=== PATIENT | female | born 1945 | race Caucasian/White ===

== ENCOUNTER → 2018-03-12 | Outpatient (CLI) | payer MEDICARE ==
--- NOTE | 2018-03-12 12:40 | MR ---
EXAMINATION TYPE: MR knee RT wo con DATE OF EXAM: 03/12/2018 COMPARISON: X-ray 02/23/2018 HISTORY: Right knee pain TECHNIQUE: Multiplanar, multisequence imaging of the right knee is performed without IV contrast. FINDINGS: MEDIAL MENISCUS: There is linear signal posterior horn medial meniscus with articular extension kaycee tible with a posterior horn meniscal tear. LATERAL MENISCUS: Intrasubstance signal seen in the anterior horn most of myxoid degeneration CRUCIATE LIGAMENTS: The anterior and posterior cruciate ligaments are intact and unremarkable. COLLATERAL LIGAMENTS: The medial collateral ligament and lateral collateral ligament complex are inta ct and unremarkable. EXTENSOR MECHANISM: Visualized quadriceps and patellar tendons are intact. EFFUSION: No significant suprapatellar joint effusion. POPLITEAL CYST: There is a 1 cm popliteal fossa cyst. TRICOMPARTMENT SPACES: Mild narrowing of the medial compartment of the knee joint. No erosive changes . There is loss of cartilage involving the medial articular surface of femur compatible with chondrom alacia. There is thinning of the medial patellar facet cartilage compatible with chondromalacia. BONE MARROW SIGNAL: Abnormal signal involving the patella likely reactive.. IMPRESSION: 1. Posterior horn medial meniscal tear. 2. 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 3. Small 1 x 1 cm popliteal fossa cyst
== END | disposition home or self-care (01) ==
LOC: RADMRIMAIN 11:42
PROVIDERS: ATTEND Orthopaedic Surgery
DX: S83.241A Other tear of medial meniscus, current injury, right knee, initial encounter (principal); M22.41 Chondromalacia patellae, right knee; M71.21 Synovial cyst of popliteal space [Baker], right knee

== ENCOUNTER 2018-07-12 09:41 | Day surgery (SDC) | payer MEDICARE ==
[2018-06-04 12:36] VITALS: BMI 28.9
--- NOTE | 2018-07-11 20:24 | HP ---
HISTORY AND PHYSICAL REASON FOR ADMISSION: Surgery scheduled for 07/12/2018 HISTORY OF PRESENT ILLNESS: Ines Briseno is a 72-year-old patient seen with progressive right knee pain. Treatment options were discussed. She elected to proceed with arthroscopy. Consent was obtained. PAST MEDICAL HISTORY: Insulin-dependent diabetes, hypertension, coronary artery disease, depression. PAST SURGICAL HISTORY: Appendectomy, cholecystectomy, hysterectomy. DAILY MEDICATIONS: Humalog insulin, Lipitor, losartan, Neurontin, Irving, Plavix, tramadol. ALLERGIES: FENTANYL. SOCIAL HISTORY: She denies tobacco use. PHYSICAL EXAMINATION: Evaluation of the right knee range of motion is 0 to 120 degrees. Tenderness along the medial and lateral joint lines. Positive medial Barber's. Positive lateral Barber's. Ligaments are stable. Hip rotation is without pain. Her distal neurovascular exam is intact. RADIOGRAPHS: Radiographs of the right knee revealed mild osteoarthritis and joint effusion. An MRI of the right knee revealed a medial meniscal tear. IMPRESSION: Internal derangement, right knee with medial meniscal tear. PLAN: Right knee arthroscopy with partial meniscectomy and debridement. Surgery scheduled for 07/12/2018. MMODL / IJN: [id number] /
[~2018-07-12 09:41] MED LIST: DEXAMETHASONE SOD PHOSPHATE 10 MG/ML 1 ML VIAL IV ONE; HYDROmorphone 0.5 MG/0.5 ML SYRINGE IVP PRN; LACTATED RINGERS 1,000 ML IV SCH; LIDOCAINE 1% 20 ML VIAL (10MG/ML) FOR IV START INTRADERMA PRN; ONDANSETRON 4 MG/2 ML VIAL IVP ONE; SCOPOLAMINE 1.5MG/72HR PATCH TRANSDERM ONE
[2018-07-12 10:34] LABS: Glucose,Whole Blood 97 mg/dL (75-99)
[2018-07-12] MEDS ORDERED: LIDOCAINE 1% INJ 10MG/ML (20 ML MDV) ONE (11:40)
[2018-07-12] MEDS ORDERED: MORPHINE SULFATE 10 MG/ML SYRINGE ONE (11:40)
[2018-07-12] MEDS ORDERED: PROPOFOL 10 MG/ML 20 ML VIAL IV ONE (11:40)
[2018-07-12] MEDS ORDERED: MIDAZOLAM 2 MG/2 ML VIAL ONE (11:40)
[2018-07-12] MEDS ORDERED: BUPIVACAIN-EPI 0.5%-1:200,000 30 ML VIAL INTRAARTIC ONE (11:45)
--- NOTE | 2018-07-12 12:41 | P.OP ---
Date of Procedure: 07/12/18 Preoperative Diagnosis: Internal derangement right knee Postoperative Diagnosis: 1. Tear medial meniscus right knee 2. Grade 3/4 chondromalacia medial femoral condyle right knee 3. Reactive synovitis medial, lateral and suprapatellar compartments right knee 4. Medial plica right knee Procedure(s) Performed: 1. Arthroscopic partial medial meniscectomy right knee 2. Arthroscopic chondroplasty medial femoral condyle right knee 3. Arthroscopic microfracture medial femoral condyle right knee 4. Arthroscopic partial synovectomy medial, lateral and suprapatellar compartments right knee 5. Arthroscopic resection medial plica right knee Anesthesia: TERRY, local Surgeon: Herve Bertrand Estimated Blood Loss (ml): 6 Pathology: none sent Condition: stable Disposition: PACU Indications for Procedure: 72-year-old patient seen with progressive right knee pain. After treatment options were discussed, she elected to proceed with arthroscopy. Operative Findings: See description of procedure Description of Procedure: Patient was taken to the operative suite. Patient underwent a general anesthetic by the department of anesthesia. Patient was given preoperative antibiotics. The right lower extremity was placed in a well-padded arthroscopic leg lemus. The right leg was prepped and draped in the normal sterile orthopedic fashion. A lateral parapatellar and suprapatellar incision was made. Trochars were inserted. Arthroscopy was initiated. Suprapatellar pouch revealed diffuse thick reactive synovitis. The patellofemoral joint appeared to articulate congruently. There was grade 1 chondromalacia. The scope was guided into the medial gutter. There was a medial plica that did seem to impinge along the medial femoral condyle with range of motion. The scope was then guided into the medial compartment. A medial parapatellar incision was made. Trocar inserted followed by probe. There was a radial tear posterior horn medial meniscus. There were grade 3/4 chondromalacia changes of the medial femoral condyle with some osteochondral tears present. There was thick reactive synovitis anteriorly. I performed a partial medial meniscectomy down to stable tissue. I performed a chondroplasty down to stable osteochondral tissue. I performed a partial synovectomy decompressing the reactive synovitis. There was good decompression of synovitis. The residual meniscus was stable. There was an area of exposed bone medial femoral condyle. I performed a microfracture to that area penetrating the bone with resultant bleeding at the microfracture site. The residual osteochondral surface appeared stable. Scope and probe were then guided into the intercondylar notch. Cruciates were identified, probed and found to be stable. The scope and probe were then guided into lateral compartment. The lateral meniscus was found to be stable. There was thick reactive synovitis anteriorly. There was no significant chondromalacia. I performed a partial synovectomy decompressing the reactive synovitis lateral compartment. There was good decompression of the synovitis. The scope was in guided back into the suprapatellar compartment. I introduced a motorized shaver into the super patellar compartment. I debrided some piecemeal fragments of meniscus I encountered. I resected that plica. I performed a partial synovectomy decompressing the reactive synovitis. There was good decompression of synovitis. There was complete resection of plica. There was no impingement with range of motion of the knee. I took one more look around the entire knee, no residual debris. Instruments were now removed from the joint. The joint was infiltrated with .25% Marcaine. Steri-Strips were applied to the portal sites. Sterile dressings were applied. The patient was placed into a SHALINI hose. No to urniquet was utilized. The patient was awakened, transferred to a bed and taken to recovery stable satisfactory condition.
[2018-07-12 12:46] VITALS: TEMP 97.3
[2018-07-12 12:49] LABS: Glucose,Whole Blood 103 mg/dL (75-99)
[2018-07-12] MEDS ORDERED: KETOROLAC 30 MG/ML 1 ML VIAL IVP ONE (13:20)
[2018-07-12 13:22] VITALS: PULSE 60
[2018-07-12] MEDS ORDERED: HYDROcodone/APAP 5-325MG 1 EACH TAB PO STA (13:50)
[2018-07-12 13:59] VITALS: RESP 18
[2018-07-12 14:31] VITALS: BP 142/70
== END 2018-07-12 14:51 | disposition home or self-care (01) ==
LOC: OR 09:41
PROVIDERS: ATTEND Orthopaedic Surgery
DX: M23.321 Other meniscus derangements, posterior horn of medial meniscus, right knee (principal); M65.861 Other synovitis and tenosynovitis, right lower leg; M67.51 Plica syndrome, right knee; M94.261 Chondromalacia, right knee; I25.10 Atherosclerotic heart disease of native coronary artery without angina pectoris; I10 Essential (primary) hypertension; E78.5 Hyperlipidemia, unspecified; E11.9 Type 2 diabetes mellitus without complications; M19.90 Unspecified osteoarthritis, unspecified site; F32.9 Major depressive disorder, single episode, unspecified; I69.951 Hemiplegia and hemiparesis following unspecified cerebrovascular disease affecting right dominant side; Z79.891 Long term (current) use of opiate analgesic; Z79.02 Long term (current) use of antithrombotics/antiplatelets; Z88.5 Allergy status to narcotic agent; Z79.82 Long term (current) use of aspirin; Z79.51 Long term (current) use of inhaled steroids; Z79.899 Other long term (current) drug therapy; Z79.4 Long term (current) use of insulin
CPT/HCPCS: 29881; 29879; 29876; J2250; J1100; J2270; J2405; J0690; J2001; J1885; J2704

== ENCOUNTER 2018-09-05 08:00 | Day surgery (SDC) | payer MEDICARE ==
[2018-08-31 08:49] VITALS: BMI 29.4
--- NOTE | 2018-09-04 14:17 | HP ---
HISTORY AND PHYSICAL DATE OF SURGERY: 09/05/2018 Ines Briseno is a 73-year-old patient seen with progressive right shoulder pain. After treatment options were discussed with her, she elected to proceed with arthroscopy. Consent was obtained. Medical clearance was provided by Dr. Lewis. PAST MEDICAL HISTORY: Insulin-dependent diabetes, hypertension, hyperlipidemia. PAST SURGICAL HISTORY: Appendectomy, cholecystectomy, hysterectomy. MEDICATIONS: 1. Humalog insulin. 2. Lipitor. 3. Losartan. 4. Neurontin. 5. Plavix. 6. Tramadol. ALLERGIES: FENTANYL. SOCIAL HISTORY: She denies current tobacco use. PHYSICAL EVALUATION OF THE RIGHT SHOULDER: Flexion is 80 degrees, abduction is 60 degrees. External rotation is 50 degrees with weakness. Tenderness along the anterolateral acromion rotator cuff insertion site. Impingement sign positive at 80 degrees, distal neurovascular exam is intact. RADIOGRAPHS OF THE SHOULDER: Revealed conversion to a flat anterior acromion. An MRI of the right shoulder revealed a partial rotator cuff tendon tear. IMPRESSION: Right shoulder impingement with rotator cuff tear. PLAN: Right shoulder arthroscopy with decompression, possible rotator cuff repair and debridement. MMODL / IJN: [id number] /
[~2018-09-05 08:00] MED LIST changes: -HYDROmorphone 0.5 MG/0.5 ML SYRINGE IVP PRN; -SCOPOLAMINE 1.5MG/72HR PATCH TRANSDERM ONE
[2018-09-05 08:39] LABS: Glucose,Whole Blood 125 mg/dL (75-99)
[2018-09-05] MEDS ORDERED: MIDAZOLAM (PF) 2 MG/2 ML VIAL IV ONE (08:45)
--- NOTE | 2018-09-05 09:01 | P.ANPRN ---
Procedure Note - Anesthesia - Nerve Block Performed Right Interscalene Time Out Performed: Yes (08:44) Date of Procedure: 09/05/18 Procedure Start Time: 08:45 Procedure Stop Time: 08:59 Location of Patient Procedure: PACU Indication: Acute Post-Operative Pain, Requested by physician (Dr Bertrand) Sedation Type: Sedate with meaningful contact maintained Preparation: Sterile Prep Position: Supine Catheter: None Needle Types: Pajunk Needle Gauge: Other (see comment) (22g) Technique: Ultrasound Injectate: 0.5% Ropivacaine (see comment for volume) (18cc Ropivacaine 0.5% Decadron 4mg) Blood Aspirated: No Pain Paresthesia on Injection Noted: No Resistance on Injection: Normal Events: Uneventful and Well Tolerated
[2018-09-05] MEDS ORDERED: PROPOFOL 10 MG/ML 20 ML VIAL IV ONE (09:54)
[2018-09-05] MEDS ORDERED: MIDAZOLAM 2 MG/2 ML VIAL ONE (09:54)
[2018-09-05] MEDS ORDERED: DEXAMETHASONE SOD PHOS (MDV) 100 MG/10 ML VIAL ONE (09:54)
[2018-09-05] MEDS ORDERED: LIDOCAINE 1% INJ 10MG/ML (20 ML MDV) ONE (09:54)
[2018-09-05] MEDS ORDERED: SUCCINYLCHOLINE CHLORIDE 100 MG/5 ML SYR IV ONE (09:54)
[2018-09-05] MEDS ORDERED: ROPIVACAINE 5 MG/ML 30 ML VIAL ONE (09:54)
[2018-09-05] MEDS ORDERED: LACTATED RINGERS 1,000 ML IV ONE (10:34)
[2018-09-05 11:28] VITALS: TEMP 97
--- NOTE | 2018-09-05 11:30 | P.OP ---
Date of Procedure: 09/05/18 Preoperative Diagnosis: Right shoulder impingement Postoperative Diagnosis: 1. Right shoulder rotator cuff tear 2. Right shoulder impingement 3. Right shoulder partial long head biceps tendon tear 4. Right shoulder superficial labral tear Procedure(s) Performed: 1. Right shoulder arthroscopic rotator cuff repair 2. Right shoulder arthroscopic subacromial decompression 3. Right shoulder arthroscopic biceps tenotomy 4. Right shoulder arthroscopic debridement labral tear Implants: 1Arthrex swivel lock anchor Anesthesia: GETA, regional (Interscalene block) Surgeon: Herve Bertrand Principal Hardware Architect #1: Dashawn Cobos Estimated Blood Loss (ml): 8 Pathology: none sent Condition: stable Disposition: PACU Indications for Procedure: 73-year-old patient seen with progressive right shoulder pain. After treatment options were discussed, she elected to proceed with arthroscopy. Operative Findings: see description of procedure Description of Procedure: Patient underwent an interscalene block by department of anesthesia for postoperative management. The patient was then taken to the operative suite. The patient underwent a general anesthetic by the department of anesthesia. The patient was placed into a lateral position and secured. There was appropriate padding of the bony prominence. Right shoulder was then prepped and draped in normal sterile orthopedic fashion. We placed the extremity in 10 pounds of longitudinal traction. A posterior incision was now made for a posterior working portal site. The trocar and cannula were inserted into the glenohumeral joint. Arthroscopy was initiated. Spinal needle was now inserted anteriorly, to ascertain the anterior working portal site. An incision was now made in that area, a trocar was inserted followed by a probe. There was superficial tearing of the superior labrum. There was partial tearing long head biceps tendon with hyperemia. There were grade 2 chondromalacia changes of the humeral head. I performed an arthroscopic biceps tenotomy. I debrided the superficial labral tear down to stable labral tissue. Residual labrum was stable. Instruments now removed from glenohumeral joint. Utilizing the posterior working portal site, the trocar and cannula were inserted into the subacromial space. Arthroscopy initiated. I made an incision 2 fingerbreadths lateral to the acromion. I introduced my trocar followed by my ArthroCare ablator. I now began ablating thick subacromial bursal tissue, which exposed the undersurface of the anterior acromion. There was an os acromiale laterally as well as a small residual spur along the anterior lateral undersurface of the acromion. A motorized bur was used to perform subacromial decompression as well as excising that os acromiale. We had good decompression subacromial space. I noted a full-thickness tear along the distal supraspinatus area. I debrided the margins getting down to stable tendon tissue. I abraded the footprint with a motorized bur. With the assistance of Cooper BARRERA I passed 2 everted mattress suture through good bites of rotator cuff tendon. I now punched the hole at the footprint area for insertion of her anchor. The suture limbs were passed through a Arthrex swivel lock anchor eyelet and that was introduced in the pre-punch hole. I held the eyelet in position while daysi branch tension the sutures and introduced her anchor compressing the tendon along the footprint very nicely. All residual suture limbs were now clipped. We had good compression of the tendon along the entire footprint. I injected 1 mL Renue intra-articular. Instruments now removed from the portal sites. All portal sites were approximated with nylon suture. Sterile dressings were applied followed by a shoulder sling. Dashawn BARRERA assisted in this case. The patient was awakened, transferred to a bed, and taken to recovery in stable condition.
[2018-09-05 11:50] VITALS: RESP 16
[2018-09-05 12:00] LABS: Glucose,Whole Blood 178 mg/dL (75-99)
[2018-09-05 13:02] VITALS: BP 183/64; PULSE 54
== END 2018-09-05 13:25 | disposition home or self-care (01) ==
LOC: OR 08:00
PROVIDERS: ATTEND Orthopaedic Surgery
DX: M75.101 Unspecified rotator cuff tear or rupture of right shoulder, not specified as traumatic (principal); M75.41 Impingement syndrome of right shoulder; S46.111A Strain of muscle, fascia and tendon of long head of biceps, right arm, initial encounter; S43.431A Superior glenoid labrum lesion of right shoulder, initial encounter; X58.XXXA Exposure to other specified factors, initial encounter; M94.211 Chondromalacia, right shoulder; I25.10 Atherosclerotic heart disease of native coronary artery without angina pectoris; I10 Essential (primary) hypertension; E10.42 Type 1 diabetes mellitus with diabetic polyneuropathy; E78.5 Hyperlipidemia, unspecified; K27.9 Peptic ulcer, site unspecified, unspecified as acute or chronic, without hemorrhage or perforation; I25.2 Old myocardial infarction; I69.351 Hemiplegia and hemiparesis following cerebral infarction affecting right dominant side; Z90.710 Acquired absence of both cervix and uterus; Z90.49 Acquired absence of other specified parts of digestive tract; Z97.2 Presence of dental prosthetic device (complete) (partial); Z79.82 Long term (current) use of aspirin; Z79.02 Long term (current) use of antithrombotics/antiplatelets; Z79.4 Long term (current) use of insulin; Z79.891 Long term (current) use of opiate analgesic; Z79.899 Other long term (current) drug therapy; Z88.5 Allergy status to narcotic agent; Z79.51 Long term (current) use of inhaled steroids
CPT/HCPCS: 64415; 29826; 29827; C1713; C1765; J2250 ×2; J1100 ×2; J2405; J0690; J2001; J2795; J0330; J2704

== ENCOUNTER 2019-01-23 05:44 | Day surgery (SDC) | payer MEDICARE ==
[2019-01-21 10:07] VITALS: BMI 29.2
--- NOTE | 2019-01-22 14:40 | HP ---
HISTORY AND PHYSICAL DATE OF SURGERY: 01/23/2019 Iens Briseno is a 73-year-old patient seen with progressive left shoulder pain. We discussed options for treatment. She elected to proceed with arthroscopy. Consent was obtained. Medical clearance was provided by Dr. Kaylin Lewis. PAST MEDICAL HISTORY: Hypertension, hyperlipidemia, insulin-dependent diabetes. PAST SURGICAL HISTORY: Appendectomy, cholecystectomy, colonoscopy, hysterectomy, right shoulder arthroscopy. DAILY MEDICATIONS: 1. Aspirin. 2. Humalog. 3. Insulin. 4. Lipitor. 5. Losartan. 6. Neurontin. 7. Plavix. 8. Tramadol. ALLERGIES: FENTANYL. SOCIAL HISTORY: She denies tobacco use. PHYSICAL EVALUATION OF THE LEFT SHOULDER: Flexion 120, abduction 90, external rotation 50 with pain and weakness. Tenderness along the anterolateral acromion rotator cuff insertion site. Impingement sign is positive at 90 degrees. Distal neurovascular exam is intact. LEFT SHOULDER RADIOGRAPHS: Revealed a type 2 anterior acromion. Left shoulder MRI revealed rotator cuff tear, biceps tear, labral tear. IMPRESSION: 1. Left shoulder impingement with rotator cuff tear, biceps tendon tear and labral tear. 2. Insulin-dependent diabetes. 3. Hypertension. 4. Hyperlipidemia. PLAN: Left shoulder arthroscopy with subacromial decompression, probable arthroscopic rotator cuff repair, probable arthroscopic biceps tenotomy and debridement. MMODL / IJN: [id number] /
[2019-01-23] MEDS ORDERED: DEXAMETHASONE SOD PHOSPHATE 10 MG/ML 1 ML VIAL IV ONE (05:54)
[2019-01-23] MEDS ORDERED: LIDOCAINE 1% 20 ML VIAL (10MG/ML) FOR IV START INTRADERMA PRN (05:54)
[2019-01-23] MEDS ORDERED: ONDANSETRON 4 MG/2 ML VIAL IVP ONE (05:54)
[2019-01-23] MEDS ORDERED: LACTATED RINGERS 1,000 ML IV SCH (05:54)
[2019-01-23] MEDS ORDERED: HYDROmorphone 0.5 MG/0.5 ML SYRINGE IVP PRN (05:54)
[2019-01-23] MEDS ORDERED: SCOPOLAMINE 1.5MG/72HR PATCH TRANSDERM ONE (05:54)
[2019-01-23 06:38] LABS: Glucose,Whole Blood 51 mg/dL (75-99)
[2019-01-23] MEDS ORDERED: DEXTROSE 50% SYRINGE 50 ML IVP ONE ×2 (06:50→09:05)
[2019-01-23] MEDS ORDERED: MIDAZOLAM 2 MG/2 ML VIAL IV ONE (07:04)
[2019-01-23 07:20] LABS: Glucose,Whole Blood 103 mg/dL (75-99)
--- NOTE | 2019-01-23 07:22 | P.ANPRN ---
Procedure Note - Anesthesia - Nerve Block Performed Left Interscalene Date of Procedure: 01/23/19 Procedure Start Time: 07:04 Procedure Stop Time: 07:18 Location of Patient Procedure: PreOp Indication: Acute Post-Operative Pain, Requested by Surgeon (Dr Bertrand) Sedation Type: Sedate with meaningful contact maintained Preparation: Sterile Prep Position: Supine Catheter: None Needle Types: Pajunk Needle Gauge: Other (see comment) (22g pajunk) Ultrasound used to visualize needle placement: Yes Ultrasound used to observe medication spread: Yes Injectate: 0.5% Ropivacaine (see comment for volume) (20cc) Blood Aspirated: No Pain Paresthesia on Injection Noted: No Resistance on Injection: Normal Image Stored and Saved: Yes Events: Uneventful and Well Tolerated
[2019-01-23] MEDS ORDERED: LIDOCAINE 1% INJ 10MG/ML (20 ML MDV) ONE (07:30)
[2019-01-23] MEDS ORDERED: ePHEDrine SULFATE/0.9% NACL/PF 50 MG/5 ML SYRINGE IV ONE (07:30)
[2019-01-23] MEDS ORDERED: SUCCINYLCHOLINE CHLORIDE 100 MG/5 ML SYR IV ONE (07:30)
[2019-01-23] MEDS ORDERED: PROPOFOL 10 MG/ML 20 ML VIAL IV ONE (07:30)
[2019-01-23] MEDS ORDERED: ROPIVACAINE 5 MG/ML 30 ML VIAL ONE (07:30)
[2019-01-23 08:53] LABS: Glucose,Whole Blood 71 mg/dL (75-99)
--- NOTE | 2019-01-23 09:01 | P.OP ---
Date of Procedure: 01/23/19 Preoperative Diagnosis: Left shoulder impingement Postoperative Diagnosis: 1. Left shoulder rotator cuff tear 2. Left shoulder impingement 3. Left shoulder acromioclavicular joint osteoarthritis 4. Left shoulder partial long head biceps tendon tear 5. Left shoulder superficial labral tear Procedure(s) Performed: 1. Left shoulder arthroscopic rotator cuff repair 2. Left shoulder arthroscopic subacromial decompression 3. Left shoulder arthroscopic Ajay procedure 4. Left shoulder arthroscopic biceps tenotomy 5. Left shoulder arthroscopic debridement labral tear Implants: 15.5 Arthrex swivel lock anchor Anesthesia: GETA, regional (Interscalene block) Surgeon: Herve Bertrand Plastic Mixer #1: Dashawn Cobos Estimated Blood Loss (ml): 7 Pathology: none sent Condition: stable Disposition: PACU Indications for Procedure: 73-year-old patient seen with progressive left shoulder pain. After treatment options were discussed, she elected to proceed with arthroscopy. Operative Findings: See description of procedure Description of Procedure: Patient underwent an interscalene block by department of anesthesia for postoperative pain management. The patient was then taken to the operative suite. The patient underwent a general anesthetic by the department of anesthesia. The patient was placed into a lateral position and secured. There was appropriate padding of the bony prominence. Left shoulder was then prepped and draped in normal sterile orthopedic fashion. We placed the extremity in 10 pounds of longitudinal traction. A posterior incision was now made for a posterior working portal site. The trocar and cannula were inserted into the glenohumeral joint. Arthroscopy was initiated. Spinal needle was now inserted anteriorly, to ascertain the anterior working portal site. An incision was now made in that area, a trocar was inserted followed by a probe. There was hyperemia partial tearing of the long head biceps tendon. I could visualize rotator cuff tear from glenohumeral side. There was superficial tearing of the superior and anterior labrum. There were grade 1 chondromalacia changes of the glenohumeral joint. The posterior and inferior labrum were intact. I performed an arthroscopic biceps tenotomy. I debrided the superficial labral tears getting down to stable labral tissue. The residual labrum was probed and found to be stable. Instruments were now removed from glenohumeral joint. Utilizing the posterior working portal site, the trocar and cannula were inserted into the subacromial space. Arthroscopy initiated. I made an incision 2 fingerbreadths lateral to the acromion. I introduced my trocar followed by my ArthroCare ablator. I now began ablating thick subacromial bursal tissue, which exposed the undersurface of the anterior acromion. There was diminished subacromial space. There was a very prominent anterior acromion. A motorized bur was introduced and a subacromial decompression was performed. I also excised some osteophytes off the inferior aspect of the distal clavicle. The AC joint was visualized and noted to be fairly arthritic. The motorized bur was introduced in the anterior portal site and a Ajay procedure was performed without difficulty, decompressing the AC joint nicely. I turned my attention to the rotator cuff. There was a 1 cm rotator cuff tear. I debrided the margins getting down to stable tendon tissue. The defect measured approximately 1.5 cm at this point. I abraded the footprint with a motorized bur. I now passed 2 everted mattress sutures through good bites of rotator cuff tendon with assistance jese BARRERA. I now partial hole for insertion of her anchor into the area of the footprint. We now passed all 4 limbs of suture through the eyelet of a 5.5 Arthrex swivel lock anchor. The eyelet was now placed into a pre-punch hole. I held the Island position while Cooper BARRERA tensioned all the sutures and deployed the anchor with good purchase noted. All residual suture limbs were now clipped. We had good compression of the tendon along the entire footprint. I injected 1 mL Renyte intra-articular. Instruments now removed from the portal sites. All portal sites were approximated with nylon suture. Sterile dressings were applied followed by a shoulder sling. Dashawn BARRERA assisted in this complex case. The patient was awakened, transferred to a bed, and taken to recovery in stable condition.
[2019-01-23 09:04] VITALS: TEMP 97.4
[2019-01-23 09:15] LABS: Glucose,Whole Blood 154 mg/dL (75-99)
[2019-01-23 09:47] VITALS: PULSE 69; RESP 18
[2019-01-23 10:21] VITALS: BP 147/78
--- NOTE | 2019-01-29 12:56 | CDI ---
Date: 01.29.19 CDS/Supervisor Telephone Information Name: Deysi Dillon Phone: If any questions, call Dianna [facility] Treater at [phone] Patient Name: Ines Briseno Admit date: 01.23.19 Discharge Date: 01.23.19 Attention: The [facility] Coding Staff appreciate your assistance in clarifying documentation. Please respond to the clarification below the line at the bottom and electronically sign. The [facility] coding staff will review the response and follow up if needed. Please note: Queries are made part of the legal health record. If you have any questions, please contact the manager transport. Dear Dr. Bertrand, Could you please specify left or right sided weakness. 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 On the Anesthesia record it conflicts as it states right. Thank you for your kind consideration I am unaware of any residual weakness secondary to CVA in this patient MTDD
== END 2019-01-23 10:50 | disposition home or self-care (01) ==
LOC: OR 05:44
PROVIDERS: ATTEND Orthopaedic Surgery
DX: M75.112 Incomplete rotator cuff tear or rupture of left shoulder, not specified as traumatic (principal); M75.42 Impingement syndrome of left shoulder; M19.012 Primary osteoarthritis, left shoulder; S46.112A Strain of muscle, fascia and tendon of long head of biceps, left arm, initial encounter; S43.432A Superior glenoid labrum lesion of left shoulder, initial encounter; M94.212 Chondromalacia, left shoulder; M25.712 Osteophyte, left shoulder; E11.42 Type 2 diabetes mellitus with diabetic polyneuropathy; I10 Essential (primary) hypertension; E78.5 Hyperlipidemia, unspecified; J45.909 Unspecified asthma, uncomplicated; I25.10 Atherosclerotic heart disease of native coronary artery without angina pectoris; I69.398 Other sequelae of cerebral infarction; H54.7 Unspecified visual loss; E66.9 Obesity, unspecified; Z68.29 Body mass index [BMI] 29.0-29.9, adult; G43.909 Migraine, unspecified, not intractable, without status migrainosus; K44.9 Diaphragmatic hernia without obstruction or gangrene; K21.9 Gastro-esophageal reflux disease without esophagitis; R10.812 Left upper quadrant abdominal tenderness; R10.813 Right lower quadrant abdominal tenderness; Z88.5 Allergy status to narcotic agent; Z79.82 Long term (current) use of aspirin; Z79.4 Long term (current) use of insulin; Z79.899 Other long term (current) drug therapy; Z79.02 Long term (current) use of antithrombotics/antiplatelets; Z79.891 Long term (current) use of opiate analgesic; Z79.51 Long term (current) use of inhaled steroids; Z96.41 Presence of insulin pump (external) (internal); Z87.19 Personal history of other diseases of the digestive system; Z87.442 Personal history of urinary calculi; Z87.59 Personal history of other complications of pregnancy, childbirth and the puerperium; Z90.49 Acquired absence of other specified parts of digestive tract; Z90.710 Acquired absence of both cervix and uterus; Z98.890 Other specified postprocedural states; Z97.2 Presence of dental prosthetic device (complete) (partial); Z84.89 Family history of other specified conditions; Z82.49 Family history of ischemic heart disease and other diseases of the circulatory system; Z83.3 Family history of diabetes mellitus; Z84.1 Family history of disorders of kidney and ureter; Z83.438 Family history of other disorder of lipoprotein metabolism and other lipidemia; Z82.61 Family history of arthritis; Z80.8 Family history of malignant neoplasm of other organs or systems; Z82.69 Family history of other diseases of the musculoskeletal system and connective tissue; X58.XXXA Exposure to other specified factors, initial encounter
CPT/HCPCS: 29827; 29826; 29824; 01922; 64415; 76942; 84132; C1713; Q4212; J2250; J1100; J2405; J0690; J2001; J2795; J0330; J2704

== ENCOUNTER → 2019-03-11 | Outpatient (CLI) | payer MEDICARE ==
--- NOTE | 2019-03-11 12:06 | XR ---
EXAMINATION TYPE: XR KUB DATE OF EXAM: 03/11/2019 11:50 AM CLINICAL HISTORY: History of nephrolithiasis. Follow-up exam. TECHNIQUE: Single supine KUB image of the abdomen is obtained. COMPARISON: X-ray dated 11/18/2009. FINDINGS: There are two 1-2 mm calculi overlying the right psoas shadow at the level of L4. These are lateral to the expected course of the ureter and may represent phleboliths. No calculi overlie the r enal shadows. Phleboliths are seen within the pelvis. The 2 above-mentioned calculi on the right are not seen on the exam of 2009. Extensive atherosclerosis of the branch vessels of the aorta in the pel vis. Cholecystectomy clips are seen. Osseous structures are intact. IMPRESSION: 1. There are punctate calculi overlying the right psoas shadow bladder lateral to the expected locati on of the right ureter. These likely relate to phleboliths although if there is an ectatic course of the right ureter punctate ureteral calculi are possible. 2. No additional calculi are seen overlying the renal shadows radiographically.
== END | disposition home or self-care (01) ==
LOC: RADXRMAIN 11:30
PROVIDERS: ATTEND Urology
DX: R93.5 Abnormal findings on diagnostic imaging of other abdominal regions, including retroperitoneum (principal)
CPT/HCPCS: 74018

== ENCOUNTER → 2019-03-28 | Outpatient (CLI) | payer MEDICARE ==
--- NOTE | 2019-03-28 14:35 | CT ---
EXAMINATION TYPE: CT abdomen pelvis wo con DATE OF EXAM: 03/28/2019 COMPARISON: 05/01/2012 HISTORY: 73-year-old female Renal colic. CT DLP: 403.4 mGycm. Automated exposure control for dose reduction was used. TECHNIQUE: Contiguous axial scanning of the abdomen and pelvis without IV contrast. Coronal and sagit anayeli reconstructions performed. FINDINGS: Heart normal size without pericardial effusion. Some mild strandy atelectasis and scarring in the low er lungs without pleural effusion. Noncontrast appearance of the liver, adrenal glands, kidneys, spleen with hilar splenule, and pancrea s shows no gross abnormality. Specifically, no nephrolithiasis or hydronephrosis. Cholecystectomy clips. Retroaortic left renal vein. Mild atherosclerotic calcifications abdominal aorta without aneurysm. No dilated small bowel, free fluid, or free air. The appendix is not clearly seen. No secondary findi ngs of acute appendicitis in the right lower quadrant. Scattered mild stool. Redundant sigmoid colon. Mild distal sigmoid diverticulosis without pericolonic inflammatory change. Bladder partially distended. There is bulging laxity of the levator ani musculature. Uterus surgicall y absent. Multiple pelvic phleboliths. Neither ovary clearly identified. Bones: Mild degenerative changes of the hips and SI joints. Facet arthropathy mid to lower lumbar spi ne with grade 1 anterolisthesis at L4-L5. Mild multilevel degenerative disc disease. IMPRESSION: 1. No nephrolithiasis or hydronephrosis. 2. Redundant sigmoid colon with mild distal sigmoid diverticulosis. No acute diverticulitis. 3. Pelvic floor relaxation.
== END | disposition home or self-care (01) ==
LOC: RADCTMAIN 13:32
PROVIDERS: ATTEND Urology
DX: K57.30 Diverticulosis of large intestine without perforation or abscess without bleeding (principal); K63.89 Other specified diseases of intestine; N81.89 Other female genital prolapse; Z88.8 Allergy status to other drugs, medicaments and biological substances
CPT/HCPCS: 74176

== ENCOUNTER → 2019-12-04 | Outpatient (CLI) | payer MEDICARE ==
--- NOTE | 2019-12-04 08:18 | CT ---
EXAMINATION TYPE: CT cervical spine wo con DATE OF EXAM: 12/04/2019 COMPARISON: X-ray 11/27/2019 HISTORY: Cervicalgia CT DLP: 422.8 mGycm Automated exposure control for dose reduction was used. TECHNIQUE: CT scan of the cervical spine is obtained without contrast, axial images are obtained, sa gittal and coronal reformatted images are also reviewed. FINDINGS: Assessment spinal canal limited due to resolution artifact. Odontoid intact. Prevertebral soft tissue structures are within normal limits. There is a minimal ant erolisthesis of C4 relative to C5. There is multilevel moderate to severe facet arthropathy and moder ate degenerative disc disease. Uncovertebral joint hypertrophy is seen at multiple levels with multilevel foraminal encroachment wit h bilateral encroachment at C3-4 and left-sided encroachment at C2-3. Mild bilateral encroachment gre ater on the left at C4-C5. Mild bilateral encroachment at C5-C6. Assessment for disc herniation limit ed due to artifact. Recommend follow-up MRI. Could not exclude a disc protrusion at C5-C6 or C6-C7 IMPRESSION: 1. Multilevel moderate degenerative disc disease and facet arthropathy with multilevel mild foraminal encroachment. Recommend follow-up MRI to exclude disc herniation involving the lower cervical spine.
--- NOTE | 2019-12-04 08:24 | CT ---
EXAMINATION TYPE: CT thoracic spine wo con DATE OF EXAM: 12/04/2019 COMPARISON: None HISTORY: Thoracic spine pain CT DLP: 1127.5 mGycm Automated exposure control for dose reduction was used. FINDINGS: Alignment is anatomic. There is multilevel moderate to severe degenerative disc disease and hypertrop hic spurring. No compression deformities. Assessment spinal canal limited due to resolution and artif act. Multilevel foraminal encroachment suspected. Posterior central disc spurring seen at multiple le vels with mild effacement of thecal sac. Suspect a disc protrusion or herniation at the approximate level of T9-T10. IMPRESSION: MULTILEVEL MODERATE TO SEVERE DEGENERATIVE DISC DISEASE. SUSPECTED DISC PROTRUSION OR HERNIATION AT T 9-T10 CENTRALLY RECOMMEND MRI OF THE THORACIC SPINE.
== END | disposition home or self-care (01) ==
LOC: RADCTMAIN 06:45
PROVIDERS: ATTEND Orthopaedic Surgery
DX: M50.321 Other cervical disc degeneration at C4-C5 level (principal); M47.22 Other spondylosis with radiculopathy, cervical region; M50.221 Other cervical disc displacement at C4-C5 level; M51.34 Other intervertebral disc degeneration, thoracic region
CPT/HCPCS: 72125; 72128

== ENCOUNTER 2019-12-05 07:08 | Day surgery (SDC) | payer MEDICARE ==
[2019-11-29 10:51] VITALS: BMI 27.4
--- NOTE | 2019-12-04 16:44 | HP ---
HISTORY AND PHYSICAL DATE OF SURGERY: Is 12/05/2019 Ines Briseno is a 74-year-old patient seen with progressive left shoulder pain. We discussed options, she elected to proceed with arthroscopy. Consent was obtained. Medical clearance was provided. PAST MEDICAL HISTORY: Hypertension, insulin-dependent diabetes, hyperlipidemia, GERD. PAST SURGICAL HISTORY: Appendectomy, cholecystectomy, shoulder arthroscopy. DAILY MEDICATIONS: Humalog insulin, aspirin, Lipitor, losartan, Plavix, tramadol, Neurontin, Spencer. ALLERGIES: FENTANYL. SOCIAL HISTORY: She denies tobacco use. PHYSICAL EVALUATION OF THE LEFT SHOULDER: Flexion is 100, abduction 70, external rotation 30. Pain and weakness. Tenderness along the anterolateral acromion rotator cuff insertion site. Positive impingement sign at 70 degrees. Drop-arm sign positive. Distal neurovascular exam intact. . LEFT SHOULDER RADIOGRAPHS: Revealed a flat anterior acromion. Left shoulder MRI revealed rotator cuff tendon tear along with acromioclavicular joint osteoarthritis. IMPRESSION: 1. Left shoulder impingement with rotator cuff tear. 2. Left shoulder acromioclavicular joint osteoarthritis. 3. Hypertension. 4. Hyperlipidemia. 5. Insulin-dependent diabetes. PLAN: Left shoulder arthroscopy, subacromial decompression, arthroscopic rotator cuff repair and debridement. MMODL / IJN: [id number] /
[~2019-12-05 07:08] MED LIST changes: +HYDROmorphone 0.5 MG/0.5 ML SYRINGE IVP PRN; -LIDOCAINE 1% 20 ML VIAL (10MG/ML) FOR IV START INTRADERMA PRN; +MIDAZOLAM 2 MG/2 ML VIAL IV PRN
[2019-12-05 07:42] VITALS: TEMP 97
[2019-12-05] MEDS ORDERED: LIDOCAINE 1% (10MG/ML) FOR IV START INTRADERMA ONE (07:55)
[2019-12-05 08:12] LABS: Glucose,Whole Blood 139 mg/dL (75-99)
--- NOTE | 2019-12-05 08:32 | P.ANPRN ---
Procedure Note - Anesthesia - Nerve Block Performed Left Interscalene Single Time Out Performed: Yes Date of Procedure: 12/05/19 Procedure Start Time: :16 Procedure Stop Time: :21 Location of Patient: PreOp Indication: Acute Post-Operative Pain, Dx/Pain Location (Left Shoulder Pain), Requested by Surgeon Specifically requested for management of pain by DrNoelle: Herve Bertrand Sedation Type: Sedate with meaningful contact maintained Preparation: Sterile Prep Position: Supine Catheter: None Needle Types: Facet Needle Gauge: 20 Ultrasound used to visualize needle placement: Yes Ultrasound used to observe medication spread: Yes Injectate: 0.5% Ropivacaine (see comment for volume) (30 mls) Blood Aspirated: No Pain Paresthesia on Injection Noted: No Resistance on Injection: Normal Image Stored and Saved: Yes Events: Uneventful and Well Tolerated
[2019-12-05] MEDS ORDERED: ROPIVACAINE 5 MG/ML 30 ML VIAL ONE (08:55)
[2019-12-05] MEDS ORDERED: MIDAZOLAM 2 MG/2 ML VIAL ONE (08:55)
[2019-12-05] MEDS ORDERED: LIDOCAINE 1% INJ 10MG/ML (20 ML MDV) ONE (08:55)
[2019-12-05] MEDS ORDERED: ePHEDrine SULFATE/0.9% NACL/PF 50 MG/5 ML SYRINGE IV ONE (08:55)
[2019-12-05] MEDS ORDERED: PROPOFOL 10 MG/ML 20 ML VIAL IV ONE (08:55)
[2019-12-05] MEDS ORDERED: SUCCINYLCHOLINE CHLORIDE 100 MG/5 ML SYR IV ONE (08:55)
[2019-12-05] MEDS ORDERED: HYDROmorphone (PF) 1 MG/ML ONE (08:55)
--- NOTE | 2019-12-05 10:18 | P.OP ---
Date of Procedure: 12/05/19 Preoperative Diagnosis: Left shoulder impingement Postoperative Diagnosis: 1. Left shoulder rotator cuff tear 2. Left shoulder impingement Procedure(s) Performed: 1. Left shoulder arthroscopic rotator cuff repair 2. Left shoulder arthroscopic subacromial decompression Implants: 14.75 Arthrex swivel lock anchor Anesthesia: GETA, regional (Interscalene block) Surgeon: Herve Bertrand Litigation Secretary #1: Dashawn Cobos Estimated Blood Loss (ml): 8 Pathology: none sent Condition: stable Disposition: PACU Indications for Procedure: 74-year-old patient seen with progressive left shoulder pain. After treatment options were discussed, she elected to proceed with arthroscopy. Operative Findings: See description of procedure Description of Procedure: Patient underwent an interscalene block by department of anesthesia. The patient was then taken to the operative suite. The patient underwent a general anesthetic by the department of anesthesia. The patient was placed into a lateral position and secured. There was appropriate padding of the bony prominence. Left shoulder was then prepped and draped in normal sterile orthopedic fashion. We placed the extremity in 10 pounds of longitudinal traction. A posterior incision was now made for a posterior working portal site. The trocar and cannula were inserted into the glenohumeral joint. Arthroscopy was initiated. Spinal needle was now inserted anteriorly, to ascertain the anterior working portal site. An incision was now made in that area, a trocar was inserted followed by a probe. The long head biceps tendon was absent. There were grade 1/2 chondromalacia changes with no osteochondral tears present. There was some mild fraying along the anterior labrum. I introduced a motorized shaver and debrided the area of fraying involving the anterior labrum. The shaver was removed. The residual labrum was again probed and found to be stable. Instruments were now removed from glenohumeral joint. Utilizing the posterior working portal site, the trocar and cannula were inserted into the subacromial space. Arthroscopy initiated. I made an incision 2 fingerbreadths lateral to the acromion. I introduced my trocar followed by my ArthroCare ablator. I now began ablating thick subacromial bursal tissue, which exposed the undersurface of the anterior acromion. There was a small residual spur anteriorly. I introduced a motorized bur and performed a decompression. There was good decompression noted. The acromioclavicular joint was visualized and noted to be stable with no significant osteoarthritis. I now turned my attention to the rotator cuff tendon. There was an obvious full-thickness tear along the posterior aspect of the distal supraspinatus measuring 1.5 cm. I debrided the margins getting down to stable tendon tissue. It was freely mobile over the footprint. I abraded the footprint with a motorized bur. I passed 2 everted mattress sutures through good bites of rotator cuff tendon. I punched a hole in the area the footprint for insertion of an anchor. I passed all 4 limbs of suture through the eyelet of a 4.75 Arthrex swivel lock anchor. I now placed the eyelet into the pre-punched hole and held in position while Cooper BARRERA tensioned all 4 sutures and deployed the anchor. There was good fixation of the anchor. All residual suture limbs were now clipped. We had good compression of the tendon along the entire footprint. I injected 1 mL Renyte intra-articular. Instruments now removed from the portal sites. All portal sites were approximated with nylon suture. Sterile dressings were applied followed by a shoulder immobilizer. Dashawn BARRERA assisted in this case. The patient was awakened, transferred to a bed, and taken to recovery in stable condition.
[2019-12-05 11:00] LABS: Glucose,Whole Blood 195 mg/dL (75-99)
[2019-12-05 11:15] VITALS: RESP 18
[2019-12-05 11:36] VITALS: PULSE 77
[2019-12-05 12:11] VITALS: BP 153/74
== END 2019-12-05 12:11 | disposition home or self-care (01) ==
LOC: OR 07:08
PROVIDERS: ATTEND Orthopaedic Surgery
DX: M75.102 Unspecified rotator cuff tear or rupture of left shoulder, not specified as traumatic (principal); M75.42 Impingement syndrome of left shoulder; M94.212 Chondromalacia, left shoulder; M19.012 Primary osteoarthritis, left shoulder; I25.10 Atherosclerotic heart disease of native coronary artery without angina pectoris; I10 Essential (primary) hypertension; E11.42 Type 2 diabetes mellitus with diabetic polyneuropathy; E78.5 Hyperlipidemia, unspecified; K21.9 Gastro-esophageal reflux disease without esophagitis; K44.9 Diaphragmatic hernia without obstruction or gangrene; Z90.49 Acquired absence of other specified parts of digestive tract; Z97.2 Presence of dental prosthetic device (complete) (partial); Z98.890 Other specified postprocedural states; G43.909 Migraine, unspecified, not intractable, without status migrainosus; Z87.19 Personal history of other diseases of the digestive system; Z87.01 Personal history of pneumonia (recurrent); Z86.73 Personal history of transient ischemic attack (TIA), and cerebral infarction without residual deficits; Z79.02 Long term (current) use of antithrombotics/antiplatelets; Z79.82 Long term (current) use of aspirin; Z79.4 Long term (current) use of insulin; Z79.51 Long term (current) use of inhaled steroids; Z79.891 Long term (current) use of opiate analgesic; Z79.899 Other long term (current) drug therapy; Z88.4 Allergy status to anesthetic agent
CPT/HCPCS: 64415; 76942; 29826; 29827; C1713; Q4212; J2250; J1100; J0690; J2405; J2001; J1170; J2795; J0330; J2704

== ENCOUNTER → 2020-01-18 | Outpatient (CLI) | payer MEDICARE ==
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
== END | disposition home or self-care (01) ==
LOC: RADMRIMAIN 10:32
PROVIDERS: ATTEND Orthopaedic Surgery
DX: M48.02 Spinal stenosis, cervical region (principal); M50.222 Other cervical disc displacement at C5-C6 level
CPT/HCPCS: 72141

== ENCOUNTER → 2020-03-02 | Outpatient (CLI) | payer MEDICARE | END | disposition home or self-care (01) | LOC: LABPAT 12:43 | PROVIDERS: ATTEND Orthopaedic Surgery | DX: Z01.812 Encounter for preprocedural laboratory examination (principal) | CPT/HCPCS: 87070 ==

== ENCOUNTER → 2020-04-01 | Outpatient (CLI) | payer MEDICARE | END | disposition home or self-care (01) | LOC: LABPAT 11:09 | PROVIDERS: ATTEND Orthopaedic Surgery | DX: Z01.818 Encounter for other preprocedural examination (principal); M47.22 Other spondylosis with radiculopathy, cervical region; M48.02 Spinal stenosis, cervical region; M43.12 Spondylolisthesis, cervical region | CPT/HCPCS: 36415; 86850; 86900; 86901 ==

== ENCOUNTER 2020-04-07 06:04 | Inpatient (IN) | payer MEDICARE ==
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
[~2020-04-07 06:04] MED LIST changes: -DEXAMETHASONE SOD PHOSPHATE 10 MG/ML 1 ML VIAL IV ONE; +DEXAMETHASONE SOD PHOSPHATE 4 MG/ML 1 ML VIAL IV ONE; -HYDROmorphone 0.5 MG/0.5 ML SYRINGE IVP PRN; -LACTATED RINGERS 1,000 ML IV SCH; +LIDOCAINE 1% (10MG/ML) FOR IV START INTRADERMA PRN; +TRANEXAMIC ACID 1,000 MG in SODIUM CHLORIDE 0.9% 100 ML IVPB PRN
[2020-04-07] MEDS: LACTATED RINGERS 1,000 ML IV SCH (06:33)
[2020-04-07 06:37] LABS: Glucose,Whole Blood 196 mg/dL (75-99)
[2020-04-07] MEDS ORDERED: HYDROmorphone 0.5 MG/0.5 ML SYRINGE IVP PRN (07:00)
[2020-04-07] MEDS ORDERED: TRANEXAMIC ACID 2,000 MG in SODIUM CHLORIDE 0.9% 80 ML IVPB PRN (07:13)
[2020-04-07] MEDS ORDERED: PHENYLEPHRINE 10 MG/ML VIAL ONE (07:30)
[2020-04-07] MEDS ORDERED: fentaNYL (PF) 50 MCG/ML 2 ML AMP ONE (07:30)
[2020-04-07] MEDS ORDERED: SUCCINYLCHOLINE CHLORIDE 100 MG/5 ML SYR IV ONE (07:30)
[2020-04-07] MEDS ORDERED: MIDAZOLAM 2 MG/2 ML VIAL ONE (07:30)
[2020-04-07] MEDS ORDERED: TRANEXAMIC ACID 1,000 MG/10 ML VIAL ONE (07:30)
[2020-04-07] MEDS ORDERED: PROPOFOL 10 MG/ML 20 ML VIAL IV ONE (07:30)
[2020-04-07] MEDS ORDERED: HYDROmorphone (PF) 1 MG/ML ONE (07:30)
[2020-04-07] MEDS ORDERED: INSULIN REGULAR 100 UNIT/ML VIAL ONE (07:30)
[2020-04-07] MEDS ORDERED: ePHEDrine SULFATE/0.9% NACL/PF 50 MG/5 ML SYRINGE IV ONE (07:30)
[2020-04-07] MEDS ORDERED: SODIUM CHLORIDE 0.9% 100 ML BAG ONE (07:30)
[2020-04-07] MEDS ORDERED: THROMBIN (BOVINE) 5,000 UNIT VIAL TOPICAL ONE (09:00)
[2020-04-07] MEDS ORDERED: BUPIVACAINE (PF) 0.5% 30 ML VIAL SQ ONE (09:00)
[2020-04-07] MEDS ORDERED: LIDOCAINE 2%-EPI 1:100,000 20 ML VIAL SQ ONE (09:00)
[2020-04-07 09:20] LABS: Allen Test Performed? Yes
[2020-04-07 09:25] LABS: ABG Base Excess -2.6 mmol/L; ABG HCO3 22 mmol/L (21-25); ABG Oxygen Saturation 99.5 % (94-97); ABG PCO2 39 mmHg (35-45); ABG PH 7.37 (7.35-7.45); ABG PO2 232 mmHg (83-108)
[2020-04-07 09:26] LABS: Basophils % (A) 1 %; Eosinophils # (A) 0.2 k/uL (0-0.7); Eosinophils % (A) 3 %; HCT 32.1 % (34.0-46.0); HGB 10.9 gm/dL (11.4-16.0); Lymphocytes # (A) 0.8 k/uL (1.0-4.8); Lymphocytes % (A) 16 %; MCH 30.2 pg (25.0-35.0); MCHC 34.1 g/dL (31.0-37.0); MCV 88.6 fL (80.0-100.0); Mean Platelet Volume 7.7; Monocytes # (A) 0.2 k/uL (0-1.0); Monocytes % (A) 5 %; Neutrophils # (A) 3.9 k/uL (1.3-7.7); Neutrophils % (A) 75 %; Platelet Count 184 k/uL (150-450); RBC 3.62 m/uL (3.80-5.40); RDW 12.6 % (11.5-15.5); WBC 5.1 k/uL (3.8-10.6)
[2020-04-07 09:29] LABS: Prothrombin Time 10.8 sec (9.0-12.0)
[2020-04-07 09:34] LABS: Calcium 8.6 mg/dL (8.4-10.2); Potassium 4.5 mmol/L (3.5-5.1)
[2020-04-07] MEDS ORDERED: GELATIN SPONGE,ABSORB (LARGE) 1 EACH SPONGE MISCELLANE ONE (10:00)
[2020-04-07 10:51] LABS: Glucose,Whole Blood 263 mg/dL (75-99)
[2020-04-07 11:22] LABS: Glucose,Whole Blood 227 mg/dL (75-99)
[2020-04-07 12:39] LABS: Glucose,Whole Blood 140 mg/dL (75-99)
[2020-04-07 14:54] LABS: Glucose,Whole Blood 158 mg/dL (75-99)
[2020-04-07] MEDS ORDERED: VANCOMYCIN 1,000 MG VIAL MISCELLANE ONE (15:30)
--- NOTE | 2020-04-07 15:53 | FL ---
EXAMINATION TYPE: FL guidance operating room, XR cervical spine limited DATE OF EXAM: 04/07/2020 CLINICAL HISTORY: Neck pain. TECHNIQUE: Fluoroscopy. Intraoperative limited view cervical spine. COMPARISON: MRI cervical spine January 18, 2020. FINDINGS: Fluoroscopic guidance was provided during cervical fusion procedure performed by Dr. Oswaldo parks. A total of 2 minutes 59 seconds of fluoroscopic time was utilized during the procedure and 6 spot intraoperative images are acquired. Images acquired show placement of artificial disc material anterior fusion hardware at suspected C4-C 5, C5-C6, and C6-C7 levels. There is been placement of a long segment posterior fusion hardware from C2 through suspected T1 level. Satisfactory alignment seen on intraoperative images obtained. IMPRESSION: As Above.
[2020-04-07] MEDS ORDERED: ONDANSETRON 4 MG/2 ML VIAL IVP ONE (15:55)
[2020-04-07] MEDS ORDERED: HYDROcodone/APAP 10-325MG 1 EACH TAB PO PRN (15:59)
[2020-04-07] MEDS ORDERED: CYCLOBENZAPRINE 10 MG TAB PO PRN (15:59)
--- NOTE | 2020-04-07 16:27 | P.PN ---
Progress Note - Text Progress Note Date: 04/07/20 Patient transported to the ICU in stable condition, vented and sedated. She will remain so overnight and SBT will happen in the AM when stable and per ICU protocol. Maintain MAPs 80s Pain control as needed Neurochecks q4 hrs. GI/DVT ppx Transfuse PRN for vitals and labs. TEDs/SCDs Heparin to start tomorrow evening PT/OT CT of Cervical and throacic spine post op when extubated.
[2020-04-07 16:38] LABS: Glucose,Whole Blood 119 mg/dL (75-99)
[2020-04-07] MEDS: GABAPENTIN 400 MG CAP PO SCH ×2 (16:45→21:02)
[2020-04-07 16:55] LABS: ABG Base Excess -4.4 mmol/L; ABG HCO3 22 mmol/L (21-25); ABG Oxygen Saturation 99.8 % (94-97); ABG PCO2 40 mmHg (35-45); ABG PH 7.34 (7.35-7.45); ABG PO2 366 mmHg (83-108); ABG TCO2 23 mmol/L (19-24); Allen Test Performed? Yes
[2020-04-07] MEDS ORDERED: NALOXONE 0.4 MG/ML 1 ML VIAL IV PRN (17:22)
[2020-04-07] MEDS ORDERED: SODIUM CHLORIDE 0.9% 1,000 ML IV SCH (17:30)
[2020-04-07 17:53] LABS: Glucose,Whole Blood 146 mg/dL (75-99)
[2020-04-07 18:01] LABS: Basophils % (A) 0 %; Eosinophils % (A) 0 %; HCT 30.6 % (34.0-46.0); HGB 10.5 gm/dL (11.4-16.0); Lymphocytes # (A) 0.4 k/uL (1.0-4.8); Lymphocytes % (A) 5 %; MCH 30.2 pg (25.0-35.0); MCHC 34.2 g/dL (31.0-37.0); MCV 88.4 fL (80.0-100.0); Mean Platelet Volume 9.4; Monocytes # (A) 0.3 k/uL (0-1.0); Monocytes % (A) 4 %; Neutrophils # (A) 7.4 k/uL (1.3-7.7); Neutrophils % (A) 90 %; Platelet Count 171 k/uL (150-450); RBC 3.47 m/uL (3.80-5.40); RDW 12.5 % (11.5-15.5); WBC 8.2 k/uL (3.8-10.6)
--- NOTE | 2020-04-07 18:07 | XR ---
EXAMINATION TYPE: XR chest 1V DATE OF EXAM: 04/07/2020 COMPARISON: 09/09/2015. HISTORY: Intubation and line placement. TECHNIQUE: Single frontal view of the chest is obtained. FINDINGS: There is demonstration of an endotracheal tube terminating in the mid intrathoracic trache a. There is a left IJ catheter with tip overlying the caudal SVC. There is an NG tube with tip overly ing the stomach. There is mild bibasilar hazy opacities, compatible with atelectasis. No significant pleural effusion, or pneumothorax seen. The cardiac silhouette size is within normal limits. Cervica l spine fusion with overlying skin yany are seen. IMPRESSION: As above.
--- NOTE | 2020-04-07 18:10 | P.CONS ---
History of Present Illness - Reason for Consult Consult date: 04/07/20 Medical management Requesting physician: Josh Knight - Chief Complaint Post op cervical fusion - History of Present Illness 74 year old woman with history of non-occlusive CAD, HTN, HLD, DM II presented for elective cervical fusion given symptoms of right sided cervical radiculopathy. Medicine consulted by orthopedic surgery service for medical management post-op. Patient is intubated and sedated and cannot provide history of ROS. Operation went well without complications. Pt transported to ICU with plan to remain intubated overnight until swelling goes down. Pt has 2 x NEIL drains in the neck and LIJ central line, ventilator and rodríguez catheter. Surgical site is clean/dry/intact. Review of Systems See HPI Past Medical History Past Medical History: Coronary Artery Disease (CAD), Chest Pain / Angina, CVA/TIA, Diabetes Mellitus, GERD/Reflux, Hyperlipidemia, Hypertension, Myocardial Infarction (HI), Osteoarthritis (OA), Pneumonia Additional Past Medical History / Comment(s): pancreatitis, diverticulitis, hiatal hernia, neuropathy lower legs., migraine, CVA 2011 with right arm and leg weakness., TIA 2012, bronchitis, kidney stone, carpal tunnel eric,Pt states silent heart attack in 2011., BACK PAIN, HX OF FALL AND HAS PAIN NECK., STATES 2017 FELL OUT OF WHEEL CHAIR AND HAD CONCUSSION AND INJURED NECK AND SHOULDERS, balance problems Last Myocardial Infarction Date:: 2011 History of Any Multi-Drug Resistant Organisms: None Reported Past Surgical History: Appendectomy, Cholecystectomy, Heart Catheterization, Hysterectomy, Orthopedic Surgery Additional Past Surgical History / Comment(s): Heart cath , rt rotator cuff repair, egd with dilation /colonoscopy, laser sx on lt eye, 2 left shoulder surg., cataracts removed Past Anesthesia/Blood Transfusion Reactions: No Reported Reaction Past Psychological History: Depression Additional Psychological History / Comment(s): . Smoking Status: Never smoker Past Alcohol Use History: None Reported Past Drug Use History: None Reported - Past Family History Brother(s) Family Medical History: Cancer Additional Family Medical History / Comment(s): 2 brothers -prostate cancer. throat cancer Father Family Medical History: Diabetes Mellitus, Deep Vein Thrombosis (DVT) Additional Family Medical History / Comment(s): ENLARGED HEART Mother History Unknown: Yes Additional Family Medical History / Comment(s): from burst appendix Medications and Allergies Home Medications Medication Instructions Recorded Confirmed Type Beclomethasone Dipropionate [Qvar 2 puff INHALATION RT-DAILY PRN 11/06/14 04/01/20 History 40 mcg/puff] Losartan [Cozaar] 50 mg PO QAM 11/06/14 04/01/20 History Clopidogrel Bisulfate [Plavix] 75 mg PO DAILY #30 tab 11/11/14 04/01/20 Rx Aspirin 81 mg PO DAILY 06/04/18 04/01/20 History Atorvastatin [Lipitor] 40 mg PO HS 08/31/18 04/01/20 History Gabapentin [Neurontin] 400 mg PO TID 01/21/19 04/01/20 History INSULIN LISPRO (For Pump) [humaLOG 0 units SQ-PUMP CONTINUOUS PRN 01/21/19 04/01/20 History (For Pump)] HYDROcodone/APAP 10-325MG [[place] 1 tab PO TID PRN 11/29/19 04/01/20 History 10-325] Allergies Allergy/AdvReac Type Severity Reaction Status Date / Time fentanyl Allergy Hallucinati Verified 04/01/20 14:58 ons propoxyphene HCl Allergy AGITATED Verified 04/01/20 14:58 [facility] Physical Exam Osteopathic Statement: *. No significant issues noted on an osteopathic structural exam other than those noted in the History and Physical/Consult. Vitals: Vital Signs Temp Pulse Pulse Resp BP BP BP 04/07/20 17:30 61 14 04/07/20 17:20 61 15 04/07/20 17:10 64 14 125/63 04/07/20 17:00 62 14 121/55 04/07/20 16:50 62 14 04/07/20 16:40 61 14 04/07/20 16:30 96.4 F L 62 14 118/61 04/07/20 06:35 97 F L 63 20 211/93 227/92 Pulse Ox 04/07/20 17:30 99 04/07/20 17:20 99 04/07/20 17:10 98 04/07/20 17:00 99 04/07/20 16:50 99 04/07/20 16:40 99 04/07/20 16:30 99 04/07/20 06:35 95 Intake and Output 04/07/20 04/07/2021 06:59 14:59 22:59 Intake Total 100 1450 20 Output Total 1250 Balance 100 1450 -1230 Intake: IV 100 1450 20 Lactated Ringers 1,000 ml 20 @ 20 mls/hr IV .Q24H [facility] Rx#:[id number] Output: Urine 1050 Estimated Blood Loss 200 Other: Voiding Method Indwelling Catheter Weight 69.4 kg ABP, PAP, CO, CI - Last 8 Hours Arterial Blood Pressure 127/45 Arterial Blood Pressure 122/44 Arterial Blood Pressure 126/47 Arterial Blood Pressure 131/49 Arterial Blood Pressure 127/49 Arterial Blood Pressure 126/47 Gen: Intubated, sedated HEENT: normocephalic, atraumatic, good hearing acuity, moist mucous membranes Resp: good air exchange, breathing comfortably with no accessory muscle use, vented: FiO2 60%, tidal volume 400, PEEP is 5 CVS: good distal perfusion x 4, regular rate and rhythm without murmurs GI: soft, NTTP, ND : no SPT, no CVAT, rodríguez catheter is present MSK: no pitting edema, no clubbing Neuro: non-focal Results CBC & Chem 7: 04/07/20 08:55 04/07/20 08:55 Labs: Abnormal Lab Results - Last 24 Hours (Table) 04/07/20 04/07/20 04/07/20 Range/Units 06:32 08:55 08:55 RBC 3.62 L (3.80-5.40) m/uL Hgb 10.9 L (11.4-16.0) gm/dL Hct 32.1 L (34.0-46.0) % Lymphocytes # 0.8 L (1.0-4.8) k/uL ABG pH (7.35-7.45) ABG pO2 (83-108) mmHg ABG O2 Saturation (94-97) % Chloride 110 H (98-107) mmol/L BUN 24 H (7-17) mg/dL Glucose 233 H (74-99) mg/dL POC Glucose (mg/dL) 196 H (75-99) mg/dL 04/07/20 04/07/20 04/07/20 Range/Units 08:55 10:49 11:19 RBC (3.80-5.40) m/uL Hgb (11.4-16.0) gm/dL Hct (34.0-46.0) % Lymphocytes # (1.0-4.8) k/uL ABG pH (7.35-7.45) ABG pO2 232 H (83-108) mmHg ABG O2 Saturation 99.5 H (94-97) % Chloride (98-107) mmol/L BUN (7-17) mg/dL Glucose (74-99) mg/dL POC Glucose (mg/dL) 263 H 227 H (75-99) mg/dL 04/07/20 04/07/20 04/07/20 Range/Units 12:31 14:48 16:27 RBC (3.80-5.40) m/uL Hgb (11.4-16.0) gm/dL Hct (34.0-46.0) % Lymphocytes # (1.0-4.8) k/uL ABG pH (7.35-7.45) ABG pO2 (83-108) mmHg ABG O2 Saturation (94-97) % Chloride (98-107) mmol/L BUN (7-17) mg/dL Glucose (74-99) mg/dL POC Glucose (mg/dL) 140 H 158 H 119 H (75-99) mg/dL 04/07/20 04/07/20 Range/Units 16:53 17:50 RBC (3.80-5.40) m/uL Hgb (11.4-16.0) gm/dL Hct (34.0-46.0) % Lymphocytes # (1.0-4.8) k/uL ABG pH 7.34 L (7.35-7.45) ABG pO2 366 H (83-108) mmHg ABG O2 Saturation 99.8 H (94-97) % Chloride (98-107) mmol/L BUN (7-17) mg/dL Glucose (74-99) mg/dL POC Glucose (mg/dL) 146 H (75-99) mg/dL Assessment and Plan Assessment: 1. Hypertension, essential 2. DM, type II with diabetic neuropathy 3. HLD 4. Non-occlusive CAD 5. s/p cervical fusion surgery 74 year old woman with HTN/DM/HLD, non-occlusive CAD presented for elective cervical spine fusion surgery for cervical radiculopathy symptoms; medicine consulted by ortho for medical management. Plan: - admit to ICU, telemetry - patients MAP goal is > 80; can restart home meds, and add levophed on top if warranted - dexamethasone 4mg q6h to reduce swelling, may need to increase insulin therapy while on this regimen - glucose checks q6h with low dose SSI, patients insulin pump is presently off while hospitalized - can continue home statin - home ASA/Plavix should be restarted as soon as deemed safe to do so by surgery - pain control, DVT ppx per primary team - Pt will require ST evaluation following extubation Full Code
[2020-04-07 18:20] LABS: ALT 19 U/L (4-34); AST 32 U/L (14-36); African American GFR (CKD) >90 (>60 ml/min/1.73 sqM); Albumin 2.6 g/dL (3.5-5.0); Alkaline Phosphatase 89 U/L (38-126); Anion Gap 6 mmol/L; Blood Urea Nitrogen 19 mg/dL (7-17); Calcium 8.3 mg/dL (8.4-10.2); Carbon Dioxide 20 mmol/L (22-30); Chloride 113 mmol/L (98-107); Glucose 142 mg/dL (74-99); Non-African American GFR(CKD) 81 (>60 ml/min/1.73 sqM); Potassium 4.1 mmol/L (3.5-5.1); Sodium 139 mmol/L (137-145); Total Bilirubin 0.3 mg/dL (0.2-1.3); Total Protein 4.9 g/dL (6.3-8.2)
[2020-04-07] MEDS: NOREPINEPHRINE 8 MG in SODIUM CHLORIDE 0.9% 250 ML IV SCH (19:27)
[2020-04-07] MEDS: HYDROmorphone 1 MG/ML 1 ML SYRINGE IVP PRN (20:54)
[2020-04-07] MEDS: CHLORHEXIDINE GLUCONATE 15 ML CUP MUCOUS MEM SCH (20:58)
[2020-04-07 23:33] LABS: Appearance,Urine Clear (Clear); Bilirubin,Urine Negative (Negative); Blood,Urine Trace (Negative); Color,Urine Light Yellow; Glucose,Urine (UA) Trace (Negative); Ketones,Urine Negative (Negative); Leukocyte Esterase,Urine Trace (Negative); Mucus,Urine Rare /hpf; Nitrite,Urine Negative (Negative); Protein,Urine Negative (Negative); RBC,Urine 2 /hpf (0-5); Specific Gravity,Urine 1.023 (1.001-1.035); Squamous Epithelial Cell,Urine <1 /hpf (0-4); Urobilinogen,Urine <2.0 mg/dL (<2.0); WBC,Urine 1 /hpf (0-5)
[2020-04-08] MEDS: HYDROmorphone 1 MG/ML 1 ML SYRINGE IVP PRN ×5 (01:21→19:57)
[2020-04-08 01:43] LABS: Glucose,Whole Blood 191 mg/dL (75-99)
[2020-04-08 01:45] LABS: Glucose,Whole Blood 206 mg/dL (75-99)
[2020-04-08 03:40] LABS: Glucose,Whole Blood 208 mg/dL (75-99)
[2020-04-08] MEDS: INSULIN ASPART (NovoLOG) 100 UNIT/ML VIAL SQ SCH ×4 (03:51→18:19)
[2020-04-08 03:53] LABS: Basophils % (A) 0 %; Eosinophils % (A) 0 %; HCT 33.2 % (34.0-46.0); HGB 11.2 gm/dL (11.4-16.0); Lymphocytes # (A) 0.8 k/uL (1.0-4.8); Lymphocytes % (A) 7 %; MCH 29.7 pg (25.0-35.0); MCHC 33.9 g/dL (31.0-37.0); MCV 87.6 fL (80.0-100.0); Mean Platelet Volume 8.9; Monocytes # (A) 0.7 k/uL (0-1.0); Monocytes % (A) 6 %; Neutrophils # (A) 9.1 k/uL (1.3-7.7); Neutrophils % (A) 86 %; Platelet Count 198 k/uL (150-450); RBC 3.79 m/uL (3.80-5.40); RDW 12.7 % (11.5-15.5); WBC 10.6 k/uL (3.8-10.6)
[2020-04-08 04:08] LABS: African American GFR (CKD) >90 (>60 ml/min/1.73 sqM); Anion Gap 5 mmol/L; Blood Urea Nitrogen 17 mg/dL (7-17); Calcium 8.9 mg/dL (8.4-10.2); Carbon Dioxide 22 mmol/L (22-30); Chloride 110 mmol/L (98-107); Glucose 200 mg/dL (74-99); Non-African American GFR(CKD) 81 (>60 ml/min/1.73 sqM); Potassium 4.1 mmol/L (3.5-5.1); Sodium 137 mmol/L (137-145)
[2020-04-08 05:21] LABS: ABG Base Excess -2.8 mmol/L; ABG HCO3 23 mmol/L (21-25); ABG Oxygen Saturation 99.5 % (94-97); ABG PCO2 39 mmHg (35-45); ABG PH 7.37 (7.35-7.45); ABG PO2 141 mmHg (83-108); ABG TCO2 24 mmol/L (19-24); Allen Test Performed? Yes
[2020-04-08 06:03] LABS: Glucose,Whole Blood 177 mg/dL (75-99)
[2020-04-08] MEDS: LACTATED RINGERS 1,000 ML IV SCH (06:14)
[2020-04-08] MEDS ORDERED: DEXAMETHASONE SOD PHOSPHATE 4 MG/ML 1 ML VIAL IV SCH (07:00)
[2020-04-08] MEDS ORDERED: INSULIN ASPART (NovoLOG) 100 UNIT/ML VIAL SQ SCH (07:30)
--- NOTE | 2020-04-08 07:34 | XR ---
EXAMINATION TYPE: XR chest 1V DATE OF EXAM: 04/08/2020 COMPARISON: 04/07/2020 HISTORY: 74 year-old female line and tube placement TECHNIQUE: Single frontal view of the chest is obtained. FINDINGS: Skin yany. Cervical fusion hardware. The NG tuber sidehole is at the level of the GE junction. Adv anced the tube by 5 cm into the stomach. This seems to be an ET tube, tip at the medial clavicular he ads. Left IJ CVC tip at the cavoatrial junction. Leftward patient rotation alters the normal cardiome diastinal contours. Heart borderline in size. Mild hyperinflation. High density nodule right base sug gests a calcified granuloma. Some strandy retrocardiac density. No pleural effusion. IMPRESSION: 1. Slightly rotated exam. COPD. Suspect a calcified granuloma right base. Strandy retrocardiac densit y, likely atelectasis. 2. Advance the NG tube by 5 cm so that the sidehole enters the stomach.
--- NOTE | 2020-04-08 08:14 | P.PN ---
Subjective Progress Note Date: 04/08/20 Principal diagnosis: Cervical myelopathy Patient seen and examined this morning. She still vented and sedated. She will undergo weaning and extubation likely today. There are no events overnight per nursing and she remained stable throughout the night without any issues. Objective - Vital Signs Vital signs: Vital Signs Temp 98.5 F 04/08/20 04:00 Pulse 58 L 04/08/20 08:00 Resp 14 04/08/20 08:00 BP 100/47 04/08/20 08:00 Pulse Ox 98 04/08/20 08:00 Intake & Output 04/07/20 04/08/20 04/08/20 18:59 06:59 18:59 Intake Total 2470 360.000 Output Total 1285 785 Balance 1185 -425.000 Weight 69.5 kg Intake: IV 2470 260 Lactated Ringers 1,000 ml 20 260 @ 20 mls/hr IV .Q24H [facility] Rx#:[id number] Sodium Chloride 0.9% 1, 1000 000 ml @ 999 mls/hr IV . Q1H1M [facility] Rx#:[id number] Intake, IV Titration 100.000 Amount propofoL 1,000 mg In 100.000 Empty Bag 1 bag @ Titrate IV .Q0M [facility] Rx#: [id number] Output: Drainage 85 Anterior Neck 5 Posterior Neck 80 Urine 1085 700 Estimated Blood Loss 200 Other: Voiding Method Indwelling Catheter Indwelling Catheter ABP, PAP, CO, CI - Last Documented Arterial Blood Pressure 134/51 - Exam Vented and sedated Vital signs are stable at this time Dressing is clean dry and intact anterior and posterior. There is no fluctuance or erythema or ecchymosis or edema noted. Drains are in place and are putting out 80 from the posterior and 30 from the anterior overnight. Symmetrical chest rise OG tube in place Arterial line correlating Fluids running at 100 Propofol being weaned Distal pulses palpable on 4 extremities No long tract signs - Labs CBC & Chem 7: 04/08/20 03:45 04/08/20 03:45 Labs: Abnormal Lab Results - Last 24 Hours (Table) 04/07/20 04/07/20 04/07/20 Range/Units 08:55 08:55 08:55 RBC 3.62 L (3.80-5.40) m/uL Hgb 10.9 L (11.4-16.0) gm/dL Hct 32.1 L (34.0-46.0) % Neutrophils # (1.3-7.7) k/uL Lymphocytes # 0.8 L (1.0-4.8) k/uL ABG pH (7.35-7.45) ABG pO2 232 H (83-108) mmHg ABG O2 Saturation 99.5 H (94-97) % Chloride 110 H (98-107) mmol/L Carbon Dioxide (22-30) mmol/L BUN 24 H (7-17) mg/dL Glucose 233 H (74-99) mg/dL POC Glucose (mg/dL) (75-99) mg/dL Calcium (8.4-10.2) mg/dL Total Protein (6.3-8.2) g/dL Albumin (3.5-5.0) g/dL Urine Glucose (UA) (Negative) Urine Blood (Negative) Ur Leukocyte Esterase (Negative) Urine Mucus (None) /hpf 04/07/20 04/07/20 04/07/20 Range/Units 10:49 11:19 12:31 RBC (3.80-5.40) m/uL Hgb (11.4-16.0) gm/dL Hct (34.0-46.0) % Neutrophils # (1.3-7.7) k/uL Lymphocytes # (1.0-4.8) k/uL ABG pH (7.35-7.45) ABG pO2 (83-108) mmHg ABG O2 Saturation (94-97) % Chloride (98-107) mmol/L Carbon Dioxide (22-30) mmol/L BUN (7-17) mg/dL Glucose (74-99) mg/dL POC Glucose (mg/dL) 263 H 227 H 140 H (75-99) mg/dL Calcium (8.4-10.2) mg/dL Total Protein (6.3-8.2) g/dL Albumin (3.5-5.0) g/dL Urine Glucose (UA) (Negative) Urine Blood (Negative) Ur Leukocyte Esterase (Negative) Urine Mucus (None) /hpf 04/07/20 04/07/20 04/07/20 Range/Units 14:48 16:27 16:53 RBC (3.80-5.40) m/uL Hgb (11.4-16.0) gm/dL Hct (34.0-46.0) % Neutrophils # (1.3-7.7) k/uL Lymphocytes # (1.0-4.8) k/uL ABG pH 7.34 L (7.35-7.45) ABG pO2 366 H (83-108) mmHg ABG O2 Saturation 99.8 H (94-97) % Chloride (98-107) mmol/L Carbon Dioxide (22-30) mmol/L BUN (7-17) mg/dL Glucose (74-99) mg/dL POC Glucose (mg/dL) 158 H 119 H (75-99) mg/dL Calcium (8.4-10.2) mg/dL Total Protein (6.3-8.2) g/dL Albumin (3.5-5.0) g/dL Urine Glucose (UA) (Negative) Urine Blood (Negative) Ur Leukocyte Esterase (Negative) Urine Mucus (None) /hpf 04/07/20 04/07/20 04/07/20 Range/Units 17:50 17:57 17:57 RBC 3.47 L (3.80-5.40) m/uL Hgb 10.5 L (11.4-16.0) gm/dL Hct 30.6 L (34.0-46.0) % Neutrophils # (1.3-7.7) k/uL Lymphocytes # 0.4 L (1.0-4.8) k/uL ABG pH (7.35-7.45) ABG pO2 (83-108) mmHg ABG O2 Saturation (94-97) % Chloride 113 H (98-107) mmol/L Carbon Dioxide 20 L (22-30) mmol/L BUN 19 H (7-17) mg/dL Glucose 142 H (74-99) mg/dL POC Glucose (mg/dL) 146 H (75-99) mg/dL Calcium 8.3 L (8.4-10.2) mg/dL Total Protein 4.9 L (6.3-8.2) g/dL Albumin 2.6 L (3.5-5.0) g/dL Urine Glucose (UA) (Negative) Urine Blood (Negative) Ur Leukocyte Esterase (Negative) Urine Mucus (None) /hpf 0104/08/20 04/08/20 Range/Units 23:20 01:41 01:44 RBC (3.80-5.40) m/uL Hgb (11.4-16.0) gm/dL Hct (34.0-46.0) % Neutrophils # (1.3-7.7) k/uL Lymphocytes # (1.0-4.8) k/uL ABG pH (7.35-7.45) ABG pO2 (83-108) mmHg ABG O2 Saturation (94-97) % Chloride (98-107) mmol/L Carbon Dioxide (22-30) mmol/L BUN (7-17) mg/dL Glucose (74-99) mg/dL POC Glucose (mg/dL) 191 H 206 H (75-99) mg/dL Calcium (8.4-10.2) mg/dL Total Protein (6.3-8.2) g/dL Albumin (3.5-5.0) g/dL Urine Glucose (UA) Trace H (Negative) Urine Blood Trace H (Negative) Ur Leukocyte Esterase Trace H (Negative) Urine Mucus Rare H (None) /hpf 04/08/20 04/08/20 04/08/20 Range/Units 03:39 03:45 03:45 RBC 3.79 L (3.80-5.40) m/uL Hgb 11.2 L (11.4-16.0) gm/dL Hct 33.2 L (34.0-46.0) % Neutrophils # 9.1 H (1.3-7.7) k/uL Lymphocytes # 0.8 L (1.0-4.8) k/uL ABG pH (7.35-7.45) ABG pO2 (83-108) mmHg ABG O2 Saturation (94-97) % Chloride 110 H (98-107) mmol/L Carbon Dioxide (22-30) mmol/L BUN (7-17) mg/dL Glucose 200 H (74-99) mg/dL POC Glucose (mg/dL) 208 H (75-99) mg/dL Calcium (8.4-10.2) mg/dL Total Protein (6.3-8.2) g/dL Albumin (3.5-5.0) g/dL Urine Glucose (UA) (Negative) Urine Blood (Negative) Ur Leukocyte Esterase (Negative) Urine Mucus (None) /hpf 04/08/20 04/08/20 Range/Units 05:16 06:02 RBC (3.80-5.40) m/uL Hgb (11.4-16.0) gm/dL Hct (34.0-46.0) % Neutrophils # (1.3-7.7) k/uL Lymphocytes # (1.0-4.8) k/uL ABG pH (7.35-7.45) ABG pO2 141 H (83-108) mmHg ABG O2 Saturation 99.5 H (94-97) % Chloride (98-107) mmol/L Carbon Dioxide (22-30) mmol/L BUN (7-17) mg/dL Glucose (74-99) mg/dL POC Glucose (mg/dL) 177 H (75-99) mg/dL Calcium (8.4-10.2) mg/dL Total Protein (6.3-8.2) g/dL Albumin (3.5-5.0) g/dL Urine Glucose (UA) (Negative) Urine Blood (Negative) Ur Leukocyte Esterase (Negative) Urine Mucus (None) /hpf Microbiology - Last 24 Hours (Table) 04/07/20 21:50 Gram Stain - Preliminary Sputum Sputum Culture - Preliminary Assessment and Plan Assessment: 74-year-old female postop day 1 from anterior and posterior cervical reconstruction doing well 1. C4-5, and C5-6 Grade I anterior listhesis 2. 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 4. B/L UE radiculopathy and weakness Plan: -Appreciate medicine and ICU management. -Pain control: Adequate at this time we will reevaluate once patient is extubat ed -When extubated : -Aggressive ambulation protocol. OOB with all meals. OOB or in chair 4-5x d aily. -PT/OT -CT of the cervical and thoracic spine to evaluate fusion construct -TEDs, SCDs, mechanical ppx. OK for heparin today. Early ambulation is best. -GI ppx. -Trend labs. -Dispo: Pending. Patient will likely extubate today and may be able to transfer to the floor later today.
[2020-04-08] MEDS: HEPARIN SODIUM,PORCINE 5,000 UNIT/ML 1 ML VIAL SQ SCH ×3 (08:24→21:16)
[2020-04-08] MEDS: PANTOPRAZOLE 40 MG/10 ML VIAL IV SCH (08:26)
[2020-04-08] MEDS: CHLORHEXIDINE GLUCONATE 15 ML CUP MUCOUS MEM SCH ×2 (08:28→21:16)
[2020-04-08] MEDS: DOCUSATE 100 MG CAP PO SCH (10:16)
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
[2020-04-08] MEDS: GABAPENTIN 400 MG CAP PO SCH ×3 (11:26→21:16)
[2020-04-08] MEDS: DEXAMETHASONE SOD PHOSPHATE 10 MG/ML 1 ML VIAL IV SCH ×2 (11:26→18:19)
[2020-04-08 11:41] LABS: Glucose,Whole Blood 226 mg/dL (75-99)
[2020-04-08] MEDS: polyethylene glycoL 3350 17 GM POWD.PACK PO SCH (12:10)
--- NOTE | 2020-04-08 15:38 | CT ---
EXAMINATION TYPE: CT cervical spine wo con DATE OF EXAM: 04/08/2020 COMPARISON: CT cervical spine December 04, 2019 HISTORY: Status post cervical fusion one day earlier. CT DLP: For 43 mGycm. Automated Exposure Control for Dose Reduction was Utilized. TECHNIQUE: CT scan of the cervical spine is obtained without contrast, axial images are obtained, sa gittal and coronal reformatted images are also reviewed. FINDINGS: Nasogastric tube and endotracheal tube are partially imaged. There is evidence of recent coughlin rgery with posterior overlying skin yany. There is extensive posterior decompression with laminect celina defects and spinous process resection from C3 through C6 level on current study. There is interva l placement of artificial disc material with anterior fusion hardware at C4-C5, C5-C6, and C6-C7 leve ls. The superior screws at C6-C7 level minimally extend into the anterior spinal canal axial image 59 and sagittal image 45. There is posterior metallic fusion hardware noted at inferior C6 level. This continues and posterior interpedicular rods and screws transfixing the C2 through the C6 elements bilaterally with largest gr oup extending into the T1 vertebra through the lateral elements into the pedicles, slight extension i nto the prevertebral region particularly on the right is noted at image 78. Artifact from metallic hardware is present. There is posterior percutaneous surgical drain terminating at superior C4 level in the deep soft tiss ue. Anterior inferior to this there is ill-defined fluid and air bubbles present. Alignment stable wi th subtle spondylolisthesis C4-C5 and C5-C6 level redemonstrated. There is additional right-sided ant erior surgical drain terminating at the C4 level sagittal image 52 adjacent to the nasogastric tube. There is left-sided internal jugular central venous catheter partially imaged. Craniocervical junction is maintained. Visualized upper lungs remain clear. IMPRESSION: Interval long segment cervical fusion surgery and posterior decompression. Postsurgical changes noted as detailed above. Alignment stable.
--- NOTE | 2020-04-08 15:51 | P.PN ---
Subjective Progress Note Date: 04/08/20 No new complaints. On Vent: 400, 35%, PEEP 5. Objective - Vital Signs Vital signs: Vital Signs Temp 98.5 F 04/08/20 04:00 Pulse 69 04/08/20 10:00 Resp 15 04/08/20 10:00 BP 160/58 04/08/20 10:00 Pulse Ox 97 04/08/20 10:00 Intake & Output 04/07/20 04/08/20 04/08/20 18:59 06:59 18:59 Intake Total 2470 360.000 241.942 Output Total 1285 785 125 Balance 1185 -425.000 116.942 Weight 69.5 kg Intake: IV 2470 260 220 Lactated Ringers 1,000 ml 20 260 220 @ 100 mls/hr IV .Q10H [facility] Rx#:[id number] Sodium Chloride 0.9% 1, 1000 000 ml @ 999 mls/hr IV . Q1H1M [facility] Rx#:[id number] Intake, IV Titration 100.000 21.942 Amount propofoL 1,000 mg In 100.000 21.942 Empty Bag 1 bag @ Titrate IV .Q0M [facility] Rx#: [id number] Output: Drainage 85 Anterior Neck 5 Posterior Neck 80 Urine 1085 700 125 Estimated Blood Loss 200 Other: Voiding Method Indwelling Catheter Indwelling Catheter Indwelling Catheter ABP, PAP, CO, CI - Last Documented Arterial Blood Pressure 211/71 - Exam Gen: Intubated, sedated HEENT: normocephalic, atraumatic, good hearing acuity, moist mucous membranes Resp: good air exchange, breathing comfortably with no accessory muscle use, vented: FiO2 60%, tidal volume 400, PEEP is 5 CVS: good distal perfusion x 4, regular rate and rhythm without murmurs GI: soft, NTTP, ND : no SPT, no CVAT, rodríguez catheter is present MSK: no pitting edema, no clubbing Neuro: non-focal - Labs CBC & Chem 7: 04/08/20 03:45 04/08/20 03:45 Labs: Abnormal Lab Results - Last 24 Hours (Table) 04/07/20 04/07/20 04/07/20 Range/Units 16:27 16:53 17:50 RBC (3.80-5.40) m/uL Hgb (11.4-16.0) gm/dL Hct (34.0-46.0) % Neutrophils # (1.3-7.7) k/uL Lymphocytes # (1.0-4.8) k/uL ABG pH 7.34 L (7.35-7.45) ABG pO2 366 H (83-108) mmHg ABG O2 Saturation 99.8 H (94-97) % Chloride (98-107) mmol/L Carbon Dioxide (22-30) mmol/L BUN (7-17) mg/dL Glucose (74-99) mg/dL POC Glucose (mg/dL) 119 H 146 H (75-99) mg/dL Calcium (8.4-10.2) mg/dL Total Protein (6.3-8.2) g/dL Albumin (3.5-5.0) g/dL Urine Glucose (UA) (Negative) Urine Blood (Negative) Ur Leukocyte Esterase (Negative) Urine Mucus (None) /hpf 04/07/20 04/07/20 04/07/20 Range/Units 17:57 17:57 23:20 RBC 3.47 L (3.80-5.40) m/uL Hgb 10.5 L (11.4-16.0) gm/dL Hct 30.6 L (34.0-46.0) % Neutrophils # (1.3-7.7) k/uL Lymphocytes # 0.4 L (1.0-4.8) k/uL ABG pH (7.35-7.45) ABG pO2 (83-108) mmHg ABG O2 Saturation (94-97) % Chloride 113 H (98-107) mmol/L Carbon Dioxide 20 L (22-30) mmol/L BUN 19 H (7-17) mg/dL Glucose 142 H (74-99) mg/dL POC Glucose (mg/dL) (75-99) mg/dL Calcium 8.3 L (8.4-10.2) mg/dL Total Protein 4.9 L (6.3-8.2) g/dL Albumin 2.6 L (3.5-5.0) g/dL Urine Glucose (UA) Trace H (Negative) Urine Blood Trace H (Negative) Ur Leukocyte Esterase Trace H (Negative) Urine Mucus Rare H (None) /hpf 04/08/20 04/08/20 04/08/20 Range/Units 01:41 01:44 03:39 RBC (3.80-5.40) m/uL Hgb (11.4-16.0) gm/dL Hct (34.0-46.0) % Neutrophils # (1.3-7.7) k/uL Lymphocytes # (1.0-4.8) k/uL ABG pH (7.35-7.45) ABG pO2 (83-108) mmHg ABG O2 Saturation (94-97) % Chloride (98-107) mmol/L Carbon Dioxide (22-30) mmol/L BUN (7-17) mg/dL Glucose (74-99) mg/dL POC Glucose (mg/dL) 191 H 206 H 208 H (75-99) mg/dL Calcium (8.4-10.2) mg/dL Total Protein (6.3-8.2) g/dL Albumin (3.5-5.0) g/dL Urine Glucose (UA) (Negative) Urine Blood (Negative) Ur Leukocyte Esterase (Negative) Urine Mucus (None) /hpf 04/08/20 04/08/20 04/08/20 Range/Units 03:45 03:45 05:16 RBC 3.79 L (3.80-5.40) m/uL Hgb 11.2 L (11.4-16.0) gm/dL Hct 33.2 L (34.0-46.0) % Neutrophils # 9.1 H (1.3-7.7) k/uL Lymphocytes # 0.8 L (1.0-4.8) k/uL ABG pH (7.35-7.45) ABG pO2 141 H (83-108) mmHg ABG O2 Saturation 99.5 H (94-97) % Chloride 110 H (98-107) mmol/L Carbon Dioxide (22-30) mmol/L BUN (7-17) mg/dL Glucose 200 H (74-99) mg/dL POC Glucose (mg/dL) (75-99) mg/dL Calcium (8.4-10.2) mg/dL Total Protein (6.3-8.2) g/dL Albumin (3.5-5.0) g/dL Urine Glucose (UA) (Negative) Urine Blood (Negative) Ur Leukocyte Esterase (Negative) Urine Mucus (None) /hpf 04/08/20 04/08/20 Range/Units 06:02 11:39 RBC (3.80-5.40) m/uL Hgb (11.4-16.0) gm/dL Hct (34.0-46.0) % Neutrophils # (1.3-7.7) k/uL Lymphocytes # (1.0-4.8) k/uL ABG pH (7.35-7.45) ABG pO2 (83-108) mmHg ABG O2 Saturation (94-97) % Chloride (98-107) mmol/L Carbon Dioxide (22-30) mmol/L BUN (7-17) mg/dL Glucose (74-99) mg/dL POC Glucose (mg/dL) 177 H 226 H (75-99) mg/dL Calcium (8.4-10.2) mg/dL Total Protein (6.3-8.2) g/dL Albumin (3.5-5.0) g/dL Urine Glucose (UA) (Negative) Urine Blood (Negative) Ur Leukocyte Esterase (Negative) Urine Mucus (None) /hpf Microbiology - Last 24 Hours (Table) 04/07/20 21:50 Gram Stain - Preliminary Sputum Sputum Culture - Preliminary
[2020-04-08 18:00] LABS: Glucose,Whole Blood 257 mg/dL (75-99)
[2020-04-08] MEDS: NOREPINEPHRINE 8 MG in SODIUM CHLORIDE 0.9% 250 ML IV SCH (18:19)
[2020-04-08] MEDS ORDERED: INSULIN DETEMIR (LEVEMIR) 100 UNIT/ML SYR SQ SCH (21:00)
[2020-04-08 23:55] LABS: Glucose,Whole Blood 239 mg/dL (75-99)
[2020-04-09] MEDS: DEXAMETHASONE SOD PHOSPHATE 10 MG/ML 1 ML VIAL IV SCH ×4 (00:12→17:18)
[2020-04-09] MEDS: INSULIN ASPART (NovoLOG) 100 UNIT/ML VIAL SQ SCH ×4 (00:13→17:19)
[2020-04-09] MEDS: HYDROmorphone 1 MG/ML 1 ML SYRINGE IVP PRN ×5 (00:15→20:23)
[2020-04-09] MEDS: LACTATED RINGERS 1,000 ML IV SCH ×2 (00:18→08:34)
[2020-04-09 04:46] LABS: Basophils % (A) 0 %; Eosinophils % (A) 0 %; HCT 31.4 % (34.0-46.0); HGB 10.6 gm/dL (11.4-16.0); Lymphocytes # (A) 0.5 k/uL (1.0-4.8); Lymphocytes % (A) 4 %; MCH 29.9 pg (25.0-35.0); MCHC 33.9 g/dL (31.0-37.0); MCV 88.4 fL (80.0-100.0); Mean Platelet Volume 9.6; Monocytes # (A) 0.6 k/uL (0-1.0); Monocytes % (A) 5 %; Neutrophils # (A) 10.7 k/uL (1.3-7.7); Neutrophils % (A) 90 %; Platelet Count 160 k/uL (150-450); RBC 3.55 m/uL (3.80-5.40); RDW 12.6 % (11.5-15.5); WBC 11.9 k/uL (3.8-10.6)
[2020-04-09 05:13] LABS: ALT 16 U/L (4-34); AST 35 U/L (14-36); African American GFR (CKD) >90 (>60 ml/min/1.73 sqM); Albumin 2.8 g/dL (3.5-5.0); Alkaline Phosphatase 91 U/L (38-126); Anion Gap 2 mmol/L; Blood Urea Nitrogen 16 mg/dL (7-17); Carbon Dioxide 27 mmol/L (22-30); Chloride 106 mmol/L (98-107); Glucose 233 mg/dL (74-99); Non-African American GFR(CKD) 85 (>60 ml/min/1.73 sqM); Potassium 4.1 mmol/L (3.5-5.1); Sodium 135 mmol/L (137-145); Total Bilirubin 0.7 mg/dL (0.2-1.3); Total Protein 5.2 g/dL (6.3-8.2)
[2020-04-09 05:23] LABS: Glucose,Whole Blood 246 mg/dL (75-99)
[2020-04-09 05:32] LABS: ABG Base Excess 1.4 mmol/L; ABG HCO3 26 mmol/L (21-25); ABG Oxygen Saturation 98.3 % (94-97); ABG PCO2 42 mmHg (35-45); ABG PO2 96 mmHg (83-108); ABG TCO2 27 mmol/L (19-24); Allen Test Performed? Yes
--- NOTE | 2020-04-09 06:59 | XR ---
EXAMINATION TYPE: XR chest 1V portable DATE OF EXAM: 04/09/2020 CLINICAL HISTORY: Difficulty breathing progress study. Recent long segment neck surgery. TECHNIQUE: Single AP portable upright view of the chest is obtained. COMPARISON: Chest x-ray from one day earlier and older studies. FINDINGS: Stable endotracheal tube, orogastric tube, and left internal jugular central venous cathet er. Partial visualization of right-sided percutaneous draining catheter in the neck. Partial visualiz ation of extensive surgical change in the cervical spine. Cardiac silhouette size stable and mildly e nlarged. Stable patchy left basilar atelectasis. No new infiltrate. No pleural effusion or pneumothor ax noted. IMPRESSION: Mild cardiomegaly and chronic emphysematous changes with patchy left basilar atelectasis. No new infiltrate.
[2020-04-09] MEDS: DOCUSATE 100 MG CAP PO SCH (08:28)
[2020-04-09] MEDS: GABAPENTIN 400 MG CAP PO SCH ×3 (08:34→21:19)
[2020-04-09] MEDS: polyethylene glycoL 3350 17 GM POWD.PACK PO SCH (08:34)
[2020-04-09] MEDS: HEPARIN SODIUM,PORCINE 5,000 UNIT/ML 1 ML VIAL SQ SCH ×2 (08:34→20:22)
[2020-04-09] MEDS: CHLORHEXIDINE GLUCONATE 15 ML CUP MUCOUS MEM SCH (08:34)
[2020-04-09] MEDS: PANTOPRAZOLE 40 MG/10 ML VIAL IV SCH (08:34)
--- NOTE | 2020-04-09 09:43 | P.PN ---
Subjective Progress Note Date: 04/09/20 Principal diagnosis: Cervical myelopathy Patient seen and examined this morning she still vented sedation is turned off she denied a cuff leak yesterday and so they do not extubate the we will attempt to extubate again today. She is otherwise responsive following commands moves all 4 extremities she does seem to have some weakness in her left upper extremity with movement however the patient is fairly tired and cooperates although minimally. She is able to feel touch sensation over her shoulders bilaterally as well as down her arms. No acute events overnight per nursing Objective - Vital Signs Vital signs: Vital Signs Temp 98.0 F 04/09/20 08:00 Pulse 57 L 04/09/20 09:00 Resp 14 04/09/20 09:00 BP 117/55 04/09/20 08:00 Pulse Ox 97 04/09/20 09:00 Intake & Output 04/08/20 04/09/20 04/09/20 18:59 06:59 18:59 Intake Total 3936.873 4532 250 Output Total 500 640 110 Balance 542.915 605 140 Weight 73.7 kg Intake: IV 1020 1200 250 Lactated Ringers 1,000 ml 1020 1200 200 @ 100 mls/hr IV .Q10H [facility] Rx#:[id number] Lactated Ringers 1,000 ml 50 @ 50 mls/hr IV .Q20H [facility] Rx#:[id number] Intake, IV Titration 22.915 Amount propofoL 1,000 mg In 22.915 Empty Bag 1 bag @ Titrate IV .Q0M [facility] Rx#: [id number] Other 45 Output: Drainage 85 40 Anterior Neck 10 Posterior Neck 75 40 Urine 415 600 110 Other: Voiding Method Indwelling Catheter Indwelling Catheter ABP, PAP, CO, CI - Last Documented Arterial Blood Pressure 132/46 - Exam Vented Vital signs are stable at this time Dressing is clean dry and intact anterior and posterior. There is no fluctuance or erythema or ecchymosis or edema noted. Drains are in place and are putting out 80 from the posterior and 30 from the anterior overnight. Symmetrical chest rise OG tube in place Arterial line not correlating well cuff pressures reading well Fluids running at 100 will decrease to 50 patient having some swelling in her arms Propofol turned off at this time Distal pulses palpable on 4 extremities No long tract signs Moving all 4 extremities. She does seem to have some weakness in her left shoulder however she is loosely following commands at this time. She shakes her head yes when asked about sensation in her shoulder she can feel light touch bi laterally over her deltoids. She does seem to have some weakness in forward flexion however of the left arm. She is able to move the rest of her left arm and hand without any issues although minimally secondary to her current state. She is able to dorsiflex and plantarflex as well as pick her legs up off the bed minimally at this time however secondary to her condition. No focal neurologic deficits. Cranial nerves II through XII are grossly intact. - Labs CBC & Chem 7: 04/09/20 04:36 04/09/20 04:36 Labs: Abnormal Lab Results - Last 24 Hours (Table) 04/08/20 04/08/20 04/08/20 Range/Units 11:39 17:59 23:53 WBC (3.8-10.6) k/uL RBC (3.80-5.40) m/uL Hgb (11.4-16.0) gm/dL Hct (34.0-46.0) % Neutrophils # (1.3-7.7) k/uL Lymphocytes # (1.0-4.8) k/uL ABG HCO3 (21-25) mmol/L ABG Total CO2 (19-24) mmol/L ABG O2 Saturation (94-97) % Sodium (137-145) mmol/L Glucose (74-99) mg/dL POC Glucose (mg/dL) 226 H 257 H 239 H (75-99) mg/dL Total Protein (6.3-8.2) g/dL Albumin (3.5-5.0) g/dL 04/09/20 04/09/20 04/09/20 Range/Units 04:36 04:36 05:22 WBC 11.9 H (3.8-10.6) k/uL RBC 3.55 L (3.80-5.40) m/uL Hgb 10.6 L (11.4-16.0) gm/dL Hct 31.4 L (34.0-46.0) % Neutrophils # 10.7 H (1.3-7.7) k/uL Lymphocytes # 0.5 L (1.0-4.8) k/uL ABG HCO3 (21-25) mmol/L ABG Total CO2 (19-24) mmol/L ABG O2 Saturation (94-97) % Sodium 135 L (137-145) mmol/L Glucose 233 H (74-99) mg/dL POC Glucose (mg/dL) 246 H (75-99) mg/dL Total Protein 5.2 L (6.3-8.2) g/dL Albumin 2.8 L (3.5-5.0) g/dL 04/09/20 Range/Units 05:28 WBC (3.8-10.6) k/uL RBC (3.80-5.40) m/uL Hgb (11.4-16.0) gm/dL Hct (34.0-46.0) % Neutrophils # (1.3-7.7) k/uL Lymphocytes # (1.0-4.8) k/uL ABG HCO3 26 H (21-25) mmol/L ABG Total CO2 27 H (19-24) mmol/L ABG O2 Saturation 98.3 H (94-97) % Sodium (137-145) mmol/L Glucose (74-99) mg/dL POC Glucose (mg/dL) (75-99) mg/dL Total Protein (6.3-8.2) g/dL Albumin (3.5-5.0) g/dL Microbiology - Last 24 Hours (Table) 04/07/20 21:50 Gram Stain - Preliminary Sputum Sputum Culture - Preliminary Assessment and Plan Assessment: 74-year-old female postop day 2 from anterior and posterior cervical reconstruction doing well 1. C4-5, and C5-6 Grade I anterior listhesis 2. 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 4. B/L UE radiculopathy and weakness Plan: -Appreciate medicine and ICU management. -Pain control: Adequate at this time we will reevaluate once patient is extubated -When extubated : -Aggressive ambulation protocol. OOB with all meals. OOB or in chair 4-5x daily. -PT/OT -CT of the cervical and thoracic spine is reviewed. This demonstrates good hardware placement throughout. There is no overt swelling that is noted there is no tracheal deviation. The screws and cages appeared to be in good position and have not changed. No other issues noted. Alignment is maintained. -TEDs, SCDs, mechanical ppx. OK for heparin today. Early ambulation is best. -GI ppx. -Trend labs. -Dispo: Pending. Patient will likely extubate today and may be able to transfer to the floor later today.
--- NOTE | 2020-04-09 09:51 | P.PN ---
Subjective Progress Note Date: 04/09/20 Principal diagnosis: Postoperative ventilator management. 74-year-old female that were asked to see for ICU management and ventilator management. She is postop day #1, status post stage I anterior cervical discectomy C4 through C7, stage II posterior cervical 2 through thoracic to decompression with bridgette, screws, and bone graft, as well as intraoperative neuro physiologic monitoring. The patient was done under general anesthesia in the surgeon wanted the patient evaluated by our team and managed overnight on the ventilator. Currently, she is on the volume assist control modality, rate of 14, tidal volume 400, FiO2 35%, 5. Arterial blood gases show pO2 141, a PaCO2 of 39, and a pH of 7.37. These arterial blood gases were done on 50%. Currently, she is on pressure support of 5 cm water, and CPAP of 5 cm water with excellent weaning parameters. Unfortunately, she does not have a cuff leak. I asked the nurses to place her on Decadron, 6 mg IV push, every 6 hours. Her propofol is currently off. She's getting lactated Ringer's at 100 mL an hour. Today is postop day #1. The patient will be maintained on pressure support and CPAP for the time being. We will use sedation only as needed. Progress note dated 04/09/2020. Patient is postop day #2, status post extensive cervical surgical procedure. Yesterday, the patient was placed on pressure support and CPAP. She did very well. Her weaning parameters were excellent. Unfortunately, she did not have a cuff leak. We placed her on Decadron, 6 mg IV push, every 6 hours. Later that evening, the patient apparently became apneic and we placed her back on the mechanical ventilator. This morning, she is on the volume assist control modality, rate is 14, tidal volume is 400, FiO2 is 35%, and PEEP is set at 5. Arterial blood gases show a PaO2 of 96, a PaCO2 of 42, and a pH of 7.4. She's getting lactated Ringer's at 50 mL an hour. Today we put her again on pressure support of 5 CPAP of 5, and today's weaning parameters include a vital capacity of 1.6 L, a respiratory rate of 10, a tidal Lyme at 484 mL, a minute ventilation of 4.8 L/m, a negative inspiratory force of -25, and a rapid shallow breathing index of 26. Today, she does have a cuff leak, and we gave the order to extubate. Apparently, a CT of the neck revealed no edema. The Decadron probably did help. Objective - Vital Signs Vital signs: Vital Signs Temp 98.0 F 04/09/20 08:00 Pulse 57 L 04/09/20 09:00 Resp 14 04/09/20 09:00 BP 117/55 04/09/20 08:00 Pulse Ox 97 04/09/20 09:00 Intake & Output 04/08/20 04/09/20 04/09/20 18:59 06:59 18:59 Intake Total 8532.246 2534 250 Output Total 500 640 110 Balance 542.915 605 140 Weight 73.7 kg Intake: IV 1020 1200 250 Lactated Ringers 1,000 ml 1020 1200 200 @ 100 mls/hr IV .Q10H [facility] Rx#:[id number] Lactated Ringers 1,000 ml 50 @ 50 mls/hr IV .Q20H [facility] Rx#:[id number] Intake, IV Titration 22.915 Amount propofoL 1,000 mg In 22.915 Empty Bag 1 bag @ Titrate IV .Q0M [facility] Rx#: [id number] Other 45 Output: Drainage 85 40 Anterior Neck 10 Posterior Neck 75 40 Urine 415 600 110 Other: Voiding Method Indwelling Catheter Indwelling Catheter ABP, PAP, CO, CI - Last Documented Arterial Blood Pressure 132/46 - Exam No acute distress, awake and alert on pressure support and CPAP, with an orally placed endotracheal tube and NG tube. HEENT examination is grossly unremarkable. Mucous membranes are moist. No oral lesions. Neck supple. Full range of motion. No adenopathy thyromegaly or neck vein distention. Cardiovascular examination reveals regular rhythm rate. S1-S2 normal. No S3 or S4. No discernible murmur noted. Heart rate is 57 bpm. Lungs reveal mostly clear breath sounds. There are a few scattered rhonchi. No wheezes or crackles. Breath sounds equal bilaterally.. Abdomen soft bowel sounds are heard. No masses or tenderness. Extremities are intact. No cyanosis clubbing or edema. Skin is without rash or lesion. Neurologic examination is brief but nonfocal. - Labs CBC & Chem 7: 04/09/20 04:36 04/09/20 04:36 Labs: Abnormal Lab Results - Last 24 Hours (Table) 04/08/20 04/08/20 04/08/20 Range/Units 11:39 17:59 23:53 WBC (3.8-10.6) k/uL RBC (3.80-5.40) m/uL Hgb (11.4-16.0) gm/dL Hct (34.0-46.0) % Neutrophils # (1.3-7.7) k/uL Lymphocytes # (1.0-4.8) k/uL ABG HCO3 (21-25) mmol/L ABG Total CO2 (19-24) mmol/L ABG O2 Saturation (94-97) % Sodium (137-145) mmol/L Glucose (74-99) mg/dL POC Glucose (mg/dL) 226 H 257 H 239 H (75-99) mg/dL Total Protein (6.3-8.2) g/dL Albumin (3.5-5.0) g/dL 04/09/20 04/09/20 04/09/20 Range/Units 04:36 04:36 05:22 WBC 11.9 H (3.8-10.6) k/uL RBC 3.55 L (3.80-5.40) m/uL Hgb 10.6 L (11.4-16.0) gm/dL Hct 31.4 L (34.0-46.0) % Neutrophils # 10.7 H (1.3-7.7) k/uL Lymphocytes # 0.5 L (1.0-4.8) k/uL ABG HCO3 (21-25) mmol/L ABG Total CO2 (19-24) mmol/L ABG O2 Saturation (94-97) % Sodium 135 L (137-145) mmol/L Glucose 233 H (74-99) mg/dL POC Glucose (mg/dL) 246 H (75-99) mg/dL Total Protein 5.2 L (6.3-8.2) g/dL Albumin 2.8 L (3.5-5.0) g/dL 04/09/20 Range/Units 05:28 WBC (3.8-10.6) k/uL RBC (3.80-5.40) m/uL Hgb (11.4-16.0) gm/dL Hct (34.0-46.0) % Neutrophils # (1.3-7.7) k/uL Lymphocytes # (1.0-4.8) k/uL ABG HCO3 26 H (21-25) mmol/L ABG Total CO2 27 H (19-24) mmol/L ABG O2 Saturation 98.3 H (94-97) % Sodium (137-145) mmol/L Glucose (74-99) mg/dL POC Glucose (mg/dL) (75-99) mg/dL Total Protein (6.3-8.2) g/dL Albumin (3.5-5.0) g/dL Microbiology - Last 24 Hours (Table) 04/07/20 21:50 Gram Stain - Preliminary Sputum Sputum Culture - Preliminary Assessment and Plan Assessment: Postop day #2, status post anterior cervical discectomy, cervical decompression with rods, screws, and bone graft, and intraoperative neurophysiologic monitoring. This was a multilevel procedure involving cervical and thoracic spine. Routine postoperative ventilator management. No cuff leak on testing this morning, suggesting significant edema/swelling. History of CAD. History of angina pectoris. History of CVA. Diabetes mellitus. Gastroesophageal reflux disease. History of hyperlipidemia. History of hypertension. Prior history of myocardial infarction. History of degenerative joint disease. Multiple other medical problems and comorbidities. Plan: Plan dated 04/09/2020. Today's weaning parameters were excellent. She does have a cuff leak. The patient will be extubated. Currently, she is on pressure support of 5 and CPAP of 5. Her rapid shallow breathing index was excellent. As mentioned above, she does have a cuff leak today. Yesterday, she was placed on Decadron, 6 mg IV, every 6 hours. He cannot be discontinued. Additional recommendations and suggestions are forthcoming. Today is postop day #2. Later today, she can move out of the intensive care unit. We will keep her nothing by mouth for 6 hours. After 6 hours, sips of water chips of ice. The diet can be advanced after that point. Time with Patient: Greater than 30
[2020-04-09] MEDS: HYDROmorphone 0.5 MG/0.5 ML SYRINGE IVP PRN ×2 (10:00→10:10)
[2020-04-09 11:33] LABS: Glucose,Whole Blood 216 mg/dL (75-99)
--- NOTE | 2020-04-09 11:58 | P.PN ---
Subjective Progress Note Date: 04/09/20 Principal diagnosis: Status post neck fusion Patient was just extubated this morning. She is currently doing well. No apparent respiratory distress. She denied having any pain other than the surgical neck pain. No shortness of breath. Objective - Vital Signs Vital signs: Vital Signs Temp 98.0 F 04/09/20 08:00 Pulse 60 04/09/20 11:00 Resp 11 L 04/09/20 11:00 BP 151/63 04/09/20 11:00 Pulse Ox 96 04/09/20 11:00 Intake & Output 04/08/20 04/09/20 04/09/20 18:59 06:59 18:59 Intake Total 1936.266 6249 350 Output Total 500 640 200 Balance 542.915 605 150 Weight 73.7 kg Intake: IV 1020 1200 350 Lactated Ringers 1,000 ml 1020 1200 200 @ 100 mls/hr IV .Q10H [facility] Rx#:[id number] Lactated Ringers 1,000 ml 150 @ 50 mls/hr IV .Q20H [facility] Rx#:[id number] Intake, IV Titration 22.915 Amount propofoL 1,000 mg In 22.915 Empty Bag 1 bag @ Titrate IV .Q0M [facility] Rx#: [id number] Other 45 Output: Drainage 85 40 Anterior Neck 10 Posterior Neck 75 40 Urine 415 600 200 Other: Voiding Method Indwelling Catheter Indwelling Catheter Indwelling Catheter ABP, PAP, CO, CI - Last Documented Arterial Blood Pressure 132/46 - Exam Gen: lethargic, just extubated. No acute distress HEENT: normocephalic, atraumatic, good hearing acuity, moist mucous membranes Resp: good air exchange, breathing comfortably with no accessory muscle use CVS: good distal perfusion x 4, regular rate and rhythm without murmurs GI: soft, NTTP, ND : no SPT, no CVAT, rodríguez catheter is present MSK: no pitting edema, no clubbing Neuro: non-focal - Labs CBC & Chem 7: 04/09/20 04:36 04/09/20 04:36 Labs: Abnormal Lab Results - Last 24 Hours (Table) 04/08/20 04/08/20 04/09/20 Range/Units 17:59 23:53 04:36 WBC (3.8-10.6) k/uL RBC (3.80-5.40) m/uL Hgb (11.4-16.0) gm/dL Hct (34.0-46.0) % Neutrophils # (1.3-7.7) k/uL Lymphocytes # (1.0-4.8) k/uL ABG HCO3 (21-25) mmol/L ABG Total CO2 (19-24) mmol/L ABG O2 Saturation (94-97) % Sodium 135 L (137-145) mmol/L Glucose 233 H (74-99) mg/dL POC Glucose (mg/dL) 257 H 239 H (75-99) mg/dL Total Protein 5.2 L (6.3-8.2) g/dL Albumin 2.8 L (3.5-5.0) g/dL 04/09/20 04/09/20 04/09/20 Range/Units 04:36 05:22 05:28 WBC 11.9 H (3.8-10.6) k/uL RBC 3.55 L (3.80-5.40) m/uL Hgb 10.6 L (11.4-16.0) gm/dL Hct 31.4 L (34.0-46.0) % Neutrophils # 10.7 H (1.3-7.7) k/uL Lymphocytes # 0.5 L (1.0-4.8) k/uL ABG HCO3 26 H (21-25) mmol/L ABG Total CO2 27 H (19-24) mmol/L ABG O2 Saturation 98.3 H (94-97) % Sodium (137-145) mmol/L Glucose (74-99) mg/dL POC Glucose (mg/dL) 246 H (75-99) mg/dL Total Protein (6.3-8.2) g/dL Albumin (3.5-5.0) g/dL 04/09/20 Range/Units 11:32 WBC (3.8-10.6) k/uL RBC (3.80-5.40) m/uL Hgb (11.4-16.0) gm/dL Hct (34.0-46.0) % Neutrophils # (1.3-7.7) k/uL Lymphocytes # (1.0-4.8) k/uL ABG HCO3 (21-25) mmol/L ABG Total CO2 (19-24) mmol/L ABG O2 Saturation (94-97) % Sodium (137-145) mmol/L Glucose (74-99) mg/dL POC Glucose (mg/dL) 216 H (75-99) mg/dL Total Protein (6.3-8.2) g/dL Albumin (3.5-5.0) g/dL Microbiology - Last 24 Hours (Table) 04/07/20 21:50 Gram Stain - Preliminary Sputum Sputum Culture - Preliminary Assessment and Plan Plan: s/p cervical fusion surgery On decadron Managment per surgery Home ASA/Plavix should be restarted as soon as deemed safe to do so by surgery Pain control, DVT ppx per primary team Physical and occupational therapy. Acute respiratory failure with hypoxia and hypercarbia Off mechanical ventilation. Management by pulmonary Diabetes mellitus type 2 Hyperglycemia worsened by steroid treatment Continue sliding scale, started on long-acting insulin with Lantus, increased dose today to 8 units daily. Glucose checks q6h with low dose SSI, patients insulin pump is presently off while hospitalized Chronic Hypertension, essential HLD Non-occlusive CAD All stable Resume medications Disposition: Will likely need rehab Anticipated discharge: 3-4 days.
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
[2020-04-09] MEDS: NOREPINEPHRINE 8 MG in SODIUM CHLORIDE 0.9% 250 ML IV SCH (15:10)
[2020-04-09 17:17] LABS: Glucose,Whole Blood 211 mg/dL (75-99)
[2020-04-09] MEDS: INSULIN DETEMIR (LEVEMIR) 100 UNIT/ML SYR SQ SCH (21:19)
[2020-04-09 23:53] LABS: Glucose,Whole Blood 223 mg/dL (75-99)
[2020-04-10] MEDS: INSULIN ASPART (NovoLOG) 100 UNIT/ML VIAL SQ SCH ×5 (00:06→19:59)
[2020-04-10] MEDS: DEXAMETHASONE SOD PHOSPHATE 10 MG/ML 1 ML VIAL IV SCH ×2 (00:07→06:39)
[2020-04-10] MEDS: HYDROmorphone 1 MG/ML 1 ML SYRINGE IVP PRN ×4 (00:07→16:35)
[2020-04-10 04:37] LABS: Basophils % (A) 0 %; Eosinophils # (A) 0.1 k/uL (0-0.7); Eosinophils % (A) 1 %; HGB 10.8 gm/dL (11.4-16.0); Lymphocytes # (A) 0.7 k/uL (1.0-4.8); Lymphocytes % (A) 5 %; MCH 30.1 pg (25.0-35.0); MCHC 33.7 g/dL (31.0-37.0); MCV 89.1 fL (80.0-100.0); Mean Platelet Volume 8.3; Monocytes # (A) 0.7 k/uL (0-1.0); Monocytes % (A) 6 %; Neutrophils # (A) 11.5 k/uL (1.3-7.7); Neutrophils % (A) 88 %; Platelet Count 162 k/uL (150-450); RDW 12.6 % (11.5-15.5); WBC 13.2 k/uL (3.8-10.6)
[2020-04-10 04:46] LABS: ALT 16 U/L (4-34); AST 31 U/L (14-36); African American GFR (CKD) >90 (>60 ml/min/1.73 sqM); Albumin 2.9 g/dL (3.5-5.0); Alkaline Phosphatase 84 U/L (38-126); Anion Gap 2 mmol/L; Blood Urea Nitrogen 19 mg/dL (7-17); Calcium 9.5 mg/dL (8.4-10.2); Carbon Dioxide 29 mmol/L (22-30); Chloride 106 mmol/L (98-107); Glucose 153 mg/dL (74-99); Non-African American GFR(CKD) 86 (>60 ml/min/1.73 sqM); Potassium 4.4 mmol/L (3.5-5.1); Sodium 137 mmol/L (137-145); Total Bilirubin 0.4 mg/dL (0.2-1.3); Total Protein 5.4 g/dL (6.3-8.2)
[2020-04-10] MEDS: LACTATED RINGERS 1,000 ML IV SCH (04:47)
[2020-04-10 05:55] LABS: Glucose,Whole Blood 188 mg/dL (75-99)
--- NOTE | 2020-04-10 07:57 | XR ---
EXAMINATION TYPE: XR chest 1V portable DATE OF EXAM: 04/10/2020 Comparison: 04/09/2020 Clinical History: 74-year-old female ICU Management/Post extubation Findings: Cervical fusion hardware. Left IJ CVC tip at the cavoatrial junction. Heart borderline to mildly enla rged. Mild interstitial prominence is unchanged. Hyperinflation. Calcified granuloma right base is re demonstrated. Minimal patchy peripheral left basilar density remains, this shows some improvement fro m yesterday's exam. Impression: COPD with borderline cardiomegaly and some minimal residual atelectasis/infiltrate at the peripheral left base, improved from prior.
[2020-04-10] MEDS: GABAPENTIN 400 MG CAP PO SCH ×3 (08:17→19:59)
[2020-04-10] MEDS: DOCUSATE 100 MG CAP PO SCH (08:17)
[2020-04-10] MEDS: polyethylene glycoL 3350 17 GM POWD.PACK PO SCH (08:17)
[2020-04-10] MEDS: HEPARIN SODIUM,PORCINE 5,000 UNIT/ML 1 ML VIAL SQ SCH ×2 (08:42→19:59)
[2020-04-10] MEDS: PANTOPRAZOLE 40 MG/10 ML VIAL IV SCH (08:43)
--- NOTE | 2020-04-10 09:32 | P.PN ---
Subjective Progress Note Date: 04/10/20 Principal diagnosis: Cervical myelopathy Patient seen and examined this morning doing very well she was extubated yesterday. She is sitting up in bed and talking. She has minimal pain at this time. She states that her arms feel better. Spoke over the phone with her and her . He is very happy hear from us. She is otherwise doing well no acute events overnight per nursing and she will likely be transferred out of the ICU today. Objective - Vital Signs Vital signs: Vital Signs Temp 98.1 F 04/10/20 08:00 Pulse 50 L 04/10/20 09:00 Resp 8 L 04/10/20 09:00 BP 167/68 04/10/20 09:00 Pulse Ox 93 L 04/10/20 09:00 Intake & Output 04/09/20 04/10/20 04/10/20 18:59 06:59 18:59 Intake Total 750 550 150 Output Total 620 505 115 Balance 130 45 35 Weight 71.8 kg Intake: IV 750 550 150 Lactated Ringers 1,000 ml 200 @ 100 mls/hr IV .Q10H [facility] Rx#:[id number] Lactated Ringers 1,000 ml 550 550 150 @ 50 mls/hr IV .Q20H [facility] Rx#:[id number] Output: Drainage 40 45 Posterior Neck 40 45 Urine 580 460 115 Other: Voiding Method Indwelling Catheter Indwelling Catheter Indwelling Catheter ABP, PAP, CO, CI - Last Documented Arterial Blood Pressure 132/46 - Exam Awake alert answering questions and cooperating appropriately Vital signs are stable at this time Dressing is clean dry and intact anterior and posterior. There is no fluctuance or erythema or ecchymosis or edema noted. Drains are in place and are putting out 80 from the posterior and 30 from the anterior overnight. Symmetrical chest rise OG tube in place Arterial line not correlating well cuff pressures reading well Fluids running at 100 will decrease to 50 patient having some swelling in her arms Propofol turned off at this time Distal pulses palpable on 4 extremities No long tract signs Motor: 4+/5 shoulder abd/EF/EE/WF/intrinsics 4+/5 DF/PF/EHL/FHL/HF/KE/KF Her strength is improving daily as she wakes up more Reflexes: 2/4 DTR all upper and LE Sensation intact to light touch in C5-T1 as well as L2-S1 distribution Birch's: Negative bilaterally Clonus: Negative bilaterally Babinski: Is bilaterally Incision: [Incision is clean dry and intact no erythema or ecchymosis or edema anterior or posterior. Drains are still in place] Dressing: [Clean dry and intact] Drain: [60 from the posterior drain overnight 45 in the anterior drain since 04/08/2020] - Labs CBC & Chem 7: 04/10/20 04:00 04/10/20 04:00 Labs: Abnormal Lab Results - Last 24 Hours (Table) 04/09/20 04/09/20 04/09/20 Range/Units 11:32 17:15 23:51 WBC (3.8-10.6) k/uL RBC (3.80-5.40) m/uL Hgb (11.4-16.0) gm/dL Hct (34.0-46.0) % Neutrophils # (1.3-7.7) k/uL Lymphocytes # (1.0-4.8) k/uL BUN (7-17) mg/dL Glucose (74-99) mg/dL POC Glucose (mg/dL) 216 H 211 H 223 H (75-99) mg/dL Total Protein (6.3-8.2) g/dL Albumin (3.5-5.0) g/dL 04/10/20 04/10/20 04/10/20 Range/Units 04:00 04:00 05:54 WBC 13.2 H (3.8-10.6) k/uL RBC 3.60 L (3.80-5.40) m/uL Hgb 10.8 L (11.4-16.0) gm/dL Hct 32.0 L (34.0-46.0) % Neutrophils # 11.5 H (1.3-7.7) k/uL Lymphocytes # 0.7 L (1.0-4.8) k/uL BUN 19 H (7-17) mg/dL Glucose 153 H (74-99) mg/dL POC Glucose (mg/dL) 188 H (75-99) mg/dL Total Protein 5.4 L (6.3-8.2) g/dL Albumin 2.9 L (3.5-5.0) g/dL Microbiology - Last 24 Hours (Table) 04/07/20 21:50 Gram Stain - Final Sputum Sputum Culture - Final Assessment and Plan Assessment: 74-year-old female postop day 3 from anterior and posterior cervical reconstruction doing well 1. C4-5, and C5-6 Grade I anterior listhesis 2. 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 4. B/L UE radiculopathy and weakness Plan: -Appreciate medicine and ICU management. Okay to transfer from ICU to floor today -Pain control: Adequate at this time we will reevaluate once patient is extubated -Aggressive ambulation protocol. OOB with all meals. OOB or in chair 4-5x daily. -PT/OT -No further imaging needed at this time -TEDs, SCDs, mechanical ppx. OK for heparin today. Early ambulation is best. -GI ppx. -Trend labs. -Dispo: Pending. Hopefully [facility] vs home Monday/monday
[2020-04-10] MEDS: LOSARTAN 50 MG TAB PO SCH (09:56)
--- NOTE | 2020-04-10 10:05 | P.PN ---
Subjective Progress Note Date: 04/10/20 Principal diagnosis: Postoperative ventilator management. 74-year-old female that were asked to see for ICU management and ventilator management. She is postop day #1, status post stage I anterior cervical discectomy C4 through C7, stage II posterior cervical 2 through thoracic to decompression with bridgette, screws, and bone graft, as well as intraoperative neuro physiologic monitoring. The patient was done under general anesthesia in the surgeon wanted the patient evaluated by our team and managed overnight on the ventilator. Currently, she is on the volume assist control modality, rate of 14, tidal volume 400, FiO2 35%, 5. Arterial blood gases show pO2 141, a PaCO2 of 39, and a pH of 7.37. These arterial blood gases were done on 50%. Currently, she is on pressure support of 5 cm water, and CPAP of 5 cm water with excellent weaning parameters. Unfortunately, she does not have a cuff leak. I asked the nurses to place her on Decadron, 6 mg IV push, every 6 hours. Her propofol is currently off. She's getting lactated Ringer's at 100 mL an hour. Today is postop day #1. The patient will be maintained on pressure support and CPAP for the time being. We will use sedation only as needed. Progress note dated 04/09/2020. Patient is postop day #2, status post extensive cervical surgical procedure. Yesterday, the patient was placed on pressure support and CPAP. She did very well. Her weaning parameters were excellent. Unfortunately, she did not have a cuff leak. We placed her on Decadron, 6 mg IV push, every 6 hours. Later that evening, the patient apparently became apneic and we placed her back on the mechanical ventilator. This morning, she is on the volume assist control modality, rate is 14, tidal volume is 400, FiO2 is 35%, and PEEP is set at 5. Arterial blood gases show a PaO2 of 96, a PaCO2 of 42, and a pH of 7.4. She's getting lactated Ringer's at 50 mL an hour. Today we put her again on pressure support of 5 CPAP of 5, and today's weaning parameters include a vital capacity of 1.6 L, a respiratory rate of 10, a tidal Lyme at 484 mL, a minute ventilation of 4.8 L/m, a negative inspiratory force of -25, and a rapid shallow breathing index of 26. Today, she does have a cuff leak, and we gave the order to extubate. Apparently, a CT of the neck revealed no edema. The Decadron probably did help. Progress note dated 04/10/2020. Postop day #3, status post extensive cervical surgical procedure. The patient was extubated from mechanical ventilation yesterday. We did a daily eruption of sedation and a spontaneous breathing trial on pressure support of 5 and CPAP of 5. The patient had excellent weaning parameters, a very low rapid shallow breathing index, and had a positive cuff leak test. Initially, she did not have a cuff leak. We placed her on Decadron 6 mg IV push every 6 hours. Currently, she is on 2 L nasal cannula. She's getting lactated Ringer's at 50 mL an hour. In my opinion, the patient stable for the general medical floor without telemetry. Her diet can be advanced. He seems be doing relatively well. Her white count is 13.2, he will become 0.8, platelet count was normal. Sodium, potassium, chloride, CO2, anion gap, BUN, and creatinine are all normal. Likewise, her chest x-ray is normal. There is some minimal atelectasis at the left lung base. Objective - Vital Signs Vital signs: Vital Signs Temp 98.1 F 04/10/20 08:00 Pulse 50 L 04/10/20 09:00 Resp 8 L 04/10/20 09:00 BP 167/68 04/10/20 09:00 Pulse Ox 93 L 04/10/20 09:00 Intake & Output 04/09/20 04/10/20 04/10/20 18:59 06:59 18:59 Intake Total 750 550 150 Output Total 620 505 115 Balance 130 45 35 Weight 71.8 kg Intake: IV 750 550 150 Lactated Ringers 1,000 ml 200 @ 100 mls/hr IV .Q10H [facility] Rx#:[id number] Lactated Ringers 1,000 ml 550 550 150 @ 50 mls/hr IV .Q20H [facility] Rx#:[id number] Output: Drainage 40 45 Posterior Neck 40 45 Urine 580 460 115 Other: Voiding Method Indwelling Catheter Indwelling Catheter Indwelling Catheter ABP, PAP, CO, CI - Last Documented Arterial Blood Pressure 132/46 - Exam No acute distress, awake and alert. Currently on nasal O2 at 2 L. HEENT examination is grossly unremarkable. Mucous membranes are moist. No oral lesions. Neck supple. Full range of motion. No adenopathy thyromegaly or neck vein distention. Cardiovascular examination reveals regular rhythm rate. S1-S2 normal. No S3 or S4. No discernible murmur noted. Heart rate is 50 bpm. Lungs reveal mostly clear breath sounds. There are a few scattered rhonchi. No wheezes or crackles. Breath sounds equal bilaterally.. Abdomen soft bowel sounds are heard. No masses or tenderness. Extremities are intact. No cyanosis clubbing or edema. Skin is without rash or lesion. Neurologic examination is brief but nonfocal. - Labs CBC & Chem 7: 04/10/20 04:00 04/10/20 04:00 Labs: Abnormal Lab Results - Last 24 Hours (Table) 04/09/20 04/09/20 04/09/20 Range/Units 11:32 17:15 23:51 WBC (3.8-10.6) k/uL RBC (3.80-5.40) m/uL Hgb (11.4-16.0) gm/dL Hct (34.0-46.0) % Neutrophils # (1.3-7.7) k/uL Lymphocytes # (1.0-4.8) k/uL BUN (7-17) mg/dL Glucose (74-99) mg/dL POC Glucose (mg/dL) 216 H 211 H 223 H (75-99) mg/dL Total Protein (6.3-8.2) g/dL Albumin (3.5-5.0) g/dL 04/10/20 04/10/20 04/10/20 Range/Units 04:00 04:00 05:54 WBC 13.2 H (3.8-10.6) k/uL RBC 3.60 L (3.80-5.40) m/uL Hgb 10.8 L (11.4-16.0) gm/dL Hct 32.0 L (34.0-46.0) % Neutrophils # 11.5 H (1.3-7.7) k/uL Lymphocytes # 0.7 L (1.0-4.8) k/uL BUN 19 H (7-17) mg/dL Glucose 153 H (74-99) mg/dL POC Glucose (mg/dL) 188 H (75-99) mg/dL Total Protein 5.4 L (6.3-8.2) g/dL Albumin 2.9 L (3.5-5.0) g/dL Microbiology - Last 24 Hours (Table) 04/07/20 21:50 Gram Stain - Final Sputum Sputum Culture - Final Assessment and Plan Assessment: Postop day #3, status post anterior cervical discectomy, cervical decompression with rods, screws, and bone graft, and intraoperative neurophysiologic monitoring. This was a multilevel procedure involving cervical and thoracic spine. Routine postoperative ventilator management, with successful extubation on 04/09/2020. History of CAD. History of angina pectoris. History of CVA. Diabetes mellitus. Gastroesophageal reflux disease. History of hyperlipidemia. History of hypertension. Prior history of myocardial infarction. History of degenerative joint disease. Multiple other medical problems and comorbidities. Plan: Plan dated 04/10/2020. Currently, the patient's doing well. Patient could be transferred out to the general medical floor. She does not need telemetry. The patient's on nasal O2 at 2 L. She is on lactated Ringer's at 50 mL an hour. Her diet can be advanced. She was successfully extubated on 04/09/2000. We will discontinue the Decadron. I will go through her med list and make sure she is on appropri ate medications. Additional recommendations and suggestions are forthcoming. We will add back her blood pressure medicine, losartan. In addition, we switched her IV Protonix to by mouth Time with Patient: Greater than 30
[2020-04-10 11:54] LABS: Glucose,Whole Blood 250 mg/dL (75-99)
[2020-04-10] MEDS: HYDROcodone/APAP 10-325MG 1 EACH TAB PO PRN ×2 (12:00→19:03)
--- NOTE | 2020-04-10 14:06 | P.PN ---
Subjective Progress Note Date: 04/10/20 Principal diagnosis: Status post neck fusion Patient was being cleaned out by her nurse said this morning. She continues to have some neck pain. Otherwise no difficulty breathing or chest pain. No fevers or chills. Objective - Vital Signs Vital signs: Vital Signs Temp 98.1 F 04/10/20 08:00 Pulse 50 L 04/10/20 09:00 Resp 8 L 04/10/20 09:00 BP 167/68 04/10/20 09:00 Pulse Ox 93 L 04/10/20 09:00 Intake & Output 04/09/20 04/10/20 04/10/20 18:59 06:59 18:59 Intake Total 750 550 150 Output Total 620 505 115 Balance 130 45 35 Weight 71.8 kg Intake: IV 750 550 150 Lactated Ringers 1,000 ml 200 @ 100 mls/hr IV .Q10H [facility] Rx#:[id number] Lactated Ringers 1,000 ml 550 550 150 @ 50 mls/hr IV .Q20H [facility] Rx#:[id number] Output: Drainage 40 45 Posterior Neck 40 45 Urine 580 460 115 Other: Voiding Method Indwelling Catheter Indwelling Catheter Indwelling Catheter ABP, PAP, CO, CI - Last Documented Arterial Blood Pressure 132/46 - Exam Gen: lethargic, just extubated. No acute distress HEENT: normocephalic, atraumatic, good hearing acuity, moist mucous membranes Resp: good air exchange, breathing comfortably with no accessory muscle use CVS: good distal perfusion x 4, regular rate and rhythm without murmurs GI: soft, NTTP, ND : no SPT, no CVAT, rodríguez catheter is present MSK: no pitting edema, no clubbing Neuro: non-focal - Labs CBC & Chem 7: 04/10/20 04:00 04/10/20 04:00 Labs: Abnormal Lab Results - Last 24 Hours (Table) 04/09/20 04/09/20 04/10/20 Range/Units 17:15 23:51 04:00 WBC 13.2 H (3.8-10.6) k/uL RBC 3.60 L (3.80-5.40) m/uL Hgb 10.8 L (11.4-16.0) gm/dL Hct 32.0 L (34.0-46.0) % Neutrophils # 11.5 H (1.3-7.7) k/uL Lymphocytes # 0.7 L (1.0-4.8) k/uL BUN (7-17) mg/dL Glucose (74-99) mg/dL POC Glucose (mg/dL) 211 H 223 H (75-99) mg/dL Total Protein (6.3-8.2) g/dL Albumin (3.5-5.0) g/dL 04/10/20 04/10/20 04/10/20 Range/Units 04:00 05:54 11:52 WBC (3.8-10.6) k/uL RBC (3.80-5.40) m/uL Hgb (11.4-16.0) gm/dL Hct (34.0-46.0) % Neutrophils # (1.3-7.7) k/uL Lymphocytes # (1.0-4.8) k/uL BUN 19 H (7-17) mg/dL Glucose 153 H (74-99) mg/dL POC Glucose (mg/dL) 188 H 250 H (75-99) mg/dL Total Protein 5.4 L (6.3-8.2) g/dL Albumin 2.9 L (3.5-5.0) g/dL Microbiology - Last 24 Hours (Table) 04/07/20 21:50 Gram Stain - Final Sputum Sputum Culture - Final Assessment and Plan Plan: s/p cervical fusion surgery On decadron Managment per surgery Home ASA/Plavix should be restarted as soon as deemed safe to do so by surgery Pain control, Started on subcutaneous heparin today Physical and occupational therapy. Acute respiratory failure with hypoxia and hypercarbia Off mechanical ventilation. Pulm service d/fang steroids Diabetes mellitus type 2 Continue sliding scale, started on long-acting insulin with Lantus, 8 units daily. Glucose checks q6h with low dose SSI, patients insulin pump is presently off while hospitalized Chronic Hypertension, essential HLD Non-occlusive CAD All stable Resume medications Disposition: Will likely need rehab Anticipated discharge: 3-4 days.
[2020-04-10 17:04] LABS: Glucose,Whole Blood 217 mg/dL (75-99)
[2020-04-10 19:53] LABS: Glucose,Whole Blood 285 mg/dL (75-99)
[2020-04-10] MEDS: ATORVASTATIN 40 MG TAB PO SCH (19:59)
[2020-04-10] MEDS: INSULIN DETEMIR (LEVEMIR) 100 UNIT/ML SYR SQ SCH (20:22)
[2020-04-11 00:27] LABS: Glucose,Whole Blood 138 mg/dL (75-99)
[2020-04-11] MEDS: INSULIN ASPART (NovoLOG) 100 UNIT/ML VIAL SQ SCH ×5 (00:56→22:04)
[2020-04-11] MEDS: HYDROcodone/APAP 10-325MG 1 EACH TAB PO PRN ×3 (02:00→20:20)
[2020-04-11 05:48] LABS: Glucose,Whole Blood 147 mg/dL (75-99)
[2020-04-11 06:39] LABS: Basophils % (A) 0 %; Eosinophils # (A) 0.1 k/uL (0-0.7); Eosinophils % (A) 1 %; HCT 30.2 % (34.0-46.0); Lymphocytes # (A) 1.5 k/uL (1.0-4.8); Lymphocytes % (A) 15 %; MCH 29.7 pg (25.0-35.0); MCHC 33.3 g/dL (31.0-37.0); MCV 89.3 fL (80.0-100.0); Mean Platelet Volume 7.9; Monocytes # (A) 0.8 k/uL (0-1.0); Monocytes % (A) 8 %; Neutrophils # (A) 7.4 k/uL (1.3-7.7); Neutrophils % (A) 75 %; Platelet Count 165 k/uL (150-450); RBC 3.38 m/uL (3.80-5.40); RDW 12.5 % (11.5-15.5); WBC 9.8 k/uL (3.8-10.6)
[2020-04-11 06:49] LABS: ALT 15 U/L (4-34); AST 25 U/L (14-36); African American GFR (CKD) >90 (>60 ml/min/1.73 sqM); Albumin 2.6 g/dL (3.5-5.0); Alkaline Phosphatase 72 U/L (38-126); Anion Gap 0 mmol/L; Blood Urea Nitrogen 24 mg/dL (7-17); Carbon Dioxide 32 mmol/L (22-30); Chloride 104 mmol/L (98-107); Glucose 128 mg/dL (74-99); Non-African American GFR(CKD) 87 (>60 ml/min/1.73 sqM); Sodium 136 mmol/L (137-145); Total Bilirubin 0.4 mg/dL (0.2-1.3); Total Protein 4.9 g/dL (6.3-8.2)
[2020-04-11] MEDS: ASPIRIN 81 MG PO SCH (08:23)
[2020-04-11] MEDS: PANTOPRAZOLE 40 MG TABLET PO SCH (08:23)
[2020-04-11] MEDS: CLOPIDOGREL 75 MG TAB PO SCH (08:23)
[2020-04-11] MEDS: GABAPENTIN 400 MG CAP PO SCH ×3 (08:23→20:21)
[2020-04-11] MEDS: HEPARIN SODIUM,PORCINE 5,000 UNIT/ML 1 ML VIAL SQ SCH ×2 (08:23→20:21)
[2020-04-11] MEDS: LOSARTAN 50 MG TAB PO SCH (08:24)
[2020-04-11] MEDS: DOCUSATE 100 MG CAP PO SCH (08:24)
[2020-04-11] MEDS: polyethylene glycoL 3350 17 GM POWD.PACK PO SCH (08:24)
[2020-04-11 11:39] LABS: Glucose,Whole Blood 181 mg/dL (75-99)
--- NOTE | 2020-04-11 14:52 | P.PN ---
Subjective Progress Note Date: 04/11/20 Principal diagnosis: Stage I anterior cervical discectomy C4 through C7 74-year-old female that were asked to see for ICU management and ventilator management. She is postop day #1, status post stage I anterior cervical discectomy C4 through C7, stage II posterior cervical 2 through thoracic to decompression with bridgette, screws, and bone graft, as well as intraoperative neuro physiologic monitoring. The patient was done under general anesthesia in the surgeon wanted the patient evaluated by our team and managed overnight on the ventilator. Currently, she is on the volume assist control modality, rate of 14, tidal volume 400, FiO2 35%, 5. Arterial blood gases show pO2 141, a PaCO2 of 39, and a pH of 7.37. These arterial blood gases were done on 50%. Currently, she is on pressure support of 5 cm water, and CPAP of 5 cm water with excellent weaning parameters. Unfortunately, she does not have a cuff leak. I asked the nurses to place her on Decadron, 6 mg IV push, every 6 hours. Her propofol is currently off. She's getting lactated Ringer's at 100 mL an hour. Today is postop day #1. The patient will be maintained on pressure support and CPAP for the time being. We will use sedation only as needed. Progress note dated 04/09/2020. Patient is postop day #2, status post extensive cervical surgical procedure. Yesterday, the patient was placed on pressure support and CPAP. She did very well. Her weaning parameters were excellent. Unfortunately, she did not have a cuff leak. We placed her on Decadron, 6 mg IV push, every 6 hours. Later that evening, the patient apparently became apneic and we placed her back on the mechanical ventilator. This morning, she is on the volume assist control modality, rate is 14, tidal volume is 400, FiO2 is 35%, and PEEP is set at 5. Arterial blood gases show a PaO2 of 96, a PaCO2 of 42, and a pH of 7.4. She's getting lactated Ringer's at 50 mL an hour. Today we put her again on pressure support of 5 CPAP of 5, and today's weaning parameters include a vital capacity of 1.6 L, a respiratory rate of 10, a tidal Lyme at 484 mL, a minute ventilation of 4.8 L/m, a negative inspiratory force of -25, and a rapid shallow breathing index of 26. Today, she does have a cuff leak, and we gave the order to ext ubate. Apparently, a CT of the neck revealed no edema. The Decadron probably did help. Progress note dated 04/10/2020. Postop day #3, status post extensive cervical surgical procedure. The patient was extubated from mechanical ventilation yesterday. We did a daily eruption of sedation and a spontaneous breathing trial on pressure support of 5 and CPAP of 5. The patient had excellent weaning parameters, a very low rapid shallow breathing index, and had a positive cuff leak test. Initially, she did not have a cuff leak. We placed her on Decadron 6 mg IV push every 6 hours. Currently, she is on 2 L nasal cannula. She's getting lactated Ringer's at 50 mL an hour. In my opinion, the patient stable for the general medical floor without telemetry. Her diet can be advanced. He seems be doing relatively well. Her white count is 13.2, he will become 0.8, platelet count was normal. Sodium, potassium, chloride, CO2, anion gap, BUN, and creatinine are all normal. Likewise, her chest x-ray is normal. There is some minimal atelectasis at the left lung base. Progress note dated 04/11/2020 This is postoperative day #4. Patient is seen in follow-up on the regular medical floor. She is awake and alert in no acute distress. She is sitting up in a chair at the bedside. She is maintaining O2 saturation in the 90s on room air. No shortness of breath, cough or congestion. Sputum culture revealed no growth. White count 9.8. Hemoglobin 10.0. Sodium 136. Potassium 4.0. Cr eatinine 0.65. She remains on cefazolin. Heparin for DVT prophylaxis. Objective - Vital Signs Vital signs: Vital Signs Temp 97.8 F 04/11/20 07:05 Pulse 52 L 04/11/20 07:05 Resp 16 04/11/20 07:05 BP 143/71 04/11/20 07:05 Pulse Ox 98 04/11/20 07:05 Intake & Output 04/10/20 04/11/20 04/11/20 18:59 06:59 18:59 Intake Total 150 Output Total 515 400 Balance -365 -400 Intake: IV 150 Lactated Ringers 1,000 ml 150 @ 50 mls/hr IV .Q20H [facility] Rx#:[id number] Output: Drainage 50 Anterior Neck 10 Posterior Neck 40 Urine 515 350 Straight 350 Other: Voiding Method Indwelling Catheter ABP, PAP, CO, CI - Last Documented Arterial Blood Pressure 132/46 - Exam GENERAL EXAM: Alert, wasn't 74-year-old female patient, on room air, and c- collar, comfortable in no apparent distress. HEAD: Normocephalic. EYES: Normal reaction of pupils, equal size. NOSE: Clear with pink turbinates. THROAT: C-collar in place No erythema or exudates. NECK: No masses, no JVD. CHEST: No chest wall deformity. LUNGS: Equal air entry with faint crackles in the left base. CVS: S1 and S2 normal with no audible murmur, regular rhythm. ABDOMEN: No hepatosplenomegaly, normal bowel sounds, no guarding or rigidity. SPINE: No scoliosis or deformity SKIN: No rashes CENTRAL NERVOUS SYSTEM: No focal deficits, tone is normal in all 4 extremities. EXTREMITIES: There is no peripheral edema. No clubbing, no cyanosis. Peripheral pulses are intact. - Labs CBC & Chem 7: 04/11/20 06:10 04/11/20 06:10 Labs: Abnormal Lab Results - Last 24 Hours (Table) 04/10/20 04/10/20 04/11/20 Range/Units 17:03 19:52 00:26 RBC (3.80-5.40) m/uL Hgb (11.4-16.0) gm/dL Hct (34.0-46.0) % Sodium (137-145) mmol/L Carbon Dioxide (22-30) mmol/L BUN (7-17) mg/dL Glucose (74-99) mg/dL POC Glucose (mg/dL) 217 H 285 H 138 H (75-99) mg/dL Total Protein (6.3-8.2) g/dL Albumin (3.5-5.0) g/dL 04/11/20 04/11/20 04/11/20 Range/Units 05:46 06:10 06:10 RBC 3.38 L (3.80-5.40) m/uL Hgb 10.0 L (11.4-16.0) gm/dL Hct 30.2 L (34.0-46.0) % Sodium 136 L (137-145) mmol/L Carbon Dioxide 32 H (22-30) mmol/L BUN 24 H (7-17) mg/dL Glucose 128 H (74-99) mg/dL POC Glucose (mg/dL) 147 H (75-99) mg/dL Total Protein 4.9 L (6.3-8.2) g/dL Albumin 2.6 L (3.5-5.0) g/dL 04/11/20 Range/Units 11:37 RBC (3.80-5.40) m/uL Hgb (11.4-16.0) gm/dL Hct (34.0-46.0) % Sodium (137-145) mmol/L Carbon Dioxide (22-30) mmol/L BUN (7-17) mg/dL Glucose (74-99) mg/dL POC Glucose (mg/dL) 181 H (75-99) mg/dL Total Protein (6.3-8.2) g/dL Albumin (3.5-5.0) g/dL Assessment and Plan Assessment: 1 Status post anterior cervical discectomy, cervical decompression with rods, screws, and bone graft, and intraoperative neurophysiologic monitoring. This was a multilevel procedure involving cervical and thoracic spine. Postoperative day #4. 2 Routine postoperative ventilator management, with successful extubation on 04/09/2020. Recovered and on room air. 3 History of CAD. 4 History of angina pectoris. 5 History of CVA. 6 Diabetes mellitus. 7 Gastroesophageal reflux disease. 8 History of hyperlipidemia. 9 History of hypertension. 10 Prior history of myocardial infarction. 11 History of degenerative joint disease. 12 Multiple other medical problems and comorbidities. Plan: The patient was seen and evaluated by Dr. Rahman She is currently stable from the pulmonary and critical care standpoint On room air Working well with the incentive spirometer Increase her activity as tolerated We'll continue to follow I, the cosigning physician, performed a history & physical examination of the patient. Lungs sounds with faint crackles in left base. Maintaining good O2 saturations in the 90s on room air. I discussed the assessment and plan of care with my nurse practitioner, [place] Ochoa. I attest to the above note as dictated b y her.
--- NOTE | 2020-04-11 14:55 | P.PN ---
Subjective Progress Note Date: 04/11/20 Principal diagnosis: Status post neck fusion Patient has some issues with urinary retention today. She feels like she wants to urinate but she is not able to. She started to ambulate with physical therapy according to nursing staff. Pain in the neck is under control. Objective - Vital Signs Vital signs: Vital Signs Temp 97.8 F 04/11/20 07:05 Pulse 52 L 04/11/20 07:05 Resp 16 04/11/20 07:05 BP 143/71 04/11/20 07:05 Pulse Ox 98 04/11/20 07:05 Intake & Output 04/10/20 04/11/20 04/11/20 18:59 06:59 18:59 Intake Total 150 Output Total 515 400 Balance -365 -400 Intake: IV 150 Lactated Ringers 1,000 ml 150 @ 50 mls/hr IV .Q20H [facility] Rx#:[id number] Output: Drainage 50 Anterior Neck 10 Posterior Neck 40 Urine 515 350 Straight 350 Other: Voiding Method Indwelling Catheter ABP, PAP, CO, CI - Last Documented Arterial Blood Pressure 132/46 - Exam Gen: lethargic, just extubated. No acute distress HEENT: normocephalic, atraumatic, good hearing acuity, moist mucous membranes Resp: good air exchange, breathing comfortably with no accessory muscle use CVS: good distal perfusion x 4, regular rate and rhythm without murmurs GI: soft, NTTP, ND : no SPT, no CVAT, rodríguez catheter is present MSK: no pitting edema, no clubbing Neuro: non-focal - Labs CBC & Chem 7: 04/11/20 06:10 04/11/20 06:10 Labs: Abnormal Lab Results - Last 24 Hours (Table) 04/10/20 04/10/20 04/11/20 Range/Units 17:03 19:52 00:26 RBC (3.80-5.40) m/uL Hgb (11.4-16.0) gm/dL Hct (34.0-46.0) % Sodium (137-145) mmol/L Carbon Dioxide (22-30) mmol/L BUN (7-17) mg/dL Glucose (74-99) mg/dL POC Glucose (mg/dL) 217 H 285 H 138 H (75-99) mg/dL Total Protein (6.3-8.2) g/dL Albumin (3.5-5.0) g/dL 04/11/20 04/11/20 04/11/20 Range/Units 05:46 06:10 06:10 RBC 3.38 L (3.80-5.40) m/uL Hgb 10.0 L (11.4-16.0) gm/dL Hct 30.2 L (34.0-46.0) % Sodium 136 L (137-145) mmol/L Carbon Dioxide 32 H (22-30) mmol/L BUN 24 H (7-17) mg/dL Glucose 128 H (74-99) mg/dL POC Glucose (mg/dL) 147 H (75-99) mg/dL Total Protein 4.9 L (6.3-8.2) g/dL Albumin 2.6 L (3.5-5.0) g/dL 04/11/20 Range/Units 11:37 RBC (3.80-5.40) m/uL Hgb (11.4-16.0) gm/dL Hct (34.0-46.0) % Sodium (137-145) mmol/L Carbon Dioxide (22-30) mmol/L BUN (7-17) mg/dL Glucose (74-99) mg/dL POC Glucose (mg/dL) 181 H (75-99) mg/dL Total Protein (6.3-8.2) g/dL Albumin (3.5-5.0) g/dL Assessment and Plan Plan: s/p cervical fusion surgery Managment per surgery Home ASA/Plavix should be restarted as soon as deemed safe to do so by surgery Pain control, Started on subcutaneous heparin Physical and occupational therapy. Acute respiratory failure with hypoxia and hypercarbia Resolved Off mechanical ventilation. Diabetes mellitus type 2 Blood glucose controlled Continue current regimen with sliding scale as well as Lantus, 8 units daily. Patients insulin pump is presently off while hospitalized Chronic Hypertension, essential HLD Non-occlusive CAD All stable Resume medications Disposition: Will likely need rehab Anticipated discharge: 2 days.
--- NOTE | 2020-04-11 15:01 | P.PN ---
Subjective Progress Note Date: 04/11/20 Principal diagnosis: Cervical myelopathy Patient was examined today at bedside, she is resting comfortably in her hospital bed. She has been up and ambulating with the use of a walker with very minimal discomfort and difficulty. She states that her right upper extremity continues to feel a lot better since the surgery. She's having a very difficult time urinating at this time,urinary catheter was removed today and a half ago. they will be straight cathing again today, he urinary Diop catheter will then be replaced. She's also had a bowel movement since before surgery, she remains an Colace and MiraLAX. Posterior and anterior drain to remain intact, there is been very minimal output in these the last day or 2. Her normally prescribed aspirin and Plavix was resumed today. She also remains on heparin. We will reassess drains tomorrow morning, likely plan to remove both at bedside tomorrow. Objective - Vital Signs Vital signs: Vital Signs Temp 97.8 F 04/11/20 07:05 Pulse 52 L 04/11/20 07:05 Resp 16 04/11/20 07:05 BP 143/71 04/11/20 07:05 Pulse Ox 98 04/11/20 07:05 Intake & Output 04/10/20 04/11/20 04/11/20 18:59 06:59 18:59 Intake Total 150 Output Total 515 400 Balance -365 -400 Intake: IV 150 Lactated Ringers 1,000 ml 150 @ 50 mls/hr IV .Q20H COUNTS INCLUDE 234 BEDS AT THE [facility] Rx#:[id number] Output: Drainage 50 Anterior Neck 10 Posterior Neck 40 Urine 515 350 Straight 350 Other: Voiding Method Indwelling Catheter ABP, PAP, CO, CI - Last Documented Arterial Blood Pressure 132/46 - Exam Gen: AOx3, NAD VSS stable at this time Integument: Incision sites both anterior and posterior clean, dry and intact. No areas of fluctuance, erythema or significant soft tissue swelling appreciated. Drains are in place both anterior posterior, total of 10 mL was noted. The anterior and 40 mL from the posterior drain overnight. Bilateral radial and ulnar pulses are 2+, bilateral dorsalis pedis pulses 2+ Sensory Exam: Senory exam to light touch is intact C5-T1 Senosry exam to light touch is intact L2-S1 Motor: 4-5 strength noted bilaterally upper extremities with shoulder abduction, elbow extension, elbow flexion, wrist extension, wrist flexion and intrinsics 4-5 strength noted bilaterally lower extremities with hip flexion, knee extension, knee flexion, plantar flexion, dorsiflexion, EHL, FHL Reflexes: 2/4 in all UE and LE Negative Faye's bilaterally Negative Babinski bilaterally Negative clonus bilaterally - Labs CBC & Chem 7: 04/11/20 06:10 04/11/20 06:10 Labs: Abnormal Lab Results - Last 24 Hours (Table) 04/10/20 04/10/20 04/11/20 Range/Units 17:03 19:52 00:26 RBC (3.80-5.40) m/uL Hgb (11.4-16.0) gm/dL Hct (34.0-46.0) % Sodium (137-145) mmol/L Carbon Dioxide (22-30) mmol/L BUN (7-17) mg/dL Glucose (74-99) mg/dL POC Glucose (mg/dL) 217 H 285 H 138 H (75-99) mg/dL Total Protein (6.3-8.2) g/dL Albumin (3.5-5.0) g/dL 04/11/20 04/11/20 04/11/20 Range/Units 05:46 06:10 06:10 RBC 3.38 L (3.80-5.40) m/uL Hgb 10.0 L (11.4-16.0) gm/dL Hct 30.2 L (34.0-46.0) % Sodium 136 L (137-145) mmol/L Carbon Dioxide 32 H (22-30) mmol/L BUN 24 H (7-17) mg/dL Glucose 128 H (74-99) mg/dL POC Glucose (mg/dL) 147 H (75-99) mg/dL Total Protein 4.9 L (6.3-8.2) g/dL Albumin 2.6 L (3.5-5.0) g/dL 04/11/20 Range/Units 11:37 RBC (3.80-5.40) m/uL Hgb (11.4-16.0) gm/dL Hct (34.0-46.0) % Sodium (137-145) mmol/L Carbon Dioxide (22-30) mmol/L BUN (7-17) mg/dL Glucose (74-99) mg/dL POC Glucose (mg/dL) 181 H (75-99) mg/dL Total Protein (6.3-8.2) g/dL Albumin (3.5-5.0) g/dL Assessment and Plan Assessment: 74-year-old female postop day 4 from anterior and posterior cervical reconstruction doing well 1. C4-5, and C5-6 Grade I anterior listhesis 2. 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 4. B/L UE radiculopathy and weakness Plan: Pain control, continue with current medication DVT prophylaxis, aspirin and Plavix has been restarted today, patient is also on heparin. Will discuss with my attending and also internal medicine about discontinuing heparin tomorrow Depending on output from drains, planning to pull both anterior and posterior drains on 04/12/2020 Continue with medications for constipation. Urinary catheter will be placed once again, hopeful discharge in the next day or 2. Continue with physical therapy along with ambulation with walker and up to chair with all meals Continue to follow during inpatient stay
[2020-04-11 18:10] LABS: Glucose,Whole Blood 262 mg/dL (75-99)
[2020-04-11] MEDS: ATORVASTATIN 40 MG TAB PO SCH (20:21)
[2020-04-11] MEDS: INSULIN DETEMIR (LEVEMIR) 100 UNIT/ML SYR SQ SCH (20:21)
[2020-04-11 20:48] LABS: Glucose,Whole Blood 238 mg/dL (75-99)
[2020-04-12] MEDS: HYDROmorphone 0.5 MG/0.5 ML SYRINGE IVP PRN ×2 (01:40→09:00)
[2020-04-12] MEDS: HYDROcodone/APAP 10-325MG 1 EACH TAB PO PRN ×3 (06:30→19:48)
[2020-04-12 06:54] LABS: Glucose,Whole Blood 139 mg/dL (75-99)
[2020-04-12] MEDS: LOSARTAN 50 MG TAB PO SCH (07:01)
[2020-04-12] MEDS: INSULIN ASPART (NovoLOG) 100 UNIT/ML VIAL SQ SCH ×4 (07:29→21:29)
[2020-04-12] MEDS: CLOPIDOGREL 75 MG TAB PO SCH (08:36)
[2020-04-12] MEDS: HEPARIN SODIUM,PORCINE 5,000 UNIT/ML 1 ML VIAL SQ SCH ×2 (08:36→19:49)
[2020-04-12] MEDS: polyethylene glycoL 3350 17 GM POWD.PACK PO SCH (08:36)
[2020-04-12] MEDS: GABAPENTIN 400 MG CAP PO SCH ×3 (08:36→19:48)
[2020-04-12] MEDS: ASPIRIN 81 MG PO SCH (08:36)
[2020-04-12] MEDS: DOCUSATE 100 MG CAP PO SCH (08:36)
[2020-04-12] MEDS: PANTOPRAZOLE 40 MG TABLET PO SCH (08:36)
[2020-04-12 11:24] LABS: Glucose,Whole Blood 246 mg/dL (75-99)
--- NOTE | 2020-04-12 12:33 | P.PN ---
Subjective Progress Note Date: 04/12/20 Principal diagnosis: Cervical myelopathy Patient was examined today at bedside, she is up in her hospital chair. She has been ambulating better today. They did do a straight cath yesterday, since then she has been urinating with no problems. She also had a bowel movement. She notes little bit more discomfort in the neck today. Posterior and anterior drain to remain intact, 15 mL of output from the posterior aspect, 2 mL from the anterior. She has no acute neurological deficits of the upper or lower extremities bilaterally. Currently she denies any headaches, lightheadedness, chest pain or shortness of breath. Objective - Vital Signs Vital signs: Vital Signs Temp 98.8 F 04/12/20 07:51 Pulse 64 04/12/20 07:51 Resp 17 04/12/20 07:51 BP 202/73 04/12/20 07:51 Pulse Ox 96 04/12/20 07:51 Intake & Output 04/11/20 04/12/20 04/12/20 18:59 06:59 18:59 Intake Total 350 Output Total 1700 1150 Balance -1700 -800 Intake: Intake, IV Titration 50 Amount ceFAZolin 2 gm In Sodium 50 Chloride 0.9% 50 ml @ 100 mls/hr IVPB Q8H [facility] Rx#: [id number] Oral 300 Output: Drainage 50 Anterior Neck 10 Posterior Neck 40 Urine 1700 1100 Straight 800 Other: Voiding Method Indwelling Catheter # Bowel Movements 1 ABP, PAP, CO, CI - Last Documented Arterial Blood Pressure 132/46 - Exam Gen: AOx3, NAD VSS stable at this time Integument: Incision sites both anterior and posterior clean, dry and intact. No areas of erythema or significant soft tissue swelling appreciated. Drains are in place both anterior posterior, total of 2 mL was noted. 50 mL were noted in the posterior drain. Small amount of soft tissue swelling on the left side of poste rior neck, no active drainage noted. Bilateral radial and ulnar pulses are 2+, bilateral dorsalis pedis pulses 2+ Sensory Exam: Senory exam to light touch is intact C5-T1 Senosry exam to light touch is intact L2-S1 Motor: 4-5 strength noted bilaterally upper extremities with shoulder abduction, elbow extension, elbow flexion, wrist extension, wrist flexion and intrinsics 4-5 strength noted bilaterally lower extremities with hip flexion, knee extension, knee flexion, plantar flexion, dorsiflexion, EHL, FHL Reflexes: 2/4 in all UE and LE Negative Faye's bilaterally Negative Babinski bilaterally Negative clonus bilaterally - Labs CBC & Chem 7: 04/11/20 06:10 04/11/20 06:10 Labs: Abnormal Lab Results - Last 24 Hours (Table) 04/11/20 04/11/20 04/12/20 Range/Units 18:08 20:45 06:49 POC Glucose (mg/dL) 262 H 238 H 139 H (75-99) mg/dL 04/12/20 Range/Units 11:23 POC Glucose (mg/dL) 246 H (75-99) mg/dL Assessment and Plan Assessment: 74-year-old female postop day 4 from anterior and posterior cervical reconstruction doing well 1. C4-5, and C5-6 Grade I anterior listhesis 2. 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 4. B/L UE radiculopathy and weakness Plan: Pain control, continue with current medication DVT prophylaxis, aspirin and Plavix has been restarted today, patient is also on heparin. Will discuss with my attending and also internal medicine about discontinuing heparin Anterior drain was removed today, bandages were changed. Bandage was changed also on the posterior aspect, drain was left in. Continue with physical therapy along with ambulation with walker and up to chair with all meals Continue to follow during inpatient stay Time with Patient: Less than 30
--- NOTE | 2020-04-12 16:13 | P.PN ---
Subjective Progress Note Date: 04/12/20 Principal diagnosis: Status post neck fusion Patient doing very well, urinary retention has resolved. Blood sugars have been on the higher side. Patient is ambulating well according to nursing staff. No shortness of breath or pain. Objective - Vital Signs Vital signs: Vital Signs Temp 98.3 F 04/12/20 14:00 Pulse 60 04/12/20 14:00 Resp 18 04/12/20 14:00 BP 130/67 04/12/20 14:00 Pulse Ox 95 04/12/20 14:00 Intake & Output 04/11/20 04/12/20 04/12/20 18:59 06:59 18:59 Intake Total 350 Output Total 1700 1150 55 Balance -1700 -800 -55 Intake: Intake, IV Titration 50 Amount ceFAZolin 2 gm In Sodium 50 Chloride 0.9% 50 ml @ 100 mls/hr IVPB Q8H [facility] Rx#: [id number] Oral 300 Output: Drainage 50 55 Anterior Neck 10 5 Posterior Neck 40 50 Urine 1700 1100 Straight 800 Other: Voiding Method Indwelling Catheter # Bowel Movements 1 ABP, PAP, CO, CI - Last Documented Arterial Blood Pressure 132/46 - Exam Gen: lethargic, just extubated. No acute distress HEENT: normocephalic, atraumatic, good hearing acuity, moist mucous membranes Resp: good air exchange, breathing comfortably with no accessory muscle use CVS: good distal perfusion x 4, regular rate and rhythm without murmurs GI: soft, NTTP, ND : no SPT, no CVAT, rodríguez catheter is present MSK: no pitting edema, no clubbing Neuro: non-focal - Labs CBC & Chem 7: 04/11/20 06:10 04/11/20 06:10 Labs: Abnormal Lab Results - Last 24 Hours (Table) 04/11/20 04/11/20 04/12/20 Range/Units 18:08 20:45 06:49 POC Glucose (mg/dL) 262 H 238 H 139 H (75-99) mg/dL 04/12/20 Range/Units 11:23 POC Glucose (mg/dL) 246 H (75-99) mg/dL Assessment and Plan Plan: s/p cervical fusion surgery Managment per surgery Home ASA/Plavix restarted Pain control, On subcutaneous heparin Physical and occupational therapy. Acute respiratory failure with hypoxia and hypercarbia Resolved Off mechanical ventilation. Diabetes mellitus type 2 Blood glucose high Switch to diabetic diet Increase Lantus to 10 units daily. Continue sliding scale Chronic Hypertension, essential HLD Non-occlusive CAD All stable Resume medications Disposition: Will likely need rehab Anticipated discharge: 1-2 days.
[2020-04-12 16:54] LABS: Glucose,Whole Blood 173 mg/dL (75-99)
[2020-04-12] MEDS: ATORVASTATIN 40 MG TAB PO SCH (19:48)
[2020-04-12 20:23] LABS: Glucose,Whole Blood 225 mg/dL (75-99)
[2020-04-12] MEDS: INSULIN DETEMIR (LEVEMIR) 100 UNIT/ML SYR SQ SCH (21:29)
[2020-04-13] MEDS: HYDROcodone/APAP 10-325MG 1 EACH TAB PO PRN ×4 (02:01→22:04)
[2020-04-13] MEDS: HYDROmorphone 1 MG/ML 1 ML SYRINGE IVP PRN (05:11)
[2020-04-13 07:36] LABS: Glucose,Whole Blood 105 mg/dL (75-99)
[2020-04-13] MEDS: INSULIN ASPART (NovoLOG) 100 UNIT/ML VIAL SQ SCH ×4 (07:54→21:21)
[2020-04-13] MEDS: polyethylene glycoL 3350 17 GM POWD.PACK PO SCH (08:05)
[2020-04-13] MEDS: CLOPIDOGREL 75 MG TAB PO SCH (08:07)
[2020-04-13] MEDS: DOCUSATE 100 MG CAP PO SCH (08:07)
[2020-04-13] MEDS: GABAPENTIN 400 MG CAP PO SCH ×3 (08:07→21:21)
[2020-04-13] MEDS: PANTOPRAZOLE 40 MG TABLET PO SCH (08:07)
[2020-04-13] MEDS: LOSARTAN 50 MG TAB PO SCH (08:07)
[2020-04-13] MEDS: HEPARIN SODIUM,PORCINE 5,000 UNIT/ML 1 ML VIAL SQ SCH ×2 (08:07→21:20)
[2020-04-13] MEDS: ASPIRIN 81 MG PO SCH (08:07)
[2020-04-13 08:10] VITALS: RESP 16
--- NOTE | 2020-04-13 08:54 | P.PN ---
Subjective Progress Note Date: 04/13/20 Principal diagnosis: Cervical myelopathy pt s/e some pain this AM. Otherwise doing well. Up eating breakfast. Denies issues with swallowing. States no numbness/tingling. No f/c/sob/cp at this time. Objective - Vital Signs Vital signs: Vital Signs Temp 97.7 F 04/13/20 08:00 Pulse 66 04/13/20 08:00 Resp 16 04/13/20 08:00 BP 172/52 04/13/20 08:00 Pulse Ox 93 L 04/13/20 08:00 Intake & Output 04/12/20 04/13/20 04/13/20 18:59 06:59 18:59 Intake Total 300 Output Total 55 1550 Balance -55 -1250 Intake: Oral 300 Output: Drainage 55 50 Anterior Neck 5 Posterior Neck 50 50 Urine 1500 Other: Voiding Method Indwelling Catheter # Voids 4 1 # Bowel Movements 1 ABP, PAP, CO, CI - Last Documented Arterial Blood Pressure 132/46 - Exam Awake alert answering questions and cooperating appropriately Vital signs are stable at this time Dressing is clean dry and intact anterior and posterior. There is no fluctuance or erythema or ecchymosis or edema noted. Drains are in place and are putting out 80 from the posterior and 30 from the anterior overnight. Symmetrical chest rise OG tube in place Arterial line not correlating well cuff pressures reading well Fluids running at 100 will decrease to 50 patient having some swelling in her arms Propofol turned off at this time Distal pulses palpable on 4 extremities No long tract signs Motor: 4+/5 shoulder abd/EF/EE/WF/intrinsics 4+/5 DF/PF/EHL/FHL/HF/KE/KF Her strength is improving daily as she wakes up more Reflexes: 2/4 DTR all upper and LE Sensation intact to light touch in C5-T1 as well as L2-S1 distribution Birch's: Negative bilaterally Clonus: Negative bilaterally Babinski: Is bilaterally Incision: [Incision is clean dry and intact no erythema or ecchymosis or edema anterior or posterior. Drains are still in place] Dressing: [Clean dry and intact] Drain: 40, Posterior drain DC today. Small amount of seroma evaucated with drain pulling. - Labs CBC & Chem 7: 04/11/20 06:10 04/11/20 06:10 Labs: Abnormal Lab Results - Last 24 Hours (Table) 04/12/20 04/12/20 04/12/20 Range/Units 11:23 16:52 20:20 POC Glucose (mg/dL) 246 H 173 H 225 H (75-99) mg/dL 04/13/20 Range/Units 07:33 POC Glucose (mg/dL) 105 H (75-99) mg/dL Assessment and Plan Assessment: 74-year-old female postop day 6 from anterior and posterior cervical reconstruction doing well 1. C4-5, and C5-6 Grade I anterior listhesis 2. 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 4. B/L UE radiculopathy and weakness Plan: -Appreciate medical management -Pain control: Adequate at this time we will reevaluate once patient is extubated -Aggressive ambulation protocol. OOB with all meals. OOB or in chair 4-5x daily. -PT/OT -No further imaging needed at this time -TEDs, SCDs, mechanical ppx. OK for heparin today. Early ambulation is best. -GI ppx. -Trend labs. -C collar when up and about -Dispo: Home with home care tomorrow.
[2020-04-13] MEDS: HYDROmorphone 0.5 MG/0.5 ML SYRINGE IVP PRN (11:04)
[2020-04-13 11:50] LABS: Glucose,Whole Blood 124 mg/dL (75-99)
--- NOTE | 2020-04-13 14:00 | P.PN ---
Subjective Progress Note Date: 04/13/20 Principal diagnosis: Status post neck fusion Patient is doing very well, she got up with physical therapy, walked around the whole today. Has some neck aches. No nausea or vomiting. Objective - Vital Signs Vital signs: Vital Signs Temp 97.7 F 04/13/20 08:00 Pulse 66 04/13/20 08:00 Resp 16 04/13/20 08:00 BP 172/52 04/13/20 08:00 Pulse Ox 93 L 04/13/20 08:00 Intake & Output 04/12/20 04/13/20 04/13/20 18:59 06:59 18:59 Intake Total 300 Output Total 55 1550 Balance -55 -1250 Intake: Oral 300 Output: Drainage 55 50 Anterior Neck 5 Posterior Neck 50 50 Urine 1500 Other: Voiding Method Indwelling Catheter # Voids 4 1 # Bowel Movements 1 ABP, PAP, CO, CI - Last Documented Arterial Blood Pressure 132/46 - Exam Gen: lethargic, just extubated. No acute distress HEENT: normocephalic, atraumatic, good hearing acuity, moist mucous membranes Resp: good air exchange, breathing comfortably with no accessory muscle use CVS: good distal perfusion x 4, regular rate and rhythm without murmurs GI: soft, NTTP, ND : no SPT, no CVAT, rodríguez catheter is present MSK: no pitting edema, no clubbing Neuro: non-focal - Labs CBC & Chem 7: 04/11/20 06:10 04/11/20 06:10 Labs: Abnormal Lab Results - Last 24 Hours (Table) 04/12/20 04/12/20 04/13/20 Range/Units 16:52 20:20 07:33 POC Glucose (mg/dL) 173 H 225 H 105 H (75-99) mg/dL 04/13/20 Range/Units 11:45 POC Glucose (mg/dL) 124 H (75-99) mg/dL Assessment and Plan Plan: s/p cervical fusion surgery Managment per surgery Home ASA/Plavix restarted Pain control, On subcutaneous heparin Physical and occupational therapy. Acute respiratory failure with hypoxia and hypercarbia Resolved Off mechanical ventilation. Diabetes mellitus type 2 Blood glucose stabilized Continue on diabetic diet Continue Lantus to 10 units daily. Continue sliding scale Resume insulin pump upon discharge Chronic Hypertension, essential HLD Non-occlusive CAD All stable Resume medications Disposition: Home with home healthcare Anticipated discharge: Tomorrow
[2020-04-13 17:06] LABS: Glucose,Whole Blood 177 mg/dL (75-99)
[2020-04-13 21:04] LABS: Glucose,Whole Blood 199 mg/dL (75-99)
[2020-04-13] MEDS: INSULIN DETEMIR (LEVEMIR) 100 UNIT/ML SYR SQ SCH (21:21)
[2020-04-13] MEDS: ATORVASTATIN 40 MG TAB PO SCH (21:21)
[2020-04-14] MEDS: HYDROmorphone 0.5 MG/0.5 ML SYRINGE IVP PRN (02:32)
[2020-04-14] MEDS: HYDROcodone/APAP 10-325MG 1 EACH TAB PO PRN (05:42)
[2020-04-14] MEDS: PANTOPRAZOLE 40 MG TABLET PO SCH (07:41)
[2020-04-14] MEDS: GABAPENTIN 400 MG CAP PO SCH (07:41)
[2020-04-14] MEDS: polyethylene glycoL 3350 17 GM POWD.PACK PO SCH (07:41)
[2020-04-14] MEDS: ASPIRIN 81 MG PO SCH (07:41)
[2020-04-14] MEDS: HEPARIN SODIUM,PORCINE 5,000 UNIT/ML 1 ML VIAL SQ SCH (07:41)
[2020-04-14] MEDS: DOCUSATE 100 MG CAP PO SCH (07:41)
[2020-04-14] MEDS: CLOPIDOGREL 75 MG TAB PO SCH (07:41)
[2020-04-14] MEDS: LOSARTAN 50 MG TAB PO SCH (07:41)
--- NOTE | 2020-04-14 07:52 | P.PN ---
Subjective Progress Note Date: 04/14/20 Principal diagnosis: Cervical myelopathy Pt s/e getting up on her own to go to the bathroom. She states she is doing well. No issues overnight. Pain is controlled. No other issues. Wants to go home. Objective - Vital Signs Vital signs: Vital Signs Temp 98.2 F 04/14/20 02:30 Pulse 66 04/14/20 02:30 Resp 16 04/14/20 02:30 BP 188/78 04/14/20 02:30 Pulse Ox 96 04/14/20 02:30 Intake & Output 04/13/20 04/14/20 04/14/20 18:59 06:59 18:59 Other: Voiding Method Toilet Toilet # Voids 3 ABP, PAP, CO, CI - Last Documented Arterial Blood Pressure 132/46 - Exam Awake alert answering questions and cooperating appropriately Vital signs are stable at this time Dressing is clean dry and intact anterior and posterior. There is no fluctuance or erythema or ecchymosis or edema noted. Drains are in place and are putting out 80 from the posterior and 30 from the anterior overnight. Symmetrical chest rise OG tube in place Arterial line not correlating well cuff pressures reading well Fluids running at 100 will decrease to 50 patient having some swelling in her arms Propofol turned off at this time Distal pulses palpable on 4 extremities No long tract signs Motor: 4+/5 shoulder abd/EF/EE/WF/intrinsics 4+/5 DF/PF/EHL/FHL/HF/KE/KF Her strength is improving daily as she wakes up more Reflexes: 2/4 DTR all upper and LE Sensation intact to light touch in C5-T1 as well as L2-S1 distribution Birch's: Negative bilaterally Clonus: Negative bilaterally Babinski: Is bilaterally Incision: [Incision is clean dry and intact no erythema or ecchymosis or edema anterior or posterior. Drains are still in place] Dressing: [Clean dry and intact] Drain: 40, Posterior drain DC today. Small amount of seroma evaucated with drain pulling. - Labs CBC & Chem 7: 04/11/20 06:10 04/11/20 06:10 Labs: Abnormal Lab Results - Last 24 Hours (Table) 04/13/20 04/13/20 04/13/20 Range/Units 11:45 17:05 21:02 POC Glucose (mg/dL) 124 H 177 H 199 H (75-99) mg/dL Assessment and Plan Assessment: 74-year-old female postop day 7 from anterior and posterior cervical reconstruction doing well 1. C4-5, and C5-6 Grade I anterior listhesis 2. 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 4. B/L UE radiculopathy and weakness Plan: -Appreciate medical management -Pain control: Adequate at this time we will reevaluate once patient is extubated -Aggressive ambulation protocol. OOB with all meals. OOB or in chair 4-5x daily. -PT/OT -No further imaging needed at this time -TEDs, SCDs, mechanical ppx. OK for heparin today. Early ambulation is best. -GI ppx. -Trend labs. -C collar when up and about -Dispo: Home with home care today.
[2020-04-14 08:17] VITALS: BP 158/72; PULSE 69; TEMP 98.1
[2020-04-14 08:24] LABS: Glucose,Whole Blood 101 mg/dL (75-99)
[2020-04-14] MEDS: INSULIN ASPART (NovoLOG) 100 UNIT/ML VIAL SQ SCH ×2 (08:24→12:37)
--- NOTE | 2020-04-14 10:45 | P.PN ---
Subjective Progress Note Date: 04/14/20 Principal diagnosis: neck pain Patient is a 74-year-old female with diabetes mellitus type 2 insulin requiring and a pump, hypertension and dyslipidemia who presented for anterior and posterior cervical reconstruction. Postoperative course was complicated with prolonged need for ventilation secondary to no cough leak. She was started on Decadron was successfully extubated. She has progressed well since that point in time. Patient seen and examined at bedside. She is sleeping but awakes to voice and she just received Flexeril. She states that her insulin pump is managed by her primary care physician Dr. Lewis and that she does not follow with an cardiopulmonary technologist. Her blood sugars typically run 150s and her last A1c was slightly above 7. She denies any chest pain, shortness breath, nausea, vomiting, or constipation. She states her pain and well-controlled. General: non toxic, no distress, appears at stated age Derm: warm, dry Head: atraumatic, normocephalic, symmetric, dressings in place over her not Eyes: EOMI, no lid lag, anicteric sclera Mouth: no lip lesion, mucus membranes moist Cardiovascular: S1S2 reg, no murmur, positive posterior tibial pulse bilateral, Lungs: CTA bilateral, no rhonchi, no rales , no accessory muscle use Abdominal: soft, nontender to palpation, no guarding, no appreciable organomegaly Ext: no gross muscle atrophy, no edema, no contractures Neuro: CN II-XI grossly intact, no focal neuro deficits Psych: Sleeping but awakes to voice, oriented, appropriate affect Diabetes mellitus type 2 with insulin pump -Sliding scale insulin and Levemir. Patient to resume insulin pump this evening at dinnertime -Continue check blood sugars 3 times daily -Follow up with PCP in 3-4 days to ensure that blood sugars are well controlled Acute blood loss anemia, anticipated outcome of surgery -Mild and stable -Anticipate this will improve without significant intervention and no indication for iron at this point in time is likely will increase risk of constipation in conjunction with needed pain medications -Follow up with PCP in 3-4 weeks Hypertension -Cozaar Dyslipidemia -Statin Coronary artery disease -Statin, Plavix Patient is medically optimized for discharge. Instructions regarding insulin pump added to discharge tab. Thank you for allowing us to participate in the care of this patient Objective - Vital Signs Vital signs: Vital Signs Temp 98.1 F 04/14/20 08:00 Pulse 69 04/14/20 08:00 Resp 16 04/14/20 08:00 BP 158/72 04/14/20 08:00 Pulse Ox 96 04/14/20 08:00 Intake & Output 04/13/20 04/14/20 04/14/20 18:59 06:59 18:59 Other: Voiding Method Toilet Toilet # Voids 3 ABP, PAP, CO, CI - Last Documented Arterial Blood Pressure 132/46 - Labs CBC & Chem 7: 04/11/20 06:10 04/11/20 06:10 Labs: Abnormal Lab Results - Last 24 Hours (Table) 04/13/20 04/13/20 04/13/20 Range/Units 11:45 17:05 21:02 POC Glucose (mg/dL) 124 H 177 H 199 H (75-99) mg/dL 04/14/20 Range/Units 08:22 POC Glucose (mg/dL) 101 H (75-99) mg/dL
[2020-04-14 11:57] LABS: Glucose,Whole Blood 171 mg/dL (75-99)
--- NOTE | 2020-04-14 13:12 | P.DS ---
Providers Date of admission: 04/07/20 06:04 Expected date of discharge: 04/14/20 Attending physician: Josh Knight, Consults: 04/07/20 15:55 Consult Physician Routine Consulting Provider: Miriam Gonzalez Consult Reason/Comments: medical management Do you want consulting provider notified?: Yes 04/07/20 16:28 Consult Physician Urgent Consulting Provider: Cholo Rahman Reason/Comments: ICU management Do you want consulting provider notified?: Yes Primary care physician: Kaylin Lewis Hospital Course: Date of admission: 04/07/2020 Date of discharge: 04/14/2020 Admission diagnosis: 1. C4-5, and C5-6 Grade I anterior listhesis 2. 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 4. B/L UE radiculopathy and weakness] Discharge diagnosis: Same Attending physician: Dr. Knight Surgical procedures: Stage I: 1. C4-5, C5-6 and C6-7 anterior discectomy and fusion with placement of cage and graft. 2. Use of intraoperative microscope Stage II: 1. C2-T1 posteriolateral instrumented fusion 2. C2-T1 segmental fusion 3. C3-C7 decompressive laminectomy Brief history: Patient is a 74-year-old female with a history of multilevel cervical spine spondylosis, multilevel moderate to severe cervical stenosis due to herniated disc and posterior ligamentous hypertrophy with myelomalacia, and multilevel grade 1 anterior listhesis of the cervical spine. Patient also had severe bilateral upper extremity radiculopathy and weakness.. At this point patient has failed conservative treatment measures and has opted to proceed with a elective anterior and posterior cervical spine reconstruction. Hospital course: Details of patient's surgery can be found in operative report. Patient tolerated the procedure well and was subsequently transported to orthopedic floor. Patient's orthopeidc and medical care was provided daily. Patient had daily laboratory tests performed for evaluation of overall blood counts. Patient had daily physical therapy to include strengthening range of motion as well as education with walker ambulation. Patient was treated with for the aspirin Milligrams, Plavix 75 mg and heparin 5000 units for postoperative DVT prophylaxis during their inpatient stay. Patient was noted to have a relatively uneventful postoperative course. Patient reported satisfactory pain control with oral pain medications by postoperative day 1. Patient showed satisfactory progress with physical therapy. Patient moved steadily through the program and had no difficulty meeting the goals by postoperative day 7. Given patient's otherwise satisfactory course and having met physical therapy goals, plan is to discharge patient home on postoperative day 7. Discharge condition/disposition: Patient will be discharged home in stable condition. Discharge medications: Instructions are given on resumption of patient's normal daily medications per primary care recommendation, in addition patient will be prescribed [place] 10 mg/325 mg, gabapentin 3 mg, Flexeril 10 mg, Duricef 500 mg, Senokot-S. Spine Discharge and Recovery Instructions Date of Surgery: 02/11/2020 Medications: See medication list All medication refills should be obtained through your primary care doctor or your clinic spine surgeon. Please discuss prescription refills at your follow up appointment. Do not call the hospital for medication refills. Dressing: Leave your dressing in place for a total of 5 days post operatively. Then you may remove your dressing and leave open to air. Keep the area clean and if not able to keep area clean, then cover with sterile gauze and tape. Showering: You may shower 3 days after your procedure allowing soap and water to run over incision. Do not scrub. Do not soak. Blot dry. Follow up: Please confirm a follow up appointment with your surgeon 3 weeks post operatively. Please make an appointment to follow up with your PCP in 1-2 weeks after surgery for evaluation 3 phase, 3-week plan POST OP WEEKS 1-3 1. Lifting/carrying/pushing/pulling limited to less than 5 pounds. 2. Do not sit for longer than 15 minutes at one time. Get up and walk around. Prolonged sitting is NOT advised. If you lay down, see if you can tolerate laying down on you front (belly side) 3. Walk for periods of 15 minutes = 1 mile but no longer; do it multiple times times each day. 4. Ice your low back after activity. POST OP WEEKS 3-6 1. Lifting limited to less than 20 pounds. 2. Do not sit for longer than 30 minutes at a time. Frequently change positions. Use a sit-to stand workstation or take frequent breaks from sitting if you have returned to work. 3. Walk for 30 minutes each day. If possible, do these three or more times a day POST OP WEEKS 6+ At your 6-week appointment we will give you a physical therapy referral to focus on a core stabilization and strengthening program. You should also work on leg & buttock strengthening, hamstring & quadriceps stretching, and continue a low impact aerobic activity program such as swimming, walking, or riding a stationary bicycle. During the initial 6 weeks after your surgery, you are at the highest risk of re-injuring your spine. You should generally avoid BLTs (bending, lifting and twisting combination motions) and follow the above guidelines to reduce the chance of reinjury. You can anticipate post op appointments in our office at approximately 3 weeks and 6 weeks after your surgery. INCISION CARE: If your incision is not draining you do NOT need to cover it with a dressing. Keep your incision clean, dry and intact. In most cases, we apply skin glue, yany or sutures to the incision at the time of surgery. This will be like a crust or have the appearance of a scab and will fall off in time on its own. The stitches or yany need to be removed at 3 weeks post op appointment. You may begin to shower 3 days after surgery (this allows the glue to bateman well). However, please avoid scrubbing the incision si te or peeling off any of the skin glue. This will ensure optimal healing of your incision. Also, during this time avoid soaking the incision area in water - this includes swimming pools, hot tubs or baths. No ointments, lotions or oils on the incision until your surgeon allows. Leave yany, sutures or glue in place. Neurological dysfunction that comes on suddenly can also be a sign of a stroke. Below some common symptoms of a stroke are listed: B - balance difficulty such as sudden onset walking or leaning to one side - NEW E - eye problem such as sudden double vision or trouble seeing on one side - NEW F - Facial weakness or numbness on one side - NEW A - Arm or leg weakness or numbness on one side - NEW S - Slurred speech or difficulty with word finding - NEW T - Time is BRAIN! Call 911 as soon as you recognize these symptoms Diet: Consume a regular diet rich in vegetables and lean protein such as chicken or fish. You should consume in a ratio of approximately 20% fats|40% carbohydrates|40%protein. Vegetables, sweet potatoes, brown rice or quinoa are examples of good carbohydrates. Chips, white bread, cookies and sweets/sugar are examples of bad carbohydrates. Limit your bad carbs, go wild with good carbs. "Life's Simple 7" Guidelines as per [employer] These will help you reclaim your life after surgery and flour blender helper in your recovery, keeping in mind your restrictions. (1) Get Active. Physical activity can help people lose weight, control high blood pressure and cholesterol, feel emotionally better, and sleep better. (2) Control Cholesterol. Avoid a diet high in saturated fat, trans fat, & cholesterol. Limit whole milk & cream, ice cream, butter, egg yolks, processed meats (like sausage and hot dogs), and fatty meats. Choose healthy foods that are low in saturated fat, trans fat and cholesterol which include: Fruits and vegetables, fiber rich grain products (like whole grain pasta and brown rice), lean meat such as chicken, fish, nuts, seeds, and legumes. (3) Eat Better. Eat small portions. Shop at the grocery with a list and do not stray from it. Tips for a healthy diet include: Limit sodium intake to less than 1500mg daily, avoid prepackaged, processed, and fast foods, choose a diet rich in fruits, vegetables, and whole grain, high fiber foods, and limit saturated & cholesterol in your diet. (4) Manage Blood Pressure. If you have high blood pressure, you should have a cuff at home so that you can check your blood pressure regularly. Be sure you have a good cuff. An arm one is generally better than a wrist one. Bring the cuff to a doctor's appointment to validate that the measurements that your cuff are taking are accurate. Take your blood pressure twice daily when you are sitting down and relaxing. Record the numbers in a log and bring this log with you to your doctors' appointments. (5) Lose Weight if your BMI is above 25. A healthy BMI is between 19-25. To calculate Your BMI, you may use a Standard BMI Calculator on the NIH BMI website: <www.nhlbi.nih.gov/guidelines/obesity/BMI/bmicalc.htm>. Weigh oneself daily. If you are overweight, set a goal to lose weight. A pound a week loss if needed is a good target. (6) Reduce Blood Sugar. Limit foods and liquids with "added sugars." (Added sugars include sucrose, fructose, glucose, maltose, dextrose, high fructose corn syrup, corn syrup, concentrated fruit juice and honey). (7) Stop Smoking. If you smoke, quitting smoking is one of the best things that you can do for your health. Smoking increases your risk of heart attack, stroke, and peripheral vascular disease, which is a build-up of plaque in your arteries. Please discard all the cigarettes and lighters in your house. Have a plan for what you will do when you have the urge to smoke. Direct and second- hand smoke shortens your life as well as the lives of your family, friends and others around you. For your health and the health of those around you, please consider quitting! Proper Bending Body Mechanics: Maintain a wide stance with one foot slightly in front of the other. Keep your back straight. Bend utilizing the strength in your hips and knees. Do not bend at the waist. Maintain the lifted object at your waist-level close to your body. Avoid lifting weight that causes immediately pain or pain anywhere in the body afterwards. Smoking/Nicotine If there was ever one thing that you could do to increase your overall health, decrease your risk of cardiovascular problems by about 39% the second you make the choice, it is to STOP SMOKING. Your body's most instant gratification is the second you stop smoking. We have all heard the studies, read the articles but it is true, smoking is extremely bad for your overall health, and moreover it is detrimental to your bone health. Nicotine, IN ANY FORM, kills bone cells, prevents your body from healing fractures, and significantly prolongs healing after surgery. In spine surgery specifically, it increases your risk of not healing your bones to create a fusion and increases your risk of having a revision surgery due to this up to 60%. I know it is hard. I know it feels impossible. But there are ways. Take control of your life. We are here to help you through it. And when you are ready, ask us and we can direct you to help if you desire. Use the START Plan to Quit Smoking (please visit the Helpguide.org website listed below for more information): S = Set a quit date. Choose a date within the next 2 weeks, so you have enough time to prepare without losing your motivation to quit. If you mainly smoke at work, quit on the weekend, so you have a few days to adjust to the change. T = Tell family, friends, and co-workers that you plan to quit. Let your friends and family in on your plan to quit smoking and tell them you need their support and encouragement to stop. Look for a quit chandni who wants to stop smoking as well. You can help each other get through the rough times. A = Anticipate and plan for the challenges you'll face while quitting. Most people who begin smoking again do so within the first 3 months. You can help yourself make it through by preparing ahead for common challenges, such as nicotine withdrawal and cigarette cravings. R = Remove cigarettes and other tobacco products from your home, car, and work. Throw away all your cigarettes (no emergency pack!), lighters, ashtrays, and matches. Wash your clothes and freshen up anything that smells like smoke. Shampoo your car, clean your drapes and carpet, and steam your furniture. T = Talk to your doctor about getting help to quit. Your doctor can prescribe medication to help with withdrawal and suggest other alternatives. If you can't see a doctor, you can get many products over the counter at your local pharmacy or grocery store, including the nicotine patch, nicotine lozenges, and nicotine gum. Resources for Quitting Smoking: <https://www.[place].gov/documents/[facility]/Quit_Tobacco_Resources_for_[place]_313480_7.pdf> Supplementation: Take recommended dosages of Vitamin D and Calcium to help fortify your bones and help them to heal. See your health maintenance packet for dosages and recommended levels. DVT/VTE prophylaxis: You will be given compression stockings from the hospital. Wear these daily for the first two weeks after surgery. You may take them off at night. You may be prescribed a medication to help thin your blood. Take this as directed. If you are not prescribed this medication, early and frequent ambulation has been shown to be the best prophylaxis to deep vein thrombosis and sequelae related to this event. Patient Condition at Discharge: Stable Plan - Discharge Summary Discharge Rx Participant: Yes New Discharge Prescriptions: New cefaDROXiL [Duricef] 500 mg PO Q12HR 7 Days #14 cap Cyclobenzaprine [Flexeril] 10 mg PO TID PRN #40 tab PRN Reason: Spasms Gabapentin 300 mg PO TID 7 Days #21 cap HYDROcodone/APAP 10-325MG [[place] 10-325] 1 - 2 tab PO Q4HR PRN #56 tab PRN Reason: Pain Sennosides/Docusate Sodium [Senna Plus 8.6-50 mg Softgel] 1 each PO BID #20 capsule Continue Losartan [Cozaar] 50 mg PO QAM Beclomethasone Dipropionate [Qvar 40 mcg/puff] 2 puff INHALATION RT-DAILY PRN PRN Reason: Shortness Of Breath Clopidogrel Bisulfate [Plavix] 75 mg PO DAILY #30 tab Aspirin 81 mg PO DAILY Atorvastatin [Lipitor] 40 mg PO HS INSULIN LISPRO (For Pump) [humaLOG (For Pump)] 0 units SQ-PUMP CONTINUOUS PRN PRN Reason: Blood Sugar - High Discontinued Gabapentin [Neurontin] 400 mg PO TID HYDROcodone/APAP 10-325MG [[place] 10-325] 1 tab PO TID PRN PRN Reason: Pain Discharge Medication List Beclomethasone Dipropionate [Qvar 40 mcg/puff] 2 puff INHALATION RT-DAILY PRN 11/06/14 [History] Losartan [Cozaar] 50 mg PO QAM 11/06/14 [History] Clopidogrel Bisulfate [Plavix] 75 mg PO DAILY #30 tab 11/11/14 [Rx] Aspirin 81 mg PO DAILY 06/04/18 [History] Atorvastatin [Lipitor] 40 mg PO HS 08/31/18 [History] INSULIN LISPRO (For Pump) [humaLOG (For Pump)] 0 units SQ-PUMP CONTINUOUS PRN 01/21/19 [History] Cyclobenzaprine [Flexeril] 10 mg PO TID PRN #40 tab 04/13/20 [Rx] Gabapentin 300 mg PO TID 7 Days #21 cap 04/13/20 [Rx] HYDROcodone/APAP 10-325MG [[place] 10-325] 1 - 2 tab PO Q4HR PRN #56 tab 04/13/20 [Rx] Sennosides/Docusate Sodium [Senna Plus 8.6-50 mg Softgel] 1 each PO BID #20 capsule 04/13/20 [Rx] cefaDROXiL [Duricef] 500 mg PO Q12HR 7 Days #14 cap 04/13/20 [Rx] Follow up Appointment(s)/Referral(s): [facility], [NON-STAFF] - As Needed Josh Knight DO [Doctor of Osteopathic Medicine] - 04/24/20 9:40 am Kaylin Lewis MD [Primary Care Provider] - 04/21/20 10:40 am Patient Instructions/Handouts: Anterior Cervical Discectomy (DC) Activity/Diet/Wound Care/Special Instructions: Resume insulin pump on 04/14 after 5pm and with dinner. Spine Discharge and Recovery Instructions Date of Surgery: 04/07/2020 Diagnosis: Multilevel cervical spondylosis with cervical myelopathy Procedure: Anterior and posterior 360 cervical fusion Medications: List All medication refills should be obtained through your primary care doctor or your clinic spine surgeon. Please discuss prescription refills at your follow up appointment. Do not call the hospital for medication refills. Dressing: Leave your dressing in place for a total of 3 days post operatively. Then you may remove your dressing and leave open to air. Keep the area clean and if not able to keep area clean, then cover with sterile gauze and tape. Showering: You may shower 3 days after your procedure allowing soap and water to run over incision. Do not scrub. Do not soak. Blot dry. Follow up: Please confirm a follow up appointment with your surgeon 2 weeks post operatively. Please make an appointment to follow up with your PCP in 3-4 days after surgery for evaluation 3 phase, 3-week plan POST OP WEEKS 1-3 1. Lifting/carrying/pushing/pulling limited to less than 5 pounds. 2. Do not sit for longer than 15 minutes at one time. Get up and walk around. Prolonged sitting is NOT advised. If you lay down, see if you can tolerate laying down on you front (belly side) 3. Walk for periods of 15 minutes = 1 mile but no longer; do it multiple times times each day. 4.Ice your low back after activity. POST OP WEEKS 3-6 1. Lifting limited to less than 20 pounds. 2. Do not sit for longer than 30 minutes at a time. Frequently change positions. Use a sit-to stand workstation or take frequent breaks from sitting if you have returned to work. 3. Walk for 30 minutes each day. If possible, do these three or more times a day POST OP WEEKS 6+ At your 6-week appointment we will give you a physical therapy referral to focus on a core stabilization and strengthening program. You should also work on leg & buttock strengthening, hamstring & quadriceps stretching, and continue a low impact aerobic activity program such as swimming, walking, or riding a stationary bicycle. During the initial 6 weeks after your surgery, you are at the highest risk of re-injuring your spine. You should generally avoid BLTs (bending, lifting and twisting combination motions) and follow the above guidelines to reduce the chance of reinjury. You can anticipate post op appointments in our office at approximately 3 weeks and 6 weeks after your surgery. INCISION CARE: If your incision is not draining you do NOT need to cover it with a dressing. Keep your incision clean, dry and intact. In most cases, we apply skin glue, yany or sutures to the incision at the time of surgery. This will be like a crust or have the appearance of a scab and will fall off in time on its own. The stitches or yany need to be removed at 3 weeks post op appointment. You may begin to shower 3 days after surgery (this allows the glue to bateman well). However, please avoid scrubbing the incision site or peeling off any of the skin glue. This will ensure optimal healing of your incision. Also, during this time avoid soaking the incision area in water - this includes swimming pools, hot tubs or baths. No ointments, lotions or oils on the incision until your surgeon allows. Leave yany, sutures or glue in place. Neurological dysfunction that comes on suddenly can also be a sign of a stroke. Below some common symptoms of a stroke are listed: B - balance difficulty such as sudden onset walking or leaning to one side - NEW E - eye problem such as sudden double vision or trouble seeing on one side - NEW F - Facial weakness or numbness on one side - NEW A - Arm or leg weakness or numbness on one side - NEW S - Slurred speech or difficulty with word finding - NEW T - Time is BRAIN! Call 911 as soon as you recognize these symptoms Diet: Consume a regular diet rich in vegetables and lean protein such as chicken or fish. You should consume in a ratio of approximately 20% fats|40% carbohydrates|40%protein. Vegetables, sweet potatoes, brown rice or quinoa are examples of good carbohydrates. Chips, white bread, cookies and sweets/sugar are examples of bad carbohydrates. Limit your bad carbs, go wild with good carbs. "Life's Simple 7" Guidelines as per [employer] These will help you reclaim your life after surgery and flour blender helper in your recovery, keeping in mind your restrictions. (1) Get Active. Physical activity can help people lose weight, control high blood pressure and cholesterol, feel emotionally better, and sleep better. (2) Control Cholesterol. Avoid a diet high in saturated fat, trans fat, & cholesterol. Limit whole milk & cream, ice cream, butter, egg yolks, processed meats (like sausage and hot dogs), and fatty meats. Choose healthy foods that are low in saturated fat, trans fat and cholesterol which include: Fruits and vegetables, fiber rich grain products (like whole grain pasta and brown rice), lean meat such as chicken, fish, nuts, seeds, and legumes. (3) Eat Better. Eat small portions. Shop at the grocery with a list and do not stray from it. Tips for a healthy diet include: Limit sodium intake to less than 1500mg daily, avoid prepackaged, processed, and fast foods, choose a diet rich in fruits, vegetables, and whole grain, high fiber foods, and limit saturated & cholesterol in your diet. (4) Manage Blood Pressure. If you have high blood pressure, you should have a cuff at home so that you can check your blood pressure regularly. Be sure you have a good cuff. An arm one is generally better than a wrist one. Bring the cuff to a doctor's appointment to validate that the measurements that your cuff are taking are accurate. Take your blood pressure twice daily when you are sitting down and relaxing. Record the numbers in a log and bring this log with you to your doctors' appointments. (5) Lose Weight if your BMI is above 25. A healthy BMI is between 19-25. To calculate Your BMI, you may use a Standard BMI Calculator on the NIH BMI website: <www.nhlbi.nih.gov/guidelines/obesity/BMI/bmicalc.htm>. Weigh oneself daily. If you are overweight, set a goal to lose weight. A pound a week loss if needed is a good target. (6) Reduce Blood Sugar. Limit foods and liquids with "added sugars." (Added sugars include sucrose, fructose, glucose, maltose, dextrose, high fructose corn syrup, corn syrup, concentrated fruit juice and honey). (7) Stop Smoking. If you smoke, quitting smoking is one of the best things that you can do for your health. Smoking increases your risk of heart attack, stroke, and peripheral vascular disease, which is a build-up of plaque in your arteries. Please discard all the cigarettes and lighters in your house. Have a plan for what you will do when you have the urge to smoke. Direct and second- hand smoke shortens your life as well as the lives of your family, friends and others around you. For your health and the health of those around you, please consider quitting! Proper Bending Body Mechanics: Maintain a wide stance with one foot slightly in front of the other. Keep your back straight. Bend utilizing the strength in your hips and knees. Do not bend at the waist. Maintain the lifted object at your waist-level close to your body. Avoid lifting weight that causes immediately pain or pain anywhere in the body afterwards. Smoking/Nicotine If there was ever one thing that you could do to increase your overall health, decrease your risk of cardiovascular problems by about 39% the second you make t he choice, it is to STOP SMOKING. Your body's most instant gratification is the second you stop smoking. We have all heard the studies, read the articles but it is true, smoking is extremely bad for your overall health, and moreover it is detrimental to your bone health. Nicotine, IN ANY FORM, kills bone cells, prevents your body from healing fractures, and significantly prolongs healing after surgery. In spine surgery specifically, it increases your risk of not healing your bones to create a fusion and increases your risk of having a revision surgery due to this up to 60%. I know it is hard. I know it feels impossible. But there are ways. Take control of your life. We are here to help you through it. And when you are ready, ask us and we can direct you to help if you desire. Use the START Plan to Quit Smoking (please visit the Helpguide.org website listed below for more information): S = Set a quit date. Choose a date within the next 2 weeks, so you have enough time to prepare without losing your motivation to quit. If you mainly smoke at work, quit on the weekend, so you have a few days to adjust to the change. T = Tell family, friends, and co-workers that you plan to quit. Let your friends and family in on your plan to quit smoking and tell them you need their support and encouragement to stop. Look for a quit chandni who wants to stop smoking as well. You can help each other get through the rough times. A = Anticipate and plan for the challenges you'll face while quitting. Most people who begin smoking again do so within the first 3 months. You can help yourself make it through by preparing ahead for common challenges, such as nicotine withdrawal and cigarette cravings. R = Remove cigarettes and other tobacco products from your home, car, and work. Throw away all your cigarettes (no emergency pack!), lighters, ashtrays, and matches. Wash your clothes and freshen up anything that smells like smoke. Shampoo your car, clean your drapes and carpet, and steam your furniture. T = Talk to your doctor about getting help to quit. Your doctor can prescribe medication to help with withdrawal and suggest other alternatives. If you can't see a doctor, you can get many products over the counter at your local pharmacy or grocery store, including the nicotine patch, nicotine lozenges, and nicotine gum. Resources for Quitting Smoking: < tps://www.[place].gov/documents/[facility]/Quit_Tobacco_Resources_for_patients_313480 _7.pdf> Supplementation: Take recommended dosages of Vitamin D and Calcium to help fortify your bones and help them to heal. See your health maintenance packet for dosages and recommended levels. DVT/VTE prophylaxis: You will be given compression stockings from the hospital. Wear these daily for the first two weeks after surgery. You may take them off at night. You may be prescribed a medication to help thin your blood. Take this as directed. If you are not prescribed this medication, early and frequent ambulation has been shown to be the best prophylaxis to deep vein thrombosis and sequelae related to this event. Discharge Disposition: HOME WITH HOME HEALTH SERVICES
[2020-04-14 15:51] VITALS: BMI 28.9
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
== END 2020-04-14 14:01 | disposition home health service (06) | DRG 454 ==
LOC: 2ORMAIN 06:04 → 2SICU 16:39 → 4SSUR 04-11 01:51
PROVIDERS: ADMIT Orthopaedic Surgery; ATTEND Orthopaedic Surgery
PROC: 0RG2071 Fusion of 2 or more Cervical Vertebral Joints with Autologous Tissue Substitute, Posterior Approach, Posterior Column, Open Approach (ICD-10-PCS; principal; 2020-04-07 07:30)
PROC: 0RT30ZZ Resection of Cervical Vertebral Disc, Open Approach (ICD-10-PCS; principal; 2020-04-07 07:30)
PROC: 0RG4071 Fusion of Cervicothoracic Vertebral Joint with Autologous Tissue Substitute, Posterior Approach, Posterior Column, Open Approach (ICD-10-PCS; principal; 2020-04-07 07:30)
PROC: 00NW0ZZ Release Cervical Spinal Cord, Open Approach (ICD-10-PCS; principal; 2020-04-07 07:30)
PROC: 0RG20A0 Fusion of 2 or more Cervical Vertebral Joints with Interbody Fusion Device, Anterior Approach, Anterior Column, Open Approach (ICD-10-PCS; principal; 2020-04-07 07:30)
DX: M48.02 Spinal stenosis, cervical region (principal); M47.12 Other spondylosis with myelopathy, cervical region; D62 Acute posthemorrhagic anemia; M47.22 Other spondylosis with radiculopathy, cervical region; Z96.41 Presence of insulin pump (external) (internal); R33.9 Retention of urine, unspecified; M19.90 Unspecified osteoarthritis, unspecified site; K21.9 Gastro-esophageal reflux disease without esophagitis; E78.5 Hyperlipidemia, unspecified; E11.40 Type 2 diabetes mellitus with diabetic neuropathy, unspecified; I10 Essential (primary) hypertension; I25.10 Atherosclerotic heart disease of native coronary artery without angina pectoris; F32.9 Major depressive disorder, single episode, unspecified; M50.122 Cervical disc disorder at C5-C6 level with radiculopathy; M50.123 Cervical disc disorder at C6-C7 level with radiculopathy; Z86.73 Personal history of transient ischemic attack (TIA), and cerebral infarction without residual deficits; Z90.49 Acquired absence of other specified parts of digestive tract; Z98.890 Other specified postprocedural states; Z98.49 Cataract extraction status, unspecified eye; Z90.710 Acquired absence of both cervix and uterus; Z87.442 Personal history of urinary calculi; Z83.3 Family history of diabetes mellitus; Z80.8 Family history of malignant neoplasm of other organs or systems; Z79.899 Other long term (current) drug therapy; Z79.82 Long term (current) use of aspirin; Z79.4 Long term (current) use of insulin; Z79.02 Long term (current) use of antithrombotics/antiplatelets; Z87.01 Personal history of pneumonia (recurrent); I25.2 Old myocardial infarction; Z80.42 Family history of malignant neoplasm of prostate; Z82.49 Family history of ischemic heart disease and other diseases of the circulatory system; Z88.4 Allergy status to anesthetic agent
CPT/HCPCS: 36415; 71045; 72040; 72125; 80048; 80053; 81001; 82805; 85025; 85610; 86850; 86891; 86900; 86901; 87070; 87205; 94002; 94003; C1762

== ENCOUNTER → 2020-05-06 | Outpatient (CLI) | payer MEDICARE ==
[2020-05-06 16:35] LABS: Potassium 4.8 mmol/L (3.5-5.1)
[2020-05-06 16:43] LABS: Basophils # (A) 0.1 k/uL (0-0.2); Basophils % (A) 1 %; Eosinophils # (A) 0.4 k/uL (0-0.7); Eosinophils % (A) 4 %; HCT 37.8 % (34.0-46.0); HGB 12.3 gm/dL (11.4-16.0); Lymphocytes # (A) 1.5 k/uL (1.0-4.8); Lymphocytes % (A) 13 %; MCH 28.6 pg (25.0-35.0); MCHC 32.4 g/dL (31.0-37.0); MCV 88.3 fL (80.0-100.0); Mean Platelet Volume 7.8; Monocytes # (A) 0.8 k/uL (0-1.0); Monocytes % (A) 7 %; Neutrophils # (A) 8.1 k/uL (1.3-7.7); Neutrophils % (A) 74 %; RBC 4.28 m/uL (3.80-5.40); RDW 12.2 % (11.5-15.5)
[2020-05-06 16:46] LABS: Platelet Count 496 k/uL (150-450)
== END | disposition home or self-care (01) ==
LOC: LABPAT 15:37
PROVIDERS: ATTEND Orthopaedic Surgery
DX: Z01.818 Encounter for other preprocedural examination (principal); S82.841D Displaced bimalleolar fracture of right lower leg, subsequent encounter for closed fracture with routine healing
CPT/HCPCS: 36415; 80051; 85025

== ENCOUNTER → 2020-05-06 | Outpatient (CLI) | payer MEDICARE ==
--- NOTE | 2020-05-06 16:55 | CT ---
EXAMINATION TYPE: CT cervical spine wo con DATE OF EXAM: 05/06/2020 COMPARISON: CT cervical spine 04/08/2020 HISTORY: fell 2 weeks post op cervical sx, trauma and pain CT DLP: 433.7 mGycm Automated exposure control for dose reduction was used. TECHNIQUE: CT scan of the cervical spine is obtained without contrast, axial images are obtained, sagittal and c oronal reformatted images are also reviewed. FINDINGS: Postop changes status post posterior fusion at C2-T1 are again noted, anterior margin of the screws a t T1 breach the anterior cortex however there is no underlying pneumothorax. Intervertebral spacing b locks are present at C6-7, C5-6. Intervertebral spacing blocks are present at C4-5, C5-6, C6-7 as on prior. There are laminectomies present at C3, C4, C5 and C6. There is no evident spinal stenosis. All ograft material is present at the posterior aspects of C7, there is some lucency present in the surgi elham bed at the level the laminectomies at C6 and posteriorly on the left at C3 to through C5 likely p ostoperative. The drain has been removed. There is a fluid collection posterior to C2 lamina bilatera lly which is indeterminate but likely postoperative. Cervical vertebral bodies show stable height and alignment. Posterior yany have been removed. Endotracheal tube and NG tube have been removed. Str eak artifact due to patient's hardware is noted over portions of the exam. Multilevel facet arthropat hy changes present. There is some foraminal encroachment on the left at C2-3, C3-4. Degenerative bah ge present at the sternoclavicular joint bilaterally left greater than right. IMPRESSION: Interval drain removal and findings described above. No evident acute fracture or subluxation. Probab le postoperative fluid collection as described, deep tissue air bubbles at the surgical bed are likel y postoperative.
== END | disposition home or self-care (01) ==
LOC: RADCTMAIN 15:51
PROVIDERS: ATTEND Orthopaedic Surgery
DX: Z98.890 Other specified postprocedural states (principal); M54.2 Cervicalgia
CPT/HCPCS: 72125

== ENCOUNTER 2020-05-07 10:54 | Inpatient (IN) | payer MEDICARE ==
[2020-05-07] MEDS ORDERED: DIAZEPAM 5 MG/ML 2 ML INJ IVP STA (11:40)
[2020-05-07 12:29] LABS: Basophils # (A) 0.1 k/uL (0-0.2); Basophils % (A) 1 %; Eosinophils # (A) 0.4 k/uL (0-0.7); Eosinophils % (A) 4 %; HCT 36.8 % (34.0-46.0); Lymphocytes # (A) 1.6 k/uL (1.0-4.8); Lymphocytes % (A) 17 %; MCH 28.3 pg (25.0-35.0); MCHC 32.6 g/dL (31.0-37.0); MCV 86.7 fL (80.0-100.0); Mean Platelet Volume 7.3; Monocytes # (A) 0.5 k/uL (0-1.0); Monocytes % (A) 6 %; Neutrophils # (A) 6.7 k/uL (1.3-7.7); Neutrophils % (A) 72 %; Platelet Count 450 k/uL (150-450); RBC 4.24 m/uL (3.80-5.40); RDW 12.6 % (11.5-15.5); WBC 9.2 k/uL (3.8-10.6)
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
[2020-05-07 12:36] LABS: INR 1.1 (<1.2); Prothrombin Time 11.1 sec (9.0-12.0)
[2020-05-07 12:39] LABS: Albumin 4.2 g/dL (3.5-5.0); Calcium 10.5 mg/dL (8.4-10.2); Potassium 4.1 mmol/L (3.5-5.1); Total Protein 7.4 g/dL (6.3-8.2)
--- NOTE | 2020-05-07 14:12 | CT ---
EXAMINATION TYPE: CT brain cspine wo con DATE OF EXAM: 05/07/2020 COMPARISON: May 06, 2020 HISTORY: Vertigo and weakness CT DLP: 1292.[address] of the brain was performed. The ventricles, basal cisterns and sulci overlying the cerebral convexities demonstrate mild enlargem ent. There is no evidence for intracranial hemorrhage or sulcal effacement. There is decreased attenuatio n about the periventricular white matter and deep white matter of both cerebral hemispheres, compatib le with chronic small vessel ischemia. No mass effects are seen. If symptoms persist consider MRI. Osseous calvarium is intact. IMPRESSION: 1. Age related atrophic and chronic small vessel ischemic change without acute intracranial process seen at this time. CT Cervical Spine: Unenhanced CT of the cervical spine was performed with bone and soft tissue window settings submitted . Coronal and sagittal reconstruction is obtained. Again noted are postoperative changes of the cervical fusion and anterior cervical discectomy and fus ion extending from C2 through T1. Pedicular screws are in place. There is decompressive laminectomy i dentified at C2-C5. Posterior collection is again noted with internal foci of air. While this could r eflect postsurgical seroma infected collection is not excluded. Intervertebral stabilizers are noted at C4-5 C5-6 and C6-7. Alignment is unchanged. Lack of contrast limits evaluation. IMPRESSION: 1. No evidence for acute fracture or subluxation of the cervical spine. 2. Posterior collection is again noted with internal foci of air. While this could reflect postsurgi elham seroma infected collection is not excluded.
--- NOTE | 2020-05-07 14:36 | CT ---
EXAMINATION TYPE: CT angio head neck DATE OF EXAM: 05/07/2020 COMPARISON: None HISTORY: Vertigo and weakness CT DLP: 403.5 mGycm CONTRAST: Performed with IV Contrast, patient injected with 65 mL of Isovue 370. Combination Contrast CTA cervical carotids and [place] CTA cervical carotids with 3-D recons truction Contrast CTA of the cervical carotids was performed 3-D reconstruction imaging obtained at a separate workstation. Right carotid system: Mild plaque is seen of the right common carotid artery. There is moderate plaq ue also noted at the carotid bulb and proximal ICA. There is high-grade stenosis noted of the proxima l right ICA estimated at greater than 90%. ECA is patent. Right vertebral artery appears unremarkabl e. Left carotid system: Mild plaque is seen of the left common carotid artery. There is mild plaque als o noted at the carotid bulb and proximal ICA. No significant diameter reduction. ECA is patent. Lef t vertebral artery appears unremarkable. Again noted is postoperative change of the cervical spine with the posterior collection noted interna l foci of air. While this could reflect postsurgical seroma infected collection is not excluded. Stre ak artifact limits evaluation of the spinal canal. IMPRESSION: 1. There is high-grade stenosis noted of the proximal right ICA estimated at greater than 90%. 2.Again noted is postoperative change of the cervical spine with the posterior collection noted inter nal foci of air. While this could reflect postsurgical seroma infected collection is not excluded. St reak artifact limits evaluation of the spinal canal. CTA [place] with 3-D reconstruction Contrast CTA of the [place] was performed 3-D reconstruction imaging obtained at a separate workstation. Vertebrobasilar system as well as intracranial portions of the internal carotid arteries and their ma amol tributaries are patent. I do not see evidence for sizable aneurysm or vascular malformation. Pl ease note MRI provides greater sensitivity and specificity. Visualized brain appears grossly unremar kable. IMPRESSION: 1. No significant abnormality.
[2020-05-07] MEDS ORDERED: NALOXONE 0.4 MG/ML 1 ML VIAL IV PRN (15:09)
[2020-05-07] MEDS: GABAPENTIN 300 MG CAP PO SCH ×2 (16:25→22:17)
[2020-05-07] MEDS ORDERED: INSULIN ASPART (NovoLOG) 100 UNIT/ML VIAL SQ SCH (17:30)
[2020-05-07 17:36] LABS: Glucose,Whole Blood 95 mg/dL (75-99)
[2020-05-07] MEDS ORDERED: MECLIZINE 12.5 MG TAB PO PRN (17:38)
[2020-05-07] MEDS: SODIUM CHLORIDE 0.9% 1,000 ML IV SCH (18:11)
--- NOTE | 2020-05-07 19:51 | P.CNOR ---
History of Present Illness - HPI Consult date: 05/07/20 Consult reason: other History of present illness: 74 yo female is 4 weeks out from 360 deg cervical fusion due to severe spondylosis, stenosis, instability and myelopathy. She recovered well from this surgery, but a week ago, sustained a fall from standing due to dizziness and sustained a bimalleolar fracture to her left ankle. She saw me in office and her hardware and incisions were stable in her neck and she was having no neck pain. She was splinted and we planned on fixing her ankle on 05/08/20. She re presented to ED today due to severe dizziness, vertigo and CARLOS. She denies any blurred vision at this time, but has had episodes of this. She states her neck is just fine, she has little to no pain in her neck. Her incisions are well healed and there is no evidence of infection. She has good motor abilities in her UE b/l and states that only a small amount of numbness still remains in her fingers b/l which was present before surgery and has been improving. She denies any other falls at this time. States no BHT. Denies LOC. States continued dizziness and even when she sat up in bed to examine her she became dizzy and needed to lie back down. She denies any f/c/sob/cp at this time as well. No perineal numbness/tingling, no loss of bowel or bladder control. Review of Systems 14 points review of systems completed and as stated in HPI, all other systems reviewed are negative. Past Medical History Past Medical History: Coronary Artery Disease (CAD), Chest Pain / Angina, CVA/TIA, Diabetes Mellitus, GERD/Reflux, Hyperlipidemia, Hypertension, Myocardial Infarction ([place]), Osteoarthritis (OA), Pneumonia Additional Past Medical History / Comment(s): pancreatitis, diverticulitis, hiatal hernia, endometriosis, neuropathy lower legs., migraine, CVA 2011 with ri ght arm and leg weakness., TIA 2012, (insulin pump) bronchitis, kidney stone, carpal tunnel ,Pt states silent heart attack in 2011., BACK PAIN, HX OF FALL AND HAS PAIN RIGHT SHOULDER AND NECK., STATES 2017 FELL OUT OF WHEEL CHAIR AND HAD CONCUSISION AND INJURED NECK AND LEFT SHOULDER.. Last Myocardial Infarction Date:: 2011 History of Any Multi-Drug Resistant Organisms: None Reported Past Surgical History: Appendectomy, Cholecystectomy, Heart Catheterization, Hysterectomy, Orthopedic Surgery Additional Past Surgical History / Comment(s): Right shoulder surgery, Heart cath , rt rotator cuff repair, egd with dilation /colonoscopy, laser eye sx on lt eye for cysts. Past Anesthesia/Blood Transfusion Reactions: No Reported Reaction Past Psychological History: Depression Smoking Status: Never smoker Past Alcohol Use History: None Reported Past Drug Use History: None Reported - Past Family History Brother(s) Family Medical History: Cancer Additional Family Medical History / Comment(s): 2 brothers -prostate cancer. throat cancer Father Family Medical History: Diabetes Mellitus, Deep Vein Thrombosis (DVT) Additional Family Medical History / Comment(s): ENLARGED HEART Mother History Unknown: Yes Additional Family Medical History / Comment(s): from burst appendix Medications and Allergies Home Medications Medication Instructions Recorded Confirmed Type Beclomethasone Dipropionate [Qvar 2 puff INHALATION RT-DAILY PRN 11/06/14 05/07/20 History 40 mcg/puff] Losartan [Cozaar] 50 mg PO QAM 11/06/14 05/07/20 History Clopidogrel Bisulfate [Plavix] 75 mg PO DAILY #30 tab 11/11/14 05/07/20 Rx Aspirin 81 mg PO DAILY 06/04/18 05/07/20 History Atorvastatin [Lipitor] 40 mg PO HS 08/31/18 05/07/20 History Cyclobenzaprine [Flexeril] 10 mg PO TID PRN #40 tab 04/13/20 05/07/20 Rx Gabapentin 300 mg PO TID 7 Days #21 cap 04/13/20 05/07/20 Rx HYDROcodone/APAP 10-325MG [[place] 1 - 2 tab PO Q4HR PRN #56 tab 04/13/20 05/07/20 Rx 10-325] INSULIN LISPRO (For Pump) [humaLOG 0.01 units SQ-PUMP CONTINUOUS 05/07/20 05/07/20 History (For Pump)] Allergies Allergy/AdvReac Type Severity Reaction Status Date / Time fentanyl Allergy Hallucinati Verified 05/07/20 12:06 ons propoxyphene HCl Allergy AGITATED Verified 05/07/20 12:06 [facility] Physical Examination Osteopathic Statement: *. No significant issues noted on an osteopathic structural exam other than those noted in the History and Physical/Consult. PHYSICAL EXAMINATION: Vitals: Stable at this time General: Awake, alert, appropriate for age, in no acute distress. HEENT: No unusual neck masses around region of lateral neck triangle, thyroid, supraclavicular groove. Heart: Regular rate and rhythm, normal S1, S2 and no murmur/gallop. Lungs: Clear to auscultation bilaterally with no use of accessory muscles. Extremities: Skin warm and dry without no acute lesions, coloration, temp erature, skin intact, no tenderness or erythema. Integument: Hairy patches: Absent Dorsal skin dimples: Absent Cafe au lait spots: Absent Surgical incisions: Well-healed anterior and posterior surgical incisions no erythema or ecchymosis or edema no fluctuance no tenderness to palpation no drainage Palpation: Please see Pain drawing on Intake sheet for further detail. (Tenderness = T, Nontender = NT, Swelling = S, Ecchymosis = E) Findings on Midline and paraspinal palpation and percussion: Cervical: NT Thoracic: NT Lumbar: NT Sacral: NT Special findings: None POSTURAL and MUSCULO-SKELETAL EVALUATION: Coronal Balance: Neutral Recumbent testing: Patient can lay flat on back Sagittal Balance: Neutral Shoulder Profile: Level Pelvic Girdle: Level Neck ROM: Unrestricted in 6 directions except for surgical restriction secondary to fusion Lumbar ROM: Unrestricted in six directions Shoulder ROM: Symmetric in abduction, ER/IR Hip ROM: Symmetric in abduction, adduction, ER/IR Knee ROM: Symmetric and intact in Flexion / extension Hands: Normal appearing structure L and R Feet: Normal appearing structure L and R VASCULAR STATUS : Wrist Pulses: 2/4 bilateral radial and ulnar Pedal Pulses: 2/4 bilateral DP and PT Color: Normal Edema: None NEUROLOGIC EXAMINATION: Mental Status: Awake and alert, fully oriented, with normal attention, concentration and memory, and fluent, appropriate speech. Cranial Nerves: I: Olfactory not tested. II: Visual acuity normal, no visual field deficit noted with confrontation. III,IV: Normal pupillary reflexes & intact extraocular movements without nystagmus. V,: Intact symmetrical facial sensation. VII: Intact symmetrical facial motor movement VIII: Hearing intact. IX,X: Intact gag, swallow, & normal voice. XI: Sternocleidomastoid, trapezius function intact. XII: Tongue midline with normal movements. Special Tests: L'hermitte's Sign: Absent Spurling'Sign: Absent Bilateral Cubital percussion test: Absent Bilateral Jose-Tinel sign - Carpal region: Absent Bilateral Straight Leg Raising: Absent Bilateral Motor Exam (0-5/5, N/T) no acute motor strength changes from previous visits STRENGTH UPPER EXTREMITY Shoulder Abd (Not part of HARPAL Motor score): RIGHT 5 LEFT 5 Elbow Flexors: RIGHT 5 LEFT 5 Elbow Extensor: RIGHT 5 LEFT 5 Wrrist Dorsiflexors: RIGHT 5 LEFT 5 Finger Abductor: RIGHT 5 LEFT 5 Senior Construction Project Manager: RIGHT 5 LEFT 5 LOWER EXTREMITY Hip Flexor (Not part of HARPAL Motor Score): RIGHT 5 LEFT 5 Knee Flexor: RIGHT 5 LEFT 5 Knee Extensor: RIGHT 5 LEFT 5 Ankle Dorsiflexion: RIGHT 5 LEFT 5 Ankle Plantarflexion: RIGHT 5 LEFT 5 EHL: RIGHT 5 LEFT 5 FHL: RIGHT 5 LEFT 5 HARPAL Motor Score: RIGHT 50/50 LEFT 50/50 REFLEXES Biecp: RIGHT 2 LEFT 2 Tricep: RIGHT 2 LEFT 2 Brachioradialis: RIGHT 2 LEFT 2 Patellar: RIGHT 2 LEFT 2 Achilles: RIGHT 2 LEFT 2 Pathological Reflexes Birch's: RIGHT Absent LEFT Absent Babinski: RIGHT Absent LEFT Absent Clonus: RIGHT None LEFT None SENSORY Joint Position: Intact bilaterally Vibration Intact bilaterally Pain and LT sense Intact C5-T1 and L2-S1 Dermatomal deficit None Gait and Functional Evaluation: Ambulatory aids: Wheelchair currently secondary to her neck fusion recently and her fractured ankle Romberg's test: Intact bilaterally. Toe walk/ heel walk / heel-toe walk intact while maintaining satisfactory balance. Squatting and straightening out without assistance to a minimum of 60 degrees k nee flexion Single leg stance: intact/ Trendelenburg sign negative bilaterally Hand and finger dexterity intact bilaterally. Disdiadochokinesis examination negative bilaterally. Results CT of the head and cervical spine revealed postsurgical changes with fusion anteriorly from C4 C7 and posteriorly from C2 to T1. All hardware appears to be in good position with no interval changes. There is question of air in the deep space however this is likely postoperative. The patient is showing no other signs of infective processes. Hardware is in good position decompression is adequate. No evidence of loosening or failure or other issues. Alignment is very well maintained CT Angio shows 90% blockage of the right internal carotid artery - Labs Labs: Abnormal Lab Results - Last 24 Hours (Table) 05/07/20 05/07/20 05/07/20 Range/Units 12:05 12:05 15:59 ESR 41 H (0-20) mm/hr BUN 26 H (7-17) mg/dL Glucose 153 H (74-99) mg/dL Plasma Lactic Acid Jaciel 2.2 H* (0.7-2.0) mmol/L Calcium 10.5 H (8.4-10.2) mg/dL Alkaline Phosphatase 160 H (38-126) U/L C-Reactive Protein (<10.0) mg/L 05/07/20 Range/Units 15:59 ESR 46 (0-20) mm/hr BUN (7-17) mg/dL Glucose (74-99) mg/dL Plasma Lactic Acid Jaciel (0.7-2.0) mmol/L Calcium (8.4-10.2) mg/dL Alkaline Phosphatase (38-126) U/L C-Reactive Protein 14.6 H (<10.0) mg/L H & H 05/07/20 Range/Units 12:05 Hgb 12.0 (11.4-16.0) gm/dL Hct 36.8 (34.0-46.0) % Coagulation 05/07/20 Range/Units 12:05 INR 1.1 (<1.2) Result Diagrams: 05/07/20 12:05 05/07/20 12:05 Assessment and Plan Assessment: 74-year-old female 4 weeks status post 360 neck fusion, healing 1. Left ankle bimalleolar fracture 2. Dizziness and vertigo like symptoms 3. No evidence of infective process 4. Internal Carotid blockage 5. Complex medical history Plan: I discussed at length the patient's signs and symptoms as well as her imaging. Her ESR and CRP are mildly elevated however she is only 4 weeks after large coughlin rgery. I highly doubt that she is infected as her anterior and posterior incisions are completely healed she is no fluctuance erythema or ecchymosis edema or drainage. She is had no fevers or chills her white cell count is normal her lactic acid is up however this could be due to other issues like having a large posterior surgery as well as her fractured ankle. Her neck is really showing no signs of infective process and she has no pain in this area. We would still plan on fixing her ankle tomorrow 05/08/2020 around noon as long she is cleared by neurology medicine and vascular surgery and all consults to undergo a 1-1/2-2 hours surgery on her ankle -Appreciate medicine management. -Appreciate consult -Pain control: Adequate at this time -Nonweightbearing left lower extremity maintain splint. -Ice rest and elevation to injured extremity -Wear soft c-collar when up and about for protection -Aggressive ambulation protocol. OOB with all meals. OOB or in chair 4-5x daily. -PT/OT -TEDs, SCDs, mechanical ppx. OK for heparin today. Early ambulation is best. -GI ppx. -Would not recommend further imaging at this time of her neck or ankle -Trend labs. -Nothing by mouth at midnight -2 g Ancef global compensation analyst the OR -Await surgical clearance for OR tomorrow
[2020-05-07 20:17] LABS: Glucose,Whole Blood 105 mg/dL (75-99)
[2020-05-07] MEDS ORDERED: ACETAMINOPHEN TAB 325 MG TAB PO PRN (21:02)
[2020-05-07] MEDS: HYDROcodone/APAP 7.5-325MG 1 EACH TAB PO PRN (22:17)
[2020-05-07] MEDS: ATORVASTATIN 40 MG TAB PO SCH (22:17)
--- NOTE | 2020-05-07 23:17 | P.HPIM ---
History of Present Illness H&P Date: 05/07/20 Chief Complaint: Vertigo . Patient is a 74-year-old female with a known history of hypertension, hyperlipidemia, diabetes type 2 insulin pump, history of [place] status post cardiac catheterization, neuropathy in the lower extremities and history of CVA in 2011 with right arm and leg weakness, chronic back pain and recent neck surgery due to spinal stenosis and is on follow-up with Dr. Tyler 7 presents to ER with complaints of vertigo and dizziness and felt like room is spinning around since last night. Patient states that she had a fall 4 days ago and hit her head. Patient was also found to have right ankle fracture and is scheduled for surgery on 05/08/2020. Patient is also complaining of tingling sensation in the bilateral upper extremities. No complaints of worsening weakness. Otherwise patient denied any complaints of chest pain or shortness breath. No fever no chills. No cough or sputum production. Patient says that she was having diarrhea for the past 5 days which is improving. CT head and cervical spine showed no evidence of acute fracture or subluxation of the cervical spine. Posterior collection is again noted in the internal foci of air. While this could reflect postsurgical seroma infected collection is not excluded. CT angiogram of the head and neck showed there is high-grade stenosis noted at the proximal right ICA estimated at greater than 90% CTA head showed no significant abnormality. EKG showed sinus rhythm with first-degree AV block Laboratory showed ESR 41, CRP 14.6, COVID-19 PCR is not detected Lactic acid level is 2.2 and calcium 10.5 Review of Systems Constitutional: Patient denies any fever or chills . No generalized weakness or weight loss. Abdomen: Patient denied nausea vomiting . + diarrhea. no abdominal pain. Cardiovascular: Patient denies any chest pain or short of breath no palp itations. Respiratory: patient denied any cough or sputum production. No shortness of breath Neurologic: Patient denied any numbness or tingling headache. dizziness and vertigo Musculoskeletal: Patient denies any complaints of joint swelling or deformity. Skin: Negative Psychiatric: Negative Endocrine: No heat or cold intolerance. No recent weight gain. Genitourinary: No dysuria or hematuria. All other 14 point ROS negative except the above Past Medical History Past Medical History: Coronary Artery Disease (CAD), Chest Pain / Angina, CVA/TIA, Diabetes Mellitus, GERD/Reflux, Hyperlipidemia, Hypertension, Myocardial Infarction ([place]), Osteoarthritis (OA), Pneumonia Additional Past Medical History / Comment(s): pancreatitis, diverticulitis, hiatal hernia, endometriosis, neuropathy lower legs., migraine, CVA 2011 with right arm and leg weakness., TIA 2012, (insulin pump) bronchitis, kidney stone, carpal tunnel ,Pt states silent heart attack in 2012., BACK PAIN, HX OF FALL AND HAS PAIN RIGHT SHOULDER AND NECK., STATES 2017 FELL OUT OF WHEEL CHAIR AND HAD CONCUSISION AND INJURED NECK AND LEFT SHOULDER.. Last Myocardial Infarction Date:: 2011 History of Any Multi-Drug Resistant Organisms: None Reported Past Surgical History: Appendectomy, Cholecystectomy, Heart Catheterization, Hysterectomy, Orthopedic Surgery Additional Past Surgical History / Comment(s): Right shoulder surgery, Heart cath , rt rotator cuff repair, egd with dilation /colonoscopy, laser eye sx on lt eye for cysts. Past Anesthesia/Blood Transfusion Reactions: No Reported Reaction Past Psychological History: Depression Smoking Status: Never smoker Past Alcohol Use History: None Reported Past Drug Use History: None Reported - Past Family History Brother(s) Family Medical History: Cancer Additional Family Medical History / Comment(s): 2 brothers -prostate cancer. throat cancer Father Family Medical History: Diabetes Mellitus, Deep Vein Thrombosis (DVT) Additional Family Medical History / Comment(s): ENLARGED HEART Mother History Unknown: Yes Additional Family Medical History / Comment(s): from burst appendix Medications and Allergies Home Medications Medication Instructions Recorded Confirmed Type Beclomethasone Dipropionate [Qvar 2 puff INHALATION RT-DAILY PRN 11/06/14 05/07/20 History 40 mcg/puff] Losartan [Cozaar] 50 mg PO QAM 11/06/14 05/07/20 History Clopidogrel Bisulfate [Plavix] 75 mg PO DAILY #30 tab 11/11/14 05/07/20 Rx Aspirin 81 mg PO DAILY 06/04/18 05/07/20 History Atorvastatin [Lipitor] 40 mg PO HS 08/31/18 05/07/20 History Cyclobenzaprine [Flexeril] 10 mg PO TID PRN #40 tab 04/13/20 05/07/20 Rx Gabapentin 300 mg PO TID 7 Days #21 cap 04/13/20 05/07/20 Rx HYDROcodone/APAP 10-325MG [[place] 1 - 2 tab PO Q4HR PRN #56 tab 04/13/20 05/07/20 Rx 10-325] INSULIN LISPRO (For Pump) [humaLOG 0.01 units SQ-PUMP CONTINUOUS 05/07/20 05/07/20 History (For Pump)] Allergies Allergy/AdvReac Type Severity Reaction Status Date / Time fentanyl Allergy Hallucinati Verified 05/07/20 12:06 ons propoxyphene HCl Allergy AGITATED Verified 05/07/20 12:06 [From [facility]] Physical Exam Vitals: Vital Signs Temp Pulse Resp BP Pulse Ox 05/07/20 14:00 76 18 134/82 99 05/07/20 12:00 73 18 140/76 100 05/07/20 10:58 97.3 F L 86 18 138/76 97 Intake and Output 05/07/20 05/07/20 05/07/20 06:59 14:59 22:59 Other: Weight 67.132 kg PHYSICAL EXAMINATION: Patient is lying in the bed comfortably, no acute distress, awake alert and oriented.. HEENT: Normocephalic. Neck is supple. Pupils reactive. Nostrils clear. Oral cavity is moist. Ears reveal no drainage. Neck reveals no JVD, carotid bruits, or thyromegaly. CHEST EXAMINATION: Trachea is central. Symmetrical expansion. Lung dukes clear to auscultation and percussion. CARDIAC: Normal S1, S2 with no gallops. No murmurs ABDOMEN: Soft. Bowel sounds normal. No organomegaly. No abdominal bruits. Extremities: reveal no edema. No clubbing or cyanosis Neurologically awake, alert, oriented x3 with well-coordinated movements. No focal deficits noted Skin: No rash or skin lesions. Psychiatric: Coperative. Nonsuicidal Musculoskeletal: No joint swelling or deformity.Right ankle cast in place.. Results CBC & Chem 7: 05/07/20 12:05 05/07/20 12:05 Labs: Abnormal Lab Results - Last 24 Hours (Table) 05/07/20 05/07/20 05/07/20 Range/Units 12:05 12:05 15:59 ESR 41 H (0-20) mm/hr BUN 26 H (7-17) mg/dL Glucose 153 H (74-99) mg/dL Plasma Lactic Acid Jaciel 2.2 H* (0.7-2.0) mmol/L Calcium 10.5 H (8.4-10.2) mg/dL Alkaline Phosphatase 160 H (38-126) U/L C-Reactive Protein (<10.0) mg/L 05/07/20 Range/Units 15:59 ESR (0-20) mm/hr BUN (7-17) mg/dL Glucose (74-99) mg/dL Plasma Lactic Acid Jaciel (0.7-2.0) mmol/L Calcium (8.4-10.2) mg/dL Alkaline Phosphatase (38-126) U/L C-Reactive Protein 14.6 H (<10.0) mg/L Thrombosis Risk Factor Assmnt - DVT/VTE Prophylaxis DVT/VTE Prophylaxis: Mechanical Prophylaxis ordered Assessment and Plan Assessment: Dizziness and vertigo Status post fall and hitting her head 4 days ago. Lactic acidosis likely due to dehydration and volume depletion due to diarrhea. No evidence of infection noted Elevated ESR and CRP level likely due to recent surgery. Recent neck fusion surgery. Surgical site is intact. Status post fall and right bimalleolar fracture. Scheduled for surgery on 05/08/2020 Proximal right ICA stenosis greater than 90% History of CVA with right arm and leg weakness in 2011 Hypertension Hyperlipidemia Diabetes type 2 on insulin pump Depression DVT prophylaxis with SCDs Plan: Patient will be continued IV hydration with normal saline and lactic acidosis level is improving. Continue with symptomatic management for vertigo. Follow- up urinalysis. Vascular surgery was consulted due to right proximal ICA stenosis. Continue with home medications and insulin dosing for blood sugar control. Aspirin and Plavix is on hold at this time for possible surgery tomorrow. Unlikely her vertigo-like symptoms due to ICA stenosis. Right ankle ORIF once cleared by vascular surgery. Continue to follow closely and further recommendations based on the clinical course. Time with Patient: Greater than 30
[2020-05-08 03:23] LABS: Appearance,Urine Cloudy (Clear); Bilirubin,Urine Negative (Negative); Blood,Urine Negative (Negative); Color,Urine Yellow; Glucose,Urine (UA) Negative (Negative); Ketones,Urine Trace (Negative); Leukocyte Esterase,Urine Moderate (Negative); Mucus,Urine Rare /hpf; Nitrite,Urine Negative (Negative); PH, Urine 5.5 (5.0-8.0); Protein,Urine Trace (Negative); RBC,Urine 5 /hpf (0-5); Squamous Epithelial Cell,Urine 26 /hpf (0-4); Urobilinogen,Urine <2.0 mg/dL (<2.0); WBC,Urine 8 /hpf (0-5)
[2020-05-08 03:44] LABS: Specific Gravity,Urine >1.050 (1.001-1.035)
[2020-05-08 06:54] LABS: Glucose,Whole Blood 101 mg/dL (75-99)
[2020-05-08] MEDS: FLUTICASONE 44 MCG INHALER INHALATION PRN (07:35)
--- NOTE | 2020-05-08 08:14 | P.PN ---
Subjective Progress Note Date: 05/08/20 Principal diagnosis: Ankle Fx Dizziness Vertigo ICA stenosis Pt doing well. Resting in bed. No events overnight. States pain in her ankle. Denies pain in her neck. States some numbness and tingling in hands still but no changes. No weakness. NO bowel or bladder symptoms. Objective - Vital Signs Vital signs: Vital Signs Temp 98 F 05/08/20 07:24 Pulse 64 05/08/20 07:24 Resp 16 05/08/20 07:24 BP 119/75 05/08/20 07:24 Pulse Ox 97 05/08/20 07:24 Intake & Output 05/07/20 05/08/20 05/08/20 18:59 06:59 18:59 Intake Total 300 Output Total 200 Balance 100 Weight 67.132 kg 59.71 kg Intake: Oral 300 Output: Urine 200 Other: Voiding Method Bedpan # Voids 0 - Exam Patient is alert and oriented 3 appears well-nourished well-hydrated is in no acute distress. They does not appear septic. On exam the patient has no tenderness to palpation of her thoracic or lumbar spine. There is no edema or ballottement sign. They have good strength in her lower extremities with 5 out of 5 dorsiflexion plantar flexion EHL and FHL bilaterally. Upper extremities show 5/5 strength in all major muscle groups. There is FROM that is painless of the b/l UE and LE in all major joints. Except for the left lower extremity which is in a splint at this time. She has some pain and tenderness to palpation in this area. She is able to wiggle her toes without any issues. They are intact to light touch sensation in L2 to S1 nerve distribution. Patient has palpable dorsalis pedis was posterior tibial pulses. Compartments are soft and compressible. Patient shows a negative Homans, Birch's, negative Babinski's negative clonus bilaterally. negative straight leg raise bilaterally. No tensioning signs.Cranial nerves II through XII are grossly intact. Overall alignment is well-maintained in the sagittal coronal planes. Anterior posterior cervical incisions are clean dry and intact and healed. No erythema or ecchymosis or edema - Labs CBC & Chem 7: 05/07/20 12:05 05/07/20 12:05 Labs: Abnormal Lab Results - Last 24 Hours (Table) 05/07/20 05/07/2005/07/21 Range/Units 12:05 12:05 15:59 ESR 41 H (0-20) mm/hr BUN 26 H (7-17) mg/dL Glucose 153 H (74-99) mg/dL POC Glucose (mg/dL) (75-99) mg/dL Plasma Lactic Acid Jaciel 2.2 H* (0.7-2.0) mmol/L Calcium 10.5 H (8.4-10.2) mg/dL Alkaline Phosphatase 160 H (38-126) U/L C-Reactive Protein (<10.0) mg/L Urine Appearance (Clear) Ur Specific [place] (1.001-1.035) Urine Protein (Negative) Urine Ketones (Negative) Ur Leukocyte Esterase (Negative) Urine WBC (0-5) /hpf Ur Squamous Epith Cells (0-4) /hpf Urine Mucus (None) /hpf 05/07/20 05/07/20 05/08/20 Range/Units 15:59 20:10 02:40 ESR (0-20) mm/hr BUN (7-17) mg/dL Glucose (74-99) mg/dL POC Glucose (mg/dL) 105 H (75-99) mg/dL Plasma Lactic Acid Jaciel (0.7-2.0) mmol/L Calcium (8.4-10.2) mg/dL Alkaline Phosphatase (38-126) U/L C-Reactive Protein 14.6 H (<10.0) mg/L Urine Appearance Cloudy H (Clear) Ur Specific [place] >1.050 H (1.001-1.035) Urine Protein Trace H (Negative) Urine Ketones Trace H (Negative) Ur Leukocyte Esterase Moderate H (Negative) Urine WBC 8 H (0-5) /hpf Ur Squamous Epith Cells 26 H (0-4) /hpf Urine Mucus Rare H (None) /hpf 05/08/20 Range/Units 06:52 ESR (0-20) mm/hr BUN (7-17) mg/dL Glucose (74-99) mg/dL POC Glucose (mg/dL) 101 H (75-99) mg/dL Plasma Lactic Acid Jaciel (0.7-2.0) mmol/L Calcium (8.4-10.2) mg/dL Alkaline Phosphatase (38-126) U/L C-Reactive Protein (<10.0) mg/L Urine Appearance (Clear) Ur Specific [place] (1.001-1.035) Urine Protein (Negative) Urine Ketones (Negative) Ur Leukocyte Esterase (Negative) Urine WBC (0-5) /hpf Ur Squamous Epith Cells (0-4) /hpf Urine Mucus (None) /hpf Assessment and Plan Assessment: 74-year-old female 4 weeks status post 360 neck fusion, healing 1. Left ankle bimalleolar fracture 2. Dizziness and vertigo like symptoms 3. No evidence of infective process 4. Internal Carotid stenosis 5. Complex medical history Plan: -Appreciate medicine management. -Appreciate consult -Pain control: Adequate at this time -Nonweightbearing left lower extremity maintain splint. -Ice rest and elevation to injured extremity -Wear soft c-collar when up and about for protection -Aggressive ambulation protocol. OOB with all meals. OOB or in chair 4-5x daily. -PT/OT -TEDs, SCDs, mechanical ppx. OK for heparin today. Early ambulation is best. -GI ppx. -Would not recommend further imaging at this time of her neck or ankle -Trend labs. -Nothing by mouth at midnight -2 g Ancef mineral economist the OR -Await surgical clearance for OR TODAY
[2020-05-08] MEDS ORDERED: ASPIRIN 81 MG PO SCH (09:00)
[2020-05-08 09:17] LABS: Basophils # (A) 0.12 X 10*3/uL (0.00-0.10); Basophils % (A) 1.3 %; Eosinophils # (A) 0.83 X 10*3/uL (0.04-0.35); Eosinophils % (A) 8.9 %; HCT 34.1 % (37.2-46.3); HGB 10.6 g/dL (12.0-15.0); Lymphocytes # (A) 2.32 X 10*3/uL (0.90-5.00); Lymphocytes % (A) 24.8 %; MCH 28.4 pg (27.0-32.0); MCHC 31.1 g/dL (32.0-37.0); MCV 91.4 fL (80.0-97.0); Mean Platelet Volume 10.2 fL (9.5-12.2); Monocytes # (A) 0.88 X 10*3/uL (0.20-1.00); Monocytes % (A) 9.4 %; Neutrophils # (A) 5.16 X 10*3/uL (1.80-7.70); Neutrophils % (A) 55.1 %; Platelet Count 402 X 10*3/uL (140-440); RBC 3.73 X 10*6/uL (4.10-5.20); RDW 12.5 % (11.5-14.5); WBC 9.36 X 10*3/uL (4.50-10.00)
[2020-05-08] MEDS: GABAPENTIN 300 MG CAP PO SCH ×4 (10:03→22:26)
[2020-05-08] MEDS: LOSARTAN 50 MG TAB PO SCH (10:04)
--- NOTE | 2020-05-08 10:23 | US ---
EXAMINATION TYPE: US carotid duplex BILAT DATE OF EXAM: 05/08/2020 COMPARISON: NONE CLINICAL HISTORY: upper extremity weakness, possible TIA. stenosis EXAM MEASUREMENTS: RIGHT: Peak Systolic Velocity (PSV) cm/sec ----- Right CCA: 49.5 ----- Right ICA: 94.4 ----- Right ECA: 108.9 ICA/CCA ratio: 1.9 RIGHT: End Diastole cm/sec ----- Right CCA: 12.9 ----- Right ICA: 26.0 ----- Right ECA: 10.0 LEFT: Peak Systolic Velocity (PSV) cm/sec ----- Left CCA: 55.1 ----- Left ICA: 63.8 ----- Left ECA: 75.4 ICA/CCA ratio: 1.2 LEFT: End Diastole cm/sec ----- Left CCA: 17.3 ----- Left ICA: 18.8 ----- Left ECA: 10.0 VERTEBRALS (direction of flow): Right Vertebral: Antegrade Left Vertebral: Antegrade Rhythm: Normal No elevated velocities IMPRESSION: No evidence for hemodynamically significant stenosis. Criteria for Assigning % of Stenosis / Diameter reduction (Estimation based on the indirect measurements of the internal carotid artery velocities (ICA PSV). 1. Normal (no stenosis)=ICA PSV < 125 cm/s: ratio < 2.0: ICA EDV<40 cm/s. 2. Less than 50% stenosis=ICA PSV < 125 cm/s: ratio < 2.0: ICA EDV<40 cm/s. 3. 50 to 69% stenosis=ICA PSV of 125 to 230 cm/s: ration 2.0 ? 4.0: ICA EDV 40-100 cm/s. 4. Greater than 70% stenosis to near occlusion= ICA PSV > 230 cm/s: ratio > 4.0: ICA EDV > 100 cm/s. 5. Near occlusion= ICA PSV velocities may be low or undetectable: variable ratio and ICA EDV. 6. Total occlusion=unable to detect flow.
[2020-05-08 11:07] LABS: African American GFR (CKD) 56.9 (60.0-200.0); Anion Gap 9.2 mmol/L (4.00-12.00); BUN/Creat Ratio 25.45 Ratio (12.00-20.00); Calcium 9.3 mg/dL (8.7-10.3); Carbon Dioxide 25.8 mmol/L (21.6-31.8); Non-African American GFR(CKD) 49.1 (60.0-200.0); Potassium 4.3 mmol/L (3.5-5.5)
[2020-05-08] MEDS ORDERED: IV FLUID CONTINUATION 1,000 ML IV ONE (11:38)
[2020-05-08 11:39] LABS: Glucose,Whole Blood 100 mg/dL (75-99)
--- NOTE | 2020-05-08 12:43 | P.PN ---
Progress Note - Text Progress Note Date: 05/08/20 Pt seen and examined in the Pre op area. She is ready for surgery . We discussed the risks and benefits of surgery again including but not limited to risk of bleeding, infection, damage to surrounding tissue, risk of further surgery, anesthesia risk, risk of stroke, up to and including . She is willing to assume these risks and all of the risks of surgery. She is consented for and we will perform an ORIF of the RIGHT ankle bimalleolar fracture. She will continue to stay in the hospital after surgery and she will likely need rehab. The site was marked on the RIGHT ankle and leg. She is getting her abx IVPB She is willing to proceed with surgery.
[2020-05-08] MEDS ORDERED: MIDAZOLAM 2 MG/2 ML VIAL ONE (12:44)
[2020-05-08] MEDS ORDERED: diphenhydrAMINE 50 MG/ML 1 ML VIAL ONE (12:44)
[2020-05-08] MEDS ORDERED: GLYCOPYRROLATE 0.2 MG/ML 2 ML VIAL ONE (12:44)
[2020-05-08] MEDS ORDERED: PROPOFOL 10 MG/ML 20 ML VIAL IV ONE (12:44)
[2020-05-08] MEDS ORDERED: LIDOCAINE 1% INJ 10MG/ML (20 ML MDV) ONE (12:44)
[2020-05-08] MEDS ORDERED: PHENYLEPHRINE-0.9% NACL SYG 1,000 MCG/10 ML SYRINGE ONE (12:44)
[2020-05-08] MEDS ORDERED: SODIUM CHLORIDE 0.9% 100 ML with ceFAZolin 2,000 MG IV ONE ×2 (12:49)
[2020-05-08] MEDS: LACTATED RINGERS 1,000 ML IV ONE ×2 (12:50→17:08)
--- NOTE | 2020-05-08 14:10 | P.PN ---
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 Tyler 7 presents to ER with complaints of vertigo and dizziness and felt like room is spinning around since last night. Patient states that she had a fall 4 days ago and hit her head. Patient was also found to have right ankle fracture and is scheduled for surgery on 05/08/2020. Patient is also complaining of tingling sensation in the bilateral upper extremities. No complaints of worsening weakness. Otherwise patient denied any complaints of chest pain or shortness breath. No fever no chills. No cough or sputum production. Patient says that she was having diarrhea for the past 5 days which is improving. CT head and cervical spine showed no evidence of acute fracture or subluxation of the cervical spine. Posterior collection is again noted in the internal foci of air. While this could reflect postsurgical seroma infected collection is not excluded. CT angiogram of the head and neck showed there is high-grade stenosis noted at the proximal right ICA estimated at greater than 90% CTA head showed no significant abnormality. EKG showed sinus rhythm with first-degree AV block Laboratory showed ESR 41, CRP 14.6, COVID-19 PCR is not detected Lactic acid level is 2.2 and calcium 10.5 05/08/2020 She is seen and evaluated this morning currently awaiting for medical clearance for right ankle ORIF with Dr. Knight. Patient had carotid Doppler study because she continues to have dizziness and upper extremity weakness and study shows no evidence for hemodynamically significant stenosis with no elevated velocities. Patient was also seen and evaluated by neurology recommending to continue with the meclizine as needed as patient continues to have some dizziness with position changes. Patient is medically stable to proceed with right ankle repair. Hemoglobin is stable at 10.6, sodium is 142, potassium is 4.3, current creatinine is 1.1, and blood sugars are well-controlled. Patient is also maintained on IV fluids at 75 ML per hour and will continue to monitor vital signs and labs closely. Will repeat a.m. labs. Patient is to continue with meclizine 3 times daily as needed. Will hold blood pressure medications an d monitor closely for postoperative hypotension and resume medications once appropriate. Review of systems: Constitutional: No reports of fatigue, fever, or chills Cardiovascular: No reports of chest pain or palpitations Respiratory: No reports of shortness of breath or cough GI: Reports intermittent nausea when dizzy, no reports of vomiting, or diarrhea : No reports of dysuria or retention Neurovascular: Reports weakness and dizziness with position changes All medications have been reviewed Objective - Vital Signs Vital signs: Vital Signs Temp 98.3 F 05/08/20 11:25 Pulse 69 05/08/20 11:25 Resp 18 05/08/20 11:25 BP 147/81 05/08/20 11:25 Pulse Ox 98 05/08/20 11:25 Intake & Output 05/07/20 05/08/20 05/08/20 18:59 06:59 18:59 Intake Total 300 2000 Output Total 200 Balance 100 2000 Weight 67.132 kg 59.71 kg Intake: IV 2000 Oral 300 Output: Urine 200 Other: Voiding Method Bedpan # Voids 0 - Exam Patient is lying in the bed comfortably, no acute distress, awake alert and oriented.. HEENT: Normocephalic. Neck is supple. Pupils reactive. Nostrils clear. Oral cavity is moist. Ears reveal no drainage. Neck reveals no JVD, carotid bruits, or thyromegaly. CHEST EXAMINATION: Trachea is central. Symmetrical expansion. Lung dukes clear to auscultation and percussion. CARDIAC: Normal S1, S2 with no gallops. No murmurs ABDOMEN: Soft. Bowel sounds normal. No organomegaly. No abdominal bruits. Extremities: reveal no edema. No clubbing or cyanosis Neurologically awake, alert, oriented x3 with well-coordinated movements. No focal deficits noted Skin: No rash or skin lesions. Psychiatric: Cooperative. Non-suicidal Musculoskeletal: No joint swelling or deformity.Right ankle cast in place.. Diffusely weak - Labs CBC & Chem 7: 05/08/20 06:02 05/08/20 06:02 Labs: Abnormal Lab Results - Last 24 Hours (Table) 05/07/20 05/07/20 05/07/20 Range/Units 15:59 15:59 20:10 RBC (4.10-5.20) X 10*6/uL Hgb (12.0-15.0) g/dL Hct (37.2-46.3) % MCHC (32.0-37.0) g/dL Immature Gran # (0.00-0.04) X 10*3/uL Eosinophils # (0.04-0.35) X 10*3/uL Basophils # (0.00-0.10) X 10*3/uL ESR 41 H (0-20) mm/hr BUN (9.0-27.0) mg/dL Est GFR (CKD-EPI)AfAm (60.0-200.0) Est GFR (CKD-EPI)NonAf (60.0-200.0) BUN/Creatinine Ratio (12.00-20.00) Ratio POC Glucose (mg/dL) 105 H (75-99) mg/dL C-Reactive Protein 14.6 H (<10.0) mg/L Urine Appearance (Clear) Ur Specific [place] (1.001-1.035) Urine Protein (Negative) Urine Ketones (Negative) Ur Leukocyte Esterase (Negative) Urine WBC (0-5) /hpf Ur Squamous Epith Cells (0-4) /hpf Urine Mucus (None) /hpf 05/08/20 05/08/20 05/08/20 Range/Units 02:40 06:02 06:02 RBC 3.73 L (4.10-5.20) X 10*6/uL Hgb 10.6 L (12.0-15.0) g/dL Hct 34.1 L (37.2-46.3) % MCHC 31.1 L (32.0-37.0) g/dL Immature Gran # 0.05 H (0.00-0.04) X 10*3/uL Eosinophils # 0.83 H (0.04-0.35) X 10*3/uL Basophils # 0.12 H (0.00-0.10) X 10*3/uL ESR (0-20) mm/hr BUN 28.0 H (9.0-27.0) mg/dL Est GFR (CKD-EPI)AfAm 56.9 L (60.0-200.0) Est GFR (CKD-EPI)NonAf 49.1 L (60.0-200.0) BUN/Creatinine Ratio 25.45 H (12.00-20.00) Ratio POC Glucose (mg/dL) (75-99) mg/dL C-Reactive Protein (<10.0) mg/L Urine Appearance Cloudy H (Clear) Ur Specific [place] >1.050 H (1.001-1.035) Urine Protein Trace H (Negative) Urine Ketones Trace H (Negative) Ur Leukocyte Esterase Moderate H (Negative) Urine WBC 8 H (0-5) /hpf Ur Squamous Epith Cells 26 H (0-4) /hpf Urine Mucus Rare H (None) /hpf 05/08/20 05/08/20 Range/Units 06:52 11:32 RBC (4.10-5.20) X 10*6/uL Hgb (12.0-15.0) g/dL Hct (37.2-46.3) % MCHC (32.0-37.0) g/dL Immature Gran # (0.00-0.04) X 10*3/uL Eosinophils # (0.04-0.35) X 10*3/uL Basophils # (0.00-0.10) X 10*3/uL ESR (0-20) mm/hr BUN (9.0-27.0) mg/dL Est GFR (CKD-EPI)AfAm (60.0-200.0) Est GFR (CKD-EPI)NonAf (60.0-200.0) BUN/Creatinine Ratio (12.00-20.00) Ratio POC Glucose (mg/dL) 101 H 100 H (75-99) mg/dL C-Reactive Protein (<10.0) mg/L Urine Appearance (Clear) Ur Specific [place] (1.001-1.035) Urine Protein (Negative) Urine Ketones (Negative) Ur Leukocyte Esterase (Negative) Urine WBC (0-5) /hpf Ur Squamous Epith Cells (0-4) /hpf Urine Mucus (None) /hpf Assessment and Plan Assessment: Dizziness and vertigo Status post fall and hitting her head 4 days ago. Lactic acidosis likely due to dehydration and volume depletion due to diarrhea. No evidence of infection noted, improved Elevated ESR and CRP level likely due to recent surgery. Recent neck fusion surgery. Surgical site is intact. Status post fall and right bimalleolar fracture. Scheduled for surgery on 05/08/2020 Proximal right ICA stenosis greater than 90% History of CVA with right arm and leg weakness in 2012 Hypertension Hyperlipidemia Diabetes type 2 on insulin pump Depression DVT prophylaxis with SCDs Plan: Patient will be continued IV hydration with normal saline and lactic acidosis level is improving. Continue with symptomatic management for vertigo. Continue with meclizine as needed. Patient was seen and evaluated by neurology and vascular surgery and carotid Doppler shows no evidence for hemodynamically significant stenosis and will be proceeding with right ankle fracture repair ORIF with orthopedic surgery today. Continue with Accu-Cheks before meals and at bedtime and continue to monitor vital signs and labs closely. We'll continue with gentle IV hydration and monitor for postoperative hypotension and hold blood pressure medications today. Will reassess and evaluate status post surgery when to appropriately resume home medications. Continue with sliding scale as needed. Aspirin and Plavix on hold for surgery today and will likely resume after the surgery. Continue to follow closely and further recommendations based on the clinical course.
--- NOTE | 2020-05-08 15:02 | P.GSCN ---
History of Present Illness Consult date: 05/08/20 Reason for Consult: Carotid stenosis History of present illness: This is a 74-year-old female who presented to the emergency room with complaints of dizziness, headache, and having some bilateral upper extremity numbness and weakness. Past medical history includes coronary artery disease, previous CVA/TIA, diabetes mellitus, GERD, hyperlipidemia, hypertension, SC, with history of frequent falls. The patient underwent a cervical fusion approximately 4 weeks ago for severe spondylosis, stenosis, instability and myelopathy. The patient apparently sustained a fall approximately 1 week ago which is possibly attributed to feeling dizzy at that time. She also sustained a fracture to her right ankle. She was scheduled for outpatient surgery for the right ankle today with orthopedics. She is denying any other focal deficits such as blurred vision, difficulty with speech, lower extremity weakness. Patient on a CT of the brain and cervical spine which showed no evidence for acute fracture some luxation of the cervical spine. Posterior collection is again noted with internal foci of air while this could reflect postsurgical sero ma infected collection is not excluded. Brain showed age-related atrophic and chronic small vessel ischemic changes without acute intracranial process seen at this time. CT angiogram of head and neck showed high-grade stenosis noted of the proximal right ICA estimated at greater than 90%. It was noted postoperative change of the cervical spine with the posterior collection noted internal foci of air. This could reflect postsurgical seroma infected collection is not excluded. There is no stiff neck thickened abnormality of brain. Carotid duplex ordered which shows no evidence for hemodynamically significant stenosis. Review of Systems A 14 point review of systems was completed and all pertinent positives and negatives as stated in the HPI Past Medical History Past Medical History: Coronary Artery Disease (CAD), Chest Pain / Angina, CVA/TIA, Diabetes Mellitus, GERD/Reflux, Hyperlipidemia, Hypertension, Myocardial Infarction (SC), Osteoarthritis (OA), Pneumonia Additional Past Medical History / Comment(s): pancreatitis, diverticulitis, hiatal hernia, endometriosis, neuropathy lower legs., migraine, CVA 2011 with right arm and leg weakness., TIA 2012, (insulin pump) bronchitis, kidney stone, carpal tunnel ,Pt states silent heart attack in 2011., BACK PAIN, HX OF FALL AND HAS PAIN RIGHT SHOULDER AND NECK., STATES 2017 FELL OUT OF WHEEL CHAIR AND HAD CONCUSISION AND INJURED NECK AND LEFT SHOULDER.. Last Myocardial Infarction Date:: 2011 History of Any Multi-Drug Resistant Organisms: None Reported Past Surgical History: Appendectomy, Cholecystectomy, Heart Catheterization, Hysterectomy, Orthopedic Surgery Additional Past Surgical History / Comment(s): Right shoulder surgery, Heart cath , rt rotator cuff repair, egd with dilation /colonoscopy, laser eye sx on lt eye for cysts. Past Anesthesia/Blood Transfusion Reactions: No Reported Reaction Past Psychological History: Depression Smoking Status: Never smoker Past Alcohol Use History: None Reported Past Drug Use History: None Reported - Past Family History Brother(s) Family Medical History: Cancer Additional Family Medical History / Comment(s): 2 brothers -prostate cancer. throat cancer Father Family Medical History: Diabetes Mellitus, Deep Vein Thrombosis (DVT) Additional Family Medical History / Comment(s): ENLARGED HEART Mother History Unknown: Yes Additional Family Medical History / Comment(s): from burst appendix Medications and Allergies Home Medications Medication Instructions Recorded Confirmed Type Beclomethasone Dipropionate [Qvar 2 puff INHALATION RT-DAILY PRN 11/06/14 05/07/20 History 40 mcg/puff] Losartan [Cozaar] 50 mg PO QAM 11/06/14 05/07/20 History Clopidogrel Bisulfate [Plavix] 75 mg PO DAILY #30 tab 11/11/14 05/07/20 Rx Aspirin 81 mg PO DAILY 06/04/18 05/07/20 History Atorvastatin [Lipitor] 40 mg PO HS 08/31/18 05/07/20 History Cyclobenzaprine [Flexeril] 10 mg PO TID PRN #40 tab 04/13/20 05/07/20 Rx Gabapentin 300 mg PO TID 7 Days #21 cap 04/13/20 05/07/20 Rx HYDROcodone/APAP 10-325MG [[place] 1 - 2 tab PO Q4HR PRN #56 tab 04/13/20 05/07/20 Rx 10-325] INSULIN LISPRO (For Pump) [humaLOG 0.01 units SQ-PUMP CONTINUOUS 05/07/20 05/07/20 History (For Pump)] Allergies Allergy/AdvReac Type Severity Reaction Status Date / Time fentanyl Allergy Hallucinati Verified 05/07/20 12:06 ons propoxyphene HCl Allergy AGITATED Verified 05/07/20 12:06 [From Ellyn] Surgical - Exam Vital Signs Temp Pulse Resp BP Pulse Ox 97.3 F L 86 18 138/76 97 05/07/20 10:58 05/07/20 10:58 05/07/20 10:58 05/07/20 10:58 05/07/20 10:58 General appearance: The patient is alert, oriented, in no acute distress. HET: Head is normocephalic and atraumatic. Pupils are equal and reactive. Neck: Supple without lymphadenopathy. Trachea midline. Heart: S1 S2. Regular rate and rhythm. Lungs: No crackles or wheezes are heard. Abdomen: Soft, nontender, nondistended. Extremities: Normal skin color and turgor. No cyanosis, rash, ulceration, clubbing, or edema. Bilateral palpable radial pulses. Neurological: Alert and oriented 3. No focal deficits. Strength and sensation are grossly intact. Results CT of the brain and cervical spine which showed no evidence for acute fracture some luxation of the cervical spine. Posterior collection is again noted with internal foci of air while this could reflect postsurgical seroma infected collection is not excluded. Brain showed age-related atrophic and chronic small vessel ischemic changes without acute intracranial process seen at this time. CT angiogram of head and neck showed high-grade stenosis noted of the proximal right ICA estimated at greater than 90%. It was noted postoperative change of t he cervical spine with the posterior collection noted internal foci of air. This could reflect postsurgical seroma infected collection is not excluded. There is no significant abnormality of brain. Carotid duplex ordered which shows no evidence for hemodynamically significant stenosis. - Labs 05/08/20 06:02 05/08/20 06:02 Abnormal Lab Results - Last 24 Hours (Table) 05/07/20 05/07/20 05/07/20 Range/Units 12:05 12:05 15:59 RBC (4.10-5.20) X 10*6/uL Hgb (12.0-15.0) g/dL Hct (37.2-46.3) % MCHC (32.0-37.0) g/dL Immature Gran # (0.00-0.04) X 10*3/uL Eosinophils # (0.04-0.35) X 10*3/uL Basophils # (0.00-0.10) X 10*3/uL ESR 41 H (0-20) mm/hr BUN 26 H (7-17) mg/dL Glucose 153 H (74-99) mg/dL POC Glucose (mg/dL) (75-99) mg/dL Plasma Lactic Acid Jaciel 2.2 H* (0.7-2.0) mmol/L Calcium 10.5 H (8.4-10.2) mg/dL Alkaline Phosphatase 160 H (38-126) U/L C-Reactive Protein (<10.0) mg/L Urine Appearance (Clear) Ur Specific [place] (1.001-1.035) Urine Protein (Negative) Urine Ketones (Negative) Ur Leukocyte Esterase (Negative) Urine WBC (0-5) /hpf Ur Squamous Epith Cells (0-4) /hpf Urine Mucus (None) /hpf 05/07/20 05/07/20 05/08/20 Range/Units 15:59 20:10 02:40 RBC (4.10-5.20) X 10*6/uL Hgb (12.0-15.0) g/dL Hct (37.2-46.3) % MCHC (32.0-37.0) g/dL Immature Gran # (0.00-0.04) X 10*3/uL Eosinophils # (0.04-0.35) X 10*3/uL Basophils # (0.00-0.10) X 10*3/uL ESR (0-20) mm/hr BUN (7-17) mg/dL Glucose (74-99) mg/dL POC Glucose (mg/dL) 105 H (75-99) mg/dL Plasma Lactic Acid Jaciel (0.7-2.0) mmol/L Calcium (8.4-10.2) mg/dL Alkaline Phosphatase (38-126) U/L C-Reactive Protein 14.6 H (<10.0) mg/L Urine Appearance Cloudy H (Clear) Ur Specific [place] >1.050 H (1.001-1.035) Urine Protein Trace H (Negative) Urine Ketones Trace H (Negative) Ur Leukocyte Esterase Moderate H (Negative) Urine WBC 8 H (0-5) /hpf Ur Squamous Epith Cells 26 H (0-4) /hpf Urine Mucus Rare H (None) /hpf 05/08/20 05/08/20 Range/Units 06:02 06:52 RBC 3.73 L (4.10-5.20) X 10*6/uL Hgb 10.6 L (12.0-15.0) g/dL Hct 34.1 L (37.2-46.3) % MCHC 31.1 L (32.0-37.0) g/dL Immature Gran # 0.05 H (0.00-0.04) X 10*3/uL Eosinophils # 0.83 H (0.04-0.35) X 10*3/uL Basophils # 0.12 H (0.00-0.10) X 10*3/uL ESR (0-20) mm/hr BUN (7-17) mg/dL Glucose (74-99) mg/dL POC Glucose (mg/dL) 101 H (75-99) mg/dL Plasma Lactic Acid Jaciel (0.7-2.0) mmol/L Calcium (8.4-10.2) mg/dL Alkaline Phosphatase (38-126) U/L C-Reactive Protein (<10.0) mg/L Urine Appearance (Clear) Ur Specific [place] (1.001-1.035) Urine Protein (Negative) Urine Ketones (Negative) Ur Leukocyte Esterase (Negative) Urine WBC (0-5) /hpf Ur Squamous Epith Cells (0-4) /hpf Urine Mucus (None) /hpf Diabetes panel 05/07/20 Range/Units 12:05 Sodium 141 (137-145) mmol/L Potassium 4.1 (3.5-5.1) mmol/L Chloride 104 (98-107) mmol/L Carbon Dioxide 25 (22-30) mmol/L BUN 26 H (7-17) mg/dL Creatinine 0.89 (0.52-1.04) mg/dL Glucose 153 H (74-99) mg/dL Calcium 10.5 H (8.4-10.2) mg/dL AST 26 (14-36) U/L ALT 15 (4-34) U/L Alkaline Phosphatase 160 H (38-126) U/L Total Protein 7.4 (6.3-8.2) g/dL Albumin 4.2 (3.5-5.0) g/dL Calcium panel 05/07/20 Range/Units 12:05 Calcium 10.5 H (8.4-10.2) mg/dL Albumin 4.2 (3.5-5.0) g/dL Pituitary panel 05/07/20 Range/Units 12:05 Sodium 141 (137-145) mmol/L Potassium 4.1 (3.5-5.1) mmol/L Chloride 104 (98-107) mmol/L Carbon Dioxide 25 (22-30) mmol/L BUN 26 H (7-17) mg/dL Creatinine 0.89 (0.52-1.04) mg/dL Glucose 153 H (74-99) mg/dL Calcium 10.5 H (8.4-10.2) mg/dL Adrenal panel 05/07/20 Range/Units 12:05 Sodium 141 (137-145) mmol/L Potassium 4.1 (3.5-5.1) mmol/L Chloride 104 (98-107) mmol/L Carbon Dioxide 25 (22-30) mmol/L BUN 26 H (7-17) mg/dL Creatinine 0.89 (0.52-1.04) mg/dL Glucose 153 H (74-99) mg/dL Calcium 10.5 H (8.4-10.2) mg/dL Total Bilirubin 1.0 (0.2-1.3) mg/dL AST 26 (14-36) U/L ALT 15 (4-34) U/L Alkaline Phosphatase 160 H (38-126) U/L Total Protein 7.4 (6.3-8.2) g/dL Albumin 4.2 (3.5-5.0) g/dL Assessment and Plan Assessment: 1. Carotid stenosis with discordant findings between CT angiogram and carotid duplex 2. Dizziness/vertigo 3. Right ankle bimalleolar fracture 4. Status post cervical surgery weeks ago 5. History of CVA/TIA 6. Hypertension 7. Hyperlipidemia 8. Diabetes mellitus Plan: 1. Supportive care 2. Carotid duplex ordered 3. Recommend statin and aspirin 4. Appreciate recommendations from neurology, discussion was had with neurologist Dr. Mckeon and he does believe the dizziness is related to benign positional vertigo 5. Further recommendations to follow The impression and plan of care has been dictated as directed. Dr. Diop I performed a history and examination of this patient, discussed the same with the dictator. I agree with the dictator's note ,documented as a scribe. Any additional findings or plans will be noted.
[2020-05-08 15:04] LABS: Glucose,Whole Blood 73 mg/dL (75-99)
--- NOTE | 2020-05-08 15:07 | P.OP ---
Date of Procedure: 05/08/20 Preoperative Diagnosis: 1. Right ankle bimalleolar fracture 2. Vertigo 3. S/p 360 cervical fusion 4. s/p ffs Postoperative Diagnosis: 1. Right ankle bimalleolar fracture 2. Vertigo 3. S/p 360 cervical fusion 4. s/p ffs Procedure(s) Performed: 1. open reduction and internal fixation of lateral and medial malleolus Implants: Arthrex distal fibular locking plate x2 4.0 cannulated screws Anesthesia: spinal Surgeon: Josh Knight (Ada MACIEL was present for the entire case and was necessary due to the complxity of the case. ) Estimated Blood Loss (ml): 75 IV fluids (ml): 1,500 Urine output (ml): 0 Pathology: none sent Condition: stable Disposition: PACU Indications for Procedure: 74 yo female is 4 weeks out from 360 deg cervical fusion due to severe spondylosis, stenosis, instability and myelopathy. She recovered well from this surgery, but a week ago, sustained a fall from standing due to dizziness and sustained a bimalleolar fracture to her right ankle. She saw me in office and her hardware and incisions were stable in her neck and she was having no neck pain. She was splinted and we planned on fixing her ankle on 05/08/20. She represented to ED today due to severe dizziness, vertigo and CARLOS. She denies any blurred vision at this time, but has had episodes of this. She states her neck is just fine, she has little to no pain in her neck. Her incisions are well healed and there is no evidence of infection. She has good motor abilities in her UE b/l and states that only a small amount of numbness still remains in her fingers b/l which was present before surgery and has been improving. She denies any other falls at this time. States no BHT. Denies LOC. States continued dizziness and even when she sat up in bed to examine her she became dizzy and needed to lie back down. She denies any f/c/sob/cp at this time as well. No perineal numbness/tingling, no loss of bowel or bladder control. Operative Findings: unstable fracture of the RIGHT ankle Description of Procedure: The patient was seen and examined in the preoperative area. All preoperative protocols were followed. Informed consent was obtained risks and benefits of the procedure were discussed at length. Risks including bleeding infection damage to the surrounding tissue and risk of reoperation were discussed with the patient. Risk of anesthesia up to and including was a discussed with the patient. These are outlined in the risk reviewed. They were willing to accept these risks and all of the risks of surgery. The patient was given a weight- based dose of antibiotics in the form of 2 g Ancef preoperatively. The patient was seen and evaluated by the anesthesia team who deemed them fit for surgery. The site was marked, the patient was willing to proceed with the procedure. The patient was transferred to the operative suite by the Department of anesthesia. There were then drifted off to sleep by the department of anesthesia and spinal anesthesia anesthesia was used. Once adequate anesthesia had been obtained the patient was carefully transferred to the operative bed. All bony prominences were padded accordingly. SCDs were placed on the nonoperative lower extremities. Arms were well padded. Right lower extremity was exposed. Tourniquet was placed on the patient's right upper thigh. Bonefoamandabumpwasplacedunderrighthipx-raysconfirmedcorrectleg Preoperative briefing was done with the operative team and everyone was ready for the procedure to start. The patients right leg was then prepped and draped in the normal sterile fashion. Timeout was then performed and all parties in agreement with the procedure to be performed. Standard lateral approach to the ankle was performed syndrome made over the lateral malleolus which was present while marked. Dissection taken down to the lateral malleolus subperiosteal dissection was performed and elevated with a elevator fracture was cleaned with saline as well as curettes hematoma removed extra edges were then reduced anatomically and clamped into place once in place AP and lateral fluoroscopy confirmed good reduction a plate was selected and pinned into position once in position and distal screws were placed followed by proximal screws under fluoroscopic guidance in the AP and lateral. This confirmed good position of the plate as well as reduction of fracture cotton test and stress views were then done and confirmed no syndesmotic injury. Attention was then drawn to the medial mouth incision made over the medial malleolus bunaction taken down. Periosteum was removed from the fracture site to allow for good reduction fractures and reduced and pinned in place AP and lateral fluoroscopy confirmed good reduction of fracture to wires were then placed parallel to each other in AP and lateral fluoroscopy proximal cortex was drilled and 40K Lockett screw partially threaded was placed over the wires. AP and lateral fluoroscopy confirmed good placement of the screws as well as reduction of fracture final images were taken showing good reduction of fracture then copiously irrigated both medial lateral incision with no sterile saline. Wound was closed with 2-0 Vicryl in the subcu followed by running 2-0 nylon in the medial and lateral incisions scheduled proximal july well Tourniquet time was 10 minutes as we had a venous tourniquet and was dropped early then cleaned and sterilely dressed the wound with sterile Adaptic 4 x 4 ABDs and web roll. Patient was then placed in a well-padded well molded bivalve short leg cast on the right and overwrapped with an David wrap. The patient was then transferred back to their hospital bed. There were awakened by department of anesthesia having tolerated the procedure very well with no complications. The patient was then transported to the postoperative care unit in stable condition.
[2020-05-08 15:18] VITALS: BMI 24.0
[2020-05-08] MEDS ORDERED: MIDAZOLAM 2 MG/2 ML VIAL IVP ONE (15:25)
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
[2020-05-08 16:45] LABS: Glucose,Whole Blood 59 mg/dL (75-99)
[2020-05-08 17:02] LABS: Glucose,Whole Blood 61 mg/dL (75-99)
[2020-05-08] MEDS: SODIUM CHLORIDE 0.9% 1,000 ML IV SCH (17:07)
[2020-05-08 17:19] LABS: Glucose,Whole Blood 60 mg/dL (75-99)
[2020-05-08] MEDS: HYDROcodone/APAP 7.5-325MG 1 EACH TAB PO PRN (17:32)
[2020-05-08 17:37] LABS: Glucose,Whole Blood 71 mg/dL (75-99)
[2020-05-08 18:44] LABS: Folate, Serum 5.4 ng/mL
[2020-05-08] MEDS: ATORVASTATIN 40 MG TAB PO SCH (20:19)
[2020-05-08 20:28] LABS: Glucose,Whole Blood 194 mg/dL (75-99)
[2020-05-08 21:12] LABS: Hemoglobin A1C 7.1 % (4.0-6.0)
[2020-05-08] MEDS ORDERED: HYDROmorphone 0.5 MG/0.5 ML SYRINGE IVP PRN (22:19)
[2020-05-08] MEDS: HYDROmorphone 1 MG/ML 1 ML SYRINGE IVP PRN (22:26)
[2020-05-09] MEDS: HYDROcodone/APAP 7.5-325MG 1 EACH TAB PO PRN ×3 (00:21→17:09)
[2020-05-09] MEDS: CYCLOBENZAPRINE 10 MG TAB PO PRN (02:40)
[2020-05-09 06:49] LABS: Glucose,Whole Blood 127 mg/dL (75-99)
[2020-05-09] MEDS: HYDROmorphone 1 MG/ML 1 ML SYRINGE IVP PRN ×2 (07:51→22:08)
[2020-05-09] MEDS: SODIUM CHLORIDE 0.9% 1,000 ML IV SCH ×2 (07:52→17:40)
[2020-05-09] MEDS: GABAPENTIN 300 MG CAP PO SCH ×3 (08:55→22:07)
[2020-05-09] MEDS: LOSARTAN 50 MG TAB PO SCH (08:55)
[2020-05-09] MEDS ORDERED: INSPUCOR MISCELLANE PRN (09:10)
[2020-05-09 09:27] LABS: African American GFR (CKD) 72.5 (60.0-200.0); Anion Gap 6.8 mmol/L (4.00-12.00); Calcium 8.8 mg/dL (8.7-10.3); Carbon Dioxide 25.2 mmol/L (21.6-31.8); Non-African American GFR(CKD) 62.5 (60.0-200.0); Potassium 4.1 mmol/L (3.5-5.5)
--- NOTE | 2020-05-09 09:39 | XR ---
EXAMINATION TYPE: XR ankle limited RT DATE OF EXAM: 05/08/2020 COMPARISON: NONE HISTORY: 74 year-old female right ankle fracture ORIF TECHNIQUE: 6 views FINDINGS: Intraoperative fluoroscopy during lateral plate and screw fixation of the lateral malleolus as well a s 2 cortical screw fixation across the medial malleolus. FLUOROSCOPY Fluoroscopy time of 55 seconds was used during bimalleolar ankle ORIF. 6 image/s document/s the proc edure. IMPRESSION: Intraoperative fluoroscopy as above.
--- NOTE | 2020-05-09 11:00 | P.PN ---
Subjective Progress Note Date: 05/09/20 Principal diagnosis: Ankle Fx Dizziness Vertigo ICA stenosis Patient seen and examined this patient is doing well she is sitting up in a chair. She states minimal pain in her right ankle. States her neck feels great denies any fevers chills shortness of breath or chest pain denies any numbness or tingling or new symptoms at this time. Pain is currently controlled. Objective - Vital Signs Vital signs: Vital Signs Temp 97.9 F 05/09/20 07:52 Pulse 64 05/09/20 07:52 Resp 18 05/09/20 07:52 BP 135/73 05/09/20 07:52 Pulse Ox 95 05/09/20 07:52 Intake & Output 05/08/20 05/09/20 05/09/20 18:59 06:59 18:59 Intake Total 2850 Output Total 25 825 Balance 2825 -825 Weight 59.71 kg Intake: IV 1700 Intake, IV Titration 1150 Amount Lactated Ringers 1,000 ml 1000 @ 0 mls/hr IV .[facility] Rx#:[id number] Sodium Chloride 0.9% 1, 150 000 ml @ 75 mls/hr IV . [id number] [facility] Rx#:[id number] Output: Urine 825 Straight 800 Estimated Blood Loss 25 Other: Voiding Method Bedpan - Exam Patient is alert and oriented 3 appears well-nourished well-hydrated is in no acute distress. They does not appear septic. On exam the patient has no tenderness to palpation of her thoracic or lumbar spine. There is no edema or ballottement sign. They have good strength in her lower extremities with 5 out of 5 dorsiflexion plantar flexion EHL and FHL bilaterally. Upper extremities show 5/5 strength in all major muscle groups. There is FROM that is painless of the b/l UE and LE in all major joints. Except for the left lower extremity which is in a splint at this time. She has some pain and tenderness to palpation in this area. She is able to wiggle her toes without any issues. They are intact to light touch sensation in L2 to S1 nerve distribution. Patient has palpable dorsalis pedis was posterior tibial pulses. Compartments are soft and compressible. Patient shows a negative Homans, Birch's, negative Babinski's negative clonus bilaterally. negative straight leg raise bilaterally. No tensioning signs.Cranial nerves II through XII are grossly intact. Overall alignment is well-maintained in the sagittal coronal planes. Anterior posterior cervical incisions are clean dry and intact and healed. No erythema or ecchymosis or edema Cast is clean dry and intact in good position. Patient's wiggling all toes appropriately Refill is brisk at less than 2 seconds in all toes Compartments are soft and compressible - Labs CBC & Chem 7: 05/08/20 06:02 05/09/20 04:29 Labs: Abnormal Lab Results - Last 24 Hours (Table) 05/08/20 05/08/20 05/08/20 Range/Units 06:02 06:02 11:32 BUN 28.0 H (9.0-27.0) mg/dL Est GFR (CKD-EPI)AfAm 56.9 L (60.0-200.0) Est GFR (CKD-EPI)NonAf 49.1 L (60.0-200.0) BUN/Creatinine Ratio 25.45 H (12.00-20.00) Ratio Glucose (70-110) mg/dL POC Glucose (mg/dL) 100 H (75-99) mg/dL Hemoglobin A1c 7.1 H (4.0-6.0) % 05/08/20 05/08/20 05/08/20 Range/Units 15:02 16:44 17:00 BUN (9.0-27.0) mg/dL Est GFR (CKD-EPI)AfAm (60.0-200.0) Est GFR (CKD-EPI)NonAf (60.0-200.0) BUN/Creatinine Ratio (12.00-20.00) Ratio Glucose (70-110) mg/dL POC Glucose (mg/dL) 73 L 59 L 61 L (75-99) mg/dL Hemoglobin A1c (4.0-6.0) % 05/08/20 05/08/20 05/08/20 Range/Units 17:18 17:36 20:26 BUN (9.0-27.0) mg/dL Est GFR (CKD-EPI)AfAm (60.0-200.0) Est GFR (CKD-EPI)NonAf (60.0-200.0) BUN/Creatinine Ratio (12.00-20.00) Ratio Glucose (70-110) mg/dL POC Glucose (mg/dL) 60 L 71 L 194 H (75-99) mg/dL Hemoglobin A1c (4.0-6.0) % 05/09/20 05/09/20 Range/Units 04:29 06:47 BUN (9.0-27.0) mg/dL Est GFR (CKD-EPI)AfAm (60.0-200.0) Est GFR (CKD-EPI)NonAf (60.0-200.0) BUN/Creatinine Ratio (12.00-20.00) Ratio Glucose 131 H (70-110) mg/dL POC Glucose (mg/dL) 127 H (75-99) mg/dL Hemoglobin A1c (4.0-6.0) % Assessment and Plan Assessment: Postop day 1 right ankle ORIF Status post 360 cervical fusion Benign positional vertigo Status post fall from standing Plan: -Appreciate medicine management. -Appreciate consult -Pain control: Adequate at this time -Nonweightbearing left lower extremity maintain splint. -Ice rest and elevation to injured extremity -Wear soft c-collar when up and about for protection -Aggressive ambulation protocol. OOB with all meals. OOB or in chair 4-5x daily. -PT/OT -TEDs, SCDs, mechanical ppx. OK for heparin today. Early ambulation is best. -GI ppx. -Would not recommend further imaging at this time of her neck or ankle -Trend labs. -heart healthy diet -post op abx Dispo: Likely [facility] when appropriate
[2020-05-09] MEDS: FLUTICASONE 44 MCG INHALER INHALATION PRN (11:35)
[2020-05-09 11:37] LABS: Glucose,Whole Blood 179 mg/dL (75-99)
[2020-05-09 13:15] LABS: Basophils # (A) 0.1 k/uL (0-0.2); Basophils % (A) 1 %; Eosinophils # (A) 0.5 k/uL (0-0.7); Eosinophils % (A) 7 %; HCT 30.2 % (34.0-46.0); Hypochromasia Slight; Lymphocytes # (A) 1.3 k/uL (1.0-4.8); Lymphocytes % (A) 16 %; MCH 29.5 pg (25.0-35.0); MCHC 32.4 g/dL (31.0-37.0); MCV 91.2 fL (80.0-100.0); Mean Platelet Volume 7.4; Monocytes # (A) 0.6 k/uL (0-1.0); Monocytes % (A) 7 %; Neutrophils # (A) 5.5 k/uL (1.3-7.7); Neutrophils % (A) 68 %; Platelet Count 251 k/uL (150-450); RBC 3.31 m/uL (3.80-5.40); RDW 12.5 % (11.5-15.5); WBC 8.1 k/uL (3.8-10.6)
[2020-05-09 13:19] LABS: HGB 9.8 gm/dL (11.4-16.0)
[2020-05-09 15:44] LABS: Glucose,Whole Blood 118 mg/dL (75-99)
[2020-05-09 16:45] LABS: Glucose,Whole Blood 94 mg/dL (75-99)
[2020-05-09] MEDS ORDERED: SODIUM CHLORIDE 0.9% 500 ML 500 ML IV ONE (17:35)
[2020-05-09 20:36] LABS: Glucose,Whole Blood 166 mg/dL (75-99)
[2020-05-09] MEDS: ATORVASTATIN 40 MG TAB PO SCH (22:09)
[2020-05-10] MEDS: HYDROcodone/APAP 7.5-325MG 1 EACH TAB PO PRN ×4 (00:32→21:58)
[2020-05-10] MEDS: HYDROmorphone 1 MG/ML 1 ML SYRINGE IVP PRN (02:48)
[2020-05-10 07:04] LABS: Glucose,Whole Blood 106 mg/dL (75-99)
[2020-05-10] MEDS: LOSARTAN 50 MG TAB PO SCH (07:33)
[2020-05-10] MEDS: GABAPENTIN 300 MG CAP PO SCH ×3 (07:34→21:59)
[2020-05-10 11:32] LABS: Glucose,Whole Blood 169 mg/dL (75-99)
--- NOTE | 2020-05-10 12:16 | P.PN ---
Subjective Progress Note Date: 05/10/20 Principal diagnosis: Right ankle fracture Vertigo History of recent complex cervical spine surgery Other medical comorbidities Patient evaluated at bedside today, she is resting in her hospital chair. She is utilizing her c-collar at this time. She notes the pain in the right ankle is improving. She notes that the vertigo is also improved, she notices it mainly when she stands up from a seated position. She notes no worsening in the numbness of the fingers bilaterally. She currently has no headaches, chest pain, shortness of breath, nausea or vomiting, fever or chills. Objective - Vital Signs Vital signs: Vital Signs Temp 98.9 F 05/10/20 07:50 Pulse 70 05/10/20 07:50 Resp 16 05/10/20 07:50 BP 131/75 05/10/20 07:50 Pulse Ox 92 L 05/10/20 07:50 Intake & Output 05/09/20 05/10/20 05/10/20 18:59 06:59 18:59 Intake Total 1500 Output Total 475 Balance 1500 -475 Intake: Intake, IV Titration 1300 Amount Sodium Chloride 0.9% 1, 750 000 ml @ 75 mls/hr IV . [id number] [facility] Rx#:[id number] Sodium Chloride 0.9% 500 500 ml 500 ml @ 999 mls/hr IV .Q31M [facility] Rx#:[id number] ceFAZolin 2 gm In Sodium 50 Chloride 0.9% 50 ml @ 100 mls/hr IVPB Q8HR [facility] Rx# :[id number] Oral 200 Output: Urine 475 Other: Voiding Method Bedside Commode Bedside Commode - Exam Right lower extremity: Fiberglass cast is in good position and condition. Compartments of the upper leg are soft and compressible. She is wiggling the toes no difficulty. Her sensation to light touch both proximal and distal to the splint are intact. Skin is warm to touch. Cervical spine: Anterior posterior cervical incisions are clean dry and intact and healed. No erythema or ecchymosis or edema - Labs CBC & Chem 7: 05/09/20 12:37 05/09/20 04:29 Labs: Abnormal Lab Results - Last 24 Hours (Table) 05/09/20 05/09/20 05/09/20 Range/Units 12:37 15:42 20:34 RBC 3.31 L (3.80-5.40) m/uL Hgb 9.8 L D (11.4-16.0) gm/dL Hct 30.2 L (34.0-46.0) % POC Glucose (mg/dL) 118 H 166 H (75-99) mg/dL 05/10/20 05/10/20 Range/Units 07:02 11:31 RBC (3.80-5.40) m/uL Hgb (11.4-16.0) gm/dL Hct (34.0-46.0) % POC Glucose (mg/dL) 106 H 169 H (75-99) mg/dL Assessment and Plan Assessment: Postoperative day #2 status post ORIF right ankle fracture History of recent complex cervical spine procedure Vertigo Plan: Pain control, continue with current medication. Attempt to wean out of IV pain medication with anticipated discharge to rehab tomorrow DVT prophylaxis, continue current medication Nonweightbearing right lower extremity, continued ice and elevate often PT/OT evaluation, walker or crutch ambulation Encourage incentive spirometer Other medical specially recommendations Discharge planning: Open discharged to rehab Time with Patient: Less than 30
[2020-05-10] MEDS: SODIUM CHLORIDE 0.9% 1,000 ML IV SCH ×2 (12:41→21:59)
[2020-05-10] MEDS: INSPUCOR MISCELLANE SCH ×3 (14:06→22:00)
[2020-05-10] MEDS: HEPARIN SODIUM,PORCINE 5,000 UNIT/ML 1 ML VIAL SQ SCH ×2 (14:06→21:59)
[2020-05-10 16:36] LABS: Glucose,Whole Blood 152 mg/dL (75-99)
[2020-05-10 20:54] LABS: Glucose,Whole Blood 139 mg/dL (75-99)
[2020-05-10] MEDS: ATORVASTATIN 40 MG TAB PO SCH (21:59)
[2020-05-10] MEDS: CYCLOBENZAPRINE 10 MG TAB PO PRN (21:59)
[2020-05-10 23:16] VITALS: RESP 16
--- NOTE | 2020-05-11 01:39 | P.PN ---
Subjective Progress Note Date: 05/08/20 Principal diagnosis: Benign positional vertigo status post fall Right bimalleolar ankle fracture. 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 Tyler 7 presents to ER with complaints of vertigo and dizziness and felt like room is spinning around since last night. Patient states that she had a fall 4 days ago and hit her head. Patient was also found to have right ankle fracture and is scheduled for surgery on 05/08/2020. Patient is also complaining of tingling sensation in the bilateral upper extremities. No complaints of worsening weakness. Otherwise patient denied any complaints of chest pain or shortness breath. No fever no chills. No cough or sputum production. Patient says that she was having diarrhea for the past 5 days which is improving. CT head and cervical spine showed no evidence of acute fracture or subluxation of the cervical spine. Posterior collection is again noted in the internal foci of air. While this could reflect postsurgical seroma infected collection is not excluded. CT angiogram of the head and neck showed there is high-grade stenosis noted at the proximal right ICA estimated at greater than 90% CTA head showed no significant abnormality. EKG showed sinus rhythm with first-degree AV block Laboratory showed ESR 41, CRP 14.6, COVID-19 PCR is not detected Lactic acid level is 2.2 and calcium 10.5 05/08/2020 Patient is currently resting in the bed. No complaints of chest pain or shortness. No increased neck pain. Right [upper extremity weakness is about the same. No new symptoms. Patient had ultrasound of the carotids showed no evidence of stenosis. Patient was seen by vascular surgery and neurology. No abnormality was noted and patient is cleared for surgery. Patient is going for right ankle surgery today. No fever no chills. No other acute overnight issues. Current medications reviewed. Objective - Vital Signs Vital signs: Vital Signs Temp 98.3 F 05/08/20 11:25 Pulse 69 05/08/20 11:25 Resp 18 05/08/20 11:25 BP 147/81 05/08/20 11:25 Pulse Ox 98 05/08/20 11:25 Intake & Output 05/07/20 05/08/20 05/08/20 18:59 06:59 18:59 Intake Total 300 Output Total 200 Balance 100 Weight 67.132 kg 59.71 kg Intake: Oral 300 Output: Urine 200 Other: Voiding Method Bedpan # Voids 0 - Exam PHYSICAL EXAMINATION: Patient is lying in the bed comfortably, no acute distress, awake alert and oriented.. HEENT: Normocephalic. Neck is supple. Pupils reactive. Nostrils clear. Oral cavity is moist. Ears reveal no drainage. Neck reveals no JVD, carotid bruits, or thyromegaly. CHEST EXAMINATION: Trachea is central. Symmetrical expansion. Lung dukes clear to auscultation and percussion. CARDIAC: Normal S1, S2 with no gallops. No murmurs ABDOMEN: Soft. Bowel sounds normal. No organomegaly. No abdominal bruits. Extremities: reveal no edema. No clubbing or cyanosis Neurologically awake, alert, oriented x3 with well-coordinated movements. No focal deficits noted Skin: No rash or skin lesions. Psychiatric: Coperative. Nonsuicidal Musculoskeletal: No joint swelling or deformity.Right ankle cast in place.. - Labs CBC & Chem 7: 05/09/20 12:37 05/09/20 04:29 Labs: Abnormal Lab Results - Last 24 Hours (Table) 05/07/20 05/07/20 05/07/20 Range/Units 12:05 12:05 15:59 RBC (4.10-5.20) X 10*6/uL Hgb (12.0-15.0) g/dL Hct (37.2-46.3) % MCHC (32.0-37.0) g/dL Immature Gran # (0.00-0.04) X 10*3/uL Eosinophils # (0.04-0.35) X 10*3/uL Basophils # (0.00-0.10) X 10*3/uL ESR 41 H (0-20) mm/hr BUN 26 H (7-17) mg/dL Est GFR (CKD-EPI)AfAm (60.0-200.0) Est GFR (CKD-EPI)NonAf (60.0-200.0) BUN/Creatinine Ratio (12.00-20.00) Ratio Glucose 153 H (74-99) mg/dL POC Glucose (mg/dL) (75-99) mg/dL Plasma Lactic Acid Jaciel 2.2 H* (0.7-2.0) mmol/L Calcium 10.5 H (8.4-10.2) mg/dL Alkaline Phosphatase 160 H (38-126) U/L C-Reactive Protein (<10.0) mg/L Urine Appearance (Clear) Ur Specific [place] (1.001-1.035) Urine Protein (Negative) Urine Ketones (Negative) Ur Leukocyte Esterase (Negative) Urine WBC (0-5) /hpf Ur Squamous Epith Cells (0-4) /hpf Urine Mucus (None) /hpf 05/07/20 05/07/20 05/08/20 Range/Units 15:59 20:10 02:40 RBC (4.10-5.20) X 10*6/uL Hgb (12.0-15.0) g/dL Hct (37.2-46.3) % MCHC (32.0-37.0) g/dL Immature Gran # (0.00-0.04) X 10*3/uL Eosinophils # (0.04-0.35) X 10*3/uL Basophils # (0.00-0.10) X 10*3/uL ESR (0-20) mm/hr BUN (7-17) mg/dL Est GFR (CKD-EPI)AfAm (60.0-200.0) Est GFR (CKD-EPI)NonAf (60.0-200.0) BUN/Creatinine Ratio (12.00-20.00) Ratio Glucose (74-99) mg/dL POC Glucose (mg/dL) 105 H (75-99) mg/dL Plasma Lactic Acid Jaciel (0.7-2.0) mmol/L Calcium (8.4-10.2) mg/dL Alkaline Phosphatase (38-126) U/L C-Reactive Protein 14.6 H (<10.0) mg/L Urine Appearance Cloudy H (Clear) Ur Specific [place] >1.050 H (1.001-1.035) Urine Protein Trace H (Negative) Urine Ketones Trace H (Negative) Ur Leukocyte Esterase Moderate H (Negative) Urine WBC 8 H (0-5) /hpf Ur Squamous Epith Cells 26 H (0-4) /hpf Urine Mucus Rare H (None) /hpf 05/08/20 05/08/20 05/08/20 Range/Units 06:02 06:02 06:52 RBC 3.73 L (4.10-5.20) X 10*6/uL Hgb 10.6 L (12.0-15.0) g/dL Hct 34.1 L (37.2-46.3) % MCHC 31.1 L (32.0-37.0) g/dL Immature Gran # 0.05 H (0.00-0.04) X 10*3/uL Eosinophils # 0.83 H (0.04-0.35) X 10*3/uL Basophils # 0.12 H (0.00-0.10) X 10*3/uL ESR (0-20) mm/hr BUN 28.0 H (7-17) mg/dL Est GFR (CKD-EPI)AfAm 56.9 L (60.0-200.0) Est GFR (CKD-EPI)NonAf 49.1 L (60.0-200.0) BUN/Creatinine Ratio 25.45 H (12.00-20.00) Ratio Glucose (74-99) mg/dL POC Glucose (mg/dL) 101 H (75-99) mg/dL Plasma Lactic Acid Jaciel (0.7-2.0) mmol/L Calcium (8.4-10.2) mg/dL Alkaline Phosphatase (38-126) U/L C-Reactive Protein (<10.0) mg/L Urine Appearance (Clear) Ur Specific [place] (1.001-1.035) Urine Protein (Negative) Urine Ketones (Negative) Ur Leukocyte Esterase (Negative) Urine WBC (0-5) /hpf Ur Squamous Epith Cells (0-4) /hpf Urine Mucus (None) /hpf 05/08/20 Range/Units 11:32 RBC (4.10-5.20) X 10*6/uL Hgb (12.0-15.0) g/dL Hct (37.2-46.3) % MCHC (32.0-37.0) g/dL Immature Gran # (0.00-0.04) X 10*3/uL Eosinophils # (0.04-0.35) X 10*3/uL Basophils # (0.00-0.10) X 10*3/uL ESR (0-20) mm/hr BUN (7-17) mg/dL Est GFR (CKD-EPI)AfAm (60.0-200.0) Est GFR (CKD-EPI)NonAf (60.0-200.0) BUN/Creatinine Ratio (12.00-20.00) Ratio Glucose (74-99) mg/dL POC Glucose (mg/dL) 100 H (75-99) mg/dL Plasma Lactic Acid Jaciel (0.7-2.0) mmol/L Calcium (8.4-10.2) mg/dL Alkaline Phosphatase (38-126) U/L C-Reactive Protein (<10.0) mg/L Urine Appearance (Clear) Ur Specific [place] (1.001-1.035) Urine Protein (Negative) Urine Ketones (Negative) Ur Leukocyte Esterase (Negative) Urine WBC (0-5) /hpf Ur Squamous Epith Cells (0-4) /hpf Urine Mucus (None) /hpf Assessment and Plan Assessment: Dizziness and vertigo likely benign positional Status post fall and hitting her head 4 days ago. Status post fall and right bimalleolar fracture. Scheduled for surgery today Lactic acidosis likely due to dehydration and volume depletion due to diarrhea. No evidence of infection noted Elevated ESR and CRP level likely due to recent surgery. Recent neck fusion surgery. Surgical site is intact. Proximal right ICA stenosis greater than 90%. US carotids showed no significant stenosis. mar[place] by Vascular sx History of CVA with right arm and leg weakness in 2011 Hypertension Hyperlipidemia Diabetes type 2 on insulin pump Depression DVT prophylaxis with SCDs Plan: Patient will be continued IV hydration with normal saline and lactic acidosis level improved. Continue with symptomatic management for vertigo. -ve urinalysis. Vascular surgery was consulted due to right proximal ICA stenosis. US carotid showed no significant stenosis. no sx intervention needed now. Continue with home medications and insulin dosing for blood sugar control. Aspirin and Plavix is on hold at this time for surgery. Continue to follow closely and further recommendations based on the clinical course. Time with Patient: Greater than 30
--- NOTE | 2020-05-11 01:42 | P.PN ---
Subjective Progress Note Date: 05/09/20 Principal diagnosis: Benign positional vertigo status post fall Right bimalleolar ankle fracture. 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 Tyler 7 presents to ER with complaints of vertigo and dizziness and felt like room is spinning around since last night. Patient states that she had a fall 4 days ago and hit her head. Patient was also found to have right ankle fracture and is scheduled for surgery on 05/08/2020. Patient is also complaining of tingling sensation in the bilateral upper extremities. No complaints of worsening weakness. Otherwise patient denied any complaints of chest pain or shortness breath. No fever no chills. No cough or sputum production. Patient says that she was having diarrhea for the past 5 days which is improving. CT head and cervical spine showed no evidence of acute fracture or subluxation of the cervical spine. Posterior collection is again noted in the internal foci of air. While this could reflect postsurgical seroma infected collection is not excluded. CT angiogram of the head and neck showed there is high-grade stenosis noted at the proximal right ICA estimated at greater than 90% CTA head showed no significant abnormality. EKG showed sinus rhythm with first-degree AV block Laboratory showed ESR 41, CRP 14.6, COVID-19 PCR is not detected Lactic acid level is 2.2 and calcium 10.5 05/08/2020 Patient is currently resting in the bed. No complaints of chest pain or shortness. No increased neck pain. Right [upper extremity weakness is about the same. No new symptoms. Patient had ultrasound of the carotids showed no evidence of stenosis. Patient was seen by vascular surgery and neurology. No abnormality was noted and patient is cleared for surgery. Patient is going for right ankle surgery today. No fever no chills. No other acute overnight issues. 05/09/2020 Patient is awake alert and oriented. Able to sit up in a chair. Pain is controlled. Denied any complaints of chest pain. No fever no chills. No nausea vomiting. Dizziness is improving. No other overnight issues. Continued on IV hydration and encourage oral intake. Current medications reviewed. Objective - Vital Signs Vital signs: Vital Signs Temp 98.6 F 05/10/20 19:57 Pulse 74 05/10/20 19:57 Resp 16 05/10/20 19:57 BP 151/84 05/10/20 19:57 Pulse Ox 97 05/10/20 19:57 Intake & Output 05/10/20 05/10/20 05/11/20 06:59 18:59 06:59 Intake Total 540 Output Total 475 300 Balance -475 240 Intake: Oral 540 Output: Urine 475 300 Other: Voiding Method Bedside Commode Bedside Commode - Exam PHYSICAL EXAMINATION: Patient is lying in the bed comfortably, no acute distress, awake alert and oriented.. HEENT: Normocephalic. Neck is supple. Pupils reactive. Nostrils clear. Oral cavity is moist. Ears reveal no drainage. Neck reveals no JVD, carotid bruits, or thyromegaly. CHEST EXAMINATION: Trachea is central. Symmetrical expansion. Lung dukes clear to auscultation and percussion. CARDIAC: Normal S1, S2 with no gallops. No murmurs ABDOMEN: Soft. Bowel sounds normal. No organomegaly. No abdominal bruits. Extremities: reveal no edema. No clubbing or cyanosis Neurologically awake, alert, oriented x3 with well-coordinated movements. No focal deficits noted Skin: No rash or skin lesions. Psychiatric: Coperative. Nonsuicidal Musculoskeletal: No joint swelling or deformity. Right ankle cast in place.. - Labs CBC & Chem 7: 05/09/20 12:37 05/09/20 04:29 Labs: Abnormal Lab Results - Last 24 Hours (Table) 05/10/20 05/10/20 05/10/20 Range/Units 07:02 11:31 16:34 POC Glucose (mg/dL) 106 H 169 H 152 H (75-99) mg/dL 05/10/20 Range/Units 20:53 POC Glucose (mg/dL) 139 H (75-99) mg/dL Assessment and Plan Assessment: Dizziness and vertigo likely benign positional Status post fall and hitting her head 4 days ago. Status post fall and right bimalleolar fracture. S/p surgery n 05/08/20 Lactic acidosis likely due to dehydration and volume depletion due to diarrhea. No evidence of infection noted Elevated ESR and CRP level likely due to recent surgery. Recent neck fusion surgery. Surgical site is intact. Proximal right ICA stenosis greater than 90%. US carotids showed no significant stenosis. seen by Vascular sx History of CVA with right arm and leg weakness in 2011 Hypertension Hyperlipidemia Diabetes type 2 on insulin pump Depression DVT prophylaxis with SCDs Plan: Patient will be continued IV hydration with normal saline and lactic acidosis level improved. Continue with symptomatic management for vertigo. -ve urinalysis. Vascular surgery was consulted due to right proximal ICA stenosis. US carotid showed no significant stenosis. no sx intervention needed now. Continue with home medications and insulin dosing for blood sugar control. Aspirin and Plavix is on hold at this time for surgery. can be restarted. Continue to follow closely and further recommendations based on the clinical course. Time with Patient: Greater than 30
--- NOTE | 2020-05-11 01:45 | P.PN ---
Subjective Progress Note Date: 05/10/20 Principal diagnosis: Benign positional vertigo status post fall Right bimalleolar ankle fracture. 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 Tyler 7 presents to ER with complaints of vertigo and dizziness and felt like room is spinning around since last night. Patient states that she had a fall 4 days ago and hit her head. Patient was also found to have right ankle fracture and is scheduled for surgery on 05/08/2020. Patient is also complaining of tingling sensation in the bilateral upper extremities. No complaints of worsening weakness. Otherwise patient denied any complaints of chest pain or shortness breath. No fever no chills. No cough or sputum production. Patient says that she was having diarrhea for the past 5 days which is improving. CT head and cervical spine showed no evidence of acute fracture or subluxation of the cervical spine. Posterior collection is again noted in the internal foci of air. While this could reflect postsurgical seroma infected collection is not excluded. CT angiogram of the head and neck showed there is high-grade stenosis noted at the proximal right ICA estimated at greater than 90% CTA head showed no significant abnormality. EKG showed sinus rhythm with first-degree AV block Laboratory showed ESR 41, CRP 14.6, COVID-19 PCR is not detected Lactic acid level is 2.2 and calcium 10.5 05/08/2020 Patient is currently resting in the bed. No complaints of chest pain or shortness. No increased neck pain. Right [upper extremity weakness is about the same. No new symptoms. Patient had ultrasound of the carotids showed no evidence of stenosis. Patient was seen by vascular surgery and neurology. No abnormality was noted and patient is cleared for surgery. Patient is going for right ankle surgery today. No fever no chills. No other acute overnight issues. 05/09/2020 Patient is awake alert and oriented. Able to sit up in a chair. Pain is controlled. Denied any complaints of chest pain. No fever no chills. No nausea vomiting. Dizziness is improving. No other overnight issues. Continued on IV hydration and encourage oral intake. 05/10/2020 Patient is status post right ankle surgery. Patient is currently sitting in the chair comfortably. Dizziness is much improved now. No complaints of chest pain or shortness of breath. Tolerating oral diet. IV fluids will be discontinued. Patient will be started back aspirin Plavix tomorrow. Currently denied any complaints of headache. No nausea vomiting or diarrhea. Current medications reviewed. Objective - Vital Signs Vital signs: Vital Signs Temp 98.1 F 05/10/20 14:00 Pulse 70 05/10/20 14:00 Resp 18 05/10/20 14:00 BP 151/67 05/10/20 14:00 Pulse Ox 96 05/10/20 14:00 Intake & Output 05/09/20 05/10/20 05/10/20 18:59 06:59 18:59 Intake Total 1500 Output Total 475 300 Balance 1500 -475 -300 Intake: Intake, IV Titration 1300 Amount Sodium Chloride 0.9% 1, 750 000 ml @ 75 mls/hr IV . [id number] COUNTS INCLUDE 234 BEDS AT THE [facility] Rx#:[id number] Sodium Chloride 0.9% 500 500 ml 500 ml @ 999 mls/hr IV .Q31M ONE Rx#:[id number] ceFAZolin 2 gm In Sodium 50 Chloride 0.9% 50 ml @ 100 mls/hr IVPB Q8HR COUNTS INCLUDE 234 BEDS AT THE [facility] Rx# :[id number] Oral 200 Output: Urine 475 300 Other: Voiding Method Bedside Commode Bedside Commode - Exam PHYSICAL EXAMINATION: Patient is lying in the bed comfortably, no acute distress, awake alert and oriented.. HEENT: Normocephalic. Neck is supple. Pupils reactive. Nostrils clear. Oral cavity is moist. Ears reveal no drainage. Neck reveals no JVD, carotid bruits, or thyromegaly. CHEST EXAMINATION: Trachea is central. Symmetrical expansion. Lung dukes clear to auscultation and percussion. CARDIAC: Normal S1, S2 with no gallops. No murmurs ABDOMEN: Soft. Bowel sounds normal. No organomegaly. No abdominal bruits. Extremities: reveal no edema. No clubbing or cyanosis Neurologically awake, alert, oriented x3 with well-coordinated movements. No focal deficits noted Skin: No rash or skin lesions. Psychiatric: Coperative. Nonsuicidal Musculoskeletal: No joint swelling or deformity. Right ankle cast in place.. - Labs CBC & Chem 7: 05/09/20 12:37 05/09/20 04:29 Labs: Abnormal Lab Results - Last 24 Hours (Table) 05/09/20 05/10/20 05/10/20 Range/Units 20:34 07:02 11:31 POC Glucose (mg/dL) 166 H 106 H 169 H (75-99) mg/dL 05/10/20 Range/Units 16:34 POC Glucose (mg/dL) 152 H (75-99) mg/dL Assessment and Plan Assessment: Dizziness and vertigo likely benign positional Status post fall and hitting her head 4 days ago. Status post fall and right bimalleolar fracture. S/p surgery n 05/08/20 Lactic acidosis likely due to dehydration and volume depletion due to diarrhea. No evidence of infection noted Elevated ESR and CRP level likely due to recent surgery. Recent neck fusion surgery. Surgical site is intact. Proximal right ICA stenosis greater than 90%. US carotids showed no significant stenosis. seen by Vascular sx History of CVA with right arm and leg weakness in 2011 Hypertension Hyperlipidemia Diabetes type 2 on insulin pump Depression DVT prophylaxis with SCDs Plan: Patient will be continued IV hydration with normal saline and lactic acidosis level improved. Continue with symptomatic management for vertigo. -ve urinalysis. Vascular surgery was consulted due to right proximal ICA stenosis. US carotid showed no significant stenosis. no sx intervention needed now. Continue with home medications and insulin dosing for blood sugar control. Aspirin and Plavix is on hold at this time for surgery. can be restarted. Continue to follow closely and further recommendations based on the clinical cou rse. Time with Patient: Greater than 30
[2020-05-11 07:34] LABS: Glucose,Whole Blood 99 mg/dL (75-99)
[2020-05-11] MEDS: INSPUCOR MISCELLANE SCH ×2 (08:04→11:52)
[2020-05-11 08:19] VITALS: TEMP 97.4
[2020-05-11] MEDS: HYDROcodone/APAP 7.5-325MG 1 EACH TAB PO PRN (09:18)
[2020-05-11] MEDS: GABAPENTIN 300 MG CAP PO SCH (09:19)
[2020-05-11] MEDS: HEPARIN SODIUM,PORCINE 5,000 UNIT/ML 1 ML VIAL SQ SCH (09:19)
[2020-05-11] MEDS: LOSARTAN 50 MG TAB PO SCH (09:19)
[2020-05-11 09:33] LABS: Basophils # (A) 0.07 X 10*3/uL (0.00-0.10); Basophils % (A) 1.1 %; Eosinophils # (A) 0.42 X 10*3/uL (0.04-0.35); Eosinophils % (A) 6.3 %; HCT 28.6 % (37.2-46.3); HGB 8.8 g/dL (12.0-15.0); Lymphocytes # (A) 1.43 X 10*3/uL (0.90-5.00); Lymphocytes % (A) 21.6 %; MCH 28.3 pg (27.0-32.0); MCHC 30.8 g/dL (32.0-37.0); Mean Platelet Volume 11.1 fL (9.5-12.2); Monocytes # (A) 0.65 X 10*3/uL (0.20-1.00); Monocytes % (A) 9.8 %; Neutrophils % (A) 60.4 %; Platelet Count 236 X 10*3/uL (140-440); RBC 3.11 X 10*6/uL (4.10-5.20); RDW 12.5 % (11.5-14.5); WBC 6.62 X 10*3/uL (4.50-10.00)
[2020-05-11 09:40] LABS: African American GFR (CKD) 103.3 (60.0-200.0); Anion Gap 2.4 mmol/L (4.00-12.00); BUN/Creat Ratio 18.33 Ratio (12.00-20.00); Calcium 8.8 mg/dL (8.7-10.3); Carbon Dioxide 25.6 mmol/L (21.6-31.8); Non-African American GFR(CKD) 89.2 (60.0-200.0); Potassium 4.7 mmol/L (3.5-5.5)
[2020-05-11 11:31] VITALS: BP 121/72; PULSE 68
[2020-05-11 11:41] LABS: Glucose,Whole Blood 118 mg/dL (75-99)
--- NOTE | 2020-05-11 11:47 | P.PN ---
Subjective Progress Note Date: 05/11/20 Principal diagnosis: Right ankle fracture Vertigo History of recent complex cervical spine surgery Other medical comorbidities Patient evaluated at bedside today, she is resting in her hospital chair. She is utilizing her c-collar at this time. She notes the pain in the right ankle is improving. She notes no worsening in the numbness of the fingers bilaterally. She currently has no headaches, chest pain, shortness of breath, nausea or vomiting, fever or chills. Objective - Vital Signs Vital signs: Vital Signs Temp 97.4 F L 05/11/20 08:00 Pulse 75 05/11/20 08:00 Resp 16 05/11/20 08:00 BP 191/81 05/11/20 08:00 Pulse Ox 97 05/11/20 08:00 Intake & Output 05/10/20 05/11/20 05/11/20 18:59 06:59 18:59 Intake Total 540 Output Total 300 1725 Balance 240 -1725 Intake: Oral 540 Output: Urine 300 1725 Other: Voiding Method Bedside Commode - Exam Right lower extremity: Fiberglass cast is in good position and condition. Compartments of the upper leg are soft and compressible. She is wiggling the toes no difficulty. Her sensation to light touch both proximal and distal to the splint are intact. Skin is warm to touch. Cervical spine: Anterior posterior cervical incisions are clean dry and intact and healed. No erythema or ecchymosis or edema - Labs CBC & Chem 7: 05/11/20 06:10 05/11/20 06:10 Labs: Abnormal Lab Results - Last 24 Hours (Table) 05/10/20 05/10/20 05/10/20 Range/Units 11:31 16:34 20:53 RBC (4.10-5.20) X 10*6/uL Hgb (12.0-15.0) g/dL Hct (37.2-46.3) % MCHC (32.0-37.0) g/dL Immature Gran # (0.00-0.04) X 10*3/uL Eosinophils # (0.04-0.35) X 10*3/uL Chloride (96-109) mmol/L Anion Gap (4.00-12.00) mmol/L POC Glucose (mg/dL) 169 H 152 H 139 H (75-99) mg/dL 05/11/20 05/11/20 Range/Units 06:10 06:10 RBC 3.11 L (4.10-5.20) X 10*6/uL Hgb 8.8 L (12.0-15.0) g/dL Hct 28.6 L (37.2-46.3) % MCHC 30.8 L (32.0-37.0) g/dL Immature Gran # 0.05 H (0.00-0.04) X 10*3/uL Eosinophils # 0.42 H (0.04-0.35) X 10*3/uL Chloride 112 H (96-109) mmol/L Anion Gap 2.40 L (4.00-12.00) mmol/L POC Glucose (mg/dL) (75-99) mg/dL Assessment and Plan Assessment: Postoperative day #3 status post ORIF right ankle fracture History of recent complex cervical spine procedure Vertigo Plan: Pain control, continue with current medication. Plan for discharge on oral medications DVT prophylaxis Nonweightbearing right lower extremity, continued ice and elevate often PT/OT evaluation, walker or crutch ambulation Encourage incentive spirometer Other medical specially recommendations Discharge planning: Hopeful discharge to rehab today Time with Patient: Less than 30
--- NOTE | 2020-05-11 12:01 | P.DS ---
Providers Date of admission: 05/07/20 15:09 Expected date of discharge: 05/11/20 Attending physician: Francisco Engle Consults: 05/07/20 15:10 Consult Physician Urgent Consulting Provider: Josh Knight Consult Reason/Comments: recent neck surgery, b/l hand numbness, preop right ankle surgery Do you want consulting provider notified?: Already Contacted Consult Physician Urgent Consulting Provider: Dionicio Scott Consult Reason/Comments: acute vertigo Do you want consulting provider notified?: Yes 05/07/20 15:11 Consult Physician Urgent Consulting Provider: Bridgette Diop Consult Reason/Comments: high grade ica stenosis Do you want consulting provider notified?: Yes Primary care physician: Kaylin Lewis Hospital Course: Date of admission: 05/07/2020 Date of discharge: 05/11/2020 Admission diagnosis: Right ankle fracture, vertigo, history of recent 360 cervical fusion, fall from standing Discharge diagnosis: Same Attending physician: Dr. Knight Surgical procedures: Open reduction internal fixation right ankle medial and lateral malleolus fracture Brief history: Patient is a 74-year-old female who presented to [facility] on 05/07/2020 with regards to severe vertigo and ataxia. Patient had undergone a [address] Knight in mid March. She been doing rather well with this recovery, she did have a fall last week and did hit her head at that time. She also injured her right ankle. She was evaluated in the outpatient setting by Dr. Knight, x-rays demonstrated a displaced and comminuted right ankle fracture. Surgery was scheduled on the ankle for 05/08/2020. Images of the cervical spine revealed no acute changes to the hardware or any other acute processes. Due to the severe vertigo and ataxia she reported to the hospital for further evaluation, this wasn't day before her procedure. Patient was admitted to the hospital, multiple consults were placed, including internal medicine, vascular surgery and neurology. Hospital course: Details of patient's surgery can be found in operative report. Patient tolerated the procedure well and was subsequently transported to orthopedic floor. Patient's orthopeidc and medical care was provided daily. Patient had daily laboratory tests performed for evaluation of overall blood counts. Patient had daily physical therapy to include strengthening range of motion as well as education with walker ambulation. Patient was treated with heparin for their postoperative DVT prophylaxis during their inpatient stay. Patient was noted to have a relatively uneventful postoperative course. Vascular surgery was consulted during the patient's stay due to concern over a highly obstructed right ICA. Further test demonstrated patent flow through the right ICA, vascular surgery determine no surgical intervention after review of ultrasound, they did recommend follow-up in the outpatient setting and utilizing aspirin 81 mg. Neurology was also on the case, Antivert was recommended and utilized. Patient reported satisfactory pain control with oral pain medications by postoperative day 0. Patient showed satisfactory progress with physical therapy. Patient moved steadily through the program and had no difficulty meeting the goals by postoperative day 3. Given patient's otherwise satisfactory course and having met physical therapy goals, plan is to discharge patient rehab on postoperative day 3. Discharge condition/disposition: Patient will be discharged [home] in stable condition. Discharge medications: Instructions are given on resumption of patient's normal daily medications per primary care recommendation, in addition patient will be prescribed MiraLAX 17 g, ferrous sulfate 325 mg. Discharge instructions: 1. Do not remove cast of the right lower extremity, do not remove David wrap have 2. Nonweightbearing right lower extremity, ice and elevate often 3. Utilize soft cervical collar for comfort, especially when upright 4. Recommend use of a walker or wheelchair for ambulation 5. Patient will resume Plavix along with aspirin for DVT prophylaxis 6. Discussed with patient activity restrictions with regards to the recent cervical spine surgery 7. Plan for follow-up in the outpatient setting in 2 weeks for clinical and x- ray evaluation Procedures: Open reduction internal fixation left ankle fracture Patient Condition at Discharge: Stable Plan - Discharge Summary Discharge Rx Participant: Yes New Discharge Prescriptions: New Docusate [Colace] 100 mg PO DAILY PRN #15 capsule PRN Reason: Constipation Cyclobenzaprine [Flexeril] 10 mg PO TID PRN #30 tab PRN Reason: Muscle Spasm Gabapentin 300 mg PO TID 3 Days #9 cap polyethylene glycoL 3350 [Miralax] 17 gm PO DAILY PRN #15 packet PRN Reason: Constipation HYDROcodone/APAP 10-325MG [Elliston 10-325] 1 tab PO Q4H PRN #30 tab PRN Reason: Pain Ferrous Sulfate [Feosol] 325 mg PO BID #30 tab Discontinued Cyclobenzaprine [Flexeril] 10 mg PO TID PRN #40 tab PRN Reason: Spasms Gabapentin 300 mg PO TID 7 Days #21 cap HYDROcodone/APAP 10-325MG [Elliston 10-325] 1 - 2 tab PO Q4HR PRN #56 tab PRN Reason: Pain No Action Losartan [Cozaar] 50 mg PO QAM Beclomethasone Dipropionate [Qvar 40 mcg/puff] 2 puff INHALATION RT-DAILY PRN PRN Reason: Shortness Of Breath Clopidogrel Bisulfate [Plavix] 75 mg PO DAILY #30 tab Aspirin 81 mg PO DAILY Atorvastatin [Lipitor] 40 mg PO HS INSULIN LISPRO (For Pump) [humaLOG (For Pump)] 0.01 units SQ-PUMP CONTINUOUS Discharge Medication List Beclomethasone Dipropionate [Qvar 40 mcg/puff] 2 puff INHALATION RT-DAILY PRN 11/06/14 [History] Losartan [Cozaar] 50 mg PO QAM 11/06/14 [History] Clopidogrel Bisulfate [Plavix] 75 mg PO DAILY #30 tab 11/11/14 [Rx] Aspirin 81 mg PO DAILY 06/04/18 [History] Atorvastatin [Lipitor] 40 mg PO HS 08/31/18 [History] INSULIN LISPRO (For Pump) [humaLOG (For Pump)] 0.01 units SQ-PUMP CONTINUOUS 05/07/20 [History] Cyclobenzaprine [Flexeril] 10 mg PO TID PRN #30 tab 05/11/20 [Rx] Docusate [Colace] 100 mg PO DAILY PRN #15 capsule 05/11/20 [Rx] Ferrous Sulfate [Feosol] 325 mg PO BID #30 tab 05/11/20 [Rx] Gabapentin 300 mg PO TID 3 Days #9 cap 05/11/20 [Rx] HYDROcodone/APAP 10-325MG [Elliston 10-325] 1 tab PO Q4H PRN #30 tab 05/11/20 [Rx] polyethylene glycoL 3350 [Miralax] 17 gm PO DAILY PRN #15 packet 05/11/20 [Rx] Follow up Appointment(s)/Referral(s): Josh Knight DO [Doctor of Osteopathic Medicine] - 2 Weeks Kaylin Lewis MD [Primary Care Provider] - 1-2 days Ambulatory/Diagnostic Orders: Complete Blood Count w/diff [LAB.AMB] Location: None Selected Activity/Diet/Wound Care/Special Instructions: Orthopedic discharge instructions: 1. Nonweightbearing left lower extremity 2. Do not remove the splint or David wrap, keep covered and dry while showering 3. Ice and elevate often 4. Soft cervical collar for comfort 5. Walker or wheelchair for ambulation 6. Pain medication as needed along with muscle relaxers and stool softeners 7. Plan for follow-up in the outpatient setting in 2 weeks for x-ray and clinical evaluation Discharge Disposition: TRANSFER TO SNF/ECF
--- NOTE | 2020-05-11 13:19 | P.PN ---
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 Tyler 7 presents to ER with complaints of vertigo and dizziness and felt like room is spinning around since last night. Patient states that she had a fall 4 days ago and hit her head. Patient was also found to have right ankle fracture and is scheduled for surgery on 05/08/2020. Patient is also complaining of tingling sensation in the bilateral upper extremities. No complaints of worsening weakness. Otherwise patient denied any complaints of chest pain or shortness breath. No fever no chills. No cough or sputum production. Patient says that she was having diarrhea for the past 5 days which is improving. CT head and cervical spine showed no evidence of acute fracture or subluxation of the cervical spine. Posterior collection is again noted in the internal foci of air. While this could reflect postsurgical seroma infected collection is not excluded. CT angiogram of the head and neck showed there is high-grade stenosis noted at the proximal right ICA estimated at greater than 90% CTA head showed no significant abnormality. EKG showed sinus rhythm with first-degree AV block Laboratory showed ESR 41, CRP 14.6, COVID-19 PCR is not detected Lactic acid level is 2.2 and calcium 10.5 05/08/2020 Patient is currently resting in the bed. No complaints of chest pain or shortness. No increased neck pain. Right [upper extremity weakness is about the same. No new symptoms. Patient had ultrasound of the carotids showed no evidence of stenosis. Patient was seen by vascular surgery and neurology. No abnormality was noted and patient is cleared for surgery. Patient is going for right ankle surgery today. No fever no chills. No other acute overnight issues. 05/09/2020 Patient is awake alert and oriented. Able to sit up in a chair. Pain is controlled. Denied any complaints of chest pain. No fever no chills. No nausea vomiting. Dizziness is improving. No other overnight issues. Continued on IV hydration and encourage oral intake. 05/10/2020 Patient is status post right ankle surgery. Patient is currently sitting in the chair comfortably. Dizziness is much improved now. No complaints of chest pain or shortness of breath. Tolerating oral diet. IV fluids will be discontinued. Patient will be started back aspirin Plavix tomorrow. Currently denied any complaints of headache. No nausea vomiting or diarrhea. 05/11/2020 Patient is clinically doing well is being discharged today to subacute rehabilitation. No more dizziness. Did do the medication reconciliation. Constitutional: Denied any fatigue denied any fever. Cardio vascular: denied any chest pain, palpitations Gastrointestinal denied any nausea vomiting Pulmonary: Denied any shortness of breath cough Neurologic denied any new focal deficits All inpatient medications were reviewed and appropriate changes in these medications as dictated in the interval history and assessment and plan. Objective - Vital Signs Vital signs: Vital Signs Temp 97.4 F L 05/11/20 08:00 Pulse 68 05/11/20 11:30 Resp 16 05/11/20 11:30 BP 121/72 05/11/20 11:30 Pulse Ox 94 L 05/11/20 11:30 Intake & Output 05/10/20 05/11/20 05/11/20 18:59 06:59 18:59 Intake Total 540 Output Total 300 1725 Balance 240 -1725 Intake: Oral 540 Output: Urine 300 1725 Other: Voiding Method Bedside Commode Bedside Commode - Exam PHYSICAL EXAMINATION: Patient is lying in the bed comfortably, no acute distress, awake alert and oriented.. Patient has a cervical collar HEENT: Normocephalic. Neck is supple. Pupils reactive. Nostrils clear. Oral cavity is moist. Ears reveal no drainage. Neck reveals no JVD, carotid bruits, or thyromegaly. CHEST EXAMINATION: Trachea is central. Symmetrical expansion. Lung dukes clear to auscultation and percussion. CARDIAC: Normal S1, S2 with no gallops. No murmurs ABDOMEN: Soft. Bowel sounds normal. No organomegaly. No abdominal bruits. Extremities: reveal no edema. No clubbing or cyanosis Neurologically awake, alert, oriented x3 with well-coordinated movements. No focal deficits noted Skin: No rash or skin lesions. Psychiatric: Coperative. Nonsuicidal Musculoskeletal: No joint swelling or deformity. Right ankle cast in place.. - Labs CBC & Chem 7: 05/11/20 06:10 05/11/20 06:10 Labs: Abnormal Lab Results - Last 24 Hours (Table) 05/10/20 05/10/20 05/11/20 Range/Units 16:34 20:53 06:10 RBC 3.11 L (4.10-5.20) X 10*6/uL Hgb 8.8 L (12.0-15.0) g/dL Hct 28.6 L (37.2-46.3) % MCHC 30.8 L (32.0-37.0) g/dL Immature Gran # 0.05 H (0.00-0.04) X 10*3/uL Eosinophils # 0.42 H (0.04-0.35) X 10*3/uL Chloride (96-109) mmol/L Anion Gap (4.00-12.00) mmol/L POC Glucose (mg/dL) 152 H 139 H (75-99) mg/dL 05/11/20 05/11/20 Range/Units 06:10 11:36 RBC (4.10-5.20) X 10*6/uL Hgb (12.0-15.0) g/dL Hct (37.2-46.3) % MCHC (32.0-37.0) g/dL Immature Gran # (0.00-0.04) X 10*3/uL Eosinophils # (0.04-0.35) X 10*3/uL Chloride 112 H (96-109) mmol/L Anion Gap 2.40 L (4.00-12.00) mmol/L POC Glucose (mg/dL) 118 H (75-99) mg/dL Assessment and Plan Plan: Dizziness and vertigo likely benign positional, resolved Status post fall and hitting her head 4 days ago. Status post fall and right bimalleolar fracture. S/p surgery n 05/08/20 Lactic acidosis likely due to dehydration and volume depletion due to diarrhea. No evidence of infection noted Elevated ESR and CRP level likely due to recent surgery. Recent neck fusion surgery. Surgical site is intact. Proximal right ICA stenosis greater than 90%. US carotids showed no significant stenosis. seen by Vascular sx History of CVA with right arm and leg weakness in 2011 Hypertension Hyperlipidemia Diabetes type 2 on insulin pump Depression Plan: Patient is being discharged to subacute rehabitation. Consideration was done and patient is medical history stable to be discharged
== END 2020-05-11 14:08 | DRG 982 ==
LOC: EC 10:54 → 4SSUR 15:09
PROVIDERS: ADMIT Internal Medicine; ATTEND Internal Medicine
PROC: 0QSG04Z Reposition Right Tibia with Internal Fixation Device, Open Approach (ICD-10-PCS; principal; 2020-05-08 12:00)
PROC: 0QSJ04Z Reposition Right Fibula with Internal Fixation Device, Open Approach (ICD-10-PCS; principal; 2020-05-08 12:00)
DX: H81.10 Benign paroxysmal vertigo, unspecified ear (principal); E87.2 Acidosis; I69.351 Hemiplegia and hemiparesis following cerebral infarction affecting right dominant side; E11.40 Type 2 diabetes mellitus with diabetic neuropathy, unspecified; E78.5 Hyperlipidemia, unspecified; E86.0 Dehydration; F32.9 Major depressive disorder, single episode, unspecified; K59.00 Constipation, unspecified; I10 Essential (primary) hypertension; I25.10 Atherosclerotic heart disease of native coronary artery without angina pectoris; I25.2 Old myocardial infarction; I44.0 Atrioventricular block, first degree; Z96.41 Presence of insulin pump (external) (internal); M19.90 Unspecified osteoarthritis, unspecified site; S09.90XA Unspecified injury of head, initial encounter; S82.841A Displaced bimalleolar fracture of right lower leg, initial encounter for closed fracture; W18.30XA Fall on same level, unspecified, initial encounter; Z20.822 Contact with and (suspected) exposure to COVID-19; Z79.02 Long term (current) use of antithrombotics/antiplatelets; Z79.4 Long term (current) use of insulin; Z79.82 Long term (current) use of aspirin; Z79.899 Other long term (current) drug therapy; Z80.8 Family history of malignant neoplasm of other organs or systems; Z83.3 Family history of diabetes mellitus; Z87.442 Personal history of urinary calculi; Z90.710 Acquired absence of both cervix and uterus; Z91.81 History of falling; Z98.1 Arthrodesis status; Z87.01 Personal history of pneumonia (recurrent); Z90.49 Acquired absence of other specified parts of digestive tract; R27.0 Ataxia, unspecified
CPT/HCPCS: 36415; 70450; 70496; 70498; 72125; 80048; 80051; 80053; 81001; 82607; 82746; 83036; 83605; 84443; 84484; 85025; 85610; 85652; 86140; 87635; 93005; 93880; 94640; 96374; 99285

== ENCOUNTER → 2021-01-18 | Outpatient (CLI) | payer MEDICARE ==
[2021-01-18 19:26] LABS: Basophils # (A) 0.05 X 10*3/uL (0.00-0.10); Basophils % (A) 0.7 %; Eosinophils % (A) 1.3 %; HCT 40.4 % (37.2-46.3); HGB 12.6 g/dL (12.0-15.0); Lymphocytes # (A) 1.32 X 10*3/uL (0.90-5.00); Lymphocytes % (A) 17.8 %; MCH 28.6 pg (27.0-32.0); MCHC 31.2 g/dL (32.0-37.0); MCV 91.8 fL (80.0-97.0); Mean Platelet Volume 10.3 fL (9.5-12.2); Monocytes # (A) 0.38 X 10*3/uL (0.20-1.00); Monocytes % (A) 5.1 %; Neutrophils # (A) 5.52 X 10*3/uL (1.80-7.70); Neutrophils % (A) 74.4 %; Platelet Count 347 X 10*3/uL (140-440); RDW 12.3 % (11.5-14.5); WBC 7.42 X 10*3/uL (4.50-10.00)
[2021-01-18 21:05] LABS: African American GFR (CKD) 79.2 (60.0-200.0); Albumin 4.4 g/dL (3.8-4.9); Anion Gap 14.1 mmol/L (4.00-12.00); BUN/Creat Ratio 24.04 Ratio (12.00-20.00); C Reactive Protein 0.8 mg/dL (0.00-0.80); Calcium 10.1 mg/dL (8.7-10.3); Carbon Dioxide 24.1 mmol/L (21.6-31.8); Non-African American GFR(CKD) 68.3 (60.0-200.0); Potassium 5.2 mmol/L (3.5-5.5)
[2021-01-18 22:27] LABS: Erythrocyte Sedimentation Rate 41 mm/Hr (0-30)
== END | disposition home or self-care (01) ==
LOC: LABWHC1 12:18
PROVIDERS: ATTEND Orthopaedic Surgery
DX: M25.571 Pain in right ankle and joints of right foot (principal); M01.X71 Direct infection of right ankle and foot in infectious and parasitic diseases classified elsewhere
CPT/HCPCS: 36415; 80048; 82040; 82306; 84155; 85025; 85652; 86140; 87070; 87075; 87205

== ENCOUNTER 2021-01-22 08:04 | Inpatient (IN) | payer MEDICARE ==
[2021-01-20 15:30] VITALS: BMI 25.7
[~2021-01-22 08:04] MED LIST changes: +ACETAMINOPHEN TAB 500 MG TAB PO PRN; -DEXAMETHASONE SOD PHOSPHATE 4 MG/ML 1 ML VIAL IV ONE; -LIDOCAINE 1% (10MG/ML) FOR IV START INTRADERMA PRN; -MIDAZOLAM 2 MG/2 ML VIAL IV PRN; -ONDANSETRON 4 MG/2 ML VIAL IVP ONE; +ONDANSETRON 4 MG/2 ML VIAL IVP PRN; -TRANEXAMIC ACID 1,000 MG in SODIUM CHLORIDE 0.9% 100 ML IVPB PRN
--- NOTE | 2021-01-22 08:09 | P.HPOR ---
History of Present Illness H&P Date: 01/18/21 Date of :44 R14 Allergies: Age: 75 year Height: 5'2" Weight: 148 lbs BP:118/78 BMI: 27.07 kg/m2 Occupation: Retired VAS: 5 CC: S/P right bimalleolar ORIF DOI: None DOS: None SUBJECTIVE: Patient presents to the office for an evaluation of her right ankle. Since the time of the last appointment the patient notes that her right ankle has increased in pain, edema, and redness about the lateral incision with drainage. She notes that this started on 01/14/2021 with no acute event, injury, or puncture wound. Patient denies any fevers or chills at this time. Additionally, she notes prominent tenderness about the lateral side of the right ankle with purulent drainage from the area. She denies any issues with the medial side of the right ankle. Wither her pain ,she notes that she has had increased drainage about the lateral side of the right ankle as well. The patient is ambulating under her own power, with the use of a cane for support. HPI: Patient last presented on 09/03/2020 status post ORIF right bimalleolar fracture from 05/08/2020. She is doing very well. Ambulating under her own power. She states minimal pain of her ankle or neck. She does have some issues with her right hand and is having trouble grasping object. She also has pain in her radial three fingers that is new as of the last month. She denies any other issues, no f/c/sob/cp. 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., TIA 2012, (insulin pump) bronchitis, kidney stone, carpal tunnel ,Pt states silent heart attack in 2011., BACK PAIN, HX OF FALL AND HAS PAIN RIGHT SHOULDER AND NECK., STATES 2017 FELL OUT OF WHEEL CHAIR AND HAD CONCUSSION AND INJURED NECK AND LEFT SHOULDER Last Myocardial Infarction Date:: 2011 History of Any Multi-Drug Resistant Organisms: None Reported Past Surgical History: Appendectomy, Cholecystectomy, Heart Catheterization, Hysterectomy, Orthopedic Surgery Additional Past Surgical History / Comment(s): Right shoulder surgery, Heart cath , rt rotator cuff repair, egd with dilation /colonoscopy, laser eye sx on lt eye for cysts, right ankle surg., neck surg. Past Anesthesia/Blood Transfusion Reactions: No Reported Reaction Past Psychological History: Depression Smoking Status: Never smoker Past Alcohol Use History: None Reported Past Drug Use History: None Reported - Past Family History Brother(s) Family Medical History: Cancer Additional Family Medical History / Comment(s): 2 brothers -prostate cancer. throat cancer Father Family Medical History: Diabetes Mellitus, Deep Vein Thrombosis (DVT) Additional Family Medical History / Comment(s): ENLARGED HEART Mother History Unknown: Yes Additional Family Medical History / Comment(s): from burst appendix Medications and Allergies Home Medications Medication Instructions Recorded Confirmed Type Losartan [Cozaar] 50 mg PO QAM 11/06/14 01/20/21 History Clopidogrel Bisulfate [Plavix] 75 mg PO DAILY #30 tab 11/11/14 01/20/21 Rx Aspirin 81 mg PO DAILY 06/04/18 01/20/21 History Atorvastatin [Lipitor] 40 mg PO DAILY 08/31/18 01/20/21 History INSULIN LISPRO (For Pump) [humaLOG 0.01 units SQ-PUMP CONTINUOUS 05/07/20 01/20/21 History (For Pump)] Gabapentin 400 mg PO TID 01/20/21 01/20/21 History Nf-Antibioitic Of Unknown Name And 1 tab PO DIRECTED 01/20/21 01/20/21 History Dose Allergies Allergy/AdvReac Type Severity Reaction Status Date / Time fentanyl Allergy Hallucinati Verified 01/20/21 15:15 ons propoxyphene HCl Allergy AGITATED Verified 01/20/21 15:15 [From [place]] Physical Examination Osteopathic Statement: *. No significant issues noted on an osteopathic structural exam other than those noted in the History and Physical/Consult. HYSICAL EXAM: Patient is alert and oriented 3 appears well-nourished well-hydrated is in no acute distress. They do not appear septic. There is TTP over the lateral ankle. There is a small draining sinus from the midpoint of the incision with purulent material. This was cultured x2 and sent for eval. There is erythema and palpable abscess it seems under the skin. Lower extremities with 5 out of 5 strength in all major muscle groups Upper extremities show 5/5 strength in all major muscle groups. There is FROM that is painless of the b/l UE and LE in all major joints. They are intact to light touch sensation in L2 to S1 nerve distribution as well as the C5-T1 distribution DTR 2/4 all upper and lower extremities Patient has palpable dorsalis pedis was posterior tibial pulses. Palpable Rad Ulnar pulses b/l Compartments are soft and compressible. Patient shows a negative Homans Cranial nerves II through XII are grossly intact. Physical Examination: BP: 118/65, Left Arm, Pulse: 65 Height: 5'2", Weight: 148 lbs General: Well appearing, well nourished in no distress. Body habitus: Mesomorphic ANKLE: right Incision(s): HEaled, however there is a region with purulent drainage from the midportion of the incision with underlying abscess Lateral: Swelling: Present Tenderness to palpation: prominent Medial: Swelling: none Tenderness to palpation: none Bijal's Sign: negative ROM: mildly limited Skin: intact, moderate redness about the Neurovascular: intact sensation, good pulses Motor: able to flex/extend toes, actively invert and anahi ankle, and actively dorsiflex, plantarflex the ankle Results RADIOGRAPHS: Xrays show intact hardware with healed lateral malleolar fracture. No evidence of hardware loosening or fracture. Swelling in ST about the lateral ankle. Assessment and Plan Assessment: 1. Rt ankle infection, presumed late onset from previous surgery 2. s/p Rt ankle bimalleolar ORIF in April 2020 Plan: Orthopedic Surgery Risk Review Ines Briseno is a 75-year-old female presenting for evaluation of sudden onset right ankle pain, purulent drainage from a sinus tract over the incision erythema redness. It was my pleasure to have seen and examined Ines Briseno . In our visit today we have had a chance to go over subjective complaints, physical examination findings and treatments including the natural course history without intervention and various interventional options. Her imaging demonstrates intact hardware right lateral malleolus with healed lateral malleolar fracture. On physical exam, Ines Briseno demonstrates pain with motion of right ankle with tenderness to palpation and draining sinus tract over the lateral malleolus, which is NV intact at this time. I have explained to the patient that this fracture needs stabilization. Based on the patients imaging, physical exam, and the rapid progression and disabling nature of her symptoms, at this time I recommend surgery in the form or a: Incision and drainage with removal of hardware right ankle I discussed the risk and benefits of this procedure at length with Ines Briseno and her . Questions were invited and answered, and the patient wishes to proceed as outlined below. Currently, I am recommendin. Incision and drainage with removal of hardware right ankle 2. Admission to the hospital for IV antibiotics after surgery and ID consult Risks: All surgical procedures come with inherent risks, including those related to positioning, anesthesia, intraoperative findings, and postoperative complications. It is important to understand that surgery does not come with any guarantee of a successful outcome as complications and adverse events are always possible. The patient was given a handout discussing the surgical procedure and risks associated with the intervention, both of which were discussed with the patient. These risks include but are not limited to the following: - Experiencing same, different or even worse symptoms compared to before surgery. - Requiring further surgery or other forms of treatment presently or at some time in the future . - On an extreme but fortunately relatively rare basis severe complication such as blindness, stroke, heart attack, temporary and/or permanent nerve injury, paralysis, coma, or may occur, sometimes without known explanation. - Surgical complications may include but are not limited to risk of infection, fluid accumulation in the surgical dissection site, including a seroma or hematoma, that requires additional surgery, wound drainage, bleeding, new numbness or weakness, vision changes/loss, spinal fluid leakage, non-healing and/or infected incision, headaches, difficulty or inability to swallow, hoarseness, hemopneumothorax, pneumothorax, injury to nerves, spinal cord, blood vessels, lymphatics or other vital organs (i.e., bowel injury, injury to the great vessels); heterotopic bone formation; complications related to the hardware such as screws, rods, including misplaced hardware, device failure, hardware fracture/breakage, or hardware loosening; retained surgical instrumentations or devices and the need for further surgery. - Medical risks of the planned surgery include but are not limited to generalized Infections to the whole body or local areas outside of the surgical site (sepsis), heart attack, bleeding, anaphylaxis, meningitis, seizure, epilepsy, hearing loss, burn ayala, laceration of the head or other areas of the body, bruising, hypersensitivity of the skin, bladder over distension; allergic reaction; shoulder injury related to positioning; fat, blood and air clots to other areas of the body like heart, lungs, brain; failure of internal organs such as lungs, kidneys, liver and excessive bleeding. If blood transfusions are necessary, note that transfusions may cause intolerance reactions such as anaphylaxis or other complex reactions. Despite best efforts, the results of surgery might not heal in terms of bone, soft tissues such as skin, fascia, ligaments, and joints. [facility] is an educational center that serves as a training facility for physician assistants, nurses, orthopedic residents and fellows. Residents are physicians who are completing their surgical intensive training following medical school. They assist in the operating room with direct supervision of the attending surgeons. [place] are surgeons who have completed their training and eligible for board certification. They have opted for an elective year of more specialized training in their field. They assist in the operating room under the supervision of the attending surgeons. Physician assistants are medically trained surgical providers who function in the outpatient, inpatient, and operating room setting under the direct supervision of the attending surgeon. [facility] has multiple operating rooms with single and overlapping rooms running daily. They currently function under the required guidelines as produced by the [facility] with regards to the overlapping rooms and will continue to comply with changes to this policy as they occur. The requirements include and are complied with as follows: (1) the critical portions of the overlapping rooms will not occur at the same time, (2) the attending physician will be physically present during the critical portions of the procedure and immediately available during the entire case, and (3) a back-up attending is designated should the primary attending not be immediately available. The patient has had a chance to review all the listed information, has been given print outs detailing this information, and has had all his/her questions answered to their satisfaction. It was my pleasure to have seen and examined Ines Briseno . In our visit today we have had a chance to go over my understanding of our patient's current condition, the natural course history without intervention and various interventional options. Questions were invited and answered, and the patient wishes to proceed as outlined above. I have seen and examined the patient for 25 minutes and we have spent more than 50% of the time in repeat and detailed counseling about the patient's condition, its natural course history with out and as much as can be predicted with surgery and re-review of various surgical treatment options. In conclusion, Ines Briseno requested we proceed with the above suggested surgery and are willing to accept risks and limitations of the suggested surgery as nature of the disease process and our best attempts at treatment for the condition. Thank you again for allowing us to be part of your patient's care. Please don't hesitate to contact me if you have any further questions. Signed and authenticated by: Josh Pringle [facility] [address] [address]
[2021-01-22] MEDS: LACTATED RINGERS 1,000 ML IV SCH ×2 (08:59→09:55)
[2021-01-22 09:07] LABS: Glucose,Whole Blood 156 mg/dL (75-99)
[2021-01-22] MEDS ORDERED: MIDAZOLAM 2 MG/2 ML VIAL IVP ONE (09:21)
[2021-01-22] MEDS ORDERED: ROPIVACAINE 5 MG/ML 30 ML VIAL ONE (09:54)
[2021-01-22] MEDS ORDERED: SODIUM CHLORIDE 0.9% (PF) 10 ML VIAL ONE (09:54)
[2021-01-22] MEDS ORDERED: ePHEDrine 50 MG/ML 1 ML AMP ONE (09:54)
[2021-01-22] MEDS ORDERED: LIDOCAINE 1% INJ 10MG/ML (20 ML MDV) ONE (09:54)
[2021-01-22] MEDS ORDERED: PROPOFOL 10 MG/ML 20 ML VIAL IV ONE (09:54)
[2021-01-22] MEDS ORDERED: HYDROmorphone (PF) 1 MG/ML ONE (09:54)
[2021-01-22] MEDS ORDERED: NALOXONE 0.4 MG/ML 1 ML VIAL IV PRN (09:58)
[2021-01-22] MEDS ORDERED: BENZOCAINE/MENTHOL LOZENG 1 EACH LOZENGE MUCOUS MEM PRN (09:58)
[2021-01-22] MEDS ORDERED: DOCUSATE 100 MG CAP PO PRN (09:58)
[2021-01-22] MEDS ORDERED: ONDANSETRON 4 MG/2 ML VIAL IVP PRN (09:58)
[2021-01-22] MEDS ORDERED: ACETAMINOPHEN TAB 325 MG TAB PO PRN (09:58)
[2021-01-22] MEDS ORDERED: ceFAZolin 3,000 MG in SODIUM CHLORIDE 0.9% IRRIGATIO 3,000 ML IRRIGATION ONE (09:59)
[2021-01-22] MEDS ORDERED: INSULIN LISPRO (For Pump) 100 UNIT/ML VIAL SQ-PUMP SCH (10:30)
--- NOTE | 2021-01-22 11:02 | XR ---
Fluoroscopy INDICATION: Pain FINDINGS: Fluoroscopy time: 4.5 seconds Images obtained: 5. IMPRESSIONS: 1. Documentation of fluoroscopy.
--- NOTE | 2021-01-22 11:14 | P.PN ---
Progress Note - Text Progress Note Date: 01/22/21 Brief Post Op: Surgeon: Antonia Pre op dx;Rt ankle irritable hardware presumed infection Post op dx: [Same ] Procedure: Excisional debridment of Rt ankle with ROLAND Anesthesia: LMA with regional block EBL: 15 Fluids: 500 UO: 0 Dispo: Stable to PACU Post op Plan: Admit to inpt for ID consult and IVABX Pain control prn WBAT with boot and walker or assist PT/OT GI/DVT ppx Home Meds Medical consult for management await cultures anticipate home monday
--- NOTE | 2021-01-22 11:25 | P.OP ---
Date of Procedure: 01/22/21 Preoperative Diagnosis: 1. Irritable hardware Rt ankle lateral malleolus 2. Presumed hardware infection 3. s/p Rt ankle ORIF in Apr 2020 Postoperative Diagnosis: 1. Irritable hardware Rt ankle lateral malleolus 2. Presumed hardware infection 3. s/p Rt ankle ORIF in Apr 2020 Procedure(s) Performed: 1. Excisional debridment of Rt ankle lateral malleolus 2. Removal of hardware plate and screws right ankle 3. Complex closure Rt ankle 8 x 4 x 2 cm 4. Intraoperative interpretation of fluoroscopic images <1 hr Implants: Removal Arthrex distal locking lateral mal plate, stainless with 7 screws. Anesthesia: MAC, regional Surgeon: Josh Knight Estimated Blood Loss (ml): 15 IV fluids (ml): 500 Urine output (ml): 0 Pathology: other (x2 cultures as well as tissue sample x1) Condition: stable Disposition: PACU Indications for Procedure: 75 yo female who underwent ORIF of her bimalleolar fracture in Apr presented to the office with 4 days of severe increase in reddness, swelling and draining sinus tract from lateral ankle. She states she had been completely fine until 4 days prior when this came about. She denies any trauma to the area. She denies any f/c/sob/cp at this time. She states pain with ambulation and with palpation. States drainage from the site over the lateral ankle. Denies any other sx at this time. Due to the presumed infection with draining tract we took cultures in the office which came back negative, started her on Abx and decided to explore, excise and remove the plate. We discussed different options, but with her hx, medical comorbidities as well as her neck hardware we decided to be more aggressive and remove the plate and screws at this time. She has no medial issues or pain she understands that these screws may need to be removed down the road, but she does not want them removed today. This is reasonable as they are not causing any issues at this time only the lateral plate and screws it would seem. We discussed all risks, benefits, alternatives. We decided on Removal with admission for IVABX and ID consult. she and her agreed. Operative Findings: Draining tract was more of irritation once we explored more. There was no purulence around the plate or screws, however the screws were loose proximally. The fracture is healed and stable. We took cultures of the ankle intraop as well. Xray was used to show removal. Description of Procedure: The patient was seen and examined in the preoperative area. All preoperative protocols were followed. Informed consent was obtained risks and benefits of the procedure were discussed at length. Risks including bleeding infection damage to the surrounding tissue and risk of reoperation were discussed with the patient. Risk of anesthesia up to and including was a discussed with the patient. These are outlined in the risk reviewed. They were willing to accept these risks and all of the risks of surgery. The patient was given a weight- based dose of antibiotics in the form of 2 g Ancef IVPB 1. The patient was seen and evaluated by the anesthesia team who deemed them fit for surgery. The site was marked, the patient was willing to proceed with the procedure. The patient was transferred to the operative suite by the Department of anesthesia. There were then drifted off to sleep by the department of anesthesia and LMA with regional block anesthesia was used. Once adequate anesthesia had been obtained the patient was carefully transferred to the operative bed. All bony prominences were padded accordingly. SCDs were placed on the nonoperative lower extremities. Arms were well padded. Right leg was then exposed and placed on a bone foam which was secured to the table bump was placed in the patient's right hip 10:15 drape placed around this. Preoperative briefing was done with the operative team and everyone was ready for the procedure to start. The patients right leg was then prepped and draped in the normal sterile fashion. Timeout was then performed and all parties in agreement with the procedure to be performed. And identified the incision laterally on the right ankle and went through the same incision. There is a area of what appears to be a draining sinus tract over the distal third of the incision. There is some purulence in this area as well as exquisite redness and swelling. Patient is very thin and her skin is very thin in this area as well. We incised this and excised the tract as well as the bad skin in the area this was done using a 15 blade. We then took dissection down to the plate and a periosteal elevator was used to clear the scar tissue off the plate. We then took 2 cultures of the area from the plate on the fracture as well as a soft tissue sample. The plate itself was stable the fracture was stable we started removing screws distally the screws came out without any issue and normally. The proximal screws were also removed with ease and were somewhat loose appearing. The plate was then removed. We then used Ronjair and curet to scrape the bone and to clean the screw holes. And remove any necrotic bone or tissue from the area. We then pulse lavaged the area with 3 L of antibiotic saline solution. We curetted and rongeured at this time removing any and all necrotic tissue or presumed infective tissue. We then took fluoroscopic images to confirm continued reduction of the fracture as well as plate and screw removal. Once this was irrigated thoroughly and debrided thoroughly we then performed a complex closure which was layered first with the deep layer with 2-0 Vicryl stitch followed by 3-0 Vicryl stitch superficially then placed 2-0 nylon within the skin to approximate the skin edges. The edges approximated well. He then clean the room wound with alcohol and sterilely dressed it with Adaptic 4 x 4's Kerlix and a David wrap. She was then placed into her postop boot and secured. The patient was then transferred back to their hospital bed. There were awakened by department of anesthesia having tolerated the procedure very well with no complications. The patient was then transported to the postoperative care unit in stable condition.
[2021-01-22] MEDS: HYDROmorphone 0.5 MG/0.5 ML SYRINGE IVP ONE ×2 (11:30→11:43)
[2021-01-22 11:51] LABS: Glucose,Whole Blood 145 mg/dL (75-99)
--- NOTE | 2021-01-22 13:31 | P.ANPRN ---
Procedure Note - Anesthesia - Nerve Block Performed Right Popliteal Single Time Out Performed: Yes (920) Date of Procedure: 01/22/21 Procedure Start Time: Procedure Stop Time: 09:26 Location of Patient: PreOp Indication: Acute Post-Operative Pain, Requested by Surgeon Specifically requested for management of pain by : Josh Knight Sedation Type: Sedate with meaningful contact maintained Preparation: Sterile Prep Position: Supine Catheter: None Needle Types: Pajunk Needle Gauge: 21 Ultrasound used to visualize needle placement: Yes Ultrasound used to observe medication spread: Yes Injectate: 0.5% Ropivacaine (see comment for volume) (15cc + nacl pf 15CC) Blood Aspirated: No Pain Paresthesia on Injection Noted: No Resistance on Injection: Normal Image Stored and Saved: Yes Events: Uneventful and Well Tolerated Right Adductor Canal Single Time Out Performed: Yes (920) Date of Procedure: 01/22/21 Procedure Start Time: Procedure Stop Time: 09:32 Location of Patient: PreOp Indication: Acute Post-Operative Pain, Requested by Surgeon Specifically requested for management of pain by DrNoelle: Josh Knight Sedation Type: Sedate with meaningful contact maintained Preparation: Sterile Prep Position: Supine Catheter: None Needle Types: Pajunk Ultrasound used to visualize needle placement: No Ultrasound used to observe medication spread: No Injectate: 0.5% Ropivacaine (see comment for volume) (15CC + nacl 15CC) Blood Aspirated: No Pain Paresthesia on Injection Noted: No Resistance on Injection: Normal Image Stored and Saved: Yes Events: Uneventful and Well Tolerated
[2021-01-22] MEDS: SODIUM CHLORIDE 0.9% 1,000 ML IV SCH (13:37)
[2021-01-22] MEDS ORDERED: VANCOMYCIN IV PER PHARMACY 1 EACH MISC MISCELLANE PRN (15:03)
[2021-01-22] MEDS ORDERED: VANCOMYCIN 1,250 MG in SODIUM CHLORIDE 0.9% 250 ML IVPB ONE (15:30)
[2021-01-22] MEDS ORDERED: CEFEPIME 2 GM in SODIUM CHLORIDE 0.9% 100 ML IVPB ONE (16:00)
[2021-01-22 16:19] LABS: Basophils # (A) 0.1 k/uL (0-0.2); Basophils % (A) 1 %; Eosinophils # (A) 0.1 k/uL (0-0.7); Eosinophils % (A) 2 %; HCT 35.2 % (34.0-46.0); HGB 11.2 gm/dL (11.4-16.0); Lymphocytes % (A) 15 %; MCH 29.6 pg (25.0-35.0); MCHC 31.8 g/dL (31.0-37.0); Mean Platelet Volume 7.6; Monocytes # (A) 0.5 k/uL (0-1.0); Monocytes % (A) 7 %; Neutrophils # (A) 5.1 k/uL (1.3-7.7); Neutrophils % (A) 75 %; Platelet Count 254 k/uL (150-450); RBC 3.78 m/uL (3.80-5.40); RDW 12.7 % (11.5-15.5); WBC 6.8 k/uL (3.8-10.6)
[2021-01-22 16:33] LABS: Glucose,Whole Blood 147 mg/dL (75-99)
[2021-01-22 16:34] LABS: African American GFR (CKD) 89 (>60 ml/min/1.73 sqM); Anion Gap 7 mmol/L; Blood Urea Nitrogen 22 mg/dL (7-17); C Reactive Protein 0.9 mg/dL (<1.0); Calcium 9.2 mg/dL (8.4-10.2); Carbon Dioxide 24 mmol/L (22-30); Chloride 107 mmol/L (98-107); Glucose 154 mg/dL (74-99); Non-African American GFR(CKD) 77 (>60 ml/min/1.73 sqM); Potassium 4.8 mmol/L (3.5-5.1); Sodium 138 mmol/L (137-145)
[2021-01-22] MEDS: INSULIN ASPART (NovoLOG) 100 UNIT/ML VIAL SQ SCH ×2 (16:41→22:57)
[2021-01-22] MEDS: HYDROcodone/APAP 5-325MG 1 EACH TAB PO PRN (17:16)
[2021-01-22 17:24] LABS: Erythrocyte Sedimentation Rate 18 mm/hr (0-20)
[2021-01-22 20:00] LABS: Glucose,Whole Blood 215 mg/dL (75-99)
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
[2021-01-22] MEDS: GABAPENTIN 400 MG CAP PO SCH (22:50)
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
[2021-01-23] MEDS: CEFEPIME 2 GM in SODIUM CHLORIDE 0.9% 100 ML IVPB SCH ×3 (00:24→20:29)
[2021-01-23] MEDS: HYDROcodone/APAP 5-325MG 1 EACH TAB PO PRN ×5 (00:24→21:57)
[2021-01-23 07:07] LABS: Glucose,Whole Blood 135 mg/dL (75-99)
[2021-01-23] MEDS: LACTATED RINGERS 1,000 ML IV SCH (07:21)
[2021-01-23] MEDS: LOSARTAN 50 MG TAB PO SCH (07:29)
[2021-01-23] MEDS: INSULIN ASPART (NovoLOG) 100 UNIT/ML VIAL SQ SCH ×4 (07:29→20:29)
[2021-01-23] MEDS: ASPIRIN 81 MG PO SCH (07:30)
[2021-01-23] MEDS: ATORVASTATIN 40 MG TAB PO SCH (07:30)
[2021-01-23] MEDS: GABAPENTIN 400 MG CAP PO SCH ×3 (07:30→21:58)
[2021-01-23] MEDS: CLOPIDOGREL 75 MG TAB PO SCH (07:30)
[2021-01-23] MEDS: VANCOMYCIN 1,250 MG in SODIUM CHLORIDE 0.9% 250 ML IVPB SCH (08:55)
--- NOTE | 2021-01-23 10:13 | P.PN ---
Subjective Progress Note Date: 01/23/21 Principal diagnosis: Status post hardware removal right ankle, irritating hardware right ankle, presumptive infected hardware right ankle Patient evaluated at bedside today, she is resting comfortably. The Cam Walker boot was in place along with postoperative dressing. She notes occasional soreness in the ankle. She denies any fevers or chills at this time. Denies any obvious lightheadedness, chest pain, shortness of breath, nausea vomiting. Objective - Vital Signs Vital signs: Vital Signs Temp 98.0 F 01/23/21 06:50 Pulse 60 01/23/21 06:50 Resp 16 01/23/21 02:00 BP 134/64 01/23/21 06:50 Pulse Ox 94 L 01/23/21 06:50 Intake & Output 01/22/21 01/23/21 01/23/21 18:59 06:59 18:59 Intake Total 1262 240 Output Total 215 Balance 1047 240 Weight 69.3 kg Intake: IV 1026 Oral 236 240 Output: Urine 200 Estimated Blood Loss 15 Other: # Voids 2 - Exam Right lower extremity: Cam Walker boot and postoperative dressing were removed today. There is mild bloody drainage noted on the bandage, no active drainage from the incision. The sutures are all in good position and condition. Mild ecchymosis and swelling present. Plantar flexion, dorsiflexion, EHL, FHL are intact. The sensory exam to light touch is intact throughout the extremity. The calf is soft, there is no tenderness with palpation. Her discuss pedis pulses 2+ - Labs CBC & Chem 7: 01/22/21 15:26 01/22/21 15:26 Labs: Abnormal Lab Results - Last 24 Hours (Table) 01/22/21 01/22/21 01/22/21 Range/Units 11:49 15:26 15:26 RBC 3.78 L (3.80-5.40) m/uL Hgb 11.2 L (11.4-16.0) gm/dL BUN 22 H (7-17) mg/dL Glucose 154 H (74-99) mg/dL POC Glucose (mg/dL) 145 H (75-99) mg/dL 01/22/21 01/22/21 01/23/21 Range/Units 16:32 19:58 07:05 RBC (3.80-5.40) m/uL Hgb (11.4-16.0) gm/dL BUN (7-17) mg/dL Glucose (74-99) mg/dL POC Glucose (mg/dL) 147 H 215 H 135 H (75-99) mg/dL Microbiology - Last 24 Hours (Table) 01/22/21 10:35 Gram Stain - Preliminary Ankle - Right Wound Culture - Preliminary 01/22/21 10:35 Gram Stain - Preliminary Ankle - Right Wound Culture - Preliminary 01/22/21 10:35 Gram Stain - Preliminary Ankle - Right Tissue Culture - Preliminary 01/22/21 10:35 Anaerobic Culture - Preliminary Ankle - Right Assessment and Plan Assessment: Postoperative day #1 status post hardware removal right ankle Irritating hardware right ankle/presumptive infected hardware right ankle Other medical comorbidities Plan: Pain control, continue with current medication at this time DVT prophylaxis, her Plavix 75 mg daily has been resumed Dressing change was done today at bedside, this can stay in place for the next day or so. Patient does not need to utilize the cam walker boot while stationary Recommend icing and elevating the ankle, also including basic range of motion of the foot and ankle exercises Awaiting culture/sensitivity results Medical and infectious disease recommendations appreciated Discharge planning: Patient will likely remain inpatient until final culture and sensitivity results can be reviewed in decisions on outpatient antibiotics, we will continue to follow during her stay Time with Patient: Less than 30
[2021-01-23 11:21] LABS: Glucose,Whole Blood 233 mg/dL (75-99)
[2021-01-23] MEDS: SODIUM CHLORIDE 0.9% 1,000 ML IV SCH (11:54)
[2021-01-23 12:14] LABS: Basophils # (A) 0.06 X 10*3/uL (0.00-0.10); Basophils % (A) 1.1 %; Eosinophils # (A) 0.19 X 10*3/uL (0.04-0.35); Eosinophils % (A) 3.6 %; HCT 33.8 % (37.2-46.3); HGB 10.4 g/dL (12.0-15.0); Lymphocytes # (A) 0.99 X 10*3/uL (0.90-5.00); Lymphocytes % (A) 18.8 %; MCH 28.7 pg (27.0-32.0); MCHC 30.8 g/dL (32.0-37.0); MCV 93.1 fL (80.0-97.0); Mean Platelet Volume 10.5 fL (9.5-12.2); Monocytes # (A) 0.59 X 10*3/uL (0.20-1.00); Monocytes % (A) 11.2 %; Neutrophils # (A) 3.42 X 10*3/uL (1.80-7.70); Neutrophils % (A) 64.9 %; Platelet Count 238 X 10*3/uL (140-440); RBC 3.63 X 10*6/uL (4.10-5.20); WBC 5.27 X 10*3/uL (4.50-10.00)
[2021-01-23 13:22] LABS: Anion Gap 10.8 mmol/L (4.00-12.00); BUN/Creat Ratio 23.63 Ratio (12.00-20.00); Blood Urea Nitrogen 18.9 mg/dL (9.0-27.0); Calcium 8.8 mg/dL (8.7-10.3); Carbon Dioxide 21.2 mmol/L (21.6-31.8); Non-African American GFR(CKD) 71.6 (60.0-200.0); Potassium 4.1 mmol/L (3.5-5.5)
[2021-01-23] MEDS ORDERED: VANCOMYCIN 1,250 MG in SODIUM CHLORIDE 0.9% 250 ML IVPB SCH (15:00)
[2021-01-23 16:52] LABS: Glucose,Whole Blood 144 mg/dL (75-99)
--- NOTE | 2021-01-23 17:36 | PN ---
PROGRESS NOTE DATE OF SERVICE: 01/23/2021 REASON FOR FOLLOWUP: Right ankle infected hardware and osteomyelitis. INTERVAL HISTORY: The patient is afebrile. The patient is still complaining of significant pain to the right ankle area. Patient denies having any chest pain, shortness of breath or cough. No abdominal pain. No diarrhea. PHYSICAL EXAMINATION: Blood pressure 121/62 with a pulse of 60, temperature 97.9. She is 94% on room air. General description is an elderly female up in the bed in no distress. RESPIRATORY SYSTEM: Unlabored breathing. Decreased breath sounds at the bases. No wheeze. HEART: S1, S2. Regular rate and rhythm. ABDOMEN: Soft. No tenderness. EXTREMITIES: No edema of the feet. LABS: Hemoglobin is 10.2, white count 5.27, BUN of .9, creatinine 0.8. Cultures are currently pending. DIAGNOSTIC IMPRESSION AND PLAN: Patient with a right ankle infection with infected hardware, status post removal of the hardware. Cultures are pending. Patient is covered with vancomycin and cefepime; to continue while waiting for the cultures to finalize, and monitor clinical course closely. MMODL / IJN: [id number] /
[2021-01-23 20:11] LABS: Glucose,Whole Blood 202 mg/dL (75-99)
[2021-01-24] MEDS: VANCOMYCIN 1,250 MG in SODIUM CHLORIDE 0.9% 250 ML IVPB SCH ×2 (01:06→17:05)
[2021-01-24 07:02] LABS: Glucose,Whole Blood 118 mg/dL (75-99)
[2021-01-24] MEDS: INSULIN ASPART (NovoLOG) 100 UNIT/ML VIAL SQ SCH ×4 (07:30→21:07)
[2021-01-24] MEDS: LOSARTAN 50 MG TAB PO SCH (08:04)
[2021-01-24] MEDS: CEFEPIME 2 GM in SODIUM CHLORIDE 0.9% 100 ML IVPB SCH ×2 (08:04→21:06)
[2021-01-24] MEDS: ATORVASTATIN 40 MG TAB PO SCH (08:04)
[2021-01-24] MEDS: GABAPENTIN 400 MG CAP PO SCH ×3 (08:04→21:07)
[2021-01-24] MEDS: CLOPIDOGREL 75 MG TAB PO SCH (08:04)
[2021-01-24] MEDS: ASPIRIN 81 MG PO SCH (08:04)
[2021-01-24] MEDS: HYDROcodone/APAP 5-325MG 1 EACH TAB PO PRN ×3 (08:05→21:07)
--- NOTE | 2021-01-24 10:12 | P.PN ---
Subjective Progress Note Date: 01/24/21 Principal diagnosis: Status post hardware removal right ankle, irritating hardware right ankle, presumptive infected hardware right ankle Patient evaluated at bedside today, she is resting comfortably. She denies any fevers or chills at this time. Denies any obvious lightheadedness, chest pain, shortness of breath, nausea vomiting. Objective - Vital Signs Vital signs: Vital Signs Temp 98.9 F 01/24/21 06:16 Pulse 64 01/24/21 06:16 Resp 15 01/24/21 06:16 BP 124/67 01/24/21 06:16 Pulse Ox 94 L 01/24/21 06:16 Intake & Output 01/23/21 01/24/21 01/24/21 18:59 06:59 18:59 Intake Total 720 590 Balance 720 590 Intake: Intake, IV Titration 590 Amount Cefepime 2 gm In Sodium 100 Chloride 0.9% 100 ml @ 25 mls/hr IVPB Q12HR [facility] Rx #:[id number] Sodium Chloride 0.9% 1, 240 000 ml @ 20 mls/hr IV . Q24H [facility] Rx#:[id number] Vancomycin 1,250 mg In 250 Sodium Chloride 0.9% 250 ml @ 125 mls/hr IVPB Q16H [facility] Rx#:[id number] Oral 720 Other: # Voids 3 - Exam Right lower extremity: Bandage was changed today at bedside. The sutures are all in good position and condition. Mild ecchymosis and swelling present. Plantar flexion, do rsiflexion, EHL, FHL are intact. The sensory exam to light touch is intact throughout the extremity. The calf is soft, there is no tenderness with palpation. Her discuss pedis pulses 2+ - Labs CBC & Chem 7: 01/23/21 08:00 01/23/21 08:00 Labs: Abnormal Lab Results - Last 24 Hours (Table) 01/23/21 01/23/21 01/23/21 Range/Units 08:00 08:00 11:20 RBC 3.63 L (4.10-5.20) X 10*6/uL Hgb 10.4 L (12.0-15.0) g/dL Hct 33.8 L (37.2-46.3) % MCHC 30.8 L (32.0-37.0) g/dL Carbon Dioxide 21.2 L (21.6-31.8) mmol/L BUN/Creatinine Ratio 23.63 H (12.00-20.00) Ratio Glucose 177 H (70-110) mg/dL POC Glucose (mg/dL) 233 H (75-99) mg/dL 01/23/21 01/23/21 01/24/21 Range/Units 16:50 20:07 07:00 RBC (4.10-5.20) X 10*6/uL Hgb (12.0-15.0) g/dL Hct (37.2-46.3) % MCHC (32.0-37.0) g/dL Carbon Dioxide (21.6-31.8) mmol/L BUN/Creatinine Ratio (12.00-20.00) Ratio Glucose (70-110) mg/dL POC Glucose (mg/dL) 144 H 202 H 118 H (75-99) mg/dL Microbiology - Last 24 Hours (Table) 01/22/21 15:26 Blood Culture - Preliminary Blood No Growth after 24 hours 01/22/21 10:35 Gram Stain - Preliminary Ankle - Right Wound Culture - Preliminary 01/22/21 10:35 Gram Stain - Preliminary Ankle - Right Wound Culture - Preliminary 01/22/21 10:35 Gram Stain - Preliminary Ankle - Right Tissue Culture - Preliminary Assessment and Plan Assessment: Postoperative day #2 status post hardware removal right ankle Irritating hardware right ankle/presumptive infected hardware right ankle Other medical comorbidities Plan: Pain control, continue with current medication at this time DVT prophylaxis, continue aspirin and Plavix Recommend use of cam walker boot when up and ambulate Recommend icing and elevating the ankle, also including basic range of motion of the foot and ankle exercises Awaiting culture/sensitivity results Medical and infectious disease recommendations appreciated Discharge planning: hopeful discharge home in the next 1-2 days Time with Patient: Less than 30
[2021-01-24 11:29] LABS: Glucose,Whole Blood 184 mg/dL (75-99)
[2021-01-24] MEDS: SODIUM CHLORIDE 0.9% 1,000 ML IV SCH (11:56)
--- NOTE | 2021-01-24 15:52 | P.PN ---
Subjective Progress Note Date: 01/23/21 Principal diagnosis: Status post removal of right ankle hardware removal and debridement due to purulent drainage from sinus tract over the incision. Suspected right ankle hardware infection Sinus bradycardia. 75-year-old female with a known history of CVA with minimal right-sided weakness, diabetes type 1 on insulin pump, diabetic peripheral neuropathy, hypertension, hyperlipidemia, history of TX status post cardiac catheterization no PCI and depression who underwent right ankle surgery/ORIF right bimalleolar fracture on 05/08/2020. Patient has been doing well until last ,having pain in the right ankle and started draining purulent discharge from the right ankle. Patient is also having pain and was seen by orthopedic surgery. Patient was recommended incision and drainage with removal of hardware in the right ankle. Patient is status post removal of hardware plate and screws in the right ankle and excisional debridement of right ankle lateral malleolus. Hardware infection was suspected. Patient is being continued on antibiotics in the form of vancomycin and cefepime pending final culture report. Patient is currently lying in the bed awake alert 1x3. Patient was bradycardic with heart rate upper 50s. Saturating well on room air. Laboratory data showed WBC 6.8 hemoglobin 11.2 and platelets 254 Sodium 138 potassium 4.8 chloride 107, BUN 2020 creatinine 0.76 Coronavirus PCR not detected. Objective - Vital Signs Vital signs: Vital Signs Temp 98.0 F 01/23/21 06:50 Pulse 60 01/23/21 06:50 Resp 16 01/23/21 02:00 BP 134/64 01/23/21 06:50 Pulse Ox 94 L 01/23/21 06:50 Intake & Output 01/22/21 01/23/21 01/23/21 18:59 06:59 18:59 Intake Total 1262 480 Output Total 215 Balance 1047 480 Weight 69.3 kg Intake: IV 1026 Oral 236 480 Output: Urine 200 Estimated Blood Loss 15 Other: # Voids 2 - Exam Patient is lying in the bed comfortably, no acute distress, awake alert and oriented.. HEENT: Normocephalic. Neck is supple. Pupils reactive. Nostrils clear. Oral cavity is moist. Neck reveals no JVD, carotid bruits, or thyromegaly. CHEST EXAMINATION: Trachea is central. Symmetrical expansion. Lung dukes clear to auscultation and percussion. CARDIAC: Normal S1, S2 with no gallops. No murmurs ABDOMEN: Soft. Bowel sounds normal. No organomegaly. No abdominal bruits. Extremities: reveal no edema. No clubbing or cyanosis Neurologically awake, alert, oriented x3 with well-coordinated movements. No focal deficits noted Skin: No rash or skin lesions. Psychiatric: Cooperative. Nonsuicidal Musculoskeletal: No joint swelling or deformity. Right ankle surgical site is packed.. - Labs CBC & Chem 7: 01/23/21 08:00 01/23/21 08:00 Labs: Abnormal Lab Results - Last 24 Hours (Table) 01/22/21 01/22/21 01/22/21 Range/Units 15:26 15:26 16:32 RBC 3.78 L (3.80-5.40) m/uL Hgb 11.2 L (11.4-16.0) gm/dL Hct (37.2-46.3) % MCHC (32.0-37.0) g/dL Carbon Dioxide (21.6-31.8) mmol/L BUN 22 H (7-17) mg/dL BUN/Creatinine Ratio (12.00-20.00) Ratio Glucose 154 H (74-99) mg/dL POC Glucose (mg/dL) 147 H (75-99) mg/dL 01/22/21 01/23/21 01/23/21 Range/Units 19:58 07:05 08:00 RBC 3.63 L (3.80-5.40) m/uL Hgb 10.4 L (11.4-16.0) gm/dL Hct 33.8 L (37.2-46.3) % MCHC 30.8 L (32.0-37.0) g/dL Carbon Dioxide (21.6-31.8) mmol/L BUN (7-17) mg/dL BUN/Creatinine Ratio (12.00-20.00) Ratio Glucose (74-99) mg/dL POC Glucose (mg/dL) 215 H 135 H (75-99) mg/dL 01/23/21 01/23/21 Range/Units 08:00 11:20 RBC (3.80-5.40) m/uL Hgb (11.4-16.0) gm/dL Hct (37.2-46.3) % MCHC (32.0-37.0) g/dL Carbon Dioxide 21.2 L (21.6-31.8) mmol/L BUN (7-17) mg/dL BUN/Creatinine Ratio 23.63 H (12.00-20.00) Ratio Glucose 177 H (74-99) mg/dL POC Glucose (mg/dL) 233 H (75-99) mg/dL Microbiology - Last 24 Hours (Table) 01/22/21 10:35 Gram Stain - Preliminary Ankle - Right Wound Culture - Preliminary 01/22/21 10:35 Gram Stain - Preliminary Ankle - Right Wound Culture - Preliminary 01/22/21 10:35 Gram Stain - Preliminary Ankle - Right Tissue Culture - Preliminary 01/22/21 10:35 Anaerobic Culture - Preliminary Ankle - Right Assessment and Plan Assessment: Status post removal of right ankle hardware removal and debridement due to purulent drainage from sinus tract over the incision. Suspected right ankle hardware infection Sinus bradycardia. Asymptomatic. Heart rate in upper 50s. Diabetes type 1 on insulin pump. Continue with sliding scale currently. Nonobstructive coronary disease status post cardiac cath no PCI History of CVA/TIA with residual minimal right-sided weakness Hypertension Hyperlipidemia History of TX Diabetic peripheral neuropathy Migraine headaches History of renal stone Depression DVT prophylaxis Plan: Patient will be continued antibiotics in the form of vancomycin and cefepime and follow-up intraoperative culture reports. ID is on board. Continue with home blood pressure medications and insulin sliding scale and monitor blood sugar closely. Increase oral intake. DVT prophylaxis as per primary team. Monitor CBC and BMP and further recommendations based on clinical course. Will continue to follow with you.
[2021-01-24 16:40] LABS: Glucose,Whole Blood 146 mg/dL (75-99)
[2021-01-24 19:55] LABS: Glucose,Whole Blood 170 mg/dL (75-99)
--- NOTE | 2021-01-25 00:33 | PN ---
PROGRESS NOTE DATE OF SERVICE: 01/24/2021 REASON FOR FOLLOWUP: Right ankle infected hardware and underlying osteomyelitis. INTERVAL HISTORY: The patient is afebrile. The patient is breathing comfortably. The patient's pain to the right lateral ankle is fairly controlled. No chest pain, shortness of breath or cough. No abdominal pain or diarrhea. PHYSICAL EXAMINATION: Blood pressure 156/73 with a pulse of 64, temperature 98.4. She is 97% on room air. General description is an elderly female lying in bed in no distress. RESPIRATORY SYSTEM: Unlabored breathing. Clear to auscultation anteriorly. HEART: S1, S2. Regular rate and rhythm. ABDOMEN: Soft. No tenderness. Right leg is currently dressed. No obvious drainage on the dressing. LABS: Culture remains negative. DIAGNOSTIC IMPRESSION AND PLAN: Patient admitted to hospital with concern for infected hardware to the right ankle area, status post removal of the hardware, and concern for possible cellulitis. The patient is covered with vancomycin and cefepime; to continue while waiting for the culture to finalize. Continue with supportive care. MMODL / IJN: [id number] /
--- NOTE | 2021-01-25 01:14 | P.PN ---
Subjective Progress Note Date: 01/24/21 Principal diagnosis: Status post removal of right ankle hardware removal and debridement due to purulent drainage from sinus tract over the incision. Suspected right ankle hardware infection Sinus bradycardia. 75-year-old female with a known history of CVA with minimal right-sided weakness, diabetes type 1 on insulin pump, diabetic peripheral neuropathy, hypertension, hyperlipidemia, history of [place] status post cardiac catheterization no PCI and depression who underwent right ankle surgery/ORIF right bimalleolar fracture on 05/08/2020. Patient has been doing well until last ,having pain in the right ankle and started draining purulent discharge from the right ankle. Patient is also having pain and was seen by orthopedic surgery. Patient was recommended incision and drainage with removal of hardware in the right ankle. Patient is status post removal of hardware plate and screws in the right ankle and excisional debridement of right ankle lateral malleolus. Hardware infection was suspected. Patient is being continued on antibiotics in the form of vancomycin and cefepime pending final culture report. Patient is currently lying in the bed awake alert 1x3. Patient was bradycardic with heart rate upper 50s. Saturating well on room air. Laboratory data showed WBC 6.8 hemoglobin 11.2 and platelets 254 Sodium 138 potassium 4.8 chloride 107, BUN 2020 creatinine 0.76 Coronavirus PCR not detected. 01/24/2021 Patient is seen and evaluated at bedside; discussed with nursing staff. Patient is currently afebrile and is breathing much more comfortably. Patient states that pain to the right lateral ankle is fairly controlled. Patient denies any chest pain, shortness of breath, or cough. Patient also does not experience any pain or diarrhea. Vital signs have been evaluated with a BP of 156/73, pulse of 64, temperature is 98.4 Patient is 97% on room air with unlabored breathing. On physical exam there does not seem to be any drainage on the dressing Labs have been evaluated and the culture remains negative. Patient is being covered with vancomycin and cefepime; continue with supportive care Objective - Vital Signs Vital signs: Vital Signs Temp 98.9 F 01/24/21 06:16 Pulse 64 01/24/21 06:16 Resp 15 01/24/21 06:16 BP 124/67 01/24/21 06:16 Pulse Ox 94 L 01/24/21 06:16 Intake & Output 1001/24/21 01/24/21 18:59 06:59 18:59 Intake Total 720 590 Balance 720 590 Intake: Intake, IV Titration 590 Amount Cefepime 2 gm In Sodium 100 Chloride 0.9% 100 ml @ 25 mls/hr IVPB Q12HR [facility] Rx #:[id number] Sodium Chloride 0.9% 1, 240 000 ml @ 20 mls/hr IV . Q24H [facility] Rx#:[id number] Vancomycin 1,250 mg In 250 Sodium Chloride 0.9% 250 ml @ 125 mls/hr IVPB Q16H [facility] Rx#:[id number] Oral 720 Other: # Voids 3 - Exam Patient is lying in the bed comfortably, no acute distress, awake alert and oriented.. HEENT: Normocephalic. Neck is supple. Pupils reactive. Nostrils clear. Oral cavity is moist. Neck reveals no JVD, carotid bruits, or thyromegaly. CHEST EXAMINATION: Trachea is central. Symmetrical expansion. Lung dukes clear to auscultation and percussion. CARDIAC: Normal S1, S2 with no gallops. No murmurs ABDOMEN: Soft. Bowel sounds normal. No organomegaly. No abdominal bruits. Extremities: reveal no edema. No clubbing or cyanosis Neurologically awake, alert, oriented x3 with well-coordinated movements. No focal deficits noted Skin: No rash or skin lesions. Psychiatric: Cooperative. Nonsuicidal Musculoskeletal: No joint swelling or deformity. Right ankle surgical site is packed.. - Labs CBC & Chem 7: 01/23/21 08:00 01/23/21 08:00 Labs: Abnormal Lab Results - Last 24 Hours (Table) 01/23/21 01/23/21 01/24/21 Range/Units 16:50 20:07 07:00 POC Glucose (mg/dL) 144 H 202 H 118 H (75-99) mg/dL 01/24/21 Range/Units 11:27 POC Glucose (mg/dL) 184 H (75-99) mg/dL Microbiology - Last 24 Hours (Table) 01/22/21 10:35 Gram Stain - Final Ankle - Right Wound Culture - Final 01/22/21 10:35 Gram Stain - Final Ankle - Right Wound Culture - Final 01/22/21 15:26 Blood Culture - Preliminary Blood No Growth after 24 hours 01/22/21 10:35 Gram Stain - Preliminary Ankle - Right Tissue Culture - Preliminary Assessment and Plan Assessment: Status post removal of right ankle hardware removal and debridement due to purulent drainage from sinus tract over the incision. Suspected right ankle hardware infection Sinus bradycardia. Asymptomatic. Heart rate in upper 50s. Diabetes type 1 on insulin pump. Continue with sliding scale currently. Nonobstructive coronary disease status post cardiac cath no PCI History of CVA/TIA with residual minimal right-sided weakness Hypertension Hyperlipidemia History of DC Diabetic peripheral neuropathy Migraine headaches History of renal stone Depression DVT prophylaxis Plan: Patient will be continued antibiotics in the form of vancomycin and cefepime and follow-up intraoperative culture reports. ID is on board. Continue with home blood pressure medications and insulin sliding scale and monitor blood sugar closely. Increase oral intake. DVT prophylaxis as per primary team. Monitor CBC and BMP and further recommendations based on clinical course. Will continue to follow with you.
[2021-01-25] MEDS: HYDROcodone/APAP 5-325MG 1 EACH TAB PO PRN ×3 (01:30→21:49)
[2021-01-25 06:53] LABS: Glucose,Whole Blood 132 mg/dL (75-99)
[2021-01-25] MEDS ORDERED: VANCOMYCIN TROUGH DUE 1 EACH MISC MISCELLANE ONE (07:00)
[2021-01-25] MEDS: INSULIN ASPART (NovoLOG) 100 UNIT/ML VIAL SQ SCH ×4 (08:04→21:13)
[2021-01-25] MEDS: VANCOMYCIN 1,250 MG in SODIUM CHLORIDE 0.9% 250 ML IVPB SCH ×2 (08:53→23:44)
[2021-01-25] MEDS: ATORVASTATIN 40 MG TAB PO SCH (08:56)
[2021-01-25] MEDS: SODIUM CHLORIDE 0.9% 1,000 ML IV SCH (08:56)
[2021-01-25] MEDS: ASPIRIN 81 MG PO SCH (08:56)
[2021-01-25] MEDS: LOSARTAN 50 MG TAB PO SCH (08:56)
[2021-01-25] MEDS: GABAPENTIN 400 MG CAP PO SCH ×3 (08:56→21:13)
[2021-01-25] MEDS: CLOPIDOGREL 75 MG TAB PO SCH (08:56)
[2021-01-25] MEDS ORDERED: LIDOCAINE 1% INJ 10MG/ML (20 ML MDV) IV ONE (10:30)
--- NOTE | 2021-01-25 11:02 | IR ---
PICC LINE PLACEMENT: HISTORY: Infection requiring long-term antibiotic therapy PROCEDURE: Ultrasound and fluoroscopic guidance of PICC line placement. COMPLICATIONS: None ANESTHESIA: 1. 1% Lidocaine locally. FINDINGS/TECHNIQUE: The procedure was explained to the patient. The risks, complications, benefits and alternatives were discussed and any questions were answered. Informed consent was obtained. The patient was placed supine on the fluoroscopic table and prepped and draped in the usual sterile fash ion. Utilizing a 21 gauge needle and sonographic and fluoroscopic guidance, access in the left basi lic vein was achieved and there is placement of a 0.018 guidewire. The vein is patent. A 4-F sheath was placed over the guidewire. The guidewire and dilator were removed and a 4-F. PICC line was plac ed through the sheath with the tip at the level of the SVC. The sheath was removed, the catheter was flushed and sutured into position. The patient was stable throughout the procedure and remained sta ble upon discharge from the Department of Radiology. The vein puncture was patent under ultrasound. A ramsey scale image was obtained to document patency of the vein punctured. All elements of the maximal barrier technique were utilized. FLUOROSCOPY TIME: 0.1 minutes and one image submitted IMPRESSION: Successful PICC line placement under ultrasound and fluoroscopic guidance.
[2021-01-25] MEDS: CEFEPIME 2 GM in SODIUM CHLORIDE 0.9% 100 ML IVPB SCH (11:05)
[2021-01-25 11:46] LABS: Glucose,Whole Blood 217 mg/dL (75-99)
--- NOTE | 2021-01-25 12:19 | P.PN ---
Subjective Progress Note Date: 01/25/21 Principal diagnosis: Status post hardware removal right ankle, irritating hardware right ankle, presumptive infected hardware right ankle Patient evaluated at bedside today, she is resting comfortably. She denies any fevers or chills at this time. Patient was leaving to have the PICC line placed. She does admit to some generalized discomfort in the ankle. Denies any obvious lightheadedness, chest pain, shortness of breath, nausea vomiting. Objective - Vital Signs Vital signs: Vital Signs Temp 98.0 F 01/25/21 07:44 Pulse 54 L 01/25/21 07:44 Resp 18 01/25/21 08:30 BP 173/64 01/25/21 07:44 Pulse Ox 95 01/25/21 07:44 Intake & Output 01/24/21 01/25/21 01/25/21 18:59 06:59 18:59 Other: Voiding Method Toilet # Voids 3 1 # Bowel Movements 1 - Exam Right lower extremity: Bandage is in good position and condition, no obvious acute drainage. Mild ecchymosis and swelling present. Plantar flexion, dorsiflexion, EHL, FHL are intact. The sensory exam to light touch is intact throughout the extremity. The calf is soft, there is no tenderness with palpation. Her discuss pedis pulses 2+ - Labs CBC & Chem 7: 01/23/21 08:00 01/25/21 05:41 Labs: Abnormal Lab Results - Last 24 Hours (Table) 01/24/21 01/24/21 01/25/21 Range/Units 16:38 19:52 06:52 POC Glucose (mg/dL) 146 H 170 H 132 H (75-99) mg/dL 01/25/21 Range/Units 11:45 POC Glucose (mg/dL) 217 H (75-99) mg/dL Microbiology - Last 24 Hours (Table) 01/22/21 10:35 Gram Stain - Preliminary Ankle - Right Tissue Culture - Preliminary Coagulase Negative Staph 01/22/21 15:26 Blood Culture - Preliminary Blood No Growth after 48 hours 01/22/21 10:35 Gram Stain - Final Ankle - Right Wound Culture - Final 01/22/21 10:35 Gram Stain - Final Ankle - Right Wound Culture - Final Assessment and Plan Assessment: Postoperative day #3 status post hardware removal right ankle Irritating hardware right ankle/presumptive infected hardware right ankle Other medical comorbidities Plan: Pain control, continue with current medication at this time DVT prophylaxis, continue aspirin and Plavix Recommend use of cam walker boot when up and ambulate Recommend icing and elevating the ankle, also including basic range of motion of the foot and ankle exercises Awaiting culture/sensitivity results, patient is having a PICC line placed today with anticipation of outpatient IV antibiotics Medical and infectious disease recommendations appreciated Discharge planning: Hopeful discharge home on 01/26/2021 Time with Patient: Less than 30
[2021-01-25 16:42] LABS: Glucose,Whole Blood 165 mg/dL (75-99)
--- NOTE | 2021-01-25 17:40 | XR ---
EXAMINATION TYPE: XR chest 2V DATE OF EXAM: 01/25/2021 COMPARISON: 04/10/2020 HISTORY: Shortness of breath. TECHNIQUE: Frontal and lateral views of the chest are obtained. FINDINGS: The left PICC remains in place. There is mild bibasilar streaky opacity. No pleural effusi on, or pneumothorax seen. There is unchanged 3 mm right basilar calcified granuloma . The cardiac jhonny houette size is within normal limits. The osseous structures are stable. IMPRESSION: Mild bibasilar opacities, compatible with atelectasis.
--- NOTE | 2021-01-25 19:03 | PN ---
PROGRESS NOTE DATE OF SERVICE: 01/25/2021 REASON FOR FOLLOWUP: Right ankle hardware infection and underlying osteomyelitis. INTERVAL HISTORY: The patient is afebrile. The patient is currently breathing comfortably. The patient denies having any chest pain or shortness of breath or cough. No abdominal pain. Still complains of pain to the right ankle area. PHYSICAL EXAMINATION: Blood pressure 155/63, pulse of 60, temperature 98.4. She is 98% on room air. General description is an elderly female lying in bed in no distress. RESPIRATORY SYSTEM: Unlabored breathing. Clear to auscultation anteriorly. HEART: S1, S2. Regular rate and rhythm. ABDOMEN: Soft. No tenderness. Right ankle did have swelling and redness. No drainage. LABS: Creatinine 0.97. White count 15.7. Tissue culture with coagulase-negative Staph. DIAGNOSTIC IMPRESSION AND PLAN: Patient with right ankle infected hardware, status post removal of the hardware, and concern for underlying osteomyelitis. Culture showing coagulase-negative Staph. Will wait for the sensitivity. Continue the vancomycin, with discharge antibiotic on the basis of these cultures. Continue supportive care. MMODL / IJN: [id number] /
[2021-01-25 21:05] LABS: Glucose,Whole Blood 188 mg/dL (75-99)
[2021-01-26] MEDS: HYDROcodone/APAP 5-325MG 1 EACH TAB PO PRN ×3 (03:59→16:18)
[2021-01-26 06:49] LABS: Glucose,Whole Blood 121 mg/dL (75-99)
[2021-01-26] MEDS: INSULIN ASPART (NovoLOG) 100 UNIT/ML VIAL SQ SCH ×3 (07:01→17:33)
[2021-01-26 08:25] VITALS: RESP 16
[2021-01-26] MEDS: ATORVASTATIN 40 MG TAB PO SCH (09:43)
[2021-01-26] MEDS: ASPIRIN 81 MG PO SCH (09:43)
[2021-01-26] MEDS: LOSARTAN 50 MG TAB PO SCH (09:44)
[2021-01-26] MEDS: CLOPIDOGREL 75 MG TAB PO SCH (09:44)
[2021-01-26] MEDS: GABAPENTIN 400 MG CAP PO SCH ×2 (09:44→16:19)
[2021-01-26] MEDS: SODIUM CHLORIDE 0.9% 1,000 ML IV SCH (09:59)
[2021-01-26 11:20] LABS: Glucose,Whole Blood 168 mg/dL (75-99)
--- NOTE | 2021-01-26 13:17 | P.PN ---
Subjective Progress Note Date: 01/26/21 Principal diagnosis: Status post hardware removal right ankle, irritating hardware right ankle, presumptive infected hardware right ankle Patient evaluated at bedside today, she is resting comfortably. She denies any fevers or chills at this time. She does admit to some generalized discomfort in the ankle. Denies any obvious lightheadedness, chest pain, shortness of breath, nausea vomiting. Objective - Vital Signs Vital signs: Vital Signs Temp 97.8 F 01/26/21 08:24 Pulse 50 L 01/26/21 08:24 Resp 16 01/26/21 08:24 BP 115/63 01/26/21 08:24 Pulse Ox 93 L 01/26/21 08:24 Intake & Output 01/25/21 01/26/21 01/26/21 18:59 06:59 18:59 Intake Total 350 Balance 350 Intake: Intake, IV Titration 350 Amount Sodium Chloride 0.9% 1, 100 000 ml @ 20 mls/hr IV . Q24H [facility] Rx#:[id number] Vancomycin 1,250 mg In 250 Sodium Chloride 0.9% 250 ml @ 125 mls/hr IVPB Q16H [facility] Rx#:[id number] Other: Voiding Method Toilet Toilet Toilet # Voids 2 2 # Bowel Movements 0 - Exam Right lower extremity: Bandage is in good position and condition, no obvious acute drainage. Mild ecchymosis and swelling present. Plantar flexion, dorsiflexion, EHL, FHL are intact. The sensory exam to light touch is intact throughout the extremity. The calf is soft, there is no tenderness with palpation. Her discuss pedis pulses 2+ - Labs CBC & Chem 7: 01/23/21 08:00 01/25/21 05:41 Labs: Abnormal Lab Results - Last 24 Hours (Table) 01/25/21 01/25/21 01/26/21 Range/Units 16:42 20:48 06:46 POC Glucose (mg/dL) 165 H 188 H 121 H (75-99) mg/dL 01/26/21 Range/Units 11:18 POC Glucose (mg/dL) 168 H (75-99) mg/dL Microbiology - Last 24 Hours (Table) 01/22/21 10:35 Anaerobic Culture - Final Ankle - Right 01/22/21 15:26 Blood Culture - Preliminary Blood No Growth after 72 hours 01/22/21 10:35 Gram Stain - Preliminary Ankle - Right Tissue Culture - Preliminary Coagulase Negative Staph Assessment and Plan Assessment: Postoperative day #4 status post hardware removal right ankle Irritating hardware right ankle/presumptive infected hardware right ankle Other medical comorbidities Plan: Pain control, plan for discharge home on [place] 5 mg/325 mg DVT prophylaxis, continue aspirin and Plavix Recommend use of cam walker boot when up and ambulate Recommend icing and elevating the ankle, also including basic range of motion of the foot and ankle exercises Patient had PICC line placed yesterday, infectious disease RECOMMENDATIONS are in for outpatient antibiotics. Home care will be following with this. Discharge planning: Plan for discharge home today Time with Patient: Less than 30
--- NOTE | 2021-01-26 13:22 | P.DS ---
Providers Date of admission: 01/22/21 08:04 Expected date of discharge: 01/26/21 Attending physician: Josh Knight DO Consults: 01/22/21 10:00 Consult Physician Routine Consulting Provider: Erich Mares Consult Reason/Comments: INfected hardware Rt ankle Do you want consulting provider notified?: Yes 01/22/21 10:01 Consult Physician Routine Consulting Provider: Theresa Collazo Consult Reason/Comments: medical management Do you want consulting provider notified?: Yes Primary care physician: Kaylin Lewis Hospital Course: Date of admission: 01/22/2021 Date of discharge: 01/26/2021 Admission diagnosis: Irritating hardware right ankle, presumptive infection hardware right ankle, history of ORIF right lateral malleolus fracture Discharge diagnosis: Status post removal right ankle Attending physician: Dr. Knight Surgical procedures: Hardware removal right ankle Brief history: Patient is a 75-year-old female who was evaluated in the outpatient setting by Dr. Knight early last week with regards to redness and discomfort of her right ankle. Patient had a previous ORIF procedure done on that ankle earlier this year. She states that she had noticed some redness and discomfort around the ankle early last week which prompted her to be evaluated in the outpatient setting. There is concern for infection and irritating hardware, she was scheduled for hardware removal on 01/22/2021. Hospital course: Details of patient's surgery can be found in operative report. Patient tolerated the procedure well and was subsequently transported to orthopedic floor. Patient's orthopeidc and medical care was provided daily. Patient had daily laboratory tests performed for evaluation of overall blood counts. Patient had daily physical therapy to include strengthening range of motion as well as education with walker ambulation. Patient was treated with Plavix for their postoperative DVT prophylaxis during their inpatient stay. Patient was noted to have a relatively uneventful postoperative course. Patient was followed by infectious's disease during her hospital stay, her PICC line was placed and outpatient antibiotics were set up. Patient reported satisfactory pain control with oral pain medications by postoperative day 0. Patient showed satisfactory progress with physical therapy. Patient moved steadily through the program and had no difficulty meeting the goals by postoperative day 4. Given patient's otherwise satisfactory course and having met physical therapy goals, plan is to discharge patient home on postoperative day 4. Discharge condition/disposition: Patient will be discharged home in stable condition. Discharge medications: Instructions are given on resumption of patient's normal daily medications per primary care recommendation, in addition patient will be prescribed Frankford 5 mg/25 mg. Discharge instructions: 1. Wound care and infection precautions, keep incision dry and covered while showering, no lotions, creams, moisturizers. No soaking, tubs, pools, hottubs. Do not scrub over the incision. 2. Weight-bear as tolerated with, utilize Cam Walker boot with ambulation 3. Ice and elevate when necessary. Do not exceed 20 minutes per hour with ice pack. 4. Visiting nursing care. 5. Follow up in office in [address] Knight. 6. Follow up with your primary care doctor 7-10 days after discharge. 7. Contact [facility] with any questions, . Procedures: Hardware removal right ankle Patient Condition at Discharge: Good Plan - Discharge Summary Discharge Rx Participant: Yes New Discharge Prescriptions: New HYDROcodone/APAP 5-325MG [Frankford 5-325] 1 tab PO Q6HR PRN #21 tab PRN Reason: Pain Continue Losartan [Cozaar] 50 mg PO QAM Clopidogrel Bisulfate [Plavix] 75 mg PO DAILY #30 tab Aspirin 81 mg PO DAILY Atorvastatin [Lipitor] 40 mg PO DAILY INSULIN LISPRO (For Pump) [humaLOG (For Pump)] 0.01 units SQ-PUMP CONTINUOUS Gabapentin 400 mg PO TID Nf-Antibioitic Of Unknown Name And Dose 1 tab PO DIRECTED Discharge Medication List Losartan [Cozaar] 50 mg PO QAM 11/06/14 [History] Clopidogrel Bisulfate [Plavix] 75 mg PO DAILY #30 tab 11/11/14 [Rx] Aspirin 81 mg PO DAILY 06/04/18 [History] Atorvastatin [Lipitor] 40 mg PO DAILY 08/31/18 [History] INSULIN LISPRO (For Pump) [humaLOG (For Pump)] 0.01 units SQ-PUMP CONTINUOUS 05/07/20 [History] Gabapentin 400 mg PO TID 01/20/21 [History] Nf-Antibioitic Of Unknown Name And Dose 1 tab PO DIRECTED 01/20/21 [History] HYDROcodone/APAP 5-325MG [Frankford 5-325] 1 tab PO Q6HR PRN #21 tab 01/26/21 [Rx] Follow up Appointment(s)/Referral(s): [facility], [NON-STAFF] - ([facility] will call you to schedule your visits for home care and antibiotic teaching for the morning of 01/27/21.) [facility],Infusion [NON-STAFF] - ([facility] will deliver supplies for outpatient IV antibiotics to your house by the morning of 01/27/21. ) Josh Knight, DO [Doctor of Osteopathic Medicine] - 02/03/21 Activity/Diet/Wound Care/Special Instructions: Per Dr. Mares: Patient will go home on Vancomycin with Pharmacy to dose. The antibiotics are arranged through [facility] with Missy Germain to follow. Wound care instructions: 1. Dressing changes every 2 days 2. Basic nonstick dressing with gauze 3. Patient was advised to utilize extra padding/sock when ambulating in the Cam Walker boot to prevent irritation 4. Sutures will remain in until at least seen at first postoperative visit with Dr. Knight 5. Please contact our office with any questions, Discharge Disposition: HOME WITH HOME HEALTH SERVICES
--- NOTE | 2021-01-26 13:44 | P.PN ---
Subjective Progress Note Date: 01/25/21 Principal diagnosis: Status post removal of right ankle hardware removal and debridement due to purulent drainage from sinus tract over the incision. Suspected right ankle hardware infection Sinus bradycardia. 75-year-old female with a known history of CVA with minimal right-sided weakness, diabetes type 1 on insulin pump, diabetic peripheral neuropathy, hypertension, hyperlipidemia, history of NC status post cardiac catheterization no PCI and depression who underwent right ankle surgery/ORIF right bimalleolar fracture on 05/08/2020. Patient has been doing well until last ,having pain in the right ankle and started draining purulent discharge from the right ankle. Patient is also having pain and was seen by orthopedic surgery. Patient was recommended incision and drainage with removal of hardware in the right ankle. Patient is status post removal of hardware plate and screws in the right ankle and excisional debridement of right ankle lateral malleolus. Hardware infection was suspected. Patient is being continued on antibiotics in the form of vancomycin and cefepime pending final culture report. Patient is currently lying in the bed awake alert 1x3. Patient was bradycardic with heart rate upper 50s. Saturating well on room air. Laboratory data showed WBC 6.8 hemoglobin 11.2 and platelets 254 Sodium 138 potassium 4.8 chloride 107, BUN 2020 creatinine 0.76 Coronavirus PCR not detected. 01/24/2021 Patient is seen and evaluated at bedside; discussed with nursing staff. Patient is currently afebrile and is breathing much more comfortably. Patient states that pain to the right lateral ankle is fairly controlled. Patient denies any chest pain, shortness of breath, or cough. Patient also does not experience any pain or diarrhea. Vital signs have been evaluated with a BP of 156/73, pulse of 64, temperature is 98.4 Patient is 97% on room air with unlabored breathing. On physical exam there does not seem to be any drainage on the dressing Labs have been evaluated and the culture remains negative. Patient is being covered with vancomycin and cefepime; continue with supportive care 01/25/2021 Patient is is complaining of cough and without any sputum production. She is able to ambulate to the bathroom. Minimal exertional dyspnea. Otherwise patient is being continued on antibiotics in the form of vancomycin pending final culture report. ID is on board. Patient has been afebrile. Hemodynamically stable. No nausea vomiting or abdominal pain or diarrhea. No headache or dizziness lightheadedness. No chest pain. Current medications reviewed. Objective - Vital Signs Vital signs: Vital Signs Temp 98.4 F 01/25/21 14:00 Pulse 60 01/25/21 14:00 Resp 18 01/25/21 14:00 BP 155/63 01/25/21 14:00 Pulse Ox 98 01/25/21 14:00 Intake & Output 01/25/21 01/25/21 01/26/21 06:59 18:59 06:59 Other: Voiding Method Toilet Toilet # Voids 1 2 # Bowel Movements 1 - Exam - Exam Patient is lying in the bed comfortably, no acute distress, awake alert and oriented.. HEENT: Normocephalic. Neck is supple. Pupils reactive. Nostrils clear. Oral cavity is moist. Neck reveals no JVD, carotid bruits, or thyromegaly. CHEST EXAMINATION: Trachea is central. Symmetrical expansion. Lung dukes clear to auscultation and percussion. CARDIAC: Normal S1, S2 with no gallops. No murmurs ABDOMEN: Soft. Bowel sounds normal. No organomegaly. No abdominal bruits. Extremities: reveal no edema. No clubbing or cyanosis Neurologically awake, alert, oriented x3 with well-coordinated movements. No focal deficits noted Skin: No rash or skin lesions. Psychiatric: Cooperative. Nonsuicidal Musculoskeletal: No joint swelling or deformity. Right ankle surgical site is packed.. - Labs CBC & Chem 7: 01/23/21 08:00 01/25/21 05:41 Labs: Abnormal Lab Results - Last 24 Hours (Table) 01/25/21 01/25/21 01/25/21 Range/Units 06:52 11:45 16:42 POC Glucose (mg/dL) 132 H 217 H 165 H (75-99) mg/dL 01/25/21 Range/Units 20:48 POC Glucose (mg/dL) 188 H (75-99) mg/dL Microbiology - Last 24 Hours (Table) 01/22/21 15:26 Blood Culture - Preliminary Blood No Growth after 72 hours 01/22/21 10:35 Anaerobic Culture - Preliminary Ankle - Right 01/22/21 10:35 Gram Stain - Preliminary Ankle - Right Tissue Culture - Preliminary Coagulase Negative Staph Assessment and Plan Assessment: Status post removal of right ankle hardware removal and debridement due to puru lent drainage from sinus tract over the incision. Follow-up final culture report. Suspected right ankle hardware infection Sinus bradycardia. Asymptomatic. Heart rate in upper 50s. Diabetes type 1 on insulin pump. Continue with sliding scale currently. Nonobstructive coronary disease status post cardiac cath no PCI History of CVA/TIA with residual minimal right-sided weakness Hypertension Hyperlipidemia History of NC Diabetic peripheral neuropathy Migraine headaches History of renal stone Depression DVT prophylaxis Plan: Patient will be continued antibiotics in the form of vancomycin. Wound cultures showed coagulase-negative staph. Awaiting final culture report.. ID is on board. Continue with home blood pressure medications and insulin sliding scale and monitor blood sugar closely. Increase oral intake. Encourage ambulation. Chest x-ray was repeated to rule out any congestion. Follow-up with DVT prophylaxis as per primary team. Monitor CBC and BMP and further recommendations based on clinical course. Will continue to follow with you. Time with Patient: Greater than 30
[2021-01-26] MEDS ORDERED: DAPTOmycin 500 MG in SODIUM CHLORIDE 0.9% 50 ML IVPB SCH (14:00)
--- NOTE | 2021-01-26 14:45 | PN ---
PROGRESS NOTE DATE OF SERVICE: 01/26/2021 REASON FOR FOLLOWUP: Right ankle infected hardware and possible osteomyelitis. INTERVAL HISTORY: Patient is afebrile. The patient is feeling better today. She is breathing comfortably. No chest pain, shortness of breath or cough. No abdominal pain or worsening pain to the right ankle area. PHYSICAL EXAMINATION: Blood pressure 115/63 with a pulse of 50. Temperature is 97.8. She is 93% on room air. General description is an elderly female up in the bed in no distress. Respiratory system: Unlabored breathing, decreased breath sounds. Heart S1, S2. Regular rate and rhythm. Abdomen soft, no tenderness. Right hand is currently dressed up. No obvious drainage on the dressing. LABS: No new labs been obtained today. The OR culture showing coagulase-negative Staph. DIAGNOSTIC IMPRESSION AND PLAN: Patient with right ankle infected hardware, status post removal of the hardware concerning for underlying osteomyelitis. Culture with Coagulase negative Staph. The patient on vancomycin, pharmacy to dose. Plan is for a total of 6 weeks antibiotic with weekly monitoring of CBC, BMP, sedimentation rate and CRP. Follow up in the office in 2 weeks. Continue supportive care. MMODL / IJN: [id number] /
--- NOTE | 2021-01-26 15:22 | P.PN ---
Subjective Progress Note Date: 01/26/21 Status post removal of right ankle hardware removal and debridement due to purulent drainage from sinus tract over the incision. Suspected right ankle hardware infection Sinus bradycardia. 75-year-old female with a known history of CVA with minimal right-sided weakness, diabetes type 1 on insulin pump, diabetic peripheral neuropathy, hypertension, hyperlipidemia, history of ID status post cardiac catheterization no PCI and depression who underwent right ankle surgery/ORIF right bimalleolar fracture on 05/08/2020. Patient has been doing well until last ,having pain in the right ankle and started draining purulent discharge from the right ankle. Patient is also having pain and was seen by orthopedic surgery. Patient was recommended incision and drainage with removal of hardware in the right ankle. Patient is status post removal of hardware plate and screws in the right ankle and excisional debridement of right ankle lateral malleolus. Hardware infection was suspected. Patient is being continued on antibiotics in the form of vancomycin and cefepime pending final culture report. Patient is currently lying in the bed awake alert 1x3. Patient was bradycardic with heart rate upper 50s. Saturating well on room air. Laboratory data showed WBC 6.8 hemoglobin 11.2 and platelets 254 Sodium 138 potassium 4.8 chloride 107, BUN 2020 creatinine 0.76 Coronavirus PCR not detected. 01/24/2021 Patient is seen and evaluated at bedside; discussed with nursing staff. Patient is currently afebrile and is breathing much more comfortably. Patient states that pain to the right lateral ankle is fairly controlled. Patient denies any chest pain, shortness of breath, or cough. Patient also does not experience any pain or diarrhea. Vital signs have been evaluated with a BP of 156/73, pulse of 64, temperature is 98.4 Patient is 97% on room air with unlabored breathing. On physical exam there does not seem to be any drainage on the dressing Labs have been evaluated and the culture remains negative. Patient is being covered with vancomycin and cefepime; continue with supportive care 01/25/2021 Patient is is complaining of cough and without any sputum production. She is able to ambulate to the bathroom. Minimal exertional dyspnea. Otherwise patient is being continued on antibiotics in the form of vancomycin pending final culture report. ID is on board. Patient has been afebrile. Hemodynamically stable. No nausea vomiting or abdominal pain or diarrhea. No headache or dizziness lightheadedness. No chest pain. 01/26/2021 Patient is seen and evaluated in follow-up with no acute overnight issues. Patient denies having any shortness of breath and states she feels better from yesterday. Patient currently sitting up in the chair with lower extremities elevated stating her pain is much better of the right ankle and is anticipating going home. Patient did receive a PICC line yesterday and is being arranged for IV antibiotics with infectious disease following closely. Case management arranging for home care and IV antibiotics through [facility]. Patient underwent chest x-ray yesterday showing mild bibasilar opacification is compatible with atelectasis. Incentive spirometer ordered and encouraged to use at least 10 times every hour while awake even in the outpatient setting. Patient requesting to be discharged. We'll continue to follow along with orthopedics during hospitalization. Review of systems: Constitutional: No reports of fatigue, fever, or chills Cardiovascular: No reports of chest pain or palpitations Respiratory: No reports of shortness of breath or cough GI: No reports of nausea, vomiting, or diarrhea : No reports of dysuria or retention Neurovascular: No reports of weakness or numbness All medications have been reviewed Physical exam: Patient is sitting up in the chair comfortably, no acute distress, awake alert and oriented x 3. HEENT: Normocephalic. Neck is supple. Pupils reactive. Nostrils clear. Oral cavity is moist. Neck reveals no JVD, carotid bruits, or thyromegaly. CHEST EXAMINATION: Trachea is central. Symmetrical expansion. Lung dukes clear to auscultation and percussion. CARDIAC: Normal S1, S2 with no gallops. No murmurs ABDOMEN: Soft. Bowel sounds normal. No organomegaly. No abdominal bruits. Extremities: reveal no edema. No clubbing or cyanosis Neurologically awake, alert, oriented x3 with well-coordinated movements. No focal deficits noted Skin: No rash or skin lesions. Psychiatric: Cooperative. Non-suicidal Musculoskeletal: No joint swelling or deformity. Right ankle surgical site is packed.. Assessment: Status post removal of right ankle hardware removal and debridement due to purulent drainage from sinus tract over the incision. Finalized culture showing Staphylococcus epidermidis Suspected right ankle hardware infection Sinus bradycardia. Asymptomatic. Heart rate in upper 50s. Diabetes type 1 on insulin pump. Continue with sliding scale currently. Nonobstructive coronary disease status post cardiac cath no PCI History of CVA/TIA with residual minimal right-sided weakness Hypertension Hyperlipidemia History of ID Diabetic peripheral neuropathy Migraine headaches History of renal stone Depression DVT prophylaxis Full code Plan: Patient will be continued antibiotics in the form of vancomycin. She received a PICC line and infectious disease following closely. Finalized culture showing Staphylococcus epidermidis and patient will continue on IV vancomycin in case management arranging for outpatient antibiotic therapy along with home care. Recommend to Continue with home blood pressure medications and insulin sliding scale and monitor blood sugar closely. Encouraged incentive spirometer use at least 10 times every hour while awake along with coughing and deep breathing in the outpatient setting. Repeat chest x-ray yesterday showing mild bibasilar opacification compatible with atelectasis. Continue to encourage oral intake and will continue to follow during hospitalization. Thank you for this consultation. Patient is anticipating being discharged today. Objective - Vital Signs Vital signs: Vital Signs Temp 97.8 F 01/26/21 08:24 Pulse 50 L 01/26/21 08:24 Resp 16 01/26/21 08:24 BP 115/63 01/26/21 08:24 Pulse Ox 93 L 01/26/21 08:24 Intake & Output 01/25/21 01/26/21 01/26/21 18:59 06:59 18:59 Intake Total 350 Balance 350 Intake: Intake, IV Titration 350 Amount Sodium Chloride 0.9% 1, 100 000 ml @ 20 mls/hr IV . Q24H [facility] Rx#:[id number] Vancomycin 1,250 mg In 250 Sodium Chloride 0.9% 250 ml @ 125 mls/hr IVPB Q16H [facility] Rx#:[id number] Other: Voiding Method Toilet Toilet # Voids 2 2 # Bowel Movements 0 - Labs CBC & Chem 7: 01/23/21 08:00 01/25/21 05:41 Labs: Abnormal Lab Results - Last 24 Hours (Table) 01/25/21 01/25/21 01/25/21 Range/Units 11:45 16:42 20:48 POC Glucose (mg/dL) 217 H 165 H 188 H (75-99) mg/dL 01/26/21 Range/Units 06:46 POC Glucose (mg/dL) 121 H (75-99) mg/dL Microbiology - Last 24 Hours (Table) 01/22/21 15:26 Blood Culture - Preliminary Blood No Growth after 72 hours 01/22/21 10:35 Anaerobic Culture - Preliminary Ankle - Right 01/22/21 10:35 Gram Stain - Preliminary Ankle - Right Tissue Culture - Preliminary Coagulase Negative Staph
[2021-01-26 16:00] VITALS: BP 118/55; PULSE 63; TEMP 98
[2021-01-27] MEDS ORDERED: VANCOMYCIN TROUGH DUE 1 EACH MISC MISCELLANE ONE (07:00)
== END 2021-01-26 17:50 | disposition home health service (06) | DRG 493 ==
LOC: 2ORMAIN 08:04 → 4SSUR 13:21
PROVIDERS: ADMIT Orthopaedic Surgery; ATTEND Orthopaedic Surgery
PROC: 0SPF04Z Removal of Internal Fixation Device from Right Ankle Joint, Open Approach (ICD-10-PCS; 2021-01-22)
PROC: 0QBJ0ZZ Excision of Right Fibula, Open Approach (ICD-10-PCS; principal; 2021-01-22 09:30)
PROC: 02HV33Z Insertion of Infusion Device into Superior Vena Cava, Percutaneous Approach (ICD-10-PCS; 2021-01-25)
DX: T84.624A Infection and inflammatory reaction due to internal fixation device of right fibula, initial encounter (principal); J98.11 Atelectasis; M86.9 Osteomyelitis, unspecified; I69.351 Hemiplegia and hemiparesis following cerebral infarction affecting right dominant side; E10.42 Type 1 diabetes mellitus with diabetic polyneuropathy; E78.5 Hyperlipidemia, unspecified; F32.9 Major depressive disorder, single episode, unspecified; G43.909 Migraine, unspecified, not intractable, without status migrainosus; I10 Essential (primary) hypertension; I25.10 Atherosclerotic heart disease of native coronary artery without angina pectoris; I25.2 Old myocardial infarction; E10.69 Type 1 diabetes mellitus with other specified complication; R00.1 Bradycardia, unspecified; Y83.1 Surgical operation with implant of artificial internal device as the cause of abnormal reaction of the patient, or of later complication, without mention of misadventure at the time of the procedure; Z20.822 Contact with and (suspected) exposure to COVID-19; Z79.02 Long term (current) use of antithrombotics/antiplatelets; Z79.2 Long term (current) use of antibiotics; Z79.4 Long term (current) use of insulin; Z79.82 Long term (current) use of aspirin; Z79.899 Other long term (current) drug therapy; Z80.8 Family history of malignant neoplasm of other organs or systems; Z83.3 Family history of diabetes mellitus; Z87.442 Personal history of urinary calculi; Z90.710 Acquired absence of both cervix and uterus; Z96.41 Presence of insulin pump (external) (internal)
CPT/HCPCS: 36573; 64445; 64447; 71046; 76942; 80048; 80202; 82565; 85025; 85652; 86140; 87040; 87070; 87075; 87077; 87186; 87205; 87635; 94760

== ENCOUNTER 2021-07-06 05:56 | Day surgery (SDC) | payer MEDICARE ==
[2021-07-02 16:29] VITALS: BMI 27.4
[~2021-07-06 05:56] MED LIST changes: -ACETAMINOPHEN TAB 500 MG TAB PO PRN; +LACTATED RINGERS 1,000 ML IV SCH; -ONDANSETRON 4 MG/2 ML VIAL IVP PRN; +Pre Op ABX Message 1 EACH MISC MISCELLANE ONE
[2021-07-06 06:28] VITALS: TEMP 97.2
--- NOTE | 2021-07-06 06:53 | P.HPOR ---
History of Present Illness H&P Date: 07/06/21 Chief Complaint: LMF trigger 75 yo RHD female presents with painful popping clicking and locking of her LMF for some time now. She has a hx of DMII which is diet and insulin controlled. She has several other fingers that lock and pop as well but this LMF is the worst currently. She has tried conservative measures, NSAIDs, rest, splinting and has had a shot into the area in the past but it just recurred. She would like surgical release of this trigger. Deneis any f/c/sob/cp today. Review of Systems 14 pt ROS completed and as stated in HPI. All others negative. All systems: negative Constitutional: Reports as per HPI Past Medical History Past Medical History: Chest Pain / Angina, CVA/TIA, Diabetes Mellitus, GERD/Reflux, Hyperlipidemia, Hypertension, Myocardial Infarction (VT), Osteoarthritis (OA), Pneumonia Additional Past Medical History / Comment(s): pancreatitis, diverticulitis, hiatal hernia, endometriosis, neuropathy lower legs., migraine, CVA 2011 with right arm and leg weakness., TIA 2012, (insulin pump) bronchitis, kidney stone, carpal tunnel ,Pt states silent heart attack in [place] 2011., BACK PAIN, HX OF FALL AND HAS PAIN RIGHT SHOULDER AND NECK., STATES 2017 FELL OUT OF WHEEL CHAIR AND HAD CONCUSSION AND INJURED NECK AND LEFT SHOULDER Last Myocardial Infarction Date:: 2011 History of Any Multi-Drug Resistant Organisms: None Reported Past Surgical History: Appendectomy, Cholecystectomy, Heart Catheterization, Hysterectomy, Orthopedic Surgery Additional Past Surgical History / Comment(s): Right shoulder surgery, Heart cath , rt rotator cuff repair, egd with dilation /colonoscopy, laser eye sx on lt eye for cysts, right ankle surgery x2, neck surg.BILATERAL CATARACT SURGERY WITH LENS IMPLANTS , LEFT SHOULDER SURGERY X2 Past Anesthesia/Blood Transfusion Reactions: No Reported Reaction Smoking Status: Never smoker - Past Family History Brother(s) Family Medical History: Cancer Additional Family Medical History / Comment(s): 2 brothers -prostate cancer. throat cancer Father Family Medical History: Diabetes Mellitus, Deep Vein Thrombosis (DVT) Additional Family Medical History / Comment(s): ENLARGED HEART Mother History Unknown: Yes Additional Family Medical History / Comment(s): from burst appendix Medications and Allergies Home Medications Medication Instructions Recorded Confirmed Type Losartan [Cozaar] 50 mg PO QAM 11/06/14 07/02/21 History Clopidogrel Bisulfate [Plavix] 75 mg PO DAILY #30 tab 11/11/14 07/02/21 Rx Aspirin 81 mg PO DAILY 06/04/18 07/02/21 History Atorvastatin [Lipitor] 40 mg PO DAILY 08/31/18 07/02/21 History INSULIN LISPRO (For Pump) [humaLOG 0.01 units SQ-PUMP CONTINUOUS 05/07/20 07/06/21 History (For Pump)] Gabapentin 400 mg PO TID 01/20/21 07/02/21 History Allergies Allergy/AdvReac Type Severity Reaction Status Date / Time fentanyl Allergy Hallucinati Verified 07/06/21 06:22 ons propoxyphene HCl Allergy AGITATED Verified 07/06/21 06:22 [From Ellyn] Physical Examination Osteopathic Statement: *. No significant issues noted on an osteopathic structural exam other than those noted in the History and Physical/Consult. AOX3 NAD VSS LT hand. LMF locking painful trigger over A1 megan. FROM all joints UE and hand. NV intact M/R/U nerves. 2/4 pulses distally R/U. Cap refill brisk <2 sec. Compartments soft and compressive. Results Historical Xrays reveal no fractures of the hands. Assessment and Plan Assessment: 1. 75 yo female hx DMII with LMF locking painfull trigger at A1 megan Plan: We discussed risks and benefits of the procedure again as outlined in her risk review. She is ready and willing to proceed with A1 megan release of LMF at ths time. All questions were answered. Site was marked. ABX given. History reviewed.
[2021-07-06] MEDS ORDERED: ONDANSETRON 4 MG/2 ML VIAL ONE (07:02)
[2021-07-06] MEDS ORDERED: DEXAMETHASONE SOD PHOSPHATE 4 MG/ML 1 ML VIAL IVP ONE (07:05)
[2021-07-06] MEDS ORDERED: ONDANSETRON 4 MG/2 ML VIAL IVP ONE (07:05)
[2021-07-06] MEDS ORDERED: LABETALOL 5 MG/ML VIAL MDV IVP ONE (07:06)
[2021-07-06] MEDS ORDERED: MIDAZOLAM 2 MG/2 ML VIAL ONE (07:22)
[2021-07-06] MEDS ORDERED: KETAMINE 10 MG/ML 20 ML VIAL ONE (07:22)
[2021-07-06] MEDS ORDERED: HYDROmorphone (PF) 1 MG/ML ONE (07:22)
[2021-07-06] MEDS ORDERED: PROPOFOL 10 MG/ML 20 ML VIAL IV ONE (07:22)
[2021-07-06] MEDS ORDERED: BUPIVACAINE (PF) 0.25% 30 ML VIAL SQ ONE ×2 (07:23→07:42)
[2021-07-06 07:38] LABS: Basophils # (A) 0.1 k/uL (0-0.2); Basophils % (A) 1 %; Eosinophils # (A) 0.2 k/uL (0-0.7); Eosinophils % (A) 3 %; HCT 38.9 % (34.0-46.0); HGB 12.8 gm/dL (11.4-16.0); Lymphocytes # (A) 1.4 k/uL (1.0-4.8); Lymphocytes % (A) 21 %; MCH 29.9 pg (25.0-35.0); MCHC 32.9 g/dL (31.0-37.0); MCV 90.8 fL (80.0-100.0); Mean Platelet Volume 9.2; Monocytes # (A) 0.5 k/uL (0-1.0); Monocytes % (A) 8 %; Neutrophils # (A) 4.4 k/uL (1.3-7.7); Neutrophils % (A) 66 %; Platelet Count 153 k/uL (150-450); RBC 4.29 m/uL (3.80-5.40); RDW 12.9 % (11.5-15.5); WBC 6.6 k/uL (3.8-10.6)
--- NOTE | 2021-07-06 08:11 | P.OP ---
Date of Procedure: 07/06/21 Preoperative Diagnosis: 1. LMF trigger finger Postoperative Diagnosis: 1. LMF trigger finger Procedure(s) Performed: 1. LMF A1 megan release Implants: none TT: 4 min Anesthesia: TERRY Surgeon: Josh Knight Ammonia Print Operator #1: Monalisa Mcdonald (Was present and assisted in positioning, dissection, release and closure) Estimated Blood Loss (ml): 5 IV fluids (ml): 100 Urine output (ml): 0 Pathology: none sent Condition: stable Disposition: PACU Indications for Procedure: 75 yo female presented with LFM tringgering, locking, clicking that is painful. She has tried conservative measures like NSAIDs, past injections, home therapy without resolution and she is ready for surgical release. She has a hx of DMII which is moderately controlled with diet and insulin. She understands the risks and benefits of the procedure and is ready and willing to proceed. Description of Procedure: The patient was seen and examined in the preoperative area. All preoperative protocols were followed. Informed consent was obtained risks and benefits of the procedure were discussed at length. Risks including bleeding infection damage to the surrounding tissue and risk of reoperation were discussed with the patient. Risk of anesthesia up to and including was a discussed with the patient. These are outlined in the risk reviewed. They were willing to accept these risks and all of the risks of surgery. The patient was given a weight- based dose of antibiotics in the form of 2 g Ancef. The patient was seen and evaluated by the anesthesia team who deemed them fit for surgery. The site was marked, the patient was willing to proceed with the procedure. The patient was transferred to the operative suite by the Department of anesthesia. There were then drifted off to sleep by the department of anesthesia and local with sedation anesthesia was used. Once adequate anesthesia had been obtained the patient was carefully transferred to the ope rative bed. All bony prominences were padded accordingly. SCDs were placed on the nonoperative lower extremities. Arms were well padded. left upper extremity was exposed placed on an armboard tourniquet was placed on the left upper extremity and well-padded Preoperative briefing was done with the operative team and everyone was ready for the procedure to start. The patients left arm and handwas then prepped and draped in the normal sterile fashion. Timeout was then performed and all parties in agreement with the procedure to be performed. tourniquet was inflated after exsanguination a tourniquet 50 mmHg small oblique incision was made over the MCP joint of the middle finger on the left blunt dissection taken down to the A1 meagn which was identified proximally and distally this was then released sharply. We then took the finger through a range of motion and there was no longer any triggering. We irrigated the wound thoroughly with normal sterile saline tourniquet was dropped and there was no bleeding from the site. We entered the finger through range of motion and there was no triggering and was stable. We then closed the incision with 3-0 nylon in simple fashion the patient was then cleaned and dressed sterilely with Adaptic 4 x 4 ABDs and a David wrap. The patient was then transferred back to their hospital bed. There were awakened by department of anesthesia having tolerated the procedure very well with no complications. The patient was then transported to the postoperative care unit in stable condition.
[2021-07-06 08:17] VITALS: BP 104/56; PULSE 54; RESP 20
[2021-07-06 08:23] LABS: Glucose,Whole Blood 130 mg/dL (75-99)
== END 2021-07-06 09:00 | disposition home or self-care (01) ==
LOC: OR 05:56
PROVIDERS: ATTEND Orthopaedic Surgery
DX: M65.332 Trigger finger, left middle finger (principal); K21.9 Gastro-esophageal reflux disease without esophagitis; E11.9 Type 2 diabetes mellitus without complications; E78.5 Hyperlipidemia, unspecified; I10 Essential (primary) hypertension; I25.2 Old myocardial infarction; F32.A Depression, unspecified; M19.90 Unspecified osteoarthritis, unspecified site; Z79.4 Long term (current) use of insulin; Z86.73 Personal history of transient ischemic attack (TIA), and cerebral infarction without residual deficits; Z79.899 Other long term (current) drug therapy; Z79.82 Long term (current) use of aspirin; Z79.02 Long term (current) use of antithrombotics/antiplatelets; Z88.8 Allergy status to other drugs, medicaments and biological substances
CPT/HCPCS: 26055; 85025; J2250; J1100; J0690; J2405; J1170; J2704

== ENCOUNTER 2021-07-13 07:54 | Day surgery (SDC) | payer MEDICARE ==
[2021-07-13 08:18] VITALS: RESP 16; TEMP 98.4
[2021-07-13] MEDS ORDERED: diazePAM 5 MG TAB PO STA (08:20)
--- NOTE | 2021-07-13 12:15 | FL ---
EXAMINATION TYPE: FL myelogram cervical DATE OF EXAM: 07/13/2021 COMPARISON: CT abdomen pelvis dated 03/28/2019 HISTORY: Fluoroscopic-guided intrathecal lumbar injection for CT cervical myelogram Technique: Total fluoroscopic time 3 minutes and 45 seconds. 5 images sent to PACS. Informed consent was obtained and all the patient's questions were answered. The L4-5 level was loca lized under fluoroscopy. Standard sterile technique was utilized as well as appropriate local anesth esia 1% Lidocaine and sodium bicarbonate. Spinal needle was introduced and a small amount of contras t (Isovue-300) was injected apparently in the epidural space. The needle was then manipulated and the remainder of the contrast was injected into the thecal sac un amaris fluoroscopic guidance (about 7 mL). This was confirmed by a lateral view of the lumbar spine. Th e patient was then positioned in the headdown position for about 20 minutes however the intrathecal c ontrast did not change the position or redistribute within the thecal sac. The patient was sent to the CT scan after about 30 minutes from the injection. The CT scan confirmed the presence of intrathecal injection yet only within the lumbar and lower thoracic spine. The cervic al spine did not show any intrathecal contrast. The patient was sent back to the fluoroscopy unit wit h further manipulation attempting to move the contrast more superiorly however the contrast did not m ove up from the lumbar level. The patient tolerated the procedure well and the patient will be under observation for 4 hours after the procedure, then the patient will be discharged home if no complications. IMPRESSION: Successful lumbar myelogram with failure of passage of the injected contrast into the cer vical spine as described above.
--- NOTE | 2021-07-13 12:33 | CT ---
EXAMINATION TYPE: CT lumbar spine w con DATE OF EXAM: 07/13/2021 COMPARISON: CT dated 03/28/2019 HISTORY: STENOSIS CT DLP: 972 mGycm Automated exposure control for dose reduction was used. CONTRAST: CT scan of the lumbar is performed after intrathecal injection of contrast. The patient injected with 7 mL of Isovue M300. Technique: CT of the lumbar spine was performed. Bone and soft tissue window settings are submitted as well as coronal and sagittal reconstructions. Findings: Most of the intrathecal contrast is seen inferiorly opposite L4 down to S2 levels. Small amount of ep idural contrast is also noted. Minimal anterolisthesis of L4 over L5 with bilateral L4-5 facet osteoa rthropathy. No definite vertebral body collapse or acute displaced fracture. Tiny multilevel opposing endplate os teophytosis. Slightly degenerated L5-S1 disc. Multilevel facet osteoarthropathy most evident at L5-S1 level. Conus medullaris ending at L1-2 level. L1-L2: No significant disc disease, central spinal canal stenosis or neuroforaminal stenosis. L2-L3: Mild diffuse posterior disc bulge, causing mild central spinal canal stenosis without signific ant neuroforaminal stenosis. L3-L4: Diffuse posterior disc bulge with bilateral facet osteoarthropathy, slightly prominent ligamen mariaa flavum and mild anterolisthesis, causing moderate central spinal canal stenosis and mild bilatera l neuroforaminal stenosis. L4-L5: Mild diffuse posterior disc bulge with severe bilateral facet osteoarthropathy and grade 1 ant erolisthesis, causing no significant central spinal canal stenosis or significant neuroforaminal sten osis. L5-S1: Slightly degenerated disc without significant disc herniation or protrusion, associated with p osterior osteophytosis and severe facet osteoarthropathy, causing no significant central spinal canal stenosis or significant neuroforaminal stenosis No paraspinal lesion. Scattered arterial atherosclerotic calcifications. Previous cholecystectomy. Di lated CBD measuring up to 17 mm which could be related to postcholecystectomy status, please correlat e with bilirubin level. Atrophic pancreas. IMPRESSION: Mild degenerative changes of the lumbar spine with multilevel DDD as described above. Persistent intr athecal contrast seen mainly inferiorly within the lumbar spine with minimal opacification of the inf erior aspect of the thoracic subarachnoid space. Other findings as described above.
--- NOTE | 2021-07-13 12:46 | CT ---
EXAMINATION TYPE: CT cervical spine w con DATE OF EXAM: 07/13/2021 INDICATION: Cervicalgia CT DLP: 420 mGy.cm Automated Exposure Control for Dose Reduction was Utilized. TECHNIQUE AND CONTRAST: CT scan of the cervical spine is performed after intrathecal injection of contrast. The patient injec ita with 7 mL of Isovue M300. COMPARISON: CT dated 05/07/2020 FINDINGS: Anterior spinal fixation from C4 down to C7 with posterior fixation using 2 rods and multiple screws from C2 down to T1. No evidence of prosthesis break or displacement. Anterolisthesis of C4 over C5. P osterior decompression of the spinal canal extending from C3 down to C6 levels. Failure of passage of injected intrathecal contrast into the cervical spine as described in the fluor oscopic-guided myelogram dictation. Faint contrast is seen in the epidural/subdural space at C1-2 lev el. No definite vertebral body collapse. Multilevel facet osteoarthropathy/fusion. Moderate left C2-3, mild left C3-4, mild right C5-6 neurofo raminal stenosis. Cervical spinal canal cannot be assessed due to artifacts. Scattered arterial ather osclerotic calcification. No paraspinal lesion. IMPRESSION: Postoperative changes and mild multilevel neural foraminal stenosis as described above. Central spina l canal cannot be properly assessed due to artifacts. Failed passage of the injected intrathecal cont rast into the cervical spine as described above. Further MRI assessment can be considered for better assessment of the central spinal canal and the sp inal cord.
[2021-07-13 13:46] VITALS: BP 134/61; PULSE 58
== END 2021-07-13 13:57 | disposition home or self-care (01) ==
LOC: RADPROMAIN 07:54
PROVIDERS: ATTEND Orthopaedic Surgery
DX: M54.2 Cervicalgia (principal); M51.36 Other intervertebral disc degeneration, lumbar region; M47.816 Spondylosis without myelopathy or radiculopathy, lumbar region; M48.061 Spinal stenosis, lumbar region without neurogenic claudication
CPT/HCPCS: 62302; 72126; 72132; 62284; Q9967

== ENCOUNTER → 2023-04-14 | Day surgery (SDC) | payer MEDICARE ==
[~2023-04-14] MED LIST changes: +ATORVASTATIN 40 MG TAB PO STA; +GABAPENTIN 400 MG CAP PO STA; -LACTATED RINGERS 1,000 ML IV SCH; +LOSARTAN 50 MG TAB PO STA; -Pre Op ABX Message 1 EACH MISC MISCELLANE ONE; +diazePAM 5 MG TAB PO STA
[2023-04-14 09:17] VITALS: TEMP 98.5
[2023-04-14 10:06] VITALS: RESP 16
--- NOTE | 2023-04-14 10:16 | CT ---
EXAMINATION TYPE: CT cervical spine w con DATE OF EXAM: 04/14/2023 COMPARISON: CT cervical spine July 13, 2021 HISTORY: cervicalgia CT DLP: 596.7 mGycm. Automated Exposure Control for Dose Reduction was Utilized. TECHNIQUE: CT scan of the cervical spine is obtained following intrathecal injection of contrast. FINDINGS: There is redemonstration of anterior fusion hardware and artificial disc material at C4-C5, C5-C6, and C6-C7 levels. There are posterior interpedicular rods and screws redemonstrated transfixi ng C2-T1 levels bilaterally. The right T1 screw penetrates the anterior vertebra extending into the p osterior right lung pleura axial image 76 similar to prior. Extensive metallic hardware causes streak artifact making evaluation slightly suboptimal. There is satisfactory myelogram or contrast opacific ation of the spinal canal. No large disc herniation or significant spinal canal stenosis is present i n the cervical spine. Craniocervical junction is maintained. Vertebral body heights and disc space he ights above C4 and below C7 levels are satisfactory. Review of axial images shows satisfactory screw positioning of the bilateral posterior screws. There are bilateral laminectomy defects and spinous process resection redemonstrated from C3 through C6 lev els. There is mild/moderate calcified plaque left greater than the right carotid bulb level. Thyroid gland is felt within normal limits. Visualized lung apices are clear without pneumothorax seen. IMPRESSION: Satisfactory myelogram. Alignment is satisfactory and stable . No large disc herniation o r significant spinal canal effacement identified.
--- NOTE | 2023-04-14 11:47 | FL ---
EXAMINATION TYPE: FL myelogram cervical DATE OF EXAM: 07/13/2021 COMPARISON: CT abdomen pelvis dated 03/28/2019 HISTORY: Fluoroscopic-guided intrathecal lumbar injection for CT cervical myelogram TECHNIQUE: Total fluoroscopic time 3 minutes and 45 seconds. 5 images sent to PACS. FINDINGS: Informed consent was obtained and all the patient's questions were answered. The L4-5 level was local ized under fluoroscopy. Standard sterile technique was utilized as well as appropriate local anesthes ia 1% Lidocaine and sodium bicarbonate. Spinal needle was introduced and a small amount of contrast ( Isovue-300) was injected into the thecal sac under fluoroscopic guidance (about 7 mL). This was confirmed by fluo roscopy of the lumbar spine. Contrast column was manipulated into the cervical spine. The patient was sent to the CT scan after about 30 minutes from the injection. The patient tolerated the procedure well and the patient will be under observation for 4 hours after the procedure, then the patient will be discharged home if no complications. All elements of maximal barrier technique and sterile technique utilized. IMPRESSION: 1. Successful fluoroscopic guided cervical myelogram. CT scan pending.
[2023-04-14 17:16] VITALS: BP 177/86; PULSE 54
== END ==
LOC: RADPROMAIN 08:04
PROVIDERS: ATTEND Orthopaedic Surgery
DX: M54.12 Radiculopathy, cervical region (principal); Z98.1 Arthrodesis status; Z79.82 Long term (current) use of aspirin; Z79.02 Long term (current) use of antithrombotics/antiplatelets; Z79.899 Other long term (current) drug therapy; Z96.41 Presence of insulin pump (external) (internal); Z79.4 Long term (current) use of insulin
CPT/HCPCS: 20501; 62302; 72126

== ENCOUNTER → 2023-06-20 | Outpatient (CLI) | payer MEDICARE ==
--- NOTE | 2023-06-23 11:09 | MR ---
EXAMINATION TYPE: MR knee RT wo con DATE OF EXAM: 06/20/2023 COMPARISON: X-ray 06/13/2019, 03/12/2018 HISTORY: Right knee pain and swelling, fell 4 weeks ago TECHNIQUE: Multiplanar, multisequence imaging of the right knee is performed without IV contrast. FINDINGS: MEDIAL MENISCUS: There is linear abnormal signal posterior horn medial meniscus compatible with simpl e linear tear LATERAL MENISCUS: Anterior and posterior horns are intact without tear. Globular signal anterior horn compatible with myxoid degeneration. CRUCIATE LIGAMENTS: The anterior and posterior cruciate ligaments are intact and unremarkable. COLLATERAL LIGAMENTS: The medial collateral ligament and lateral collateral ligament complex are inta ct and unremarkable. EXTENSOR MECHANISM: Visualized quadriceps and patellar tendons are intact. EFFUSION: No significant suprapatellar joint effusion. POPLITEAL CYST: No popliteal/malave cyst. TRICOMPARTMENT SPACES: Mild narrowing of the tricompartment joint space with marginal spurring patell a. No erosive changes. CARTILAGE: Thinning of the superior medial patellar facet cartilage. There is focal areas of cartilag inous abnormal signal along the medial femoral articular surface system with grade III chondromalacia . BONE MARROW SIGNAL: Abnormal marrow signal involving the patella appears to be reactive posttraumatic arthritic change with mild thinning of the adjacent superior medial patellar facet cartilage compati ble chondromalacia grade 3. OTHER: There is extensive soft tissue edema anterior to the patella and subcutaneous tissues. IMPRESSION: 1. Extensive prepatellar soft tissue edema. No acute fracture. Areas of marrow at Geovanna adult reactiv e and secondary to adjacent chondromalacia. 2. Quadriceps and patellar tendons intact. 3. There is a linear tear posterior horn medial meniscus. 4. Chondromalacia medial patellar cartilage and medial femoral articular cartilage.
== END | disposition home or self-care (01) ==
LOC: RADMRIMAIN 18:37
PROVIDERS: ATTEND Orthopaedic Surgery
DX: S83.241A Other tear of medial meniscus, current injury, right knee, initial encounter (principal); M94.261 Chondromalacia, right knee; R60.0 Localized edema; X58.XXXA Exposure to other specified factors, initial encounter

== ENCOUNTER 2023-07-27 08:57 | Day surgery (SDC) | payer MEDICARE ==
--- NOTE | 2023-07-26 13:15 | HP ---
HISTORY AND PHYSICAL DATE OF SCHEDULED SURGERY: 07/27/2023. HISTORY OF PRESENT ILLNESS: Ines Briseno is a 77-year-old patient seen with progressive right knee pain. We discussed options. She elected to proceed with right knee arthroscopy. Consent was obtained. Medical clearance provided by Dr. Lewis. PAST MEDICAL HISTORY: Insulin-dependent diabetes, hypertension, and hyperlipidemia. SURGICAL HISTORY: Appendectomy, cholecystectomy, hysterectomy, and shoulder arthroscopy. DAILY MEDICATIONS: 1. Humalog insulin. 2. Lipitor. 3. Losartan. 4. Plavix. ALLERGIES: Fentanyl. SOCIAL HISTORY: She denies tobacco use. PHYSICAL EVALUATION OF RIGHT KNEE: Range of motion is -3/4 to 90 degrees. Tenderness along the medial joint line. Positive medial Barber's. Mild effusion. Ligaments stable. Hip rotation is somewhat limited without pain. Distal neurovascular exam is intact IMAGING STUDIES: Right knee radiographs revealed [id number] osteoarthritis. MRI right knee revealed medial meniscal tear and osteoarthritis. IMPRESSION: 1. Internal derangement of right knee with medial meniscal tear. 2. Insulin-dependent diabetes. 3. Hypertension. 4. Hyperlipidemia. PLAN: Right knee arthroscopy with partial medial meniscectomy and debridement. MMODL / IJN: [id number] /
[~2023-07-27 08:57] MED LIST changes: -ATORVASTATIN 40 MG TAB PO STA; -GABAPENTIN 400 MG CAP PO STA; +HYDROmorphone 0.5 MG/0.5 ML SYRINGE IVP PRN; -LOSARTAN 50 MG TAB PO STA; +MIDAZOLAM 2 MG/2 ML VIAL IV PRN; -diazePAM 5 MG TAB PO STA
[2023-07-27] MEDS: LACTATED RINGERS 1,000 ML IV SCH (09:34)
[2023-07-27 09:46] LABS: Glucose,Whole Blood 143 mg/dL (70-110)
[2023-07-27] MEDS: DEXAMETHASONE SOD PHOSPHATE 4 MG/ML 1 ML VIAL IV ONE (09:48)
[2023-07-27] MEDS: ONDANSETRON 4 MG/2 ML VIAL IVP ONE (09:48)
[2023-07-27 10:07] VITALS: RESP 16
[2023-07-27] MEDS ORDERED: HYDROmorphone (PF) 1 MG/ML ONE (10:24)
[2023-07-27] MEDS ORDERED: MIDAZOLAM 2 MG/2 ML VIAL ONE (10:24)
[2023-07-27] MEDS ORDERED: SUCCINYLCHOLINE CHLORIDE 200 MG/10 ML VIAL IV ONE (10:24)
[2023-07-27] MEDS ORDERED: LIDOCAINE 1% INJ 10MG/ML (20 ML MDV) ONE (10:24)
[2023-07-27] MEDS: BUPIVACAINE (PF) 0.25% 30 ML VIAL MISCELLANE ONE ×2 (10:24→11:01)
[2023-07-27] MEDS ORDERED: ePHEDrine 50 MG/ML 1 ML VIAL ONE (10:24)
[2023-07-27] MEDS ORDERED: PROPOFOL 10 MG/ML 20 ML VIAL IV ONE (10:24)
[2023-07-27] MEDS ORDERED: GLYCOPYRROLATE 0.2 MG/ML 2 ML VIAL ONE (10:24)
--- NOTE | 2023-07-27 11:14 | P.OP ---
Date of Procedure: 07/27/23 Preoperative Diagnosis: Internal derangement right knee Postoperative Diagnosis: 1. Tear medial and lateral meniscus right knee 2. Grade IV chondromalacia medial femoral condyle right knee 3. Reactive synovitis medial, lateral and suprapatellar compartments right knee Procedure(s) Performed: 1. Arthroscopic partial medial and lateral meniscectomy right knee 2. Arthroscopic microfracture medial femoral condyle right knee 3. Arthroscopic partial synovectomy medial, lateral and suprapatellar compartments right knee 4. Arthroscopic chondroplasty medial femoral condyle right knee Anesthesia: VALENCIAA, local Surgeon: Herve Bertrand Estimated Blood Loss (ml): 8 Pathology: none sent Condition: stable Disposition: PACU Indications for Procedure: 77-year-old patient seen with progressive right knee pain. After having treatment options discussed, she elected to proceed with arthroscopy. Operative Findings: See description of procedure Description of Procedure: Patient was taken to the operative suite. Patient underwent a general anesthetic by the department of anesthesia. Patient was given preoperative antibiotics. The right lower extremity was placed in a well-padded arthroscopic leg lemus. The right leg was prepped and draped in the normal sterile orthopedic fashion. A lateral parapatellar and suprapatellar incision was made. Trochars were inserted. Arthroscopy was initiated. Suprapatellar pouch re vealed diffuse thick reactive synovitis. The patellofemoral joint appeared to articular congruently. There was grade I chondromalacia of the patellofemoral joint with no tears. The scope was guided into the medial gutter. No loose bodies or plica were identified. The scope was then guided into the medial compartment. A medial parapatellar incision was made. Trocar inserted followed by probe. There was a radial tear involving the posterior horn of the medial meniscus. There was an area of grade III/IV chondromalacia weightbearing surface medial femoral condyle with osteochondral flap tears present. There was thick reactive synovitis anteriorly. I performed a partial medial meniscectomy getting down to stable meniscal tissue. I performed a chondroplasty of the medial femoral condyle getting down to stable osteochondral tissue. I performed a partial synovectomy decompressing the thick reactive synovitis anteriorly. I did note an area of exposed bone weightbearing surface medial femoral condyle. This measured just under centimeter. I introduced a microfracture awl and I performed a microfracture to the area of exposed bone penetrating the bone with resultant bleeding at the microfracture site. The residual meniscus was now probed and was found to be stable. The residual osteochondral surface was stable. There was good decompression of the synovitis. Scope and probe were then guided into the intercondylar notch. Cruciates were identified, probed and found to be stable. The scope and probe were then guided into lateral compartment. There was a radial tear involving the anterior horn lateral meniscus. There was thick reactive synovitis anteriorly as well. There was no significant chondromalacia present. I performed a partial lateral meniscectomy getting down to stable meniscal tissue. I performed a partial synovectomy decompressing the thick reactive synovitis anteriorly. The residual meniscus was probed and was found to be stable. There was good decompression of the synovitis. The scope was in guided back into the suprapatellar compartment. I introduced a motorized shaver into the suprapatellar compartment. I performed a partial synovectomy. The shaver was removed. There was good decompression of the synovitis. I took 1 more look around the entire knee, no residual debris. Instruments were now removed from the joint. The joint was infiltrated with .25% Marcaine. Steri-Strips were applied to the portal sites. Sterile dressings were applied. The patient was placed into a SHALINI hose. No tourniquet was utilized. The patient was awakened, transferred to a bed and taken to recovery stable satisfactory condition.
[2023-07-27 11:38] VITALS: TEMP 96.9
[2023-07-27 12:32] LABS: Glucose,Whole Blood 187 mg/dL (70-110)
[2023-07-27] MEDS ORDERED: hydrALAZINE HCL 20 MG/ML 1 ML VIAL ONE (12:58)
[2023-07-27] MEDS ORDERED: traMADol 50 MG TAB ONE (12:58)
[2023-07-27] MEDS: traMADol 50 MG TAB PO ONE (13:00)
[2023-07-27] MEDS: hydrALAZINE HCL 20 MG/ML 1 ML VIAL IV ONE (13:00)
[2023-07-27 13:50] VITALS: BP 126/72; PULSE 61
== END 2023-07-27 13:31 | disposition home or self-care (01) ==
LOC: OR 08:57
PROVIDERS: ATTEND Orthopaedic Surgery
DX: S83.281A Other tear of lateral meniscus, current injury, right knee, initial encounter (principal); S83.241A Other tear of medial meniscus, current injury, right knee, initial encounter; M94.261 Chondromalacia, right knee; M65.861 Other synovitis and tenosynovitis, right lower leg; I10 Essential (primary) hypertension; E78.5 Hyperlipidemia, unspecified; E11.9 Type 2 diabetes mellitus without complications; Z90.49 Acquired absence of other specified parts of digestive tract; Z90.89 Acquired absence of other organs; Z90.710 Acquired absence of both cervix and uterus; Z79.899 Other long term (current) drug therapy; Z88.5 Allergy status to narcotic agent; Z98.890 Other specified postprocedural states; X58.XXXA Exposure to other specified factors, initial encounter
CPT/HCPCS: 29880; 29879; J2250; J0330; J0360; J1100; J0690; J2405; J2001; J1170; J2704; J0665